=== PATIENT | male | born 1970 | race Caucasian/White ===

== ENCOUNTER → 2017-02-04 | Outpatient (CLI) | payer BC ==
[2017-02-04 12:33] LABS: ALT/SGPT 32 U/L (12-78); BLOOD UREA NITROGEN 11 mg/dl (7-18); BUN/CREATININE RATIO 10.8 (10-20); CALCIUM 9.2 mg/dl (8.5-10.1); CARBON DIOXIDE 27 mmol/L (21-32); CHLORIDE 105 mmol/L (98-107); CHOLESTEROL 131 mg/dl (0-200); GLUCOSE 231 mg/dl (70-99); POTASSIUM 4.4 mmol/L (3.5-5.1); SODIUM 139 mmol/L (136-145)
[2017-02-04 12:36] LABS: ALB/GLOB RATIO 0.9 (0.9-2); ALKALINE PHOSPHATASE 104 U/L (45-117); AST/SGOT 23 U/L (15-37); CHOLESTEROL/HDL RATIO 2.4; HDL CHOLESTEROL 55 mg/dl; LDL CHOLESTEROL CALCULATED 46 mg/dl; TRIGLYCERIDES 151 mg/dl (0-150); VERY LOW DENSITY LIPOPROT CALC 30 mg/dl
[2017-02-04 12:53] LABS: ESTIMATED AVERAGE GLUCOSE 192 mg/dl; HA1C FLAG Normal (Normal)
== END | disposition home or self-care (01) ==
LOC: C.LAB1850 11:07
PROVIDERS: ATTEND Family Medicine
DX: E78.00 Pure hypercholesterolemia, unspecified (principal); I10 Essential (primary) hypertension; E11.21 Type 2 diabetes mellitus with diabetic nephropathy; E11.65 Type 2 diabetes mellitus with hyperglycemia

== ENCOUNTER → 2017-05-19 | Outpatient (CLI) | payer BC ==
[2017-05-19 12:30] LABS: ALBUMIN 3.6 gm/dl (3.4-5.0); ALT/SGPT 54 U/L (12-78); AST/SGOT 45 U/L (15-37); BLOOD UREA NITROGEN 14 mg/dl (7-18); CALCIUM 8.7 mg/dl (8.5-10.1); CARBON DIOXIDE 24 mmol/L (21-32); CREATININE 1.48 mg/dl (0.60-1.40); GLUCOSE 276 mg/dl (70-99); POTASSIUM 3.9 mmol/L (3.5-5.1); SODIUM 135 mmol/L (136-145)
[2017-05-19 12:33] LABS: ALKALINE PHOSPHATASE 95 U/L (45-117); CHOLESTEROL 150 mg/dl (0-200); LDL CHOLESTEROL CALCULATED 62 mg/dl; TOTAL PROTEIN 7.9 gm/dl (6.4-8.2)
[2017-05-19 12:51] LABS: HEMOGLOBIN A1C 9.6 % (4.5-5.6)
== END | disposition home or self-care (01) ==
LOC: C.LAB1850 10:02
PROVIDERS: ATTEND Family Medicine
DX: E78.00 Pure hypercholesterolemia, unspecified (principal); I10 Essential (primary) hypertension; E11.29 Type 2 diabetes mellitus with other diabetic kidney complication

== ENCOUNTER → 2017-09-30 | Outpatient (CLI) | payer BC ==
[2017-09-30 12:01] LABS: HEMOGLOBIN A1C 8.9 % (4.5-5.6)
[2017-09-30 12:02] LABS: BLOOD UREA NITROGEN 13 mg/dl (7-18); CALCIUM 9.3 mg/dl (8.5-10.1); CARBON DIOXIDE 28 mmol/L (21-32); GLUCOSE 180 mg/dl (70-99); POTASSIUM 4.5 mmol/L (3.5-5.1); SODIUM 137 mmol/L (136-145)
== END | disposition home or self-care (01) ==
LOC: C.LAB1850 09:18
PROVIDERS: ATTEND Family Medicine
DX: E78.00 Pure hypercholesterolemia, unspecified (principal); I10 Essential (primary) hypertension; E11.21 Type 2 diabetes mellitus with diabetic nephropathy

== ENCOUNTER 2022-04-06 20:46 | Inpatient (IN) ==
[2022-04-06] MEDS ORDERED: CALCIUM CHLORIDE 10% 10 ML SYR IV ONE ×2 (20:56→20:57)
[2022-04-06] MEDS ORDERED: ATROPINE SULFATE 0.1 MG/ML 10ML SYR IV ONE (20:57)
[2022-04-06] MEDS ORDERED: RAPID SEQUENCE INDUCTION BAG ONE ×2 (21:00→21:17)
[2022-04-06] MEDS ORDERED: MIDAZOLAM HCL 1 MG/ML 2ML VIAL ONE ×2 (21:02→22:37)
[2022-04-06] MEDS ORDERED: SODIUM CHLORIDE 0.9% 1000ML 2,000 ML IV ONE (21:03)
[2022-04-06] MEDS ORDERED: SODIUM CHLORIDE 0.9% 1000ML 1,000 ML IV ONE (21:03)
[2022-04-06] MEDS ORDERED: NITROGLYCERIN/D5W 100MCG/ML 20ML SYR ONE (21:03)
[2022-04-06] MEDS ORDERED: niCARdipine HCL INJ 2.5 MG/ML 10 ML AMP ONE (21:03)
[2022-04-06] MEDS ORDERED: NovoLIN-R INSULIN PER UNIT CHARGE IV STA (21:03)
[2022-04-06] MEDS ORDERED: fentaNYL citrate 100 MCG/2 ML VIAL ONE ×2 (21:03→22:37)
[2022-04-06] MEDS ORDERED: HEPARIN (PORCINE) 1000 UNIT/ML 10 ML (CATH LAB USE ONLY) ONE ×2 (21:03→22:37)
[2022-04-06] MEDS ORDERED: SODIUM BICARB 8.4% INJ 50 MEQ/50 ML SYR IV STA (21:03)
[2022-04-06] MEDS ORDERED: ALBUTEROL 0.083% NEBU SOLN 3 ML VIAL NEB STA (21:03)
[2022-04-06] MEDS ORDERED: NovoLIN-R INSULIN PER UNIT CHARGE ONE (21:07)
--- NOTE | 2022-04-06 21:07 | Emergency Department Note ---
Impression & Plan Acute hypoxemic respiratory failure, DKA (diabetic ketoacidosis), Complete heart block, Acidosis, Acute hyperkalemia ED Provider Note NAME: SARAH RAMSEY AGE: 51 SEX: M : 1970 ARRIVES VIA: Ambulance INFORMANT: Patient, ED PROVIDER(S): Phani Zazueta MD Chief Complaint: Shortness of breath HPI: Patient presents due to concern for shortness of breath decreased responsiveness as well as bradycardia. He did receive an EMS call in route stating that the patient had had shortness of breath throughout the day when he arrived his heart rate was in the 30s he did down to the 20s became unresponsive and they started pacing the patient. BSG was unmeasurable and just read as high. No blood pressure is registering and they are unable to get a pulse ox at this time. Upon presentation to the room patient did have a slight improvement in his status. The patient is able to state his name. Patient is unable to answer any additional questions at this time. History is limited secondary to clinical acuity and condition. Patient does have a history of diabetes but EMS was not able to obtain any additional information. I did ask about whether patient had a history of dialysis or ESRD they stated they were not aware. ROS: Unable to obtain secondary to clinical condition Past medical history: See below Surgical history: See below Social history: See below Physical Exam: GENERAL: Significant distress, nonrebreather in place EYE EXAM: Normal conjunctiva. PERRL, no anisocoria. NECK: Supple, no nuchal rigidity, no adenopathy, non-tender. No signs of meningismus. No stridor. LUNGS: Decreased breath sounds throughout. Normal chest wall mechanics. HEART: NSR, no MRG. ABDOMEN: Abdomen soft, non-tender, normo-active bowel sounds, no masses, no rebound or guarding. SKIN: No rashes and no bruising. UPPER EXTREMITIES: No obvious deformity cool extremities LOWER EXTREMITIES: No obvious deformity. Cool extremities. NEURO EXAM: Awake, not following commands. Differential diagnoses: Sepsis, UTI, pneumonia, metabolic, electrolyte abnormalities, cardiac sources, intracerebral event, toxicologic, neurologic, as well as other pathologies. Course: Patient was seen and evaluated the bedside. Full history physical exam was performed. EKG interpreted by me Sinus bradycardia, rate of 38's, normal intervals normal axis no ST elevations. Imaging Studies: 1 view chest x-ray Intubated termination of ET tube 1.9 cm above the faiza. Pulmonary edema. No obvious pneumothorax Cardiac monitoring: An order was placed for continuous cardiac monitoring. The monitor shows a rate of 95 with paced rhythm. Procedures: Endotracheal Intubation performed Dr. Zazueta Indication: Hypoxemic respiratory failure. The patient was on 100% oxygen via NRB prior to the procedure. Suction, airway equipment, RSI drugs, respiratory equipment, and appropriate personnel were prepared prior to the initiation of the procedure. A time out was taken. Induction was performed with 30 mg of etomidate 100 mg of rocuronium. After observing the clinical benefit of the medications, the airway was easily visualized utilizing a video laryngoscope. A 7.5 size ETT tube was placed atraumatically to 24 cm using standard technique. The cuff inflated without signs of malfunction. There were bilateral breath sounds, positive colormetric change, no gastric sounds, a good capnography waveform, and post procedure pulse oximetry was 92%. Post intubation sedation and pain control was administered using propofol and fentanyl. There were no complications. Central Venous Catheter performed Dr. Zazueta Indication: Facilitation of medication administration and blood draws Catheter type: 3 lm central line Location: Left groin Verbal consent was obtained after the risks and benefits were explained, including but not limited to pneumothorax, hemothorax, vessel injury, bleeding, scarring, infection, pain, and bone/joint/nerve damage. At this time, the risks of the procedure are less than the risks of NOT performing the procedure. A time out was taken and the correct patient and site identified. The patient was placed in the position and the skin was prepped in the standard fashion with chlorhexidine and full sterile drapes applied. The proper landmarks were id entified with ultrasound, anesthetized with 1% lidocaine without epinephrine, and the needle was inserted through the skin in the standard fashion. The needle was carefully advanced into blood vessel lumen under ultrasound guidance. The guidewire was placed uneventfully. The vessel is dilated and the catheter was placed. It was sutured into position. There was good blood return from all ports. The patient tolerated the procedure well and there were no complications. Post procedure x-ray was normal. Procedure: Transcutaneous Pacing Performed by:Dr. Zazueta Indication: Complete Heartblock Pacemaker pads were placed over the appropriate areas of the chest. Pacemaker mode was set patient's rate was set to 90. Current was increased until capture. Patient was actively paced. MDM: Patient was seen due to concern for shortness of breath and bradycardia actively being paced. A heart alert was called upon presentation. Blood work was obtained I did ask for a stat [id number] BMP to check the patient's potassium given his history of diabetes. Patient also had additional empiric blood work ordered by Dr. Hanson to help facilitate the patient's treatment while I was evaluating the patient. Patient's klaja-[id number] BMP showed the patient had an elevated blood glucose of 569 with a potassium of 7.4 bicarb of 14 and a creatinine of 3.2. Patient was to be given bicarb calcium, IV insulin, and albuterol. Patient was evaluated by the reactor fueling supervisor Dr. Lancaster. I discussed that this may be a reversible cause of complete heart block. Jalen hankins was ordered IV fluids and additional medications at this time. The patient was ordered repeat BMP and BSG's. I did speak with on-call nephrology Dr. Villalta who agreed that the patient would benefit from bicarbonate 150 mill equivalents 1 L of half-normal saline to be given I did call pharmacy to help facilitate starting a bicarb drip. Insulin drip was also ordered as the patient is in DKA. Patient's repeat BMP showed that his potassium was improving to 6 and that his bicarb improved as well. While evaluating the patient in the room the patient did have increased respiratory distress and agonal breathing so the patient did have [id number] applied. The patient did receive etomidate and rocuronium. Patient was intubated. Tube was being secured and the patient did have bilateral breath sounds. Dr. Lancaster was concerned that the patient no longer had a pulse of chest compressions were initiated and a CODE BLUE was called. The patient was given epinephrine, bicarb, more calcium. Patient was continued for 2 rounds of CPR and the patient had ROSC. I did ask respiratory to ensure that his rate was increased as the patient is significantly acidotic. Dipper Van and fentanyl ordered for sedation and pain control. Cardiology pause the patient's pacemaker and the patient seemed to have intrinsic function. He did not think the patient needed to go to the Physician Interventional Cardiologist at this time for transvenous pacemaker. Patient did have a central line placed emergently but under sterile conditions. This was placed under ultrasound guidance. Patient had a subsequent recurrence of losing a pulse and a CODE BLUE was called again. The patient was given epinephrine bicarb and calcium. Patient was also given additional 10 of albuterol. After 1 round of compressions the patient did have ROSC. I did speak with the On-Call Cassandra Developer Britney Kimball PA-C as well as Dr. Christopher with the medicine service. Dr. Christopher did call Dr. Lancaster back in order to help facilitate transvenous pacemaker. Patient did have a repeat BMP completed. Patient also had a VBG completed. The patient's most recent [id number] BMP showed his potassium of 5.1 with an improving bicarb. The patient's creatinine was 2.8. Patient's repeat VBG which was initially less than 7 and not measurable with a PCO2 of 55 did show a pH of 7.05. I did speak with the patient's and explained that the patient's condition was critical and guarded. Patient was subsequently taken to the Physician Interventional Cardiologist for transvenous and his pacemaker. Critical Care: I have personally spent 120 minutes of critical care time in direct management of this patient. This includes bedside care, interpretation of diagnostic studies, and testing, discussion with consultants, patient, and family members, and other require inpatient management activities. This 120 minutes is in excess of all separately billable procedures. Past Med/Surg History Medical History Asthma Depression Diabetes mellitus, type 2 GERD (gastroesophageal reflux disease) Hypercholesterolemia Hypertension, benign essential, goal below 140/90 Itch Nephropathy Peripheral neuropathy Temporomandibular joint disorder mild, no bite block Surgical History History of wisdom tooth extraction Family History Father Diabetes Other No family history of adverse response to anesthesia Denies family history of Ovarian cancer Prostate cancer Myocardial infarction Breast cancer Colorectal cancer Social History Smoking Status: Unknown if ever smoked Second Hand Exposure: No; Hx Alcohol Use: Yes Alcohol type: hard liquor Hx Substance Use: No Preferred Language: Egyptian Communication Ability: Effective Process Cheese Cooker Required: No Beliefs That Will Affect Care: None marital status: Current Living Situation: Spouse and Family Current Living Situation Comment: Lives with spouse and son. 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 Feels Safe at Home: Yes Assistive Devices: Contacts and Glasses Allergies Allergies Allergy/AdvReac Type Severity Reaction Status Date / Time Penicillins Allergy Intermediate Hives Verified 04/06/22 20:56 pioglitazone [From Actos] Allergy Unknown CAN'T Verified 04/06/22 20:56 REMEMBER REACTION Home Meds Home Medications Medication Instructions Recorded Confirmed blood sugar diagnostic (OneTouch #10 ea 09/24/18 12/17/21 Ultra Blue Test Strip) insulin glargine U-300 conc 300 48 unit subcut BID 12/17/21 04/06/22 unit/mL (3 mL) subcutaneous pen (Toujeo Max U-300 SoloStar) Previous Rx's Medication Instructions Recorded diltiazem HCl 300 mg 300 mg PO QPM #90 caps 05/29/21 capsule,extended release 24 hr sildenafil 100 mg tablet See Rx Instructions PO ONCE PRN 06/07/21 sexual activity #30 tabs metformin 1,000 mg tablet 1,000 mg PO BID #180 tabs 07/11/21 metoprolol succinate 25 mg 25 mg PO BID #180 tabs 07/30/21 tablet,extended release 24 hr valsartan 320 mg tablet 320 mg PO QPM #90 tabs 08/14/21 insulin aspart U-100 100 unit/mL 40 unit (0.4 mL) subcut TID #45 mL 11/07/21 (3 mL) subcutaneous pen (Novolog Flexpen U-100 Insulin aspart) bupropion HCl 300 mg 24 hr tablet, 300 mg PO QAM #90 tabs 12/23/21 extended release omeprazole 20 mg capsule,delayed 20 mg PO BID #180 caps 01/27/22 release simvastatin 40 mg tablet 40 mg PO HS #90 tabs 01/28/22 gabapentin 300 mg capsule 300 mg PO BID #180 caps 03/07/22 Results & Data (ED) Vital Signs Vital Signs - 24 hr 04/06/22 20:48 04/06/22 20:48 04/06/22 21:00 Pulse Rate 90 90 Pulse Rate from SpO2 Sensor 90 Respiratory Rate 27 H 30 H Respiratory Effort / Characteristics Spontaneous Spontaneous Labored Respiratory Depth Deep Deep Blood Pressure 98/20 L Blood Pressure Mean 46 Pulse Oximetry 90 90 Oxygen Delivery Method Non-rebreather Non-rebreather Non-rebreather Oxygen Flow Rate 15 15 15 Fraction of Inspired Oxygen Sepsis New/Unexplained Change in Mental Status N/A Sepsis Action Taken by Nursing No Action Required End-Tidal CO2 04/06/22 21:05 04/06/22 21:10 04/06/22 21:15 Pulse Rate 89 70 86 Pulse Rate from SpO2 Sensor 90 77 89 Respiratory Rate 30 H 22 20 Respiratory Effort / Characteristics Respiratory Depth Blood Pressure 194/55 H 255/71 H Blood Pressure Mean 101 132 Pulse Oximetry 89 L 89 L 87 L Oxygen Delivery Method Non-rebreather Non-rebreather Non-rebreather Oxygen Flow Rate 15 15 15 Fraction of Inspired Oxygen Sepsis New/Unexplained Change in Mental Status Sepsis Action Taken by Nursing End-Tidal CO2 04/06/22 21:16 04/06/22 21:20 04/06/22 21:23 Pulse Rate 78 98 H 84 Pulse Rate from SpO2 Sensor 91 H 95 H Respiratory Rate 19 46 H 22 Respiratory Effort / Characteristics Respiratory Depth Blood Pressure 83/45 L 102/76 206/111 H Blood Pressure Mean 57 84 142 Pulse Oximetry 88 L 75 L 93 Oxygen Delivery Method Non-rebreather Non-rebreather Mechanical Vent Oxygen Flow Rate 15 15 Fraction of Inspired Oxygen Sepsis New/Unexplained Change in Mental Status Sepsis Action Taken by Nursing End-Tidal CO2 04/06/22 21:24 04/06/22 21:25 04/06/22 21:18 Pulse Rate 90 83 96 H Pulse Rate from SpO2 Sensor 97 H 98 H Respiratory Rate 18 21 27 H Respiratory Effort / Characteristics Respiratory Depth Blood Pressure 228/122 H 203/165 H Blood Pressure Mean 157 177 Pulse Oximetry 95 95 94 Oxygen Delivery Method Mechanical Vent Mechanical Vent Oxygen Flow Rate Fraction of Inspired Oxygen 100 Sepsis New/Unexplained Change in Mental Status Sepsis Action Taken by Nursing End-Tidal CO2 36 04/06/22 21:30 04/06/22 21:35 04/06/22 21:45 Pulse Rate 93 H 86 Pulse Rate from SpO2 Sensor 93 H 86 Respiratory Rate 26 H 26 H Respiratory Effort / Characteristics Respiratory Depth Blood Pressure 195/94 H 162/81 H 139/69 Blood Pressure Mean 127 108 92 Pulse Oximetry 96 95 Oxygen Delivery Method Mechanical Vent Oxygen Flow Rate Fraction of Inspired Oxygen Sepsis New/Unexplained Change in Mental Status Sepsis Action Taken by Nursing End-Tidal CO2 43 37 04/06/22 21:50 04/06/22 21:55 04/06/22 22:00 Pulse Rate 71 67 48 L Pulse Rate from SpO2 Sensor 71 67 46 L Respiratory Rate 26 H 26 H 26 H Respiratory Effort / Characteristics Respiratory Depth Blood Pressure 135/69 126/62 Blood Pressure Mean 91 83 Pulse Oximetry 93 94 92 Oxygen Delivery Method Mechanical Vent Mechanical Vent Mechanical Vent Oxygen Flow Rate Fraction of Inspired Oxygen Sepsis New/Unexplained Change in Mental Status Sepsis Action Taken by Nursing End-Tidal CO2 38 32 30 04/06/22 22:01 04/06/22 22:06 04/06/22 22:13 Pulse Rate 31 L 70 90 Pulse Rate from SpO2 Sensor 32 L 55 L 96 H Respiratory Rate 26 H 26 H 17 Respiratory Effort / Characteristics Respiratory Depth Blood Pressure 87/47 L 43/23 L 210/105 H Blood Pressure Mean 60 29 140 Pulse Oximetry 92 82 L 90 Oxygen Delivery Method Mechanical Vent Mechanical Vent Mechanical Vent Oxygen Flow Rate Fraction of Inspired Oxygen Sepsis New/Unexplained Change in Mental Status Sepsis Action Taken by Nursing End-Tidal CO2 31 25 49 04/06/22 22:15 04/06/22 22:20 04/06/22 22:25 Pulse Rate 90 90 90 Pulse Rate from SpO2 Sensor 98 H 91 H 87 Respiratory Rate 26 H 26 H 26 H Respiratory Effort / Characteristics Respiratory Depth Blood Pressure 199/100 H 168/80 H 148/72 H Blood Pressure Mean 133 109 97 Pulse Oximetry 87 L 88 L 87 L Oxygen Delivery Method Mechanical Vent Mechanical Vent Mechanical Vent Oxygen Flow Rate 100 Fraction of Inspired Oxygen Sepsis New/Unexplained Change in Mental Status Sepsis Action Taken by Nursing End-Tidal CO2 33 36 35 04/06/22 22:30 04/06/22 22:35 04/06/22 22:35 Pulse Rate 89 90 Pulse Rate from SpO2 Sensor 83 78 Respiratory Rate 26 H 30 H Respiratory Effort / Characteristics Respiratory Depth Blood Pressure 133/65 123/57 L 123/57 L Blood Pressure Mean 87 79 79 Pulse Oximetry 86 L 85 L Oxygen Delivery Method Mechanical Vent Mechanical Vent Oxygen Flow Rate 100 100 Fraction of Inspired Oxygen Sepsis New/Unexplained Change in Mental Status Sepsis Action Taken by Nursing End-Tidal CO2 35 30 04/06/22 22:40 Pulse Rate 107 H Pulse Rate from SpO2 Sensor 74 Respiratory Rate 30 H Respiratory Effort / Characteristics Respiratory Depth Blood Pressure 124/59 L Blood Pressure Mean 80 Pulse Oximetry 90 Oxygen Delivery Method Mechanical Vent Oxygen Flow Rate 100 Fraction of Inspired Oxygen Sepsis New/Unexplained Change in Mental Status Sepsis Action Taken by Nursing End-Tidal CO2 28 Home Medications Current Medication List: was personally reviewed by me Laboratory Data Attestation: I reviewed the patient's lab results. Result diagrams: 04/06/22 21:03 04/06/22 21:03 Lab Results 04/06/22 04/06/22 04/06/22 Range/Units 20:53 21:01 21:03 WBC 13.95 H (4.8-10.8) K/ul RBC 3.92 L (4.63-6.08) M/uL Hgb 10.7 L (14.0-18.0) g/dl POC Hgb 12.9 L (14.0-18.0) g/dl Hct 35.8 L (40.1-51.0) % POC Hct 38 L (42-52) % MCV 91.3 (80.0-100.0) fL MCH 27.3 (25.0-34.0) pg MCHC 29.9 L (32.0-36.0) g/dL RDW Std Deviation 53.1 H (36.4-46.3) fL RDW Coeff of Lissett 15.9 H (11.5-14.5) % Plt Count 327 (130-400) K/uL MPV 9.7 (9.4-12.4) fL Immature Gran % (Auto) 2.2 % Neut % (Auto) 70.8 % Lymph % (Auto) 18.1 % Banner % (Auto) 8.2 % Eos % (Auto) 0.3 % Baso % (Auto) 0.4 % Neut # (Auto) 9.87 H (1.4-6.5) K/uL Lymph # (Auto) 2.53 (1.2-3.4) K/uL Banner # (Auto) 1.15 H (0.24-0.82) K/uL Eos # (Auto) 0.04 (0-0.50) K/uL Baso # (Auto) 0.06 (0-0.2) K/uL Immature Gran # (Auto) 0.30 H (0.00-0.02) K/uL PT (9.0-12.0) Seconds INR (0.9-1.1) APTT (21.0-31.0) Seconds PTT Ratio POC pH (7.35-7.45) POC pCO2 (35-46) mmHg POC pO2 (80-95) mmHg POC HCO3 (19-24) hayde/L POC Base Excess (-9-1.8) hayde/L POC ABG O2 Sat (90-95) % VBG pH (7.36-7.41) VBG pCO2 (38-50) mmHg VBG pO2 mmHg VBG HCO3 mmol/L VBG O2 Saturation % VBG Base Excess mEq/L POC Sodium 122 L (135-144) mmol/L Sodium (136-145) mmol/L POC Potassium 7.4 H* (3.3-5.0) mmol/L Potassium (3.5-5.1) mmol/L POC Chloride 94 L (101-112) mmol/L Chloride (98-107) mmol/L Carbon Dioxide (21-32) mmol/L POC Total CO2 14 L (24-31) mmol/L Anion Gap (3-11) POC Anion Gap 23.0 (16-25) mmol/L POC BUN 18 (7-18) mg/dl BUN (6-23) mg/dl Creatinine (0.6-1.4) mg/dl POC Creatinine 3.2 H (0.6-1.3) mg/dl Est Cr Clr Drug Dosing Est GFR ( Amer) ml/min Est GFR (Non-Af Amer) ml/min BUN/Creatinine Ratio (10-20) Glucose (70-99(Fasting)) mg/dl POC Glucose 516 H* (70-99) mg/dl POC Glucose (other) 569 H* (70-99) mg/dl Calcium (8.5-10.1) mg/dl POC Ioniz Calcium Shirley 1.06 L (1.12-1.32) mmol/l Phosphorus (2.5-4.9) mg/dl Magnesium (1.7-2.4) mg/dl Total Bilirubin (0.2-1.0) mg/dl AST (13-39) U/L ALT (7-52) U/L Alkaline Phosphatase (34-104) U/L Troponin I High Sens (0-20) pg/ml Total Protein (6.0-8.3) gm/dl Albumin (3.4-5.0) gm/dl Globulin (2.5-4.0) gm/dl Albumin/Globulin Ratio (0.9-2) Lipase (11-82) U/L TSH (0.300-4.500) uIu/ml Lyme Disease IgG Ab (Negative) Lyme Disease IgM Ab (Negative) SARS-CoV-2, RNA, NAAT (NEGATIVE) 04/06/22 04/06/22 04/06/22 Range/Units 21:03 21:03 21:03 WBC (4.8-10.8) K/ul RBC (4.63-6.08) M/uL Hgb (14.0-18.0) g/dl POC Hgb (14.0-18.0) g/dl Hct (40.1-51.0) % POC Hct (42-52) % MCV (80.0-100.0) fL MCH (25.0-34.0) pg MCHC (32.0-36.0) g/dL RDW Std Deviation (36.4-46.3) fL RDW Coeff of Lissett (11.5-14.5) % Plt Count (130-400) K/uL MPV (9.4-12.4) fL Immature Gran % (Auto) % Neut % (Auto) % Lymph % (Auto) % Banner % (Auto) % Eos % (Auto) % Baso % (Auto) % Neut # (Auto) (1.4-6.5) K/uL Lymph # (Auto) (1.2-3.4) K/uL Banner # (Auto) (0.24-0.82) K/uL Eos # (Auto) (0-0.50) K/uL Baso # (Auto) (0-0.2) K/uL Immature Gran # (Auto) (0.00-0.02) K/uL PT 13.0 H (9.0-12.0) Seconds INR 1.2 H (0.9-1.1) APTT 32.8 H (21.0-31.0) Seconds PTT Ratio 1.2 POC pH (7.35-7.45) POC pCO2 (35-46) mmHg POC pO2 (80-95) mmHg POC HCO3 (19-24) hayde/L POC Base Excess (-9-1.8) hayde/L POC ABG O2 Sat (90-95) % VBG pH (7.36-7.41) VBG pCO2 (38-50) mmHg VBG pO2 mmHg VBG HCO3 mmol/L VBG O2 Saturation % VBG Base Excess mEq/L POC Sodium (135-144) mmol/L Sodium 120 L (136-145) mmol/L POC Potassium (3.3-5.0) mmol/L Potassium 7.5 H* (3.5-5.1) mmol/L POC Chloride (101-112) mmol/L Chloride 88 L (98-107) mmol/L Carbon Dioxide 11 L (21-32) mmol/L POC Total CO2 (24-31) mmol/L Anion Gap 21 H (3-11) POC Anion Gap (16-25) mmol/L POC BUN (7-18) mg/dl BUN 18 (6-23) mg/dl Creatinine 2.95 H (0.6-1.4) mg/dl POC Creatinine (0.6-1.3) mg/dl Est Cr Clr Drug Dosing Not Reportable Est GFR ( Amer) 27.0 ml/min Est GFR (Non-Af Amer) 23.3 ml/min BUN/Creatinine Ratio 6.1 L (10-20) Glucose 564 H* (70-99(Fasting)) mg/dl POC Glucose (70-99) mg/dl POC Glucose (other) (70-99) mg/dl Calcium 8.3 L (8.5-10.1) mg/dl POC Ioniz Calcium Shirley (1.12-1.32) mmol/l Phosphorus 7.1 H (2.5-4.9) mg/dl Magnesium 1.7 (1.7-2.4) mg/dl Total Bilirubin 0.8 (0.2-1.0) mg/dl AST 36 (13-39) U/L ALT 22 (7-52) U/L Alkaline Phosphatase 102 (34-104) U/L Troponin I High Sens 7.7 (0-20) pg/ml Total Protein 7.2 (6.0-8.3) gm/dl Albumin 3.7 (3.4-5.0) gm/dl Globulin 3.5 (2.5-4.0) gm/dl Albumin/Globulin Ratio 1.1 (0.9-2) Lipase 29 (11-82) U/L TSH 4.436 (0.300-4.500) uIu/ml Lyme Disease IgG Ab (Negative) Lyme Disease IgM Ab (Negative) SARS-CoV-2, RNA, NAAT (NEGATIVE) 04/06/22 04/06/22 04/06/22 Range/Units 21:03 21:03 21:07 WBC (4.8-10.8) K/ul RBC (4.63-6.08) M/uL Hgb (14.0-18.0) g/dl POC Hgb (14.0-18.0) g/dl Hct (40.1-51.0) % POC Hct (42-52) % MCV (80.0-100.0) fL MCH (25.0-34.0) pg MCHC (32.0-36.0) g/dL RDW Std Deviation (36.4-46.3) fL RDW Coeff of Lissett (11.5-14.5) % Plt Count (130-400) K/uL MPV (9.4-12.4) fL Immature Gran % (Auto) % Neut % (Auto) % Lymph % (Auto) % Banner % (Auto) % Eos % (Auto) % Baso % (Auto) % Neut # (Auto) (1.4-6.5) K/uL Lymph # (Auto) (1.2-3.4) K/uL Banner # (Auto) (0.24-0.82) K/uL Eos # (Auto) (0-0.50) K/uL Baso # (Auto) (0-0.2) K/uL Immature Gran # (Auto) (0.00-0.02) K/uL PT (9.0-12.0) Seconds INR (0.9-1.1) APTT (21.0-31.0) Seconds PTT Ratio POC pH (7.35-7.45) POC pCO2 (35-46) mmHg POC pO2 (80-95) mmHg POC HCO3 (19-24) hayde/L POC Base Excess (-9-1.8) hayde/L POC ABG O2 Sat (90-95) % VBG pH < 7.00 L (7.36-7.41) VBG pCO2 55 H (38-50) mmHg VBG pO2 63 mmHg VBG HCO3 11 mmol/L VBG O2 Saturation 82.4 % VBG Base Excess -21.5 mEq/L POC Sodium (135-144) mmol/L Sodium (136-145) mmol/L POC Potassium (3.3-5.0) mmol/L Potassium (3.5-5.1) mmol/L POC Chloride (101-112) mmol/L Chloride (98-107) mmol/L Carbon Dioxide (21-32) mmol/L POC Total CO2 (24-31) mmol/L Anion Gap (3-11) POC Anion Gap (16-25) mmol/L POC BUN (7-18) mg/dl BUN (6-23) mg/dl Creatinine (0.6-1.4) mg/dl POC Creatinine (0.6-1.3) mg/dl Est Cr Clr Drug Dosing Est GFR ( Amer) ml/min Est GFR (Non-Af Amer) ml/min BUN/Creatinine Ratio (10-20) Glucose (70-99(Fasting)) mg/dl POC Glucose (70-99) mg/dl POC Glucose (other) (70-99) mg/dl Calcium (8.5-10.1) mg/dl POC Ioniz Calcium Shirley (1.12-1.32) mmol/l Phosphorus (2.5-4.9) mg/dl Magnesium (1.7-2.4) mg/dl Total Bilirubin (0.2-1.0) mg/dl AST (13-39) U/L ALT (7-52) U/L Alkaline Phosphatase (34-104) U/L Troponin I High Sens (0-20) pg/ml Total Protein (6.0-8.3) gm/dl Albumin (3.4-5.0) gm/dl Globulin (2.5-4.0) gm/dl Albumin/Globulin Ratio (0.9-2) Lipase (11-82) U/L TSH (0.300-4.500) uIu/ml Lyme Disease IgG Ab Negative (Negative) Lyme Disease IgM Ab Negative (Negative) SARS-CoV-2, RNA, NAAT NEGATIVE (NEGATIVE) 04/06/22 04/06/22 04/06/22 Range/Units 21:33 22:14 22:20 WBC (4.8-10.8) K/ul RBC (4.63-6.08) M/uL Hgb (14.0-18.0) g/dl POC Hgb 11.2 L (14.0-18.0) g/dl Hct (40.1-51.0) % POC Hct 33 L (42-52) % MCV (80.0-100.0) fL MCH (25.0-34.0) pg MCHC (32.0-36.0) g/dL RDW Std Deviation (36.4-46.3) fL RDW Coeff of Lissett (11.5-14.5) % Plt Count (130-400) K/uL MPV (9.4-12.4) fL Immature Gran % (Auto) % Neut % (Auto) % Lymph % (Auto) % Banner % (Auto) % Eos % (Auto) % Baso % (Auto) % Neut # (Auto) (1.4-6.5) K/uL Lymph # (Auto) (1.2-3.4) K/uL Banner # (Auto) (0.24-0.82) K/uL Eos # (Auto) (0-0.50) K/uL Baso # (Auto) (0-0.2) K/uL Immature Gran # (Auto) (0.00-0.02) K/uL PT (9.0-12.0) Seconds INR (0.9-1.1) APTT (21.0-31.0) Seconds PTT Ratio POC pH (7.35-7.45) POC pCO2 (35-46) mmHg POC pO2 (80-95) mmHg POC HCO3 (19-24) hayde/L POC Base Excess (-9-1.8) hayde/L POC ABG O2 Sat (90-95) % VBG pH 7.05 L (7.36-7.41) VBG pCO2 62 H (38-50) mmHg VBG pO2 72 mmHg VBG HCO3 17 mmol/L VBG O2 Saturation 89.7 % VBG Base Excess -13.8 mEq/L POC Sodium 129 L (135-144) mmol/L Sodium (136-145) mmol/L POC Potassium 6.0 H (3.3-5.0) mmol/L Potassium (3.5-5.1) mmol/L POC Chloride 91 L (101-112) mmol/L Chloride (98-107) mmol/L Carbon Dioxide (21-32) mmol/L POC Total CO2 23 L (24-31) mmol/L Anion Gap (3-11) POC Anion Gap 21.0 (16-25) mmol/L POC BUN 19 H (7-18) mg/dl BUN (6-23) mg/dl Creatinine (0.6-1.4) mg/dl POC Creatinine 2.8 H (0.6-1.3) mg/dl Est Cr Clr Drug Dosing Est GFR ( Amer) ml/min Est GFR (Non-Af Amer) ml/min BUN/Creatinine Ratio (10-20) Glucose (70-99(Fasting)) mg/dl POC Glucose 434 H* (70-99) mg/dl POC Glucose (other) 494 H* (70-99) mg/dl Calcium (8.5-10.1) mg/dl POC Ioniz Calcium Shirley 1.71 H* (1.12-1.32) mmol/l Phosphorus (2.5-4.9) mg/dl Magnesium (1.7-2.4) mg/dl Total Bilirubin (0.2-1.0) mg/dl AST (13-39) U/L ALT (7-52) U/L Alkaline Phosphatase (34-104) U/L Troponin I High Sens (0-20) pg/ml Total Protein (6.0-8.3) gm/dl Albumin (3.4-5.0) gm/dl Globulin (2.5-4.0) gm/dl Albumin/Globulin Ratio (0.9-2) Lipase (11-82) U/L TSH (0.300-4.500) uIu/ml Lyme Disease IgG Ab (Negative) Lyme Disease IgM Ab (Negative) SARS-CoV-2, RNA, NAAT (NEGATIVE) 04/06/22 04/06/22 Range/Units 22:20 22:33 WBC (4.8-10.8) K/ul RBC (4.63-6.08) M/uL Hgb (14.0-18.0) g/dl POC Hgb 10.9 L 10.9 L (14.0-18.0) g/dl Hct (40.1-51.0) % POC Hct 32 L 32 L (42-52) % MCV (80.0-100.0) fL MCH (25.0-34.0) pg MCHC (32.0-36.0) g/dL RDW Std Deviation (36.4-46.3) fL RDW Coeff of Lissett (11.5-14.5) % Plt Count (130-400) K/uL MPV (9.4-12.4) fL Immature Gran % (Auto) % Neut % (Auto) % Lymph % (Auto) % Banner % (Auto) % Eos % (Auto) % Baso % (Auto) % Neut # (Auto) (1.4-6.5) K/uL Lymph # (Auto) (1.2-3.4) K/uL Banner # (Auto) (0.24-0.82) K/uL Eos # (Auto) (0-0.50) K/uL Baso # (Auto) (0-0.2) K/uL Immature Gran # (Auto) (0.00-0.02) K/uL PT (9.0-12.0) Seconds INR (0.9-1.1) APTT (21.0-31.0) Seconds PTT Ratio POC pH 7.14 L* (7.35-7.45) POC pCO2 60 H (35-46) mmHg POC pO2 69 L (80-95) mmHg POC HCO3 21 (19-24) hayde/L POC Base Excess -8.0 (-9-1.8) hayde/L POC ABG O2 Sat 87.0 L (90-95) % VBG pH (7.36-7.41) VBG pCO2 (38-50) mmHg VBG pO2 mmHg VBG HCO3 mmol/L VBG O2 Saturation % VBG Base Excess mEq/L POC Sodium 131 L 133 L (135-144) mmol/L Sodium (136-145) mmol/L POC Potassium 5.1 H 4.7 (3.3-5.0) mmol/L Potassium (3.5-5.1) mmol/L POC Chloride 93 L (101-112) mmol/L Chloride (98-107) mmol/L Carbon Dioxide (21-32) mmol/L POC Total CO2 21 L 22 L (24-31) mmol/L Anion Gap (3-11) POC Anion Gap 24.0 (16-25) mmol/L POC BUN 18 (7-18) mg/dl BUN (6-23) mg/dl Creatinine (0.6-1.4) mg/dl POC Creatinine 2.8 H (0.6-1.3) mg/dl Est Cr Clr Drug Dosing Est GFR ( Amer) ml/min Est GFR (Non-Af Amer) ml/min BUN/Creatinine Ratio (10-20) Glucose (70-99(Fasting)) mg/dl POC Glucose (70-99) mg/dl POC Glucose (other) 450 H* (70-99) mg/dl Calcium (8.5-10.1) mg/dl POC Ioniz Calcium Shirley 1.66 H* (1.12-1.32) mmol/l Phosphorus (2.5-4.9) mg/dl Magnesium (1.7-2.4) mg/dl Total Bilirubin (0.2-1.0) mg/dl AST (13-39) U/L ALT (7-52) U/L Alkaline Phosphatase (34-104) U/L Troponin I High Sens (0-20) pg/ml Total Protein (6.0-8.3) gm/dl Albumin (3.4-5.0) gm/dl Globulin (2.5-4.0) gm/dl Albumin/Globulin Ratio (0.9-2) Lipase (11-82) U/L TSH (0.300-4.500) uIu/ml Lyme Disease IgG Ab (Negative) Lyme Disease IgM Ab (Negative) SARS-CoV-2, RNA, NAAT (NEGATIVE) Administered Medications Sodium Chloride (Nss 1000ml) 2,000 mls @ 999 mls/hr IV .Q2H1M ONE Stop: 04/06/22 23:03 Last Admin: 04/06/22 21:13 Dose: 999 mls/hr Documented By: ELIZABETH Sodium Bicarbonate 150 meq/ (Sterile Water) 1,150 mls @ 150 mls/hr IV .Q7H40M JOEL Stop: 05/06/22 21:14 Last Infusion: 04/06/22 22:35 Dose: 200 mls/hr Documented By: Infusion: 04/06/22 22:06 Dose: 150 mls/hr Documented By: Infusion: 04/06/22 22:06 Dose: 0 mls/hr Documented By: Admin: 04/06/22 21:34 Dose: 150 mls/hr Documented By: ELIZABETH Insulin Human Regular 250 (units/ Sodium Chloride) 250 mls @ 10 mls/hr IV .Q24H [facility]; Protocol Stop: 05/06/22 21:29 Last Admin: 04/06/22 21:54 Dose: 10 units/hr, 10 mls/hr Documented By: ELIZABETH Co-signed By: MARINA Propofol (Diprivan) 1,000 mg in 100 mls @ 13.62 mls/hr IV .Q7H21M [facility]; Protocol Stop: 04/09/22 21:59 Last Titration: 04/06/22 22:07 Dose: 0 mcg/kg/min, 0 mls/hr Documented By: Admin: 04/06/22 21:56 Dose: 5 mcg/kg/min, 3.4 mls/hr Documented By: ELIZABETH Co-signed By: NICHELLE Discontinued Medications Albuterol (Albuterol 0.083% Nebu Soln 3 Ml Vial) 10 mg NEB NOW STA; Protocol Stop: 04/06/22 21:04 Last Admin: 04/06/22 21:20 Dose: 10 mg Documented By: ELIZABETH Atropine Sulfate (Atropine Sulfate 0.1 Mg/Ml 10ml Syr) Confirm Administered Dose 1 mg IV .STK-MED ONE Stop: 04/06/22 20:58 Last Admin: 04/06/22 20:56 Dose: 1 mg Documented By: ELIZABETH Calcium Chloride (Calcium Chloride 10% 10 Ml Syr) Confirm Administered Dose 1,000 mg IV .STK-MED ONE Stop: 04/06/22 20:57 Last Admin: 04/06/22 20:57 Dose: 1,000 mg Documented By: ELIZABETH Calcium Chloride (Calcium Chloride 10% 10 Ml Syr) Confirm Administered Dose 1,000 mg IV .STK-MED ONE Stop: 04/06/22 20:58 Last Admin: 04/06/22 20:57 Dose: 1,000 mg Documented By: ELIZABETH Fentanyl Citrate (Fentanyl Citrate 100 Mcg/2 Ml Vial) Confirm Administered Dose 100 mcg .ROUTE .STK-MED ONE Stop: 04/06/22 21:04 Last Admin: 04/06/22 21:39 Dose: Not Given Documented By: ELIZABETH Heparin Sodium (Porcine) (Heparin (Porcine) 1000 Unit/Ml 10 Ml (Physician Interventional Cardiologist Use Only)) Confirm Administered Dose 10,000 units .ROUTE .STK-MED ONE Stop: 04/06/22 21:04 Last Admin: 04/06/22 21:39 Dose: Not Given Documented By: ELIZABETH Heparin Sodium/Sodium Chloride (Heparin In Nss Infusion 1000 Unit/500 Ml (2 U/Ml) Bag) Confirm Administered Dose 3,000 units IV .STK-MED ONE Stop: 04/06/22 21:04 Last Admin: 04/06/22 21:39 Dose: Not Given Documented By: ELIZABETH Sodium Chloride (Nss 1000ml) 1,000 mls @ 999 mls/hr IV .Q1H1M ONE Stop: 04/06/22 22:03 Last Admin: 04/06/22 21:40 Dose: Not Given Documented By: ELIZABETH Cefepime HCl (Maxipime) 2,000 mg in 20 mls @ 5 mls/min IV NOW STA; Protocol Stop: 04/06/22 21:49 Last Admin: 04/06/22 21:55 Dose: 5 mls/min Documented By: ELIZABETH Insulin Human Regular (Novolin-R Insulin Per Unit Charge) 10 units IV NOW STA Stop: 04/06/22 21:04 Last Admin: 04/06/22 21:00 Dose: 10 units Documented By: ELIZABETH Co-signed By: Insulin Human Regular (Novolin-R Insulin Per Unit Charge) Confirm Administered Dose 10 units .ROUTE .STK-MED ONE Stop: 04/06/22 21:08 Last Admin: 04/06/22 21:23 Dose: Not Given Documented By: ELIZABETH Insulin Human Regular (Novolin-R Bolus From Bag) 10 units IV ONE ONE Stop: 04/06/22 21:31 Last Admin: 04/06/22 21:53 Dose: Not Given Documented By: ELIZABETH Midazolam HCl (Midazolam Hcl 1 Mg/Ml 2ml Vial) Confirm Administered Dose 2 mg .ROUTE .STK-MED ONE Stop: 04/06/22 21:03 Last Admin: 04/06/22 21:39 Dose: Not Given Documented By: ELIZABETH Miscellaneous (Rapid Sequence Induction Bag) Confirm Administered Dose 1 each .ROUTE .STK-MED ONE Stop: 04/06/22 21:01 Last Admin: 04/06/22 21:37 Dose: Not Given Documented By: ELIZABETH Misemeryaneous (Rapid Sequence Induction Bag) Confirm Administered Dose 1 each .ROUTE .STK-MED ONE Stop: 04/06/22 21:18 Last Admin: 04/06/22 21:17 Dose: 1 each Documented By: ELIZABETH Nicardipine HCl (Nicardipine Hcl Inj 2.5 Mg/Ml 10 Ml Amp) Confirm Administered Dose 25 mg .ROUTE .STK-MED ONE Stop: 04/06/22 21:04 Last Admin: 04/06/22 21:40 Dose: Not Given Documented By: ELIZABETH Nitroglycerin/Dextrose (Nitroglycerin/D5w 100mcg/Ml 20ml Syr) Confirm Administered Dose 2,000 mcg .ROUTE .STK-MED ONE Stop: 04/06/22 21:04 Last Admin: 04/06/22 21:40 Dose: Not Given Documented By: ELIZABETH Sodium Bicarbonate (Sodium Bicarb 8.4% Inj 50 Meq/50 Ml Syr) 50 meq IV NOW STA Stop: 04/06/22 21:04 Last Admin: 04/06/22 21:40 Dose: Not Given Documented By: ELIZABETH Discharge Plan Visit Data Chief Complaint: Heart Alert ED Provider: Phani Zazueta Discharge Problem: Acute hypoxemic respiratory failure, DKA (diabetic ketoacidosis), Complete heart block, Acidosis, Acute hyperkalemia Patient Disposition: Admitted As Inpatient Discharge Instructions Interventions: ED Discharge Assessment Last Done: 04/06/22 22:46
[2022-04-06 21:12] LABS: Base Excess VBG -21.5 mEq/L; HCO3 VBG 11 mmol/L; Oxygen Saturation VBG 82.4 %; PCO2 VBG 55 mmHg (38-50); PO2 VBG 63 mmHg; pH VBG < 7.00 (7.36-7.41)
[2022-04-06 21:14] LABS: iSTAT Creatinine 3.2 mg/dl (0.6-1.3); iSTAT Hemoglobin 12.9 g/dl (14.0-18.0); iSTAT Ionized Calcium 1.06 mmol/l (1.12-1.32); iSTAT Potassium 7.4 mmol/L (3.3-5.0)
[2022-04-06 21:14] LABS: Basophils # (auto) 0.06 K/uL (0-0.2); Basophils % (auto) 0.4 %; Eosinophils # (auto) 0.04 K/uL (0-0.50); Eosinophils % (auto) 0.3 %; Hematocrit (blood only) 35.8 % (40.1-51.0); Hemoglobin 10.7 g/dl (14.0-18.0); Immature Granulocytes % (auto) 2.2 %; Lymphocytes # (auto) 2.53 K/uL (1.2-3.4); Lymphocytes % (auto) 18.1 %; Mean Corpuscular Hemoglobin 27.3 pg (25.0-34.0); Mean Corpuscular Hgb Conc 29.9 g/dL (32.0-36.0); Mean Corpuscular Volume 91.3 fL (80.0-100.0); Mean Platelet Volume 9.7 fL (9.4-12.4); Monocytes # (auto) 1.15 K/uL (0.24-0.82); Monocytes % (auto) 8.2 %; Neutrophils # (auto) 9.87 K/uL (1.4-6.5); Neutrophils % (auto) 70.8 %; Platelet Count 327 K/uL (130-400); RDW Coefficient of Variation 15.9 % (11.5-14.5); RDW Standard Deviation 53.1 fL (36.4-46.3); Red Blood Count 3.92 M/uL (4.63-6.08); White Blood Count 13.95 K/ul (4.8-10.8)
[2022-04-06] MEDS ORDERED: SODIUM BICARBONATE 8.4% 150 MEQ in WATER, STERILE 1,000 ML IV SCH (21:15)
[2022-04-06 21:24] LABS: INR 1.2 (0.9-1.1); Partial Thromboplastin Ratio 1.2; Partial Thromboplastin Time 32.8 Seconds (21.0-31.0)
[2022-04-06] MEDS ORDERED: NovoLIN-R BOLUS FROM BAG IV ONE (21:30)
[2022-04-06 21:38] LABS: Troponin I High Sensitivity 7.7 pg/ml (0-20)
[2022-04-06 21:45] LABS: iSTAT Creatinine 2.8 mg/dl (0.6-1.3); iSTAT Hemoglobin 11.2 g/dl (14.0-18.0); iSTAT Ionized Calcium 1.71 mmol/l (1.12-1.32)
[2022-04-06] MEDS ORDERED: CEFEPIME 2,000 MG/20 ML VIAL IV STA (21:46)
[2022-04-06] MEDS ORDERED: PROPOFOL BOLUS FROM BAG IV PRN (21:47)
[2022-04-06] MEDS ORDERED: fentaNYL BOLUS from BAG IV PRN (21:47)
[2022-04-06] MEDS ORDERED: STAT IV Infusion **Titration per Protocol STA (21:47)
[2022-04-06 21:53] LABS: Alanine Aminotransferase 22 U/L (7-52); Albumin Globulin Ratio 1.1 (0.9-2); Albumin Level 3.7 gm/dl (3.4-5.0); Alkaline Phosphatase 102 U/L (34-104); Anion Gap 21 (3-11); Aspartate Aminotransferase 36 U/L (13-39); BUN Creatinine Ratio 6.1 (10-20); Bilirubin,Total 0.8 mg/dl (0.2-1.0); Blood Urea Nitrogen 18 mg/dl (6-23); Calcium 8.3 mg/dl (8.5-10.1); Carbon Dioxide 11 mmol/L (21-32); Chloride 88 mmol/L (98-107); Est GFR (Non-African American) 23.3 ml/min; Globulin 3.5 gm/dl (2.5-4.0); Glucose 564 mg/dl (70-99(Fasting)); Lipase 29 U/L (11-82); Magnesium 1.7 mg/dl (1.7-2.4); Phosphorus 7.1 mg/dl (2.5-4.9); Potassium 7.5 mmol/L (3.5-5.1); Sodium 120 mmol/L (136-145); Total Protein 7.2 gm/dl (6.0-8.3)
[2022-04-06] MEDS: INSULIN REGULAR 250 UNITS in SODIUM CHLORIDE 0.9% 247.5 ML IV SCH (21:54)
[2022-04-06] MEDS: propofoL 1,000 MG/100 ML VIAL IV SCH (21:56)
[2022-04-06 21:59] LABS: Lyme Ab IgG w/WB Rflx Negative (Negative); Lyme Ab IgM w/WB Rflx Negative (Negative)
--- NOTE | 2022-04-06 22:05 | History & Physical Report ---
Date of Service April 06, 2022 Assessment & Plan (1) Complete heart block: Plan: Bradycardic to the 20s in EMS and became unresponsive. Thought to be due to hyperkalemia. Coded 3 times in ER with ROSC achieved in ~3-4 minutes each time. Per bus attendant, had intrinsic rhythm while in lab aide for transvenous pacer. - Presently with transvenous pacer (2) Acute hyperkalemia: Plan: K+ on admission was 7.5. Received calcium chloride, albuterol, bicarb in ER. Unclear cause. - Presently on insulin gtt, bicarb gtt per nephrology. - Last iStat K+ was 4.7 with full set of labs pending (3) DKA (diabetic ketoacidosis): Plan: Initial blood sugar of 569 with AG of 21. - Presently on insulin gtt (4) Acute hypoxemic respiratory failure: Plan: In setting of PEA due to complete heart block. - Intubated; vent settings per ICU provider (5) Benign essential hypertension: Plan: - Hold all oral meds at this time. (6) Uncontrolled diabetes mellitus with diabetic nephropathy: Plan: Last A1c was 8.0% in 11/2021. With severe neuropathy per . - As above for DKA (7) GERD (gastroesophageal reflux disease): Plan: - Recommend famotidine per ICU provider (8) DVT prophylaxis: Plan: SCDs - Add heparin per ICU FULL CODE per in ER History of Present Illness Primary Care Provider: Reji Sanchez MD 51yo M w/ hx of HTN and DM who presents with complete heart block, hyperkalemia. The patient is intubated and sedated and cannot provide history. Per the patient's , the patient had been feeling general malaise and shortness of breath for several days. He has been gaining weight over the last few weeks to the point where his had to purchase new pants for him. He has actually been feeling short of breath over the last few weeks, but mainly with exertion. His has not noticed any significant lower extremity swelling. Today, he was feeling much weaker to the point to that he required assistance just to lift his legs off the ground. This is what precipitated the family calling 911. EMS was called and the patient was found to be bradycardic into the 30s. At some point during the ambulance trip, his heart rate went down into the 20s and he became unresponsive. Per the ER provider, paramedics then began transcutaneous pacing with some improvement in his responsiveness. In the ER, the patient lost pulses, and CPR was begun. Per the ER provider, he required 2 rounds of CPR before achieving ROSC. Labs in the ER showed new acute renal failure and hyperkalemia to 7.4. Typical treatments were begun, including IV insulin, albuterol, sodium bicarbonate, and calcium chloride. Repeat labs in the ER indicate an improvement in his hyperkalemia and renal failure. At 10:10 PM, he again became bradycardic and hypotensive. He lost pulse. This was approximately 10 minutes after admission was requested. MICHAELA LEE was called, and I immediately went to the room. The ER provider was already in the room running the code. ROSC was achieved and approximately 3 minutes after the patient was given epinephrine, calcium, and bicarbonate. I discussed his case with the wind up operator who agreed to insert a transvenous pacer. I did discuss his situation with his who is at bedside. He will go to the Lightning Protection Installer, then be transitioned to the ICU. Allergies Allergy/AdvReac Type Severity Reaction Status Date / Time Penicillins Allergy Intermediate Hives Verified 04/06/22 20:56 pioglitazone [From Actos] Allergy Unknown CAN'T Verified 04/06/22 20:56 REMEMBER REACTION Home Medications Medication Instructions Recorded Confirmed Type blood sugar diagnostic (MarcosTouch #10 ea 09/24/18 12/17/21 History Ultra Blue Test Strip) diltiazem HCl 300 mg 300 mg PO QPM #90 caps 05/29/21 04/06/22 Rx capsule,extended release 24 hr sildenafil 100 mg tablet See Rx Instructions PO ONCE PRN 06/07/21 04/06/22 Rx sexual activity #30 tabs metformin 1,000 mg tablet 1,000 mg PO BID #180 tabs 07/11/21 04/06/22 Rx metoprolol succinate 25 mg 25 mg PO BID #180 tabs 07/30/21 04/06/22 Rx tablet,extended release 24 hr valsartan 320 mg tablet 320 mg PO QPM #90 tabs 08/14/21 04/06/22 Rx insulin aspart U-100 100 unit/mL 40 unit (0.4 mL) subcut TID #45 mL 11/07/21 04/06/22 Rx (3 mL) subcutaneous pen (Novolog Flexpen U-100 Insulin aspart) insulin glargine U-300 conc 300 48 unit subcut BID 12/17/21 04/06/22 History unit/mL (3 mL) subcutaneous pen (Toujeo Max U-300 SoloStar) bupropion HCl 300 mg 24 hr tablet, 300 mg PO QAM #90 tabs 12/23/21 04/06/22 Rx extended release omeprazole 20 mg capsule,delayed 20 mg PO BID #180 caps 01/27/22 04/06/22 Rx release simvastatin 40 mg tablet 40 mg PO HS #90 tabs 01/28/22 04/06/22 Rx gabapentin 300 mg capsule 300 mg PO BID #180 caps 03/07/22 04/06/22 Rx Past Med/Surg History Medical History Asthma Depression Diabetes mellitus, type 2 GERD (gastroesophageal reflux disease) Hypercholesterolemia Hypertension, benign essential, goal below 140/90 Itch Nephropathy Peripheral neuropathy Temporomandibular joint disorder mild, no bite block Surgical History History of wisdom tooth extraction Family History Father Diabetes Other No family history of adverse response to anesthesia Denies family history of Ovarian cancer Prostate cancer Myocardial infarction Breast cancer Colorectal cancer Social History Smoking Status: Never smoker Second Hand Exposure: No; Hx Alcohol Use: Yes Alcohol type: hard liquor Hx Substance Use: No Preferred Language: Icelandic Communication Ability: Effective Service Clerk Required: No Beliefs That Will Affect Care: None marital status: Current Living Situation: Spouse Current Living Situation Comment: Lives with spouse and son. 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 Feels Safe at Home: Yes Assistive Devices: None Review of Systems Review of Systems: Unobtainable due to endotracheal tube and Unobtainable due to reduced consciousness Physical Exam Constitutional: + acute distress and + obese Eyes: no conjunctival abnormality and + EOM not intact ENMT: external ear and nose normal, oropharynx normal Intubated Neck: trachea midline, no thyromegaly normal visual inspection Respiratory: + labored breathing and + tachypneic; no respiratory distress and no cough Auscultation: lungs clear to auscultation bilaterally Cardiovascular: Rate/Rhythm: regular rate and regular rhythm Heart Sounds: normal S1 and normal S2 Paced Gastrointestinal (Abdomen): Inspection/Auscultation: abdomen normal to inspection; abdomen not distended Musculoskeletal: no cyanosis or clubbing, extremities motor strength 5/5 Skin: no rashes, warm and dry Neurologic: moves all extremities and awake Psychiatric: Orientation: alert, oriented to person and cooperative Results & Data Results & Data ([facility]) Vital Signs (Past 12 Hours) Vital Signs Pulse Resp BP Pulse Ox O2 Del Method O2 Flow Rate 04/06/22 21:55 67 26 H 126/62 94 Mechanical Vent 04/06/22 21:50 71 26 H 135/69 93 Mechanical Vent 04/06/22 21:45 139/69 04/06/22 21:35 86 26 H 162/81 H 95 Mechanical Vent 04/06/22 21:30 93 H 26 H 195/94 H 96 04/06/22 21:25 83 21 203/165 H 95 Mechanical Vent 04/06/22 21:24 90 18 228/122 H 95 Mechanical Vent 04/06/22 21:23 84 22 206/111 H 93 Mechanical Vent 04/06/22 21:20 98 H 46 H 102/76 75 L Non-rebreather 15 04/06/22 21:16 78 19 83/45 L 88 L Non-rebreather 15 04/06/22 21:15 86 20 87 L Non-rebreather 15 04/06/22 21:10 70 22 255/71 H 89 L Non-rebreather 15 04/06/22 21:05 89 30 H 194/55 H 89 L Non-rebreather 15 04/06/22 21:00 90 30 H 90 Non-rebreather 15 04/06/22 20:48 90 27 H 98/20 L 90 Non-rebreather 15 04/06/22 20:48 Non-rebreather 15 Code Status & VTE Plan VTE Prophylaxis Plan VTE Prophylaxis will be ordered: Yes PG Care Time/CCT Total # of Minutes Spent Total Time Spent with Patient: Total time spent is greater than 50% in coordination of care (as documented) at patient's floor/unit and/or counseling patient: Coding Level of Care Code 73870 Initial Inpt Care Lvl 3 Diagnoses Complete heart block I44.2 Acute hyperkalemia E87.5 DKA (diabetic ketoacidosis) E11.10 Diabetes mellitus type: type 1 Acute hypoxemic respiratory failure J96.01 Benign essential hypertension I10 Uncontrolled diabetes mellitus with diabetic nephropathy E11.21; E11.65 GERD (gastroesophageal reflux disease) K21.9 DVT prophylaxis Z29.9 (1) DKA (diabetic ketoacidosis) Diabetes mellitus type: type 1
[2022-04-06 22:31] LABS: Base Excess VBG -13.8 mEq/L; HCO3 VBG 17 mmol/L; Oxygen Saturation VBG 89.7 %; PCO2 VBG 62 mmHg (38-50); PO2 VBG 72 mmHg; pH VBG 7.05 (7.36-7.41)
[2022-04-06 22:35] LABS: iSTAT Creatinine 2.8 mg/dl (0.6-1.3); iSTAT Hemoglobin 10.9 g/dl (14.0-18.0); iSTAT Ionized Calcium 1.66 mmol/l (1.12-1.32); iSTAT Potassium 5.1 mmol/L (3.3-5.0)
[2022-04-06 22:49] LABS: iSTAT Arterial Blood Gas HCO3 21 meg/L (19-24); iSTAT Arterial Blood Gas pCO2 60 mmHg (35-46); iSTAT Arterial Blood Gas pH 7.14 (7.35-7.45); iSTAT Arterial Blood Gas pO2 69 mmHg (80-95); iSTAT Carbon Dioxide 22 mmol/L (24-31); iSTAT Hematocrit 32 % (42-52); iSTAT Hemoglobin 10.9 g/dl (14.0-18.0); iSTAT Potassium 4.7 mmol/L (3.3-5.0); iSTAT Sodium 133 mmol/L (135-144)
[2022-04-06 23:18] LABS: Adenovirus PCR Not Detected (NotDetected); Bordetella parapertussis PCR Not Detected (NotDetected); Bordetella pertussis PCR Not Detected (NotDetected); Chlamydia pneumoniae PCR Not Detected (NotDetected); Coronavirus 229E PCR Not Detected (NotDetected); Coronavirus CoV-2 (COVID19)PCR Not Detected (NotDetected); Coronavirus HKU1 PCR Not Detected (NotDetected); Coronavirus NL63 PCR Not Detected (NotDetected); Coronavirus OC43PCR Not Detected (NotDetected); Human Metapneumovirus PCR Not Detected (NotDetected); Influenza A PCR Not Detected (NotDetected); Influenza B PCR Not Detected (NotDetected); Mycoplasma pneumoniae PCR Not Detected (NotDetected); Parainfluenza Virus 1 PCR Not Detected (NotDetected); Parainfluenza Virus 2 PCR Not Detected (NotDetected); Parainfluenza Virus 3 PCR Not Detected (NotDetected); Parainfluenza Virus 4 PCR Not Detected (NotDetected); Respiratory Syncytial VirusPCR Not Detected (NotDetected); Rhinovirus/Enterovirus PCR Not Detected (NotDetected)
--- NOTE | 2022-04-06 23:21 | Cardiac Catheterization ---
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 ) Cardiac Cath Procedure Full Procedure Date April 06, 2022 Pre-Procedure Diagnosis Pre-Procedure Diagnosis: Arrhythmia (Severe symptomatic bradycardia) AUC Score AUC Score: 7 Post-Procedure Diagnosis Post-Procedure Diagnosis: Cardiothoracic Finding (Same) Procedure(s) Performed Procedure(s) Performed: Temporary Pacemaker Assistant Unit Forester David Lancaster MD Estimated Blood Loss Estimated Blood Loss: None Summary of Findings Due to 2 epsioes of severe bradycardia, a temporary pacemaker was inserted per Hospitalist- ICU physician request, although the patient has intrinsic rhtyhm and seems t o be a metabolic problem Hemodynamics Rest Ao:: 100/80 Final Ao: NA LV: NA Recommendations Recommendations: Management Recommendatons (Wean off temporary pacing in am and see if its actually needed once metabolic problem is resolved. ) Specimens Specimens: None Radiation Exposure (mGy) Minimal Contrast (mls) NA Procedural Complication(s) None Disposition ICU I attest to the content of the Intraoperative Record and any orders documented therein. Any exceptions are noted below. PG Care Time/CCT Total # of Minutes Spent Total Time Spent: 10 Total Time Spent with Patient: Total time spent is greater than 50% in coordination of care (as documented) at patient's floor/unit and/or counseling patient:
--- NOTE | 2022-04-06 23:22 | Post Anesthesia Assessment ---
Date of Service April 06, 2022 Post Sedation Assessment Vital Signs Pulse Resp BP Pulse Ox O2 Del Method O2 Flow Rate FiO2 04/06/22 22:40 107 H 30 H 124/59 L 90 Mechanical Vent 100 04/06/22 22:35 123/57 L 04/06/22 22:35 90 30 H 123/57 L 85 L Mechanical Vent 100 04/06/22 22:30 89 26 H 133/65 86 L Mechanical Vent 100 04/06/22 22:25 90 26 H 148/72 H 87 L Mechanical Vent 100 04/06/22 22:20 90 26 H 168/80 H 88 L Mechanical Vent 04/06/22 22:15 90 26 H 199/100 H 87 L Mechanical Vent 04/06/22 22:13 90 17 210/105 H 90 Mechanical Vent 04/06/22 22:06 70 26 H 43/23 L 82 L Mechanical Vent 04/06/22 22:01 31 L 26 H 87/47 L 92 Mechanical Vent 04/06/22 22:00 48 L 26 H 92 Mechanical Vent 04/06/22 21:55 67 26 H 126/62 94 Mechanical Vent 04/06/22 21:50 71 26 H 135/69 93 Mechanical Vent 04/06/22 21:45 139/69 04/06/22 21:35 86 26 H 162/81 H 95 Mechanical Vent 04/06/22 21:30 93 H 26 H 195/94 H 96 04/06/22 21:18 96 H 27 H 94 100 04/06/22 21:25 83 21 203/165 H 95 Mechanical Vent 04/06/22 21:24 90 18 228/122 H 95 Mechanical Vent 04/06/22 21:23 84 22 206/111 H 93 Mechanical Vent 04/06/22 21:20 98 H 46 H 102/76 75 L Non-rebreather 15 04/06/22 21:16 78 19 83/45 L 88 L Non-rebreather 15 04/06/22 21:15 86 20 87 L Non-rebreather 15 04/06/22 21:10 70 22 255/71 H 89 L Non-rebreather 15 04/06/22 21:05 89 30 H 194/55 H 89 L Non-rebreather 15 04/06/22 21:00 90 30 H 90 Non-rebreather 15 04/06/22 20:48 90 27 H 98/20 L 90 Non-rebreather 15 04/06/22 20:48 Non-rebreather 15 Recovery Score Activity: Moves 0 extremities Discharge Sedation Level of Care: Higher Level of Care Post Sedation Plan On clinical assessment, the patient appears to have tolerated the sedation without complications. Patient is recovering as anticipated. Patient will continue to be monitored by nursing and may be discharged when sedation discharge criteria are met per below protocol. Upon Completions of procedure up to 15 minutes continue every 5 minute vital signs and the P.A.R. score; then discharge to a Phase I or Fast Track to Phase II per the following guidelines: * Discharge Patient to appropriate Phase II area if PAR is 8 or greater or return to pre- procedure baseline. The post - procedure orders will be as directed. * If PAR score is less than 8 or not return to pre-procedure baseline then patient will follow Phase I monitoring till PAR is reached for Phase II. The Phase I may be done in procedure room or may call to secure a Phase I area. * If naloxone or flumazenil are used for reversal, hold in Phase I for continued monitoring from when last reversal dose was given for a minimum of 60 minutes or longer pending the nurse and/or physician discretion of patient condition before discharge to Phase II. Please call the Sedation Physician to re-evaluate and complete post-note for discharge to Phase II area. Do NOT discharge from procedure sedation or Phase 1 until post- sedation evaluation note is complete by procedure /sedation MD Sedation Discharge Instructions to be given to the patient at discharge to home.
[2022-04-07] MEDS ORDERED: GLUCOSE 10 TAB/TUBE PO PRN (00:08)
[2022-04-07] MEDS ORDERED: GLUCAGON FOR INJ 1 MG VIAL SQ PRN (00:08)
[2022-04-07] MEDS ORDERED: DEXTROSE 50% 50 ML SYRINGE IV PRN (00:08)
[2022-04-07] MEDS ORDERED: PHARMACY GLYCEMIC MGMT CONSULT PRN (00:08)
[2022-04-07] MEDS ORDERED: CARBOHYDRATES FOR HYPOGLYCEMIA PO PRN (00:08)
[2022-04-07] MEDS ORDERED: GLUCOSE 40% GEL 15 GM TUBE PO PRN (00:08)
[2022-04-07] MEDS ORDERED: ONDANSETRON INJ 2 MG/ML 2 ML VIAL IV PRN (00:08)
--- NOTE | 2022-04-07 00:12 | Critical Care Consultation ---
Date of Consultation April 07, 2022 Assessment & Plan (1) Acute hypoxemic respiratory failure: Reason Critically Ill: 51-year-old male presents to the ICU DKA and complete heart block requiring transvenous pacing, acute hypoxic respiratory failure following cardiac arrest with CPR requiring intubation. Neuro - Acute encephalopathypatient unable to follow commands following cardiac arrest. There is likely an element of anoxic injury however cannot rule out component of metabolic encephalopathy with DKA, hypoxia, etc. -Due to patient's current unstable condition and electrolyte abnormalities would be poor candidate for therapeutic hypothermia. We will continue with supportive care and reevaluate -We will attempt to obtain CT head if patient's condition stabilizes Cardiac - Complete heart blockno significant cardiac history. Troponin within normal limits and no cardiac complaints prior to arrival to ED. Patient did have significant hyperkalemia and acidosis which could be playing a role. -EKG appears to have a junctional bradycardia which the patient did require transcutaneous pacing. He is now post transvenous pacer and is currently paced at 80 bpm -Cardiology consulted Cardiac arrestlikely combination of heart block and severe acidosis as patient did become bradycardic and lost pulse -Continue transvenous pacing -See treatment for acidosis below -No current need for vasopressors at this time. Patient does have central line and A-line -Echo pending -Continuous monitor on telemetry -Hold antihypertensives for now Respiratory - Acute hypoxic respiratory failureno prior pulmonary history. Suspect this is likely cardiogenic secondary to cardiac arrest -Mechanically ventilated, oxygenation improving with high PEEP settings. Wean vent with high PEEP ARDSnet protocol -Chest x-ray with diffuse pulmonary edema following cardiac arrest -Cannot rule out PE at this time. Will obtain lower extremity Doppler and start on prophylactic heparin drip -We will attempt to obtain CT chest when stable -40 mg IV Lasix given x1 -Continuous end-tidal CO2 and pulse ox monitoring -Follow-up repeat ABG and morning CXR GI - OG tube to low intermittent suction. N.p.o. RENAL/LYTES - Acute renal failureinitial creatinine 2.8 and hyperkalemic with potassium 7.4 -Suspect this is most likely due to DKA, dehydration. Expect to improve with fluid resuscitation -Potassium improving following treatment, monitoring every 4 hours. Patient is currently on bicarb and insulin drips which will likely help. Consider Kayexalate -Nephrology consulted -Nephrotoxins renally adjust medications -Maintain maps greater than 65 Metabolic acidosispatient with elevated lactate of 14 and unsure of source at this time but hypoxia may be contributing. CT abdomen pelvis will be obtained soon as patient is stable enough -DKA likely contributing as well. See treatment below -Continue with bicarb drip. Acidosis improving ABGs -We will continue with medical management and monitor closely - Foleystrict I's and O's ENDO - DKApatient with uncontrolled DM type II, with initial BSG 550 and severe acidosis -Continue with insulin drip. Careful with IV fluid with consideration to hypoxia and potential cardiac component -BMPs every 4 hours -Hold oral medications -We will transition to sliding scale once gap closed and BSG within range HEME - H&H stable monitor routine CBCs ID - No indication for infectious process at this time LINES/IV ACCESS - CVL, transvenous pacer, A-line, ET tube, OG tube DVT PROPHYLAXIS - SCDs, heparin drip I have personally spent 110 minutes of critical care time in the direct management of this patient. This is a life/limb threatening event. This includes time spent evaluating patient, direct bedside care, chart review, placing orders, interpretation of diagnostic studies, discussion with consultants, patient, and family members, as well as other required patient management activities. This time is exclusive of all separately billable procedures, and teaching time and separate from and in addition to any other critical care service time. Thank you for allowing us to participate in the care of this patient. Please refer to my attending physician's documentation for any further recommendations. (2) DKA (diabetic ketoacidosis): (3) Complete heart block: (4) Acidosis: (5) Acute hyperkalemia: (6) Uncontrolled diabetes mellitus with diabetic nephropathy: (7) Acute kidney injury: (8) Encephalopathy acute: (9) GERD (gastroesophageal reflux disease): History of Present Illness Attending Physician: Robby Christopher MD History of Present Illness Patient is a 51-year-old male past medical history of hypertension and DM type II who presents to the emergency department via EMS earlier this evening. Patient was found to be in complete heart block and lab work consistent with DKA. pH on VBG was less than 7 and potassium 7.4 with BSG 560. Patient became bradycardic in the emergency department with heart rate in the 20s and became unresponsive which she was transcutaneous paced. On 2 occasions he lost pulse and received CPR and epinephrine. Patient was intubated and started on bicarb and insulin infusions. He was taken to the cardiac Cleaning Supervisor where he received a transvenous pacer and was then transferred to ICU for further management. On arrival to the ICU the patient is sedated and intubated. He is severely hypoxic and is requiring FiO2 100% and increased PEEP to 18. The patient has central line and A-line and a transvenous pacer. Patient's stated that he has felt ill with malaise and shortness of breath over the past few days. She states he recently was recovering from respiratory infection. She also states that he has had significant weight gain over the past few weeks and increased stress at work. Allergies Allergy/AdvReac Type Severity Reaction Status Date / Time Penicillins Allergy Intermediate Hives Verified 04/06/22 20:56 pioglitazone [From Actos] Allergy Unknown CAN'T Verified 04/06/22 20:56 REMEMBER REACTION Home Medications Medication Instructions Recorded Confirmed Type blood sugar diagnostic (OneTouch #10 ea 09/24/18 12/17/21 History Ultra Blue Test Strip) diltiazem HCl 300 mg 300 mg PO QPM #90 caps 05/29/21 04/06/22 Rx capsule,extended release 24 hr sildenafil 100 mg tablet See Rx Instructions PO ONCE PRN 06/07/21 04/06/22 Rx sexual activity #30 tabs metformin 1,000 mg tablet 1,000 mg PO BID #180 tabs 07/11/21 04/06/22 Rx metoprolol succinate 25 mg 25 mg PO BID #180 tabs 07/30/21 04/06/22 Rx tablet,extended release 24 hr valsartan 320 mg tablet 320 mg PO QPM #90 tabs 08/14/21 04/06/22 Rx insulin aspart U-100 100 unit/mL 40 unit (0.4 mL) subcut TID #45 mL 11/07/21 04/06/22 Rx (3 mL) subcutaneous pen (Novolog Flexpen U-100 Insulin aspart) insulin glargine U-300 conc 300 48 unit subcut BID 12/17/21 04/06/22 History unit/mL (3 mL) subcutaneous pen (Toujeo Max U-300 SoloStar) bupropion HCl 300 mg 24 hr tablet, 300 mg PO QAM #90 tabs 12/23/21 04/06/22 Rx extended release omeprazole 20 mg capsule,delayed 20 mg PO BID #180 caps 01/27/22 04/06/22 Rx release simvastatin 40 mg tablet 40 mg PO HS #90 tabs 01/28/22 04/06/22 Rx gabapentin 300 mg capsule 300 mg PO BID #180 caps 03/07/22 04/06/22 Rx Patient History Medical History Asthma Depression Diabetes mellitus, type 2 GERD (gastroesophageal reflux disease) Hypercholesterolemia Hypertension, benign essential, goal below 140/90 Itch Nephropathy Peripheral neuropathy Temporomandibular joint disorder mild, no bite block Surgical History History of wisdom tooth extraction Family History Father Diabetes Other No family history of adverse response to anesthesia Denies family history of Ovarian cancer Prostate cancer Myocardial infarction Breast cancer Colorectal cancer Social History Smoking Status: Never smoker Second Hand Exposure: No; Hx Alcohol Use: Yes Alcohol type: hard liquor Hx Substance Use: No Preferred Language: Divehi Communication Ability: Effective Trommel Tender Required: No Beliefs That Will Affect Care: None marital status: Current Living Situation: Spouse Current Living Situation Comment: Lives with spouse and son. 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 Feels Safe at Home: Yes Assistive Devices: None Review of Systems Review of Systems: Unobtainable due to endotracheal tube Physical Exam Constitutional: + obese and + mechanically ventilated Eyes: PERRLA, conjunctiva normal ENMT: external ear and nose normal, oropharynx normal Neck: trachea midline, no thyromegaly Respiratory: Coarse crackles auscultated bilaterally with diminished bases. Symmetrical chest wall movement Cardiovascular: Paced rhythm on monitor, S1-S2 auscultated, no JVD, no peripheral edema Gastrointestinal (Abdomen): Abdomen soft, obese, nondistended Skin: no rashes, warm and dry Neurologic: Unable to assess due to sedation Psychiatric: Unable to assess due to sedation Genitourinary: Indwelling [place] catheter Results & Data Results & Data ([facility]) Vital Signs (Past 12 Hours) Vital Signs Pulse Resp BP Pulse Ox O2 Del Method O2 Flow Rate FiO2 04/06/22 23:39 26 H 100 04/06/22 22:40 107 H 30 H 124/59 L 90 Mechanical Vent 100 04/06/22 22:35 123/57 L 04/06/22 22:35 90 30 H 123/57 L 85 L Mechanical Vent 100 04/06/22 22:30 89 26 H 133/65 86 L Mechanical Vent 100 04/06/22 22:25 90 26 H 148/72 H 87 L Mechanical Vent 100 04/06/22 22:20 90 26 H 168/80 H 88 L Mechanical Vent 04/06/22 22:15 90 26 H 199/100 H 87 L Mechanical Vent 04/06/22 22:13 90 17 210/105 H 90 Mechanical Vent 04/06/22 22:06 70 26 H 43/23 L 82 L Mechanical Vent 04/06/22 22:01 31 L 26 H 87/47 L 92 Mechanical Vent 04/06/22 22:00 48 L 26 H 92 Mechanical Vent 04/06/22 21:55 67 26 H 126/62 94 Mechanical Vent 04/06/22 21:50 71 26 H 135/69 93 Mechanical Vent 04/06/22 21:45 139/69 04/06/22 21:35 86 26 H 162/81 H 95 Mechanical Vent 04/06/22 21:30 93 H 26 H 195/94 H 96 04/06/22 21:18 96 H 27 H 94 100 04/06/22 21:25 83 21 203/165 H 95 Mechanical Vent 04/06/22 21:24 90 18 228/122 H 95 Mechanical Vent 04/06/22 21:23 84 22 206/111 H 93 Mechanical Vent 04/06/22 21:20 98 H 46 H 102/76 75 L Non-rebreather 15 04/06/22 21:16 78 19 83/45 L 88 L Non-rebreather 15 04/06/22 21:15 86 20 87 L Non-rebreather 15 04/06/22 21:10 70 22 255/71 H 89 L Non-rebreather 15 04/06/22 21:05 89 30 H 194/55 H 89 L Non-rebreather 15 04/06/22 21:00 90 30 H 90 Non-rebreather 15 04/06/22 20:48 90 27 H 98/20 L 90 Non-rebreather 15 04/06/22 20:48 Non-rebreather 15 Coding Level of Care Code Critical Care ea addt'l 30 min Diagnoses Acute hypoxemic respiratory failure J96.01 DKA (diabetic ketoacidosis) E11.10 Diabetes mellitus type: type 1 Complete heart block I44.2 Acidosis E87.20 Acute hyperkalemia E87.5 Uncontrolled diabetes mellitus with diabetic nephropathy E11.21; E11.65 Acute kidney injury N17.9 Encephalopathy acute G93.40 GERD (gastroesophageal reflux disease) K21.9 (1) DKA (diabetic ketoacidosis) Diabetes mellitus type: type 1
--- NOTE | 2022-04-07 00:12 | Procedure Note ---
Procedure Note Date of Service April 07, 2022 Note ARTERIAL LINE PROCEDURE NOTE: Procedure: Arterial Line Placement Attending: Dr. Gonzalez Provider: JAMIE Madrid Indication: Continuous hemodynamic monitoring, frequent ABGs Anesthesia: None Line placed emergently following cardiac arrest with need for continuous hemodynamic monitoring and frequent ABGs withdrawal A time-out was completed verifying correct patient, procedure, site, positioning, and implant(s) or special equipment if applicable. Allens test was performed to ensure adequate perfusion. Patients right wrist was prepped and draped in the usual sterile fashion. Ultrasound guidance was used to aid needle placement. A 20g Arrow arterial line was introduced into the right radial artery. Catheter was threaded, and the needle was removed with appropriate blood return. Good waveform was observed. The patient tolerated the procedure well. Confirmation of placement with ultrasound. Blood Loss: Minimal Complications: None Procedural Ultrasound Guidance: Procedure Date: 04/07/2022 Indication: Arterial line insertion Attending: Dr. Elan Gonzalez Provider: JAMIE Madrid Artery Identified: YES Line confirmed in Artery with ultrasound: Yes Complications: NONE Patient tolerated procedure: WELL Coding
[2022-04-07] MEDS ORDERED: FUROSEMIDE 40 MG/4 ML VIAL IV ONE (00:22)
[2022-04-07 00:29] LABS: iSTAT Art Bld Gas pCO2 Correct 33 mmHg (35-46); iSTAT Art Bld Gas pH Corrected 7.308 (7.35-7.45); iSTAT Arterial Blood Gas HCO3 18 meg/L (19-24); iSTAT Arterial Blood Gas pCO2 40 mmHg (35-46); iSTAT Arterial Blood Gas pH 7.25 (7.35-7.45); iSTAT Arterial Blood Gas pO2 58 mmHg (80-95); iSTAT Arterial Blood Gas pO2 C 43; iSTAT Carbon Dioxide 19 mmol/L (24-31); iSTAT FiO2 100 %; iSTAT Hematocrit 33 % (42-52); iSTAT Hemoglobin 11.2 g/dl (14.0-18.0); iSTAT Potassium 5.7 mmol/L (3.3-5.0); iSTAT Site Art Line; iSTAT Sodium 129 mmol/L (135-144)
[2022-04-07] MEDS ORDERED: Heparin IV Adult Wt-Based Standard WITH Bolus Protocol IV STA (00:46)
[2022-04-07 00:55] LABS: INR 1.2 (0.9-1.1); Partial Thromboplastin Ratio 0.9; Partial Thromboplastin Time 24.4 Seconds (21.0-31.0)
[2022-04-07 01:18] LABS: Hemoglobin 10.4 g/dl (14.0-18.0); Mean Corpuscular Hemoglobin 27.2 pg (25.0-34.0); Mean Corpuscular Hgb Conc 31.5 g/dL (32.0-36.0); Mean Corpuscular Volume 86.4 fL (80.0-100.0); Mean Platelet Volume 9.4 fL (9.4-12.4); Platelet Count 144 K/uL (130-400); Platelet Estimate Normal (Normal); RDW Coefficient of Variation 15.5 % (11.5-14.5); RDW Standard Deviation 48.6 fL (36.4-46.3); Red Blood Count 3.82 M/uL (4.63-6.08); White Blood Count 7.59 K/ul (4.8-10.8)
[2022-04-07] MEDS ORDERED: HEPARIN SOD (PORCINE) 1000 UNIT/ML IV ONE (01:30)
[2022-04-07 01:35] LABS: Albumin Level 3.2 gm/dl (3.4-5.0); BUN Creatinine Ratio 8.4 (10-20); Bilirubin,Total 1.5 mg/dl (0.2-1.0); Calcium 11.5 mg/dl (8.5-10.1); Creatinine Clr Calc Pharmacy 45.8 ml/min; Est GFR (Non-African American) 30.2 ml/min; Globulin 3.3 gm/dl (2.5-4.0); Magnesium 1.6 mg/dl (1.7-2.4); Phosphorus 6.7 mg/dl (2.5-4.9); Potassium 5.9 mmol/L (3.5-5.1); Total Protein 6.5 gm/dl (6.0-8.3); Troponin I High Sensitivity 21.7 pg/ml (0-20)
[2022-04-07] MEDS: HEPARIN SODIUM/DEXTROSE 25,000 UNITS/500 ML BAG IV SCH ×2 (01:38→21:30)
[2022-04-07] MEDS: fentaNYL citrate 2,500 MCG/250 ML BAG IV SCH ×2 (01:59→04:14)
[2022-04-07 02:10] LABS: iSTAT Art Bld Gas pCO2 Correct 30 mmHg (35-46); iSTAT Art Bld Gas pH Corrected 7.385 (7.35-7.45); iSTAT Arterial Blood Gas HCO3 19 meg/L (19-24); iSTAT Arterial Blood Gas pCO2 36 mmHg (35-46); iSTAT Arterial Blood Gas pH 7.33 (7.35-7.45); iSTAT Arterial Blood Gas pO2 88 mmHg (80-95); iSTAT Arterial Blood Gas pO2 C 67; iSTAT Carbon Dioxide 20 mmol/L (24-31); iSTAT FiO2 70 %; iSTAT Hematocrit 33 % (42-52); iSTAT Hemoglobin 11.2 g/dl (14.0-18.0); iSTAT Potassium 5.7 mmol/L (3.3-5.0); iSTAT Site Art Line; iSTAT Sodium 127 mmol/L (135-144)
--- NOTE | 2022-04-07 04:03 | XCELERA ---
[id number]
[2022-04-07] MEDS ORDERED: STAT IV Infusion **Titration per Protocol STA (04:40)
[2022-04-07 04:47] LABS: Basophils # (auto) 0.01 K/uL (0-0.2); Basophils % (auto) 0.1 %; Hematocrit (blood only) 27.9 % (40.1-51.0); Hemoglobin 9.1 g/dl (14.0-18.0); Immature Granulocytes # (auto) 0.03 K/uL (0.00-0.02); Immature Granulocytes % (auto) 0.4 %; Lymphocytes # (auto) 0.92 K/uL (1.2-3.4); Lymphocytes % (auto) 12.8 %; Mean Corpuscular Hemoglobin 27.1 pg (25.0-34.0); Mean Corpuscular Hgb Conc 32.6 g/dL (32.0-36.0); Mean Platelet Volume 9.1 fL (9.4-12.4); Monocytes # (auto) 0.33 K/uL (0.24-0.82); Monocytes % (auto) 4.6 %; Neutrophils # (auto) 5.89 K/uL (1.4-6.5); Neutrophils % (auto) 82.1 %; Platelet Count 129 K/uL (130-400); RDW Coefficient of Variation 15.4 % (11.5-14.5); RDW Standard Deviation 46.2 fL (36.4-46.3); Red Blood Count 3.36 M/uL (4.63-6.08); White Blood Count 7.18 K/ul (4.8-10.8)
[2022-04-07] MEDS: NOREPINEPHRINE/D5W 4 MG/250 ML PLCT IV SCH ×2 (05:07→16:45)
[2022-04-07 05:08] LABS: Albumin Level 2.8 gm/dl (3.4-5.0); BUN Creatinine Ratio 8.6 (10-20); Bilirubin,Total 1.5 mg/dl (0.2-1.0); Calcium 10.6 mg/dl (8.5-10.1); Chol HDL Ratio 1.9 (0-5); Creatinine Clr Calc Pharmacy 46.8 ml/min; Est GFR (African American) 35.9 ml/min; Globulin 2.8 gm/dl (2.5-4.0); Magnesium 1.4 mg/dl (1.7-2.4); Phosphorus 5.1 mg/dl (2.5-4.9); Potassium 5.9 mmol/L (3.5-5.1); Total Protein 5.6 gm/dl (6.0-8.3)
[2022-04-07 05:12] LABS: iSTAT Art Bld Gas pCO2 Correct 35 mmHg (35-46); iSTAT Art Bld Gas pH Corrected 7.467 (7.35-7.45); iSTAT Arterial Blood Gas HCO3 25 meg/L (19-24); iSTAT Arterial Blood Gas pCO2 36 mmHg (35-46); iSTAT Arterial Blood Gas pH 7.46 (7.35-7.45); iSTAT Arterial Blood Gas pO2 72 mmHg (80-95); iSTAT Arterial Blood Gas pO2 C 69; iSTAT Carbon Dioxide 26 mmol/L (24-31); iSTAT FiO2 60 %; iSTAT Hematocrit 29 % (42-52); iSTAT Hemoglobin 9.9 g/dl (14.0-18.0); iSTAT Potassium 5.6 mmol/L (3.3-5.0); iSTAT Site Art Line; iSTAT Sodium 130 mmol/L (135-144)
[2022-04-07] MEDS: propofoL 1,000 MG/100 ML VIAL IV SCH ×5 (06:30→21:17)
[2022-04-07] MEDS ORDERED: D5W AND 1/2NSS 1,000 ML IV SCH (06:30)
--- NOTE | 2022-04-07 07:18 | CT Scan Report ---
CT OF THE HEAD WITHOUT CONTRAST CLINICAL HISTORY: AMS, anoxic injury? COMPARISON STUDY: No previous studies for comparison. CT DOSE: 3865.76 mGy.cm TECHNIQUE: Helical axial images of the head were obtained without IV contrast. Automated exposure con trol was utilized for the study. A dose lowering technique was utilized adhering to the principles o f ALARA. FINDINGS: No acute intracranial hemorrhage, midline shift or mass effect is present. The ventricular system is unremarkable. The basal cisterns are patent. Moderate intracranial vascular calcification i s noted. No extra-axial collections are present. There are no findings to suggest acute dural sinus t hrombosis or acute territorial infarct. No significant calvarial abnormalities are present. Visualize d portions of the sinuses and mastoid air cells are clear. IMPRESSION: No acute intracranial findings. ACT 112: Negative or not required by law. Electronically signed by: Sina Layton M.D. 04/07/2022 7:16 AM
[2022-04-07] MEDS: MAGNESIUM SULFATE / D5W 1 GM/100 ML BAG IV SCH ×3 (07:24→11:53)
[2022-04-07] MEDS: INSULIN ASPART PER UNIT SC SCH ×4 (07:25→20:23)
[2022-04-07] MEDS: SODIUM ZIRCONIUM CYCLOSILICATE 10 GM PACKET PO ONE ×2 (07:26→08:37)
--- NOTE | 2022-04-07 07:28 | CT Scan Report ---
CT OF THE CHEST WITHOUT IV CONTRAST CLINICAL HISTORY: Hypoxia, lactic acidosis COMPARISON STUDY: Chest radiograph April 06, 2022. TECHNIQUE: Axial images of the chest were obtained without IV contrast. Images were reviewed in the axial, sagittal, and coronal planes. IV contrast was not administered for this examination. Automat ed exposure control was utilized for the study. A dose lowering technique was utilized adhering to t he principles of ALARA. FINDINGS: There is minimal stranding adjacent to the right axillary vessels. There is a small amount of venous gas. The endotracheal tube is appropriately positioned. Tip of nasogastric tube is within the body of the stomach. A right femoral transvenous pacer is in place. Mild cardiomegaly is noted. T here is no pericardial effusion. There is no pneumothorax. No significant pleural effusion is present . There are mild secretions within the trachea and mainstem bronchi and within segmental bronchi. Den se consolidation throughout the right lower lobe is noted. There is also extensive consolidation with in the left lower lobe and the dependent aspects of the upper lobes. Alveolar opacities within the up per lobes are also noted. There is mild interlobular septal thickening. Multiple acute bilateral ante rior rib fractures are present. No acute thoracic spine fracture is present. Abdomen and pelvis CT wi ll be reported separately. The liver is cirrhotic. There is hepatic steatosis. Trace perihepatic asci carol is present. IMPRESSION: 1. Appropriately positioned lines and tubes. Transvenous pacer in place. 2. Dense bilateral lower lobe consolidation and additional airspace opacities within the upper lobes. The findings favor pneumonia or aspiration pneumonitis. Superimposed pulmonary edema would be diffic ult to exclude. Secretions within the airways, as above. 3. Multiple bilateral anterior bilateral rib fractures. No pneumothorax. 4. Mild cardiomegaly. 5. Cirrhosis. Trace perihepatic ascites. ACT 112: Negative or not required by law. Electronically signed by: Sina Layton M.D. 04/07/2022 7:27 AM
--- NOTE | 2022-04-07 07:28 | Critical Care Progress Note ---
Date of Service April 07, 2022 Assessment & Plan (1) Acute hypoxemic respiratory failure: Plan: (1) Acute hypoxemic respiratory failure: Reason Critically Ill: 51-year-old male presents to the ICU DKA and complete heart block requiring transvenous pacing, acute hypoxic respiratory failure following cardiac arrest with CPR requiring intubation. Neuro - Acute encephalopathypatient unable to follow commands following cardiac arrest. There is likely an element of anoxic injury however cannot rule out component of metabolic encephalopathy with DKA, hypoxia, etc. -Due to patient's current unstable condition and electrolyte abnormalities would be poor candidate for therapeutic hypothermia. We will continue with supportive care and reevaluate -We will attempt to obtain CT head if patient's condition stabilizes Cardiac - Complete heart blockno significant cardiac history. Troponin within normal limits and no cardiac complaints prior to arrival to ED. Patient did have significant hyperkalemia and acidosis which could be playing a role. -EKG appears to have a junctional bradycardia which the patient did require transcutaneous pacing. He is now post transvenous pacer and is currently paced at 80 bpm -Cardiology consulted Cardiac arrestlikely combination of heart block and severe acidosis as patient did become bradycardic and lost pulse -Continue transvenous pacing -See treatment for acidosis below -No current need for vasopressors at this time. Patient does have central line and A-line -Echo pending -Continuous monitor on telemetry -Hold antihypertensives for now Respiratory - Acute hypoxic respiratory failureno prior pulmonary history. Suspect this is likely cardiogenic secondary to cardiac arrest -Mechanically ventilated, oxygenation improving with high PEEP settings. Wean vent with high PEEP ARDSnet protocol -Chest x-ray with diffuse pulmonary edema following cardiac arrest -Cannot rule out PE at this time. Will obtain lower extremity Doppler and start on prophylactic heparin drip -We will attempt to obtain CT chest when stable -40 mg IV Lasix given x1 -Continuous end-tidal CO2 and pulse ox monitoring -Follow-up repeat ABG and morning CXR GI - OG tube to low intermittent suction. N.p.o. RENAL/LYTES - Acute renal failureinitial creatinine 2.8 and hyperkalemic with potassium 7.4 -Suspect this is most likely due to DKA, dehydration. Expect to improve with fluid resuscitation -Potassium improving following treatment, monitoring every 4 hours. Patient is currently on bicarb and insulin drips which will likely help. Consider Kayexalate -Nephrology consulted -Nephrotoxins renally adjust medications -Maintain maps greater than 65 Metabolic acidosispatient with elevated lactate of 14 and unsure of source at this time but hypoxia may be contributing. CT abdomen pelvis will be obtained soon as patient is stable enough -DKA likely contributing as well. See treatment below -Continue with bicarb drip. Acidosis improving ABGs -We will continue with medical management and monitor closely - Foleystrict I's and O's ENDO - DKApatient with uncontrolled DM type II, with initial BSG 550 and severe acidosis -Continue with insulin drip. Careful with IV fluid with consideration to hypoxia and potential cardiac component -BMPs every 4 hours -Hold oral medications -We will transition to sliding scale once gap closed and BSG within range HEME - H&H stable monitor routine CBCs ID - No indication for infectious process at this time LINES/IV ACCESS - CVL, transvenous pacer, A-line, ET tube, OG tube DVT PROPHYLAXIS - SCDs, heparin drip (2) DKA (diabetic ketoacidosis): (3) Acute kidney injury: (4) Acidosis: (5) Acute hyperkalemia: (6) Complete heart block: Admission and Anticipated Discharge Date Admission Date: April 06, 2022 Physical Exam Constitutional: + obese and + mechanically ventilated Eyes: PERRLA, conjunctiva normal ENMT: external ear and nose normal, oropharynx normal Neck: trachea midline, no thyromegaly Respiratory: Coarse crackles auscultated bilaterally with diminished bases. Symmetrical chest wall movement Cardiovascular: Paced rhythm on monitor, S1-S2 auscultated, no JVD, no peripheral edema Gastrointestinal (Abdomen): Abdomen soft, obese, nondistended Skin: no rashes, warm and dry Neurologic: Unable to assess due to sedation Psychiatric: Unable to assess due to sedation Genitourinary: Indwelling [place] catheter Results & Data Results & Data ([facility]) Vital Signs (Past 12 Hours) Vital Signs Temp Pulse Pulse Resp BP BP Pulse Ox 04/07/22 06:04 81 24 109/53 L 99 04/07/22 05:45 80 24 98 04/07/22 05:31 80 24 95 04/07/22 05:15 79 24 96 04/07/22 04:50 80 24 95 04/07/22 05:00 36.4 C L 81 24 94 04/07/22 05:00 91/65 L 04/07/22 04:45 80 26 H 99 04/07/22 04:36 79 26 H 100 04/07/22 04:36 85/60 L 04/07/22 04:30 81 26 H 100 04/07/22 04:15 81 26 H 98 04/07/22 04:00 80 24 89 L 04/07/22 04:00 36.3 C L 124/91 04/07/22 03:00 81 26 H 97 04/07/22 03:00 90/68 L 04/07/22 02:45 88 26 H 96 04/07/22 02:45 100/58 L 04/07/22 02:30 84 26 H 95 04/07/22 02:30 93/62 L 04/07/22 02:15 86 26 H 94 04/07/22 02:15 97/67 L 04/07/22 02:00 80 26 H 94 04/07/22 02:00 32.6 C L 113/71 04/07/22 01:45 80 26 H 100 04/07/22 01:45 145/89 H 04/07/22 01:30 80 26 H 97 04/07/22 01:30 146/82 H 04/07/22 04:00 04/07/22 04:00 80 108/57 L 04/07/22 01:55 04/07/22 01:16 32.5 C L 80 26 H 97 04/07/22 01:15 138/79 04/06/22 23:59 04/07/22 00:11 32.6 C L 80 23 102/65 85 L 04/06/22 23:39 26 H 04/06/22 22:40 107 H 30 H 124/59 L 90 04/06/22 22:35 123/57 L 04/06/22 22:35 90 30 H 123/57 L 85 L 04/06/22 22:30 89 26 H 133/65 86 L 04/06/22 22:25 90 26 H 148/72 H 87 L 04/06/22 22:20 90 26 H 168/80 H 88 L 04/06/22 22:15 90 26 H 199/100 H 87 L 04/06/22 22:13 90 17 210/105 H 90 04/06/22 22:06 70 26 H 43/23 L 82 L 04/06/22 22:01 31 L 26 H 87/47 L 92 04/06/22 22:00 48 L 26 H 92 04/06/22 21:55 67 26 H 126/62 94 04/06/22 21:50 71 26 H 135/69 93 04/06/22 21:45 139/69 04/06/22 21:35 86 26 H 162/81 H 95 04/06/22 21:30 93 H 26 H 195/94 H 96 04/06/22 21:18 96 H 27 H 94 04/06/22 21:25 83 21 203/165 H 95 04/06/22 21:24 90 18 228/122 H 95 04/06/22 21:23 84 22 206/111 H 93 04/06/22 21:20 98 H 46 H 102/76 75 L 04/06/22 21:16 78 19 83/45 L 88 L 04/06/22 21:15 86 20 87 L 04/06/22 21:10 70 22 255/71 H 89 L 04/06/22 21:05 89 30 H 194/55 H 89 L 04/06/22 21:00 90 30 H 90 04/06/22 20:48 90 27 H 98/20 L 90 04/06/22 20:48 O2 Del Method O2 Flow Rate FiO2 04/07/22 06:04 04/07/22 05:45 04/07/22 05:31 04/07/22 05:15 04/07/22 04:50 60 04/07/22 05:00 04/07/22 05:00 04/07/22 04:45 04/07/22 04:36 04/07/22 04:36 04/07/22 04:30 04/07/22 04:15 04/07/22 04:00 04/07/22 04:00 04/07/22 03:00 04/07/22 03:00 04/07/22 02:45 04/07/22 02:45 04/07/22 02:30 04/07/22 02:30 04/07/22 02:15 04/07/22 02:15 04/07/22 02:00 04/07/22 02:00 04/07/22 01:45 04/07/22 01:45 04/07/22 01:30 04/07/22 01:30 04/07/22 04:00 60 04/07/22 04:00 04/07/22 01:55 60 04/07/22 01:16 04/07/22 01:15 04/06/22 23:59 Mechanical Vent 100 04/07/22 00:11 Mechanical Vent 100 04/06/22 23:39 100 04/06/22 22:40 Mechanical Vent 100 04/06/22 22:35 04/06/22 22:35 Mechanical Vent 100 04/06/22 22:30 Mechanical Vent 100 04/06/22 22:25 Mechanical Vent 100 04/06/22 22:20 Mechanical Vent 04/06/22 22:15 Mechanical Vent 04/06/22 22:13 Mechanical Vent 04/06/22 22:06 Mechanical Vent 04/06/22 22:01 Mechanical Vent 04/06/22 22:00 Mechanical Vent 04/06/22 21:55 Mechanical Vent 04/06/22 21:50 Mechanical Vent 04/06/22 21:45 04/06/22 21:35 Mechanical Vent 04/06/22 21:30 04/06/22 21:18 100 04/06/22 21:25 Mechanical Vent 04/06/22 21:24 Mechanical Vent 04/06/22 21:23 Mechanical Vent 04/06/22 21:20 Non-rebreather 15 04/06/22 21:16 Non-rebreather 15 04/06/22 21:15 Non-rebreather 15 04/06/22 21:10 Non-rebreather 15 04/06/22 21:05 Non-rebreather 15 04/06/22 21:00 Non-rebreather 15 04/06/22 20:48 Non-rebreather 15 04/06/22 20:48 Non-rebreather 15 Resident Activity Tracking Resident Involvement: Resident Care Provided Care Provided: Adult Hospital Medicine (1) DKA (diabetic ketoacidosis) Diabetes mellitus type: type 1
[2022-04-07 07:30] LABS: Estimated Average Glucose 197 mg/dl; Hemoglobin A1C 8.5 % (4.5-5.6)
[2022-04-07] MEDS ORDERED: INSULIN ASPART PER UNIT SC SCH (07:30)
--- NOTE | 2022-04-07 07:42 | XRay Report ---
XR chest 1V portable CLINICAL HISTORY: Respiratory failure. COMPARISON STUDY: Chest radiograph April 06, [address] performed earlier today. FINDINGS: Lung tip of endotracheal tube is 4.2 cm above the faiza. Transvenous pacer is in place. Ti p of nasogastric tube is at least within the body of the stomach. There is no pneumothorax or pleural effusion. Enlargement of the cardiac silhouette is unchanged. Interstitial thickening is again noted . Extensive bilateral airspace opacities are present. These are better depicted on prior chest CT. IMPRESSION: 1. Satisfactory positioning of lines and tubes. 2. Extensive bilateral airspace opacities, better depicted on chest CT. These suggest pneumonia or as piration pneumonitis. 3. Pulmonary vascular congestion. ACT 112: Negative or not required by law. Electronically signed by: Sina Layton M.D. 04/07/2022 7:41 AM
--- NOTE | 2022-04-07 07:48 | Ultrasound Report ---
BILATERAL LOWER EXTREMITY VENOUS DOPPLER CLINICAL HISTORY: Leg swelling. Evaluate for deep venous thrombus. COMPARISON STUDY: No previous studies for comparison. TECHNIQUE: Sonography of the deep venous system of the bilateral lower extremities was performed. Co mpression and augmentation were evaluated. FINDINGS: The bilateral common femoral, superficial femoral and popliteal veins were compressible. A ugmentation was normal. Flow was shown within the deep calf vessels. Left femoral venous central line is in place. IMPRESSION: No evidence of deep venous thrombus within the bilateral lower extremities. ACT 112: Negative or not required by law. Electronically signed by: Sina Layton M.D. 04/07/2022 7:46 AM
[2022-04-07 07:50] LABS: BUN Creatinine Ratio 8.8 (10-20); Calcium 10.7 mg/dl (8.5-10.1); Creatinine Clr Calc Pharmacy 45.4 ml/min; Est GFR (African American) 34.6 ml/min; Est GFR (Non-African American) 29.9 ml/min; Potassium 5.3 mmol/L (3.5-5.1)
--- NOTE | 2022-04-07 07:54 | Cardiology Consultation ---
Date of Consultation April 07, 2022 Assessment & Plan (1) Complete heart block: (2) Sinus bradycardia: (3) PEA (Pulseless electrical activity): (4) Acute hyperkalemia: (5) Acute kidney injury: (6) Acute hypoxemic respiratory failure: (7) DKA (diabetic ketoacidosis): Plan ASSESSMENT/PLAN: 1. Bradycardia/complete heart block: There was reported complete heart block prehospital, but those rhythm strips were not available for review at the time of this consultation. He was noted to have profound sinus bradycardia in the setting of hyperkalemia. Hyperkalemia was the likely cause of his bradycardia and possible heart block. Temporary pacemaker had been placed. During his evaluation this morning, pacemaker rate was reduced to 60 bpm and he was noted to have his intrinsic sinus rhythm in the low 80s. Temporary pacemaker was left in place, but if he remains stable with improved and stabilized potassium levels, can likely be removed later today. No indication for permanent pacemaker at this time. 2. PEA: Resolved. Likely related to his electrolyte abnormalities as above and presenting issues including DKA. 3. Acute hypoxemic respiratory failure: As per critical care team. Currently on mechanical ventilator. 4. Acute kidney injury: Nephrology consultation was placed by primary hospitalist service. Nephrology consultation pending. 5. DKA: As per critical care team and primary hospitalist service. 6. Disposition: Plan of care communicated with Dr. Rivera of the critical care team. Also discussed plan with nursing staff. 35 minutes critical care time spent, including managing his temporary transvenous pacemaker. Thank you for allowing me to participate in the care of your patient. Please call for any other questions or concerns. Sincerely, Keith Villareal M.D. History of Present Illness Reason for Consultation: Complete heart block, cardiac arrest Requesting Physician: Jigar Tavares Attending Physician: Graham Henderson MD History of Present Illness Mr. Holland is a 51-year-old gentleman with history significant for type 2 diabetes, hypertension, and dyslipidemia. He presented on 04/06/2022 with profound bradycardia and became hypotensive with PEA in the emergency department and underwent CPR. Patient currently sedated and intubated and therefore history was obtained by reviewing records and bedside discussion with admitting provider, Dr. Christopher. EMS had reported heart block and performed transcutaneous pacing which apparently improved his responsiveness as he had become unresponsive with heart rates in the 20s while in the ambulance. In the ER, his pulse was undetectable and underwent CPR. He underwent 3 rounds of CPR, and was found to have DKA with acute renal failure and hyperkalemia with a potassium of 7.4. He received IV insulin, albuterol, sodium bicarbonate and calcium chloride. The on-call interventionalist was called by the primary admitting hospitalist service and placed temporary pacemaker. Overnight, was contacted by critical care PA requesting stat echo. Echo was performed and demonstrated hyperdynamic LV systolic function with no regional wall motion abnormalities. Nursing staff stated that he became responsive this morning and indicated chest pain (had multiple rounds of chest compressions), and therefore they sedated him for comfort. He remains on Levophed 0.05 mcg/kg/min. According to records, he had been noted to be dyspneic on exertion over the past few weeks but no significant edema. On the day of presentation, he apparently was much weaker and required assistance to lift his legs off the ground, which prompted the family to call 911. Procedures: 1. Echo 04/07/2022: Normal LV size. EF > 70%. No regional wall motion abnormalities. Mild LVH. No significant valvular abnormalities. Normal RVSP. Review systems: Unobtainable due to sedated and mechanically ventilated status. Family history: Per records, no known premature CAD but unable to confirm with patient. Social history: Per records, does not smoke. . He was alone in his hospital room. Allergies Allergy/AdvReac Type Severity Reaction Status Date / Time Penicillins Allergy Intermediate Hives Verified 04/06/22 20:56 pioglitazone [From Actos] Allergy Unknown CAN'T Verified 04/06/22 20:56 REMEMBER REACTION Home Medications Medication Instructions Recorded Confirmed Type blood sugar diagnostic (OneTouch #10 ea 09/24/18 12/17/21 History Ultra Blue Test Strip) diltiazem HCl 300 mg 300 mg PO QPM #90 caps 05/29/21 04/06/22 Rx capsule,extended release 24 hr sildenafil 100 mg tablet See Rx Instructions PO ONCE PRN 06/07/21 04/06/22 Rx sexual activity #30 tabs metformin 1,000 mg tablet 1,000 mg PO BID #180 tabs 07/11/21 04/06/22 Rx metoprolol succinate 25 mg 25 mg PO BID #180 tabs 03/15/22 11/20/22 Rx tablet,extended release 24 hr valsartan 320 mg tablet 320 mg PO QPM #90 tabs 08/14/21 04/06/22 Rx insulin aspart U-100 100 unit/mL 40 unit (0.4 mL) subcut TID #45 mL 11/07/21 04/06/22 Rx (3 mL) subcutaneous pen (Novolog Flexpen U-100 Insulin aspart) insulin glargine U-300 conc 300 48 unit subcut BID 12/17/21 04/06/22 History unit/mL (3 mL) subcutaneous pen (Toujeo Max U-300 SoloStar) bupropion HCl 300 mg 24 hr tablet, 300 mg PO QAM #90 tabs 12/23/21 04/06/22 Rx extended release omeprazole 20 mg capsule,delayed 20 mg PO BID #180 caps 01/27/22 04/06/22 Rx release simvastatin 40 mg tablet 40 mg PO HS #90 tabs 01/28/22 04/06/22 Rx gabapentin 300 mg capsule 300 mg PO BID #180 caps 03/07/22 04/06/22 Rx Patient History Medical History Asthma Depression Diabetes mellitus, type 2 GERD (gastroesophageal reflux disease) Hypercholesterolemia Hypertension, benign essential, goal below 140/90 Itch Nephropathy Peripheral neuropathy Temporomandibular joint disorder mild, no bite block Surgical History History of wisdom tooth extraction Family History Father Diabetes Other No family history of adverse response to anesthesia Denies family history of Ovarian cancer Prostate cancer Myocardial infarction Breast cancer Colorectal cancer Social History Smoking Status: Never smoker Second Hand Exposure: No; Hx Alcohol Use: Yes Alcohol type: hard liquor Hx Substance Use: No Preferred Language: Azeri Communication Ability: Effective Lock Setter Required: No Beliefs That Will Affect Care: None marital status: Current Living Situation: Spouse Current Living Situation Comment: Lives with spouse and son. 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 Feels Safe at Home: Yes Assistive Devices: None Physical Exam Physical Exam: Gen.: No acute distress. Sedated but opened eyes on verbal stimuli. Neck: Thick neck. No bruits. Normal carotid upstrokes bilaterally. Cardiac: PMI was nonpalpable. No ventricular heave. Regular. Normal S1-S2. No murmurs, rubs, or gallops. Pulmonary: Clear to auscultation bilaterally without wheezes, rales, or rhonchi. Abdomen: Soft, nontender, nondistended, with hypoactive bowel sounds. No bruits noted. Extremities: Right radial arterial line in place. 1+ left radial pulse. 1+ posterior tibialis pulses bilaterally. Trace bilateral pedal edema. No cyanosis. Results & Data ([facility]) Vital Signs (Past 12 Hours) Vital Signs Temp Pulse Pulse Resp BP BP Pulse Ox 04/07/22 06:04 81 24 109/53 L 99 04/07/22 05:45 80 24 98 04/07/22 05:31 80 24 95 04/07/22 05:15 79 24 96 04/07/22 04:50 80 24 95 04/07/22 05:00 36.4 C L 81 24 94 04/07/22 05:00 91/65 L 04/07/22 04:45 80 26 H 99 04/07/22 04:36 79 26 H 100 04/07/22 04:36 85/60 L 04/07/22 04:30 81 26 H 100 04/07/22 04:15 81 26 H 98 04/07/22 04:00 80 24 89 L 04/07/22 04:00 36.3 C L 124/91 04/07/22 03:00 81 26 H 97 04/07/22 03:00 90/68 L 04/07/22 02:45 88 26 H 96 04/07/22 02:45 100/58 L 04/07/22 02:30 84 26 H 95 04/07/22 02:30 93/62 L 04/07/22 02:15 86 26 H 94 04/07/22 02:15 97/67 L 04/07/22 02:00 80 26 H 94 04/07/22 02:00 32.6 C L 113/71 04/07/22 01:45 80 26 H 100 04/07/22 01:45 145/89 H 04/07/22 01:30 80 26 H 97 04/07/22 01:30 146/82 H 04/07/22 04:00 04/07/22 04:00 80 108/57 L 04/07/22 01:55 04/07/22 01:16 32.5 C L 80 26 H 97 04/07/22 01:15 138/79 04/06/22 23:59 04/07/22 00:11 32.6 C L 80 23 102/65 85 L 04/06/22 23:39 26 H 04/06/22 22:40 107 H 30 H 124/59 L 90 04/06/22 22:35 123/57 L 04/06/22 22:35 90 30 H 123/57 L 85 L 04/06/22 22:30 89 26 H 133/65 86 L 04/06/22 22:25 90 26 H 148/72 H 87 L 04/06/22 22:20 90 26 H 168/80 H 88 L 04/06/22 22:15 90 26 H 199/100 H 87 L 04/06/22 22:13 90 17 210/105 H 90 04/06/22 22:06 70 26 H 43/23 L 82 L 04/06/22 22:01 31 L 26 H 87/47 L 92 04/06/22 22:00 48 L 26 H 92 04/06/22 21:55 67 26 H 126/62 94 04/06/22 21:50 71 26 H 135/69 93 04/06/22 21:45 139/69 04/06/22 21:35 86 26 H 162/81 H 95 04/06/22 21:30 93 H 26 H 195/94 H 96 04/06/22 21:18 96 H 27 H 94 04/06/22 21:25 83 21 203/165 H 95 04/06/22 21:24 90 18 228/122 H 95 04/06/22 21:23 84 22 206/111 H 93 04/06/22 21:20 98 H 46 H 102/76 75 L 04/06/22 21:16 78 19 83/45 L 88 L 04/06/22 21:15 86 20 87 L 04/06/22 21:10 70 22 255/71 H 89 L 04/06/22 21:05 89 30 H 194/55 H 89 L 04/06/22 21:00 90 30 H 90 04/06/22 20:48 90 27 H 98/20 L 90 04/06/22 20:48 O2 Del Method O2 Flow Rate FiO2 04/07/22 06:04 04/07/22 05:45 04/07/22 05:31 04/07/22 05:15 04/07/22 04:50 60 04/07/22 05:00 04/07/22 05:00 04/07/22 04:45 04/07/22 04:36 04/07/22 04:36 04/07/22 04:30 04/07/22 04:15 04/07/22 04:00 04/07/22 04:00 04/07/22 03:00 04/07/22 03:00 04/07/22 02:45 04/07/22 02:45 04/07/22 02:30 04/07/22 02:30 04/07/22 02:15 04/07/22 02:15 04/07/22 02:00 04/07/22 02:00 04/07/22 01:45 04/07/22 01:45 04/07/22 01:30 04/07/22 01:30 04/07/22 04:00 60 04/07/22 04:00 04/07/22 01:55 60 04/07/22 01:16 04/07/22 01:15 04/06/22 23:59 Mechanical Vent 100 04/07/22 00:11 Mechanical Vent 100 04/06/22 23:39 100 04/06/22 22:40 Mechanical Vent 100 04/06/22 22:35 04/06/22 22:35 Mechanical Vent 100 04/06/22 22:30 Mechanical Vent 100 04/06/22 22:25 Mechanical Vent 100 04/06/22 22:20 Mechanical Vent 04/06/22 22:15 Mechanical Vent 04/06/22 22:13 Mechanical Vent 04/06/22 22:06 Mechanical Vent 04/06/22 22:01 Mechanical Vent 04/06/22 22:00 Mechanical Vent 04/06/22 21:55 Mechanical Vent 04/06/22 21:50 Mechanical Vent 04/06/22 21:45 04/06/22 21:35 Mechanical Vent 04/06/22 21:30 04/06/22 21:18 100 04/06/22 21:25 Mechanical Vent 04/06/22 21:24 Mechanical Vent 04/06/22 21:23 Mechanical Vent 04/06/22 21:20 Non-rebreather 15 04/06/22 21:16 Non-rebreather 15 04/06/22 21:15 Non-rebreather 15 04/06/22 21:10 Non-rebreather 15 04/06/22 21:05 Non-rebreather 15 04/06/22 21:00 Non-rebreather 15 04/06/22 20:48 Non-rebreather 15 04/06/22 20:48 Non-rebreather 15 Intake & Output 04/05/22 04/06/22 04/07/22 04/08/22 06:59 06:59 06:59 06:59 Intake Total 3272.159 / 3272.159 285.148 / 285.148 Output Total 2200 / 2200 Balance 1072.159 / 1072.159 285.148 / 285.148 Weight 250 lb 3.594 oz Laboratory Results Laboratory Results - last 24 hr 04/06/22 04/06/22 04/06/22 20:53 21:01 21:03 WBC 13.95 H RBC 3.92 L Hgb 10.7 L POC Hgb 12.9 L Hct 35.8 L POC Hct 38 L MCV 91.3 MCH 27.3 MCHC 29.9 L RDW Std Deviation 53.1 H RDW Coeff of Lissett 15.9 H Plt Count 327 MPV 9.7 Immature Gran % (Auto) 2.2 Neut % (Auto) 70.8 Lymph % (Auto) 18.1 [place] % (Auto) 8.2 Eos % (Auto) 0.3 Baso % (Auto) 0.4 Neut # (Auto) 9.87 H Lymph # (Auto) 2.53 [place] # (Auto) 1.15 H Eos # (Auto) 0.04 Baso # (Auto) 0.06 Immature Gran # (Auto) 0.30 H Platelet Estimate PT INR APTT PTT Ratio Sample Site POC pH POC pCO2 POC pO2 POC HCO3 POC Base Excess ABG pH (Temp Correct) ABG pCO2 (Temp Corrct POC ABG pO2 at Pt Temp POC ABG O2 Sat Joel Test VBG pH VBG pCO2 VBG pO2 VBG HCO3 VBG O2 Saturation VBG Base Excess O2 Delivery Device POC O2 Rate POC FiO2 Tidal Volume PEEP POC Sodium 122 L Sodium POC Potassium 7.4 H* Potassium POC Chloride 94 L Chloride Carbon Dioxide POC Total CO2 14 L Anion Gap POC Anion Gap 23.0 POC BUN 18 BUN Creatinine POC Creatinine 3.2 H Est Cr Clr Drug Dosing Est GFR ( Amer) Est GFR (Non-Af Amer) BUN/Creatinine Ratio Glucose POC Glucose 516 H* POC Glucose (other) 569 H* Estimat Average Glucose Hemoglobin A1c Lactate Calcium POC Ioniz Calcium Shirley 1.06 L Phosphorus Magnesium Total Bilirubin AST ALT Alkaline Phosphatase Troponin I High Sens Total Protein Albumin Globulin Albumin/Globulin Ratio Triglycerides Cholesterol LDL Cholesterol, Calc VLDL Cholesterol, Calc HDL Cholesterol Cholesterol/HDL Ratio Lipase Procalcitonin TSH Urine Color Urine Appearance Urine pH Ur Specific [place] Urine Protein Urine Glucose (UA) Urine Ketones Urine Blood Urine Nitrite Urine Bilirubin Urine Urobilinogen Ur Leukocyte Esterase Nasal Screen MRSA (PCR) Adenovirus (PCR) B. pertussis DNA (PCR) B.parapertussis DNA PCR Lyme Disease IgG Ab Lyme Disease IgM Ab C. pneumoniae DNA (PCR) Coronavirus OC43 (PCR) Coronavirus HKU1 (PCR) Coronavirus 229E (PCR) SARS-CoV-2 (PCR) Coronavirus NL63 (PCR) Human Metapneumovir PCR Influenza Type A (PCR) Influenza Type B (PCR) M. pneumoniae (PCR) Parainfluenza 1 (PCR) Parainfluenza 2 (PCR) Parainfluenza 3 (PCR) Parainfluenza 4 (PCR) RSV (PCR) Entero/Rhino (PCR) SARS-CoV-2, RNA, NAAT 04/06/22 04/06/22 04/06/22 21:03 21:03 21:03 WBC RBC Hgb POC Hgb Hct POC Hct MCV MCH MCHC RDW Std Deviation RDW Coeff of [place]iss[place] Plt Count MPV Immature Gran % (Auto) Neut % (Auto) Lymph % (Auto) [place] % (Auto) Eos % (Auto) Baso % (Auto) Neut # (Auto) Lymph # (Auto) [place] # (Auto) Eos # (Auto) Baso # (Auto) Immature Gran # (Auto) Platelet Estimate PT 13.0 H INR 1.2 H APTT 32.8 H PTT Ratio 1.2 Sample Site POC pH POC pCO2 POC pO2 POC HCO3 POC Base Excess ABG pH (Temp Correct) ABG pCO2 (Temp Corrct POC ABG pO2 at Pt Temp POC ABG O2 Sat Joel Test VBG pH VBG pCO2 VBG pO2 VBG HCO3 VBG O2 Saturation VBG Base Excess O2 Delivery Device POC O2 Rate POC FiO2 Tidal Volume PEEP POC Sodium Sodium 120 L POC Potassium Potassium 7.5 H* POC Chloride Chloride 88 L Carbon Dioxide 11 L POC Total CO2 Anion Gap 21 H POC Anion Gap POC BUN BUN 18 Creatinine 2.95 H POC Creatinine Est Cr Clr Drug Dosing Not Reportable Est GFR ( Amer) 27.0 Est GFR (Non-Af Amer) 23.3 BUN/Creatinine Ratio 6.1 L Glucose 564 H* POC Glucose POC Glucose (other) Estimat Average Glucose Hemoglobin A1c Lactate Calcium 8.3 L POC Ioniz Calcium Shirley Phosphorus 7.1 H Magnesium 1.7 Total Bilirubin 0.8 AST 36 ALT 22 Alkaline Phosphatase 102 Troponin I High Sens 7.7 Total Protein 7.2 Albumin 3.7 Globulin 3.5 Albumin/Globulin Ratio 1.1 Triglycerides Cholesterol LDL Cholesterol, Calc VLDL Cholesterol, Calc HDL Cholesterol Cholesterol/HDL Ratio Lipase 29 Procalcitonin TSH 4.436 Urine Color Urine Appearance Urine pH Ur Specific [place] Urine Protein Urine Glucose (UA) Urine Ketones Urine Blood Urine Nitrite Urine Bilirubin Urine Urobilinogen Ur Leukocyte Esterase Nasal Screen MRSA (PCR) Adenovirus (PCR) B. pertussis DNA (PCR) B.parapertussis DNA PCR Lyme Disease IgG Ab Lyme Disease IgM Ab C. pneumoniae DNA (PCR) Coronavirus OC43 (PCR) Coronavirus HKU1 (PCR) Coronavirus 229E (PCR) SARS-CoV-2 (PCR) Coronavirus NL63 (PCR) Human Metapneumovir PCR Influenza Type A (PCR) Influenza Type B (PCR) M. pneumoniae (PCR) Parainfluenza 1 (PCR) Parainfluenza 2 (PCR) Parainfluenza 3 (PCR) Parainfluenza 4 (PCR) RSV (PCR) Entero/Rhino (PCR) SARS-CoV-2, RNA, NAAT 04/06/22 04/06/22 04/06/22 21:03 21:03 21:07 WBC RBC Hgb POC Hgb Hct POC Hct MCV MCH MCHC RDW Std Deviation RDW Coeff of [place] Plt Count MPV Immature Gran % (Auto) Neut % (Auto) Lymph % (Auto) [place] % (Auto) Eos % (Auto) Baso % (Auto) Neut # (Auto) Lymph # (Auto) [place] # (Auto) Eos # (Auto) Baso # (Auto) Immature Gran # (Auto) Platelet Estimate PT INR APTT PTT Ratio Sample Site POC pH POC pCO2 POC pO2 POC HCO3 POC Base Excess ABG pH (Temp Correct) ABG pCO2 (Temp Corrct POC ABG pO2 at Pt Temp POC ABG O2 Sat Joel Test VBG pH < 7.00 L VBG pCO2 55 H VBG pO2 63 VBG HCO3 11 VBG O2 Saturation 82.4 VBG Base Excess -21.5 O2 Delivery Device POC O2 Rate POC FiO2 Tidal Volume PEEP POC Sodium Sodium POC Potassium Potassium POC Chloride Chloride Carbon Dioxide POC Total CO2 Anion Gap POC Anion Gap POC BUN BUN Creatinine POC Creatinine Est Cr Clr Drug Dosing Est GFR ( Amer) Est GFR (Non-Af Amer) BUN/Creatinine Ratio Glucose POC Glucose POC Glucose (other) Estimat Average Glucose Hemoglobin A1c Lactate Calcium POC Ioniz Calcium Shirley Phosphorus Magnesium Total Bilirubin AST ALT Alkaline Phosphatase Troponin I High Sens Total Protein Albumin Globulin Albumin/Globulin Ratio Triglycerides Cholesterol LDL Cholesterol, Calc VLDL Cholesterol, Calc HDL Cholesterol Cholesterol/HDL Ratio Lipase Procalcitonin TSH Urine Color Urine Appearance Urine pH Ur Specific [place] Urine Protein Urine Glucose (UA) Urine Ketones Urine Blood Urine Nitrite Urine Bilirubin Urine Urobilinogen Ur Leukocyte Esterase Nasal Screen MRSA (PCR) Adenovirus (PCR) B. pertussis DNA (PCR) B.parapertussis DNA PCR Lyme Disease IgG Ab Negative Lyme Disease IgM Ab Negative C. pneumoniae DNA (PCR) Coronavirus OC43 (PCR) Coronavirus HKU1 (PCR) Coronavirus 229E (PCR) SARS-CoV-2 (PCR) Coronavirus NL63 (PCR) Human Metapneumovir PCR Influenza Type A (PCR) Influenza Type B (PCR) M. pneumoniae (PCR) Parainfluenza 1 (PCR) Parainfluenza 2 (PCR) Parainfluenza 3 (PCR) Parainfluenza 4 (PCR) RSV (PCR) Entero/Rhino (PCR) SARS-CoV-2, RNA, NAAT NEGATIVE 04/06/22 04/06/22 04/06/22 21:33 22:08 22:14 WBC RBC Hgb POC Hgb 11.2 L Hct POC Hct 33 L MCV MCH MCHC RDW Std Deviation RDW Coeff of [place] Plt Count MPV Immature Gran % (Auto) Neut % (Auto) Lymph % (Auto) [place] % (Auto) Eos % (Auto) Baso % (Auto) Neut # (Auto) Lymph # (Auto) [place] # (Auto) Eos # (Auto) Baso # (Auto) Immature Gran # (Auto) Platelet Estimate PT INR APTT PTT Ratio Sample Site POC pH POC pCO2 POC pO2 POC HCO3 POC Base Excess ABG pH (Temp Correct) ABG pCO2 (Temp Corrct POC ABG pO2 at Pt Temp POC ABG O2 Sat Joel Test VBG pH VBG pCO2 VBG pO2 VBG HCO3 VBG O2 Saturation VBG Base Excess O2 Delivery Device POC O2 Rate POC FiO2 Tidal Volume PEEP POC Sodium 129 L Sodium POC Potassium 6.0 H Potassium POC Chloride 91 L Chloride Carbon Dioxide POC Total CO2 23 L Anion Gap POC Anion Gap 21.0 POC BUN 19 H BUN Creatinine POC Creatinine 2.8 H Est Cr Clr Drug Dosing Est GFR ( Amer) Est GFR (Non-Af Amer) BUN/Creatinine Ratio Glucose POC Glucose 434 H* POC Glucose (other) 494 H* Estimat Average Glucose Hemoglobin A1c Lactate Calcium POC Ioniz Calcium Shirley 1.71 H* Phosphorus Magnesium Total Bilirubin AST ALT Alkaline Phosphatase Troponin I High Sens Total Protein Albumin Globulin Albumin/Globulin Ratio Triglycerides Cholesterol LDL Cholesterol, Calc VLDL Cholesterol, Calc HDL Cholesterol Cholesterol/HDL Ratio Lipase Procalcitonin TSH Urine Color Urine Appearance Urine pH Ur Specific [place] Urine Protein Urine Glucose (UA) Urine Ketones Urine Blood Urine Nitrite Urine Bilirubin Urine Urobilinogen Ur Leukocyte Esterase Nasal Screen MRSA (PCR) Adenovirus (PCR) Not Detected B. pertussis DNA (PCR) Not Detected B.parapertussis DNA PCR Not Detected Lyme Disease IgG Ab Lyme Disease IgM Ab C. pneumoniae DNA (PCR) Not Detected Coronavirus OC43 (PCR) Not Detected Coronavirus HKU1 (PCR) Not Detected Coronavirus 229E (PCR) Not Detected SARS-CoV-2 (PCR) Not Detected Coronavirus NL63 (PCR) Not Detected Human Metapneumovir PCR Not Detected Influenza Type A (PCR) Not Detected Influenza Type B (PCR) Not Detected M. pneumoniae (PCR) Not Detected Parainfluenza 1 (PCR) Not Detected Parainfluenza 2 (PCR) Not Detected Parainfluenza 3 (PCR) Not Detected Parainfluenza 4 (PCR) Not Detected RSV (PCR) Not Detected Entero/Rhino (PCR) Not Detected SARS-CoV-2, RNA, NAAT 04/06/22 04/06/22 04/06/22 22:20 22:20 22:33 WBC RBC Hgb POC Hgb 10.9 L 10.9 L Hct POC Hct 32 L 32 L MCV MCH MCHC RDW Std Deviation RDW Coeff of [place] Plt Count MPV Immature Gran % (Auto) Neut % (Auto) Lymph % (Auto) [place] % (Auto) Eos % (Auto) Baso % (Auto) Neut # (Auto) Lymph # (Auto) [place] # (Auto) Eos # (Auto) Baso # (Auto) Immature Gran # (Auto) Platelet Estimate PT INR APTT PTT Ratio Sample Site POC pH 7.14 L* POC pCO2 60 H POC pO2 69 L POC HCO3 21 POC Base Excess -8.0 ABG pH (Temp Correct) ABG pCO2 (Temp Corrct POC ABG pO2 at Pt Temp POC ABG O2 Sat 87.0 L Joel Test VBG pH 7.05 L VBG pCO2 62 H VBG pO2 72 VBG HCO3 17 VBG O2 Saturation 89.7 VBG Base Excess -13.8 O2 Delivery Device POC O2 Rate POC FiO2 Tidal Volume PEEP POC Sodium 131 L 133 L Sodium POC Potassium 5.1 H 4.7 Potassium POC Chloride 93 L Chloride Carbon Dioxide POC Total CO2 21 L 22 L Anion Gap POC Anion Gap 24.0 POC BUN 18 BUN Creatinine POC Creatinine 2.8 H Est Cr Clr Drug Dosing Est GFR ( Amer) Est GFR (Non-Af Amer) BUN/Creatinine Ratio Glucose POC Glucose POC Glucose (other) 450 H* Estimat Average Glucose Hemoglobin A1c Lactate Calcium POC Ioniz Calcium Shirley 1.66 H* Phosphorus Magnesium Total Bilirubin AST ALT Alkaline Phosphatase Troponin I High Sens Total Protein Albumin Globulin Albumin/Globulin Ratio Triglycerides Cholesterol LDL Cholesterol, Calc VLDL Cholesterol, Calc HDL Cholesterol Cholesterol/HDL Ratio Lipase Procalcitonin TSH Urine Color Urine Appearance Urine pH Ur Specific [place] Urine Protein Urine Glucose (UA) Urine Ketones Urine Blood Urine Nitrite Urine Bilirubin Urine Urobilinogen Ur Leukocyte Esterase Nasal Screen MRSA (PCR) Adenovirus (PCR) B. pertussis DNA (PCR) B.parapertussis DNA PCR Lyme Disease IgG Ab Lyme Disease IgM Ab C. pneumoniae DNA (PCR) Coronavirus OC43 (PCR) Coronavirus HKU1 (PCR) Coronavirus 229E (PCR) SARS-CoV-2 (PCR) Coronavirus NL63 (PCR) Human Metapneumovir PCR Influenza Type A (PCR) Influenza Type B (PCR) M. pneumoniae (PCR) Parainfluenza 1 (PCR) Parainfluenza 2 (PCR) Parainfluenza 3 (PCR) Parainfluenza 4 (PCR) RSV (PCR) Entero/Rhino (PCR) SARS-CoV-2, RNA, NAAT 04/06/22 04/07/22 04/07/22 23:48 00:16 00:27 WBC 7.59 RBC 3.82 L Hgb 10.4 L POC Hgb 11.2 L Hct 33.0 L POC Hct 33 L MCV 86.4 D MCH 27.2 MCHC 31.5 L RDW Std Deviation 48.6 H RDW Coeff of Lissett 15.5 H Plt Count 144 D MPV 9.4 Immature Gran % (Auto) Neut % (Auto) Lymph % (Auto) [place] % (Auto) Eos % (Auto) Baso % (Auto) Neut # (Auto) Lymph # (Auto) [place] # (Auto) Eos # (Auto) Baso # (Auto) Immature Gran # (Auto) Platelet Estimate Normal PT INR APTT PTT Ratio Sample Site Art Line POC pH 7.25 L POC pCO2 40 POC pO2 58 L POC HCO3 18 L POC Base Excess -10.0 L ABG pH (Temp Correct) 7.308 L ABG pCO2 (Temp Corrct 33 L POC ABG pO2 at Pt Temp 43 POC ABG O2 Sat 85.0 L Joel Test NA VBG pH VBG pCO2 VBG pO2 VBG HCO3 VBG O2 Saturation VBG Base Excess O2 Delivery Device Ventilator POC O2 Rate 26 POC FiO2 100 Tidal Volume 470 PEEP 14 POC Sodium 129 L Sodium POC Potassium 5.7 H Potassium POC Chloride Chloride Carbon Dioxide POC Total CO2 19 L Anion Gap POC Anion Gap POC BUN BUN Creatinine POC Creatinine Est Cr Clr Drug Dosing Est GFR ( Amer) Est GFR (Non-Af Amer) BUN/Creatinine Ratio Glucose POC Glucose 433 H* POC Glucose (other) Estimat Average Glucose Hemoglobin A1c Lactate Calcium POC Ioniz Calcium [place] Phosphorus Magnesium Total Bilirubin AST ALT Alkaline Phosphatase Troponin I High Sens Total Protein Albumin Globulin Albumin/Globulin Ratio Triglycerides Cholesterol LDL Cholesterol, Calc VLDL Cholesterol, Calc HDL Cholesterol Cholesterol/HDL Ratio Lipase Procalcitonin TSH Urine Color Urine Appearance Urine pH Ur Specific [place] Urine Protein Urine Glucose (UA) Urine Ketones Urine Blood Urine Nitrite Urine Bilirubin Urine Urobilinogen Ur Leukocyte Esterase Nasal Screen MRSA (PCR) Adenovirus (PCR) B. pertussis DNA (PCR) B.parapertussis DNA PCR Lyme Disease IgG Ab Lyme Disease IgM Ab C. pneumoniae DNA (PCR) Coronavirus OC43 (PCR) Coronavirus HKU1 (PCR) Coronavirus 229E (PCR) SARS-CoV-2 (PCR) Coronavirus NL63 (PCR) Human Metapneumovir PCR Influenza Type A (PCR) Influenza Type B (PCR) M. pneumoniae (PCR) Parainfluenza 1 (PCR) Parainfluenza 2 (PCR) Parainfluenza 3 (PCR) Parainfluenza 4 (PCR) RSV (PCR) Entero/Rhino (PCR) SARS-CoV-2, RNA, NAAT 04/07/22 04/07/22 04/07/22 00:27 00:27 00:27 WBC RBC Hgb POC Hgb Hct POC Hct MCV MCH MCHC RDW Std Deviation RDW Coeff of [place] Plt Count MPV Immature Gran % (Auto) Neut % (Auto) Lymph % (Auto) [place] % (Auto) Eos % (Auto) Baso % (Auto) Neut # (Auto) Lymph # (Auto) [place] # (Auto) Eos # (Auto) Baso # (Auto) Immature Gran # (Auto) Platelet Estimate PT 13.0 H INR 1.2 H APTT 24.4 PTT Ratio 0.9 Sample Site POC pH POC pCO2 POC pO2 POC HCO3 POC Base Excess ABG pH (Temp Correct) ABG pCO2 (Temp Corrct POC ABG pO2 at Pt Temp POC ABG O2 Sat Joel Test VBG pH VBG pCO2 VBG pO2 VBG HCO3 VBG O2 Saturation VBG Base Excess O2 Delivery Device POC O2 Rate POC FiO2 Tidal Volume PEEP POC Sodium Sodium 131 L D POC Potassium Potassium 5.9 H D POC Chloride Chloride 92 L Carbon Dioxide 18 L POC Total CO2 Anion Gap 21 H POC Anion Gap POC BUN BUN 20 Creatinine 2.38 H D POC Creatinine Est Cr Clr Drug Dosing 45.8 Est GFR ( Amer) 35.0 Est GFR (Non-Af Amer) 30.2 BUN/Creatinine Ratio 8.4 L Glucose 383 H* POC Glucose POC Glucose (other) Estimat Average Glucose Hemoglobin A1c Lactate 14.4 H* Calcium 11.5 H D POC Ioniz Calcium Shirley Phosphorus 6.7 H Magnesium 1.6 L Total Bilirubin 1.5 H D AST 56 H ALT 27 Alkaline Phosphatase 93 Troponin I High Sens 21.7 H D Total Protein 6.5 Albumin 3.2 L Globulin 3.3 Albumin/Globulin Ratio 1.0 Triglycerides Cholesterol LDL Cholesterol, Calc VLDL Cholesterol, Calc HDL Cholesterol Cholesterol/HDL Ratio Lipase Procalcitonin TSH Urine Color Urine Appearance Urine pH Ur Specific [place] Urine Protein Urine Glucose (UA) Urine Ketones Urine Blood Urine Nitrite Urine Bilirubin Urine Urobilinogen Ur Leukocyte Esterase Nasal Screen MRSA (PCR) Adenovirus (PCR) B. pertussis DNA (PCR) B.parapertussis DNA PCR Lyme Disease IgG Ab Lyme Disease IgM Ab C. pneumoniae DNA (PCR) Coronavirus OC43 (PCR) Coronavirus HKU1 (PCR) Coronavirus 229E (PCR) SARS-CoV-2 (PCR) Coronavirus NL63 (PCR) Human Metapneumovir PCR Influenza Type A (PCR) Influenza Type B (PCR) M. pneumoniae (PCR) Parainfluenza 1 (PCR) Parainfluenza 2 (PCR) Parainfluenza 3 (PCR) Parainfluenza 4 (PCR) RSV (PCR) Entero/Rhino (PCR) SARS-CoV-2, RNA, NAAT 04/07/22 04/07/22 04/07/22 00:28 00:53 01:00 WBC RBC Hgb POC Hgb Hct POC Hct MCV MCH MCHC RDW Std Deviation RDW Coeff of [place] Plt Count MPV Immature Gran % (Auto) Neut % (Auto) Lymph % (Auto) [place] % (Auto) Eos % (Auto) Baso % (Auto) Neut # (Auto) Lymph # (Auto) [place] # (Auto) Eos # (Auto) Baso # (Auto) Immature Gran # (Auto) Platelet Estimate PT INR APTT PTT Ratio Sample Site POC pH POC pCO2 POC pO2 POC HCO3 POC Base Excess ABG pH (Temp Correct) ABG pCO2 (Temp Corrct POC ABG pO2 at Pt Temp POC ABG O2 Sat Joel Test VBG pH VBG pCO2 VBG pO2 VBG HCO3 VBG O2 Saturation VBG Base Excess O2 Delivery Device POC O2 Rate POC FiO2 Tidal Volume PEEP POC Sodium Sodium POC Potassium Potassium POC Chloride Chloride Carbon Dioxide POC Total CO2 Anion Gap POC Anion Gap POC BUN BUN Creatinine POC Creatinine Est Cr Clr Drug Dosing Est GFR ( Amer) Est GFR (Non-Af Amer) BUN/Creatinine Ratio Glucose POC Glucose 365 H* POC Glucose (other) Estimat Average Glucose Hemoglobin A1c Lactate Calcium POC Ioniz Calcium Shirley Phosphorus Magnesium Total Bilirubin AST ALT Alkaline Phosphatase Troponin I High Sens Total Protein Albumin Globulin Albumin/Globulin Ratio Triglycerides Cholesterol LDL Cholesterol, Calc VLDL Cholesterol, Calc HDL Cholesterol Cholesterol/HDL Ratio Lipase Procalcitonin 0.18 TSH Urine Color Urine Appearance Urine pH Ur Specific [place] Urine Protein Urine Glucose (UA) Urine Ketones Urine Blood Urine Nitrite Urine Bilirubin Urine Urobilinogen Ur Leukocyte Esterase Nasal Screen MRSA (PCR) Negative Adenovirus (PCR) B. pertussis DNA (PCR) B.parapertussis DNA PCR Lyme Disease IgG Ab Lyme Disease IgM Ab C. pneumoniae DNA (PCR) Coronavirus OC43 (PCR) Coronavirus HKU1 (PCR) Coronavirus 229E (PCR) SARS-CoV-2 (PCR) Coronavirus NL63 (PCR) Human Metapneumovir PCR Influenza Type A (PCR) Influenza Type B (PCR) M. pneumoniae (PCR) Parainfluenza 1 (PCR) Parainfluenza 2 (PCR) Parainfluenza 3 (PCR) Parainfluenza 4 (PCR) RSV (PCR) Entero/Rhino (PCR) SARS-CoV-2, RNA, NAAT 04/07/22 04/07/22 04/07/22 01:49 01:50 01:55 WBC RBC Hgb POC Hgb 11.2 L Hct POC Hct 33 L MCV MCH MCHC RDW Std Deviation RDW Coeff of [place] Plt Count MPV Immature Gran % (Auto) Neut % (Auto) Lymph % (Auto) [place] % (Auto) Eos % (Auto) Baso % (Auto) Neut # (Auto) Lymph # (Auto) [place] # (Auto) Eos # (Auto) Baso # (Auto) Immature Gran # (Auto) Platelet Estimate PT INR APTT PTT Ratio Sample Site Art Line POC pH 7.33 L POC pCO2 36 POC pO2 88 POC HCO3 19 POC Base Excess -7.0 ABG pH (Temp Correct) 7.385 ABG pCO2 (Temp Corrct 30 L POC ABG pO2 at Pt Temp 67 POC ABG O2 Sat 96.0 H Joel Test NA VBG pH VBG pCO2 VBG pO2 VBG HCO3 VBG O2 Saturation VBG Base Excess O2 Delivery Device Ventilator POC O2 Rate 26 POC FiO2 70 Tidal Volume 470 PEEP 18 POC Sodium 127 L Sodium POC Potassium 5.7 H Potassium POC Chloride Chloride Carbon Dioxide POC Total CO2 20 L Anion Gap POC Anion Gap POC BUN BUN Creatinine POC Creatinine Est Cr Clr Drug Dosing Est GFR ( Amer) Est GFR (Non-Af Amer) BUN/Creatinine Ratio Glucose POC Glucose 331 H* POC Glucose (other) Estimat Average Glucose Hemoglobin A1c Lactate 13.1 H* Calcium POC Ioniz Calcium [place] Phosphorus Magnesium Total Bilirubin AST ALT Alkaline Phosphatase Troponin I High Sens Total Protein Albumin Globulin Albumin/Globulin Ratio Triglycerides Cholesterol LDL Cholesterol, Calc VLDL Cholesterol, Calc HDL Cholesterol Cholesterol/HDL Ratio Lipase Procalcitonin TSH Urine Color Urine Appearance Urine pH Ur Specific [place] Urine Protein Urine Glucose (UA) Urine Ketones Urine Blood Urine Nitrite Urine Bilirubin Urine Urobilinogen Ur Leukocyte Esterase Nasal Screen MRSA (PCR) Adenovirus (PCR) B. pertussis DNA (PCR) B.parapertussis DNA PCR Lyme Disease IgG Ab Lyme Disease IgM Ab C. pneumoniae DNA (PCR) Coronavirus OC43 (PCR) Coronavirus HKU1 (PCR) Coronavirus 229E (PCR) SARS-CoV-2 (PCR) Coronavirus NL63 (PCR) Human Metapneumovir PCR Influenza Type A (PCR) Influenza Type B (PCR) M. pneumoniae (PCR) Parainfluenza 1 (PCR) Parainfluenza 2 (PCR) Parainfluenza 3 (PCR) Parainfluenza 4 (PCR) RSV (PCR) Entero/Rhino (PCR) SARS-CoV-2, RNA, NAAT 04/07/22 04/07/22 04/07/22 02:54 04:01 04:37 WBC 7.18 RBC 3.36 L Hgb 9.1 L POC Hgb Hct 27.9 L POC Hct MCV 83.0 MCH 27.1 MCHC 32.6 RDW Std Deviation 46.2 RDW Coeff of [place] 15.4 H Plt Count 129 L MPV 9.1 L Immature Gran % (Auto) 0.4 Neut % (Auto) 82.1 Lymph % (Auto) 12.8 [place] % (Auto) 4.6 Eos % (Auto) 0.0 Baso % (Auto) 0.1 Neut # (Auto) 5.89 Lymph # (Auto) 0.92 L [place] # (Auto) 0.33 Eos # (Auto) 0.00 Baso # (Auto) 0.01 Immature Gran # (Auto) 0.03 H Platelet Estimate PT INR APTT PTT Ratio Sample Site POC pH POC pCO2 POC pO2 POC HCO3 POC Base Excess ABG pH (Temp Correct) ABG pCO2 (Temp Corrct POC ABG pO2 at Pt Temp POC ABG O2 Sat Joel Test VBG pH VBG pCO2 VBG pO2 VBG HCO3 VBG O2 Saturation VBG Base Excess O2 Delivery Device POC O2 Rate POC FiO2 Tidal Volume PEEP POC Sodium Sodium POC Potassium Potassium POC Chloride Chloride Carbon Dioxide POC Total CO2 Anion Gap POC Anion Gap POC BUN BUN Creatinine POC Creatinine Est Cr Clr Drug Dosing Est GFR ( Amer) Est GFR (Non-Af Amer) BUN/Creatinine Ratio Glucose POC Glucose 340 H* 300 H POC Glucose (other) Estimat Average Glucose Hemoglobin A1c Lactate Calcium POC Ioniz Calcium [place] Phosphorus Magnesium Total Bilirubin AST ALT Alkaline Phosphatase Troponin I High Sens Total Protein Albumin Globulin Albumin/Globulin Ratio Triglycerides Cholesterol LDL Cholesterol, Calc VLDL Cholesterol, Calc HDL Cholesterol Cholesterol/HDL Ratio Lipase Procalcitonin TSH Urine Color Urine Appearance Urine pH Ur Specific [place] Urine Protein Urine Glucose (UA) Urine Ketones Urine Blood Urine Nitrite Urine Bilirubin Urine Urobilinogen Ur Leukocyte Esterase Nasal Screen MRSA (PCR) Adenovirus (PCR) B. pertussis DNA (PCR) B.parapertussis DNA PCR Lyme Disease IgG Ab Lyme Disease IgM Ab C. pneumoniae DNA (PCR) Coronavirus OC43 (PCR) Coronavirus HKU1 (PCR) Coronavirus 229E (PCR) SARS-CoV-2 (PCR) Coronavirus NL63 (PCR) Human Metapneumovir PCR Influenza Type A (PCR) Influenza Type B (PCR) M. pneumoniae (PCR) Parainfluenza 1 (PCR) Parainfluenza 2 (PCR) Parainfluenza 3 (PCR) Parainfluenza 4 (PCR) RSV (PCR) Entero/Rhino (PCR) SARS-CoV-2, RNA, NAAT 04/07/22 04/07/22 04/07/22 04:37 04:37 04:37 WBC RBC Hgb POC Hgb Hct POC Hct MCV MCH MCHC RDW Std Deviation RDW Coeff of [place] Plt Count MPV Immature Gran % (Auto) Neut % (Auto) Lymph % (Auto) [place] % (Auto) Eos % (Auto) Baso % (Auto) Neut # (Auto) Lymph # (Auto) [place] # (Auto) Eos # (Auto) Baso # (Auto) Immature Gran # (Auto) Platelet Estimate PT INR APTT PTT Ratio Sample Site POC pH POC pCO2 POC pO2 POC HCO3 POC Base Excess ABG pH (Temp Correct) ABG pCO2 (Temp Corrct POC ABG pO2 at Pt Temp POC ABG O2 Sat Joel Test VBG pH VBG pCO2 VBG pO2 VBG HCO3 VBG O2 Saturation VBG Base Excess O2 Delivery Device POC O2 Rate POC FiO2 Tidal Volume PEEP POC Sodium Sodium 131 L POC Potassium Potassium 5.9 H POC Chloride Chloride 93 L Carbon Dioxide 24 POC Total CO2 Anion Gap 14 H POC Anion Gap POC BUN BUN 20 Creatinine 2.33 H POC Creatinine Est Cr Clr Drug Dosing 46.8 Est GFR ( Amer) 35.9 Est GFR (Non-Af Amer) 31.0 BUN/Creatinine Ratio 8.6 L Glucose 290 H POC Glucose POC Glucose (other) Estimat Average Glucose 197 Hemoglobin A1c 8.5 H Lactate 10.0 H* Calcium 10.6 H POC Ioniz Calcium [place] Phosphorus 5.1 H Magnesium 1.4 L Total Bilirubin 1.5 H AST 54 H ALT 26 Alkaline Phosphatase 75 Troponin I High Sens Total Protein 5.6 L Albumin 2.8 L Globulin 2.8 Albumin/Globulin Ratio 1.0 Triglycerides 58 Cholesterol 99 LDL Cholesterol, Calc 35 VLDL Cholesterol, Calc 12 HDL Cholesterol 52 Cholesterol/HDL Ratio 1.9 Lipase Procalcitonin TSH Urine Color Urine Appearance Urine pH Ur Specific [place] Urine Protein Urine Glucose (UA) Urine Ketones Urine Blood Urine Nitrite Urine Bilirubin Urine Urobilinogen Ur Leukocyte Esterase Nasal Screen MRSA (PCR) Adenovirus (PCR) B. pertussis DNA (PCR) B.parapertussis DNA PCR Lyme Disease IgG Ab Lyme Disease IgM Ab C. pneumoniae DNA (PCR) Coronavirus OC43 (PCR) Coronavirus HKU1 (PCR) Coronavirus 229E (PCR) SARS-CoV-2 (PCR) Coronavirus NL63 (PCR) Human Metapneumovir PCR Influenza Type A (PCR) Influenza Type B (PCR) M. pneumoniae (PCR) Parainfluenza 1 (PCR) Parainfluenza 2 (PCR) Parainfluenza 3 (PCR) Parainfluenza 4 (PCR) RSV (PCR) Entero/Rhino (PCR) SARS-CoV-2, RNA, NAAT 04/07/22 04/07/22 04/07/22 04:53 04:56 05:30 WBC RBC Hgb POC Hgb 9.9 L Hct POC Hct 29 L MCV MCH MCHC RDW Std Deviation RDW Coeff of [place] Plt Count MPV Immature Gran % (Auto) Neut % (Auto) Lymph % (Auto) [place] % (Auto) Eos % (Auto) Baso % (Auto) Neut # (Auto) Lymph # (Auto) [place] # (Auto) Eos # (Auto) Baso # (Auto) Immature Gran # (Auto) Platelet Estimate PT INR APTT PTT Ratio Sample Site Art Line POC pH 7.46 H POC pCO2 36 POC pO2 72 L POC HCO3 25 H POC Base Excess 1.0 ABG pH (Temp Correct) 7.467 H ABG pCO2 (Temp Corrct 35 POC ABG pO2 at Pt Temp 69 POC ABG O2 Sat 95.0 Joel Test NA VBG pH VBG pCO2 VBG pO2 VBG HCO3 VBG O2 Saturation VBG Base Excess O2 Delivery Device Ventilator POC O2 Rate 26 POC FiO2 60 Tidal Volume 470 PEEP 18 POC Sodium 130 L Sodium POC Potassium 5.6 H Potassium POC Chloride Chloride Carbon Dioxide POC Total CO2 26 Anion Gap POC Anion Gap POC BUN BUN Creatinine POC Creatinine Est Cr Clr Drug Dosing Est GFR ( Amer) Est GFR (Non-Af Amer) BUN/Creatinine Ratio Glucose POC Glucose 281 H POC Glucose (other) Estimat Average Glucose Hemoglobin A1c Lactate Calcium POC Ioniz Calcium [place] Phosphorus Magnesium Total Bilirubin AST ALT Alkaline Phosphatase Troponin I High Sens Total Protein Albumin Globulin Albumin/Globulin Ratio Triglycerides Cholesterol LDL Cholesterol, Calc VLDL Cholesterol, Calc HDL Cholesterol Cholesterol/HDL Ratio Lipase Procalcitonin TSH Urine Color Pending Urine Appearance Pending Urine pH Pending Ur Specific [place] Pending Urine Protein Pending Urine Glucose (UA) Pending Urine Ketones Pending Urine Blood Pending Urine Nitrite Pending Urine Bilirubin Pending Urine Urobilinogen Pending Ur Leukocyte Esterase Pending Nasal Screen MRSA (PCR) Adenovirus (PCR) B. pertussis DNA (PCR) B.parapertussis DNA PCR Lyme Disease IgG Ab Lyme Disease IgM Ab C. pneumoniae DNA (PCR) Coronavirus OC43 (PCR) Coronavirus HKU1 (PCR) Coronavirus 229E (PCR) SARS-CoV-2 (PCR) Coronavirus NL63 (PCR) Human Metapneumovir PCR Influenza Type A (PCR) Influenza Type B (PCR) M. pneumoniae (PCR) Parainfluenza 1 (PCR) Parainfluenza 2 (PCR) Parainfluenza 3 (PCR) Parainfluenza 4 (PCR) RSV (PCR) Entero/Rhino (PCR) SARS-CoV-2, RNA, NAAT 04/07/22 04/07/22 04/07/22 06:04 07:12 07:12 WBC RBC Hgb POC Hgb Hct POC Hct MCV MCH MCHC RDW Std Deviation RDW Coeff of [place] Plt Count MPV Immature Gran % (Auto) Neut % (Auto) Lymph % (Auto) [place] % (Auto) Eos % (Auto) Baso % (Auto) Neut # (Auto) Lymph # (Auto) [place] # (Auto) Eos # (Auto) Baso # (Auto) Immature Gran # (Auto) Platelet Estimate PT INR APTT > 139.0 H* PTT Ratio > 5.1 Sample Site POC pH POC pCO2 POC pO2 POC HCO3 POC Base Excess ABG pH (Temp Correct) ABG pCO2 (Temp Corrct POC ABG pO2 at Pt Temp POC ABG O2 Sat Joel Test VBG pH VBG pCO2 VBG pO2 VBG HCO3 VBG O2 Saturation VBG Base Excess O2 Delivery Device POC O2 Rate POC FiO2 Tidal Volume PEEP POC Sodium Sodium 131 L POC Potassium Potassium 5.3 H POC Chloride Chloride 92 L Carbon Dioxide 29 POC Total CO2 Anion Gap 10 POC Anion Gap POC BUN BUN 21 Creatinine 2.40 H POC Creatinine Est Cr Clr Drug Dosing 45.4 Est GFR ( Amer) 34.6 Est GFR (Non-Af Amer) 29.9 BUN/Creatinine Ratio 8.8 L Glucose 238 H POC Glucose POC Glucose (other) 258 H Estimat Average Glucose Hemoglobin A1c Lactate Calcium 10.7 H POC Ioniz Calcium [place] Phosphorus Magnesium Total Bilirubin AST ALT Alkaline Phosphatase Troponin I High Sens Total Protein Albumin Globulin Albumin/Globulin Ratio Triglycerides Cholesterol LDL Cholesterol, Calc VLDL Cholesterol, Calc HDL Cholesterol Cholesterol/HDL Ratio Lipase Procalcitonin TSH Urine Color Urine Appearance Urine pH Ur Specific [place] Urine Protein Urine Glucose (UA) Urine Ketones Urine Blood Urine Nitrite Urine Bilirubin Urine Urobilinogen Ur Leukocyte Esterase Nasal Screen MRSA (PCR) Adenovirus (PCR) B. pertussis DNA (PCR) B.parapertussis DNA PCR Lyme Disease IgG Ab Lyme Disease IgM Ab C. pneumoniae DNA (PCR) Coronavirus OC43 (PCR) Coronavirus HKU1 (PCR) Coronavirus 229E (PCR) SARS-CoV-2 (PCR) Coronavirus NL63 (PCR) Human Metapneumovir PCR Influenza Type A (PCR) Influenza Type B (PCR) M. pneumoniae (PCR) Parainfluenza 1 (PCR) Parainfluenza 2 (PCR) Parainfluenza 3 (PCR) Parainfluenza 4 (PCR) RSV (PCR) Entero/Rhino (PCR) SARS-CoV-2, RNA, NAAT 04/07/22 07:15 WBC RBC Hgb POC Hgb Hct POC Hct MCV MCH MCHC RDW Std Deviation RDW Coeff of [place] Plt Count MPV Immature Gran % (Auto) Neut % (Auto) Lymph % (Auto) [place] % (Auto) Eos % (Auto) Baso % (Auto) Neut # (Auto) Lymph # (Auto) [place] # (Auto) Eos # (Auto) Baso # (Auto) Immature Gran # (Auto) Platelet Estimate PT INR APTT PTT Ratio Sample Site POC pH POC pCO2 POC pO2 POC HCO3 POC Base Excess ABG pH (Temp Correct) ABG pCO2 (Temp Corrct POC ABG pO2 at Pt Temp POC ABG O2 Sat Joel Test VBG pH VBG pCO2 VBG pO2 VBG HCO3 VBG O2 Saturation VBG Base Excess O2 Delivery Device POC O2 Rate POC FiO2 Tidal Volume PEEP POC Sodium Sodium POC Potassium Potassium POC Chloride Chloride Carbon Dioxide POC Total CO2 Anion Gap POC Anion Gap POC BUN BUN Creatinine POC Creatinine Est Cr Clr Drug Dosing Est GFR ( Amer) Est GFR (Non-Af Amer) BUN/Creatinine Ratio Glucose POC Glucose POC Glucose (other) 247 H Estimat Average Glucose Hemoglobin A1c Lactate Calcium POC Ioniz Calcium [place] Phosphorus Magnesium Total Bilirubin AST ALT Alkaline Phosphatase Troponin I High Sens Total Protein Albumin Globulin Albumin/Globulin Ratio Triglycerides Cholesterol LDL Cholesterol, Calc VLDL Cholesterol, Calc HDL Cholesterol Cholesterol/HDL Ratio Lipase Procalcitonin TSH Urine Color Urine Appearance Urine pH Ur Specific [place] Urine Protein Urine Glucose (UA) Urine Ketones Urine Blood Urine Nitrite Urine Bilirubin Urine Urobilinogen Ur Leukocyte Esterase Nasal Screen MRSA (PCR) Adenovirus (PCR) B. pertussis DNA (PCR) B.parapertussis DNA PCR Lyme Disease IgG Ab Lyme Disease IgM Ab C. pneumoniae DNA (PCR) Coronavirus OC43 (PCR) Coronavirus HKU1 (PCR) Coronavirus 229E (PCR) SARS-CoV-2 (PCR) Coronavirus NL63 (PCR) Human Metapneumovir PCR Influenza Type A (PCR) Influenza Type B (PCR) M. pneumoniae (PCR) Parainfluenza 1 (PCR) Parainfluenza 2 (PCR) Parainfluenza 3 (PCR) Parainfluenza 4 (PCR) RSV (PCR) Entero/Rhino (PCR) SARS-CoV-2, RNA, NAAT Diagnostic Findings Telemetry personally reviewed: Ventricular paced with intermittent sinus. ECGs personally reviewed: ECG 04/06/2022 at 8:50 p.m.: Uncertain rhythm at 27 bpm. Possible sinus complexes with junctional complexes vs slow afib. ECG 04/06/2022 at 2159: Sinus bradycardia with sinus arrhythmia 38 bpm. ECG 04/07/2022 at 0047: Ventricular paced near 80 bpm. Echo report reviewed as noted above in HPI. CT head 04/07/2022: No acute intracranial findings. CT abdomen/pelvis 04/07/2022: Dense bibasilar consolidation. Liver appeared cirrhotic per radiology. Nonspecific wall thickening of the colon. Acute anterior rib fractures. CT chest 04/07/2022: Dense bilateral lower lobe consolidation and additional airspace opacities within the upper lobes, favoring pneumonia or aspiration pneumonitis. Multiple bilateral anterior rib fractures. Lower extremity venous Doppler 04/07/2022: No DVT bilateral lower extremities. Medications Administered Current Inpatient Medications Dextrose (Dextrose 50% 50 Ml Syringe) 25 - 50 ml IV UD PRN; Protocol PRN Reason: Hypoglycemia Protocol Stop: 05/07/22 00:07 Fentanyl Citrate (Fentanyl Bolus From Bag) 50 mcg IV Q60M PRN PRN Reason: Pain or Agitation Stop: 04/20/22 21:46 Glucagon (Glucagon For Inj 1 Mg Vial) 1 mg SQ UD PRN; Protocol PRN Reason: Hypoglycemia Protocol Stop: 05/07/22 00:07 Glucose (Glucose 40% Gel 15 Gm Tube) 15 - 30 gm PO UD PRN; Protocol PRN Reason: Hypoglycemia Protocol Stop: 05/07/22 00:07 Glucose (Glucose 10 Tab/Tube) 4 - 8 tab PO UD PRN; Protocol PRN Reason: Hypoglycemia Treatment Stop: 05/07/22 00:07 Insulin Human Regular 250 (units/ Sodium Chloride) 250 mls @ 14.4 mls/hr IV .[id number] JOEL; Protocol Stop: 05/06/22 21:29 Last Titration: 04/07/22 07:03 Dose: 14.4 units/hr, 14.4 mls/hr Propofol (Diprivan) 1,000 mg in 100 mls @ 20.43 mls/hr IV .[id number] JOEL; Protocol Stop: 04/09/22 21:59 Last Titration: 04/07/22 07:03 Dose: 30 mcg/kg/min, 20.4 mls/hr Fentanyl Citrate (Fentanyl Citrate) 2,500 mcg in 250 mls @ 2.5 mls/hr IV .Q96H JOEL; Protocol Stop: 04/20/22 21:59 Last Titration: 04/07/22 07:03 Dose: 25 mcg/hr, 2.5 mls/hr Heparin Sodium/Dextrose (Heparin Sodium/Dextrose) 25,000 units in 500 mls @ 0 mls/hr IV .Q0M JOEL; Protocol Stop: 05/07/22 01:14 Last Titration: 04/07/22 08:16 Dose: 0 units/hr, 0 mls/hr Norepinephrine Bitartrate (Levophed/D5w) 4 mg in 250 mls @ 21.281 mls/hr IV .[id number] JOEL; Protocol Stop: 05/07/22 04:44 Last Titration: 04/07/22 07:03 Dose: 0.05 mcg/kg/min, 21.3 mls/hr Cefepime HCl 2,000 mg/ Syringe 20 mls @ 5 mls/min IV Q12H JOEL; Protocol Stop: 04/14/22 09:59 Dextrose/Sodium Chloride (D5w And 1/2nss) 1,000 mls @ 125 mls/hr IV .Q8H JOEL Stop: 05/07/22 06:29 Last Admin: 04/07/22 06:27 Dose: 125 mls/hr Magnesium Sulfate/Dextrose (Magnesium Sulfate / D5w) 1 gm in 100 mls @ 50 mls/hr IV Q2H JOEL Stop: 04/07/22 12:59 Last Admin: 04/07/22 07:24 Dose: 50 mls/hr Sodium Chloride (Nss 1000ml) 1,000 mls @ 999 mls/hr IV .Q1H1M ONE Stop: 04/07/22 09:19 Insulin Aspart (Insulin Aspart Per Unit) 0 units SC ACHS JOEL Stop: 05/07/22 07:29 Last Admin: 04/07/22 07:25 Dose: Not Given Miscellaneous Information (Pharmacy Glycemic Mgmt Consult) 1 each N/A UD PRN PRN Reason: Consult Stop: 05/07/22 00:07 Ondansetron HCl (Ondansetron Inj 2 Mg/Ml 2 Ml Vial) 4 mg IV Q4H PRN PRN Reason: Nausea Stop: 05/07/22 00:07 Propofol (Propofol Bolus From Bag) 20 mg IV Q5M PRN PRN Reason: Sedation Stop: 04/09/22 21:46 PG Care Time/CCT Total # of Minutes Spent Total Time Spent with Patient: Total time spent is greater than 50% in coordination of care (as documented) at patient's floor/unit and/or counseling patient: Critical Care Time: Yes 35 Coding Level of Care Code None Diagnoses Complete heart block I44.2 Sinus bradycardia R00.1 PEA (Pulseless electrical activity) I46.9 Acute hyperkalemia E87.5 Acute kidney injury N17.9 Acute hypoxemic respiratory failure J96.01 DKA (diabetic ketoacidosis) E11.10 Diabetes mellitus type: type 1 Additional Codes Critical Care Time - Critical Care Time: Yes ([id number]) Time Spent (min) 35 Comment [id number] (1) DKA (diabetic ketoacidosis) Diabetes mellitus type: type 1
[2022-04-07 08:09] LABS: Partial Thromboplastin Ratio > 5.1
[2022-04-07 08:14] LABS: Partial Thromboplastin Time > 139.0 Seconds (21.0-31.0)
[2022-04-07] MEDS ORDERED: SODIUM CHLORIDE 0.9% 1000ML 1,000 ML IV ONE (08:19)
--- NOTE | 2022-04-07 08:22 | Communication Note ---
Date of Service: April 07, 2022 Patient seen and examined. Discussed with overnight critical care VICK as well as with bedside critical care nurse and on multidisciplinary rounds. The patient is no longer requiring pacing. Reviewed with cardiology. Will reassess later this afternoon and consider whether or not pacing wire can be removed. Check cortisol. Continue to wean norepinephrine as tolerated. We will give an additional NS bolus today as the patient likely has some degree of intravascular volume depletion. Continue to trend lactate and repeat BMP later this afternoon. Patient has significant shunt physiology due to significant basilar atelectatic changes. Continue PEEP and wean FiO2. Vent settings currently prohibitive to consider extubation. We will continue antibiotics started empirically and await results of sputum cultures although with negative procalcitonin, these may be able to be discontinued within the next 12 to 24 hours. Continue insulin infusion. Bicarb is been discontinued. We will hold on treating his hyperkalemia as insulin may cause additional decline in his potassium levels. Follow kidney function. May need nephrology input depending on stabilization/improvement of kidney numbers. Replete other electrolytes as needed. Keep n.p.o. for now. Continue empiric heparin for now. Unable to perform CT angiogram due to patient's labile status and acute kidney injury. Await duplex US results. Patient's overall prognosis is guarded. An additional 45 minutes critical care time spent evaluating and managing and stabilizing this patient. Coding Level of Care Code Critical Care preston alonso'vera 30 min
--- NOTE | 2022-04-07 08:32 | CT Scan Report ---
CT SCAN OF THE ABDOMEN AND PELVIS WITHOUT IV CONTRAST CLINICAL HISTORY: Lactic acidosis. COMPARISON STUDY: No priors. TECHNIQUE: CT scan of the abdomen and pelvis is performed from the lung bases to the proximal femora. Images are reviewed in the axial, sagittal, and coronal planes. IV contrast was not administered for this examination. Note that the examination is suboptimal without oral and IV contrast. The examinat ion is degraded by motion artifact, as well as by streak artifact from the arms which could not be el evated above the abdomen. A dose lowering technique was utilized adhering to the principles of ALARA. FINDINGS: Lung bases: The heart is mildly enlarged and without pericardial effusion. A pacemaker lead is in jamal ce from a right femoral approach. There are coronary artery calcifications. There is diffusely dimini shed attenuation of the cardiac blood pool as compared to the myocardium suggesting anemia. There is dense bibasilar consolidation. Liver: The unenhanced liver is enlarged, measuring 21.2 cm in length. The liver is cirrhotic in morph ology, with nodularity of the hepatic surface contour. Diffusely diminished attenuation indicates michael atosis. There is no intrahepatic biliary ductal dilatation. Gallbladder: There are calcified gallstones without CT evidence of acute cholecystitis. Spleen: Normal in size and attenuation. Pancreas: The unenhanced pancreas is grossly unremarkable. Adrenal glands: Unremarkable. Kidneys: The unenhanced kidneys are normal in size and without hydronephrosis. There are no renal curtis culi identified. There is no evidence of contour deforming renal mass lesion. Abdominal vasculature: The abdominal aorta is normal in course and caliber noting mild atheroscleroti c calcification. There is a left femoral approach central venous catheter. Stomach and bowel: The enteric tube terminates in the mid to distal stomach. There is no bowel obstru ction. There is nonspecific wall thickening suggested involving the right colon. Question mild wall t hickening throughout the small bowel. There is no pneumatosis intestinalis or portal venous gas. The appendix is well-visualized and normal. Peritoneum: There is trace perihepatic ascites, as well as trace fluid within the paracolic gutters. There is mesenteric edema. No intraperitoneal free air is seen. There is a fat-containing umbilical h ernia. Lymphadenopathy: None. Pelvic viscera: The bladder is decompressed around a [place] catheter. Foci of intraluminal gas are lik jenna related to instrumentation. The prostate gland is diminutive and heterogeneous. The seminal vesic les are normal as visualized. There are left larger than right fat containing inguinal hernias. Skeletal structures: The skeletal structures are osteopenic. There are acute bilateral anterior rib f ractures. Mild lumbosacral spondylosis is observed. No lytic or blastic lesions are seen. Soft tissues: Body wall edema. IMPRESSION: 1. Dense bibasilar consolidation. Correlate clinically from the pneumonia/aspiration pneumonitis. 2. There is enlarged, steatotic, and cirrhotic in morphology. 3. Trace abdominopelvic ascites. 4. Question mild wall thickening throughout the small bowel. There is also mild nonspecific wall thic kening suggestive involving the right colon. Clinical correlation will be required. 5. Cholelithiasis. 6. Acute anterior rib fractures are likely related to resuscitation. 7. Additional findings as above. ACT 112: Negative or not required by law. Electronically signed by: Reji Killian M.D. 04/07/2022 8:30 AM
--- NOTE | 2022-04-07 08:41 | XRay Report ---
SINGLE VIEW CHEST CLINICAL HISTORY: Atypical chest pain. Heart alert. Intubation. FINDINGS: An AP, portable, supine chest radiograph is obtained. No prior studies are available for co mparison at the time of dictation. The examination is degraded by portable technique and patient rota tion. An endotracheal tube has been placed. The tip of the catheter projects 2.4 cm above the faiza . The heart appears enlarged. There is pulmonary vascular congestion. There are low lung volumes with dependent consolidation, left greater than right. Small pleural effusions are suspected. No pneumoth orax is seen. There is chronic posttraumatic deformity of the left clavicle. IMPRESSION: 1. An endotracheal tube has been placed as above. 2. Cardiomegaly with pulmonary vascular congestion. 3. Left greater than right bibasilar consolidation. 4. Suspect small pleural effusions. ACT 112: Negative or not required by law. Electronically signed by: Reji Killian M.D. 04/07/2022 8:39 AM
[2022-04-07 09:21] LABS: Partial Thromboplastin Ratio 3.4
[2022-04-07 09:44] LABS: Partial Thromboplastin Time 94.8 Seconds (21.0-31.0)
[2022-04-07] MEDS: SODIUM CHLORIDE 0.9% 1000ML 1,000 ML IV SCH ×2 (09:51→18:19)
[2022-04-07 10:20] LABS: Appearance Urine Clear (Clear); Bacteria Urine Automated Negative (Negative); Bilirubin Urine Negative (Negative); Blood Urine Trace (Negative); Color Urine Yellow; Epithelial Cell Urine Auto 20-30 /lpf (0-5); Glucose Urine UA Negative (Negative); Ketones Urine Negative (Negative); Leukocyte Esterase Urine Negative (Negative); Nitrite Urine Negative (Negative); Protein Urine Negative (Negative); RBC Urine Automated 0-4 /hpf (0-4); Urobilinogen Urine Negative (Negative)
[2022-04-07] MEDS: CEFEPIME 2,000 MG in SYRINGE 0 ML IV SCH ×2 (10:47→21:17)
[2022-04-07] MEDS: PANTOprazole 40 MG in SYRINGE 0 ML IV SCH (10:47)
--- NOTE | 2022-04-07 10:49 | Pharmacy Report ---
Pharmacy Glycemic Short Note 2 - Date of Service April 07, 2022 - Glycemic Short BSG Results (Last 24 hours): 04/06/22 04/06/22 04/06/22 20:53 21:01 21:03 Glucose 564 H* POC Glucose 516 H* POC Glucose (other) 569 H* 04/06/22 04/06/22 04/06/22 21:33 22:14 22:20 Glucose POC Glucose 434 H* POC Glucose (other) 494 H* 450 H* 04/06/22 04/07/22 04/07/22 23:48 00:27 00:53 Glucose 383 H* POC Glucose 433 H* 365 H* POC Glucose (other) 04/07/22 04/07/22 04/07/22 01:50 02:54 04:01 Glucose POC Glucose 331 H* 340 H* 300 H POC Glucose (other) 04/07/22 04/07/22 04/07/22 04:37 04:53 06:04 Glucose 290 H POC Glucose 281 H POC Glucose (other) 258 H 04/07/22 04/07/22 04/07/22 07:12 07:15 08:38 Glucose 238 H POC Glucose POC Glucose (other) 247 H 232 H 04/07/22 09:34 Glucose POC Glucose POC Glucose (other) 193 H OUTPATIENT ANTIDIABETIC REGIMEN: * Novolog 40 units TID, Metformin 1000 mg BID, Toujeo 300 units/ml 48 units BID * A1c 8.5% 04/07 ASSESSMENT: * Patient admitted w/ DKA, complete heart block/transcutaneous pacing, MONICA, multiple electroyte abnormalities. Patient is post-cardiac arrest. * Anion gap, Bicarb have normalized this morning. Continues on vent + low dose norepinephrine at current. Insulin infusion running at 14.4 units/hr * Discussed on multidisciplinary rounds, will continue infusion for now given high rate, will change fluids to NS @125 mL/hr and reduced rate empirically 50% with discontinuation of dextrose * Goal range adjusted to 150-200 mg/dL; will evaluate for transition off of insulin infusion later today PLAN FOR INPATIENT GLYCEMIC CONTROL: * Hold outpatient oral diabetes medications * Insulin infusion per protocol.
[2022-04-07 11:35] LABS: BUN Creatinine Ratio 8.8 (10-20); Calcium 9.9 mg/dl (8.5-10.1); Creatinine Clr Calc Pharmacy 48.7 ml/min; Est GFR (African American) 37.3 ml/min; Est GFR (Non-African American) 32.1 ml/min; Potassium 4.6 mmol/L (3.5-5.1)
--- NOTE | 2022-04-07 11:38 | Nephrology Consultation ---
Date of Consultation April 07, 2022 Assessment & Plan (1) Acute kidney injury: (2) Acute hyperkalemia: (3) Metabolic acidosis: (4) DKA (diabetic ketoacidosis): (5) Complete heart block: Plan 51-year-old gentleman admitted with progressive generalized weakness, respiratory distress for few weeks , found to have MONICA, hyperkalemia, metabolic acidosis, DKA went into cardiac arrest with complete heart block requiring CPR with ROSC. baseline creatinine 1.1-1.2, admission creatinine 3.0, potassium 7.4, overall improved this morning to creatinine 2.4, potassium close to 5. Metabolic acidosis improved. Metformin and valsartan has been on hold. Currently remained intubated but responding to verbal stimuli, getting off pressor, overall clinically doing better. Renal function slowly started to improve, electrolyte improving, decent urine output. -- Continue to monitor renal function, electrolyte, urine output with hemodynamics support. As blood pressure stable, getting off of pressor, expect renal function to continue to improve. Will follow Thank you for allowing me to participate in your patient's care. It was a pleasure to see Elliot. History of Present Illness Reason for Consultation: Acute kidney injury, hyperkalemia and metabolic acidosis. Attending Physician: Graham Henderson MD History of Present Illness Mr. Elliot Holland is a 51-year-old gentleman with PMH significant for type 2 diabetes, hypertension, and dyslipidemia, admitted to hospital yesterday with cardiac arrest, complete heart block, MONICA, hyperkalemia and metabolic acidosis. Nephrology consult was requested for management of hyperkalemia and metabolic acidosis. EMR records were reviewed in detail during patient's visit. Elliot has been having progressive dyspnea on exertion, and weakness for last few weeks and yesterday family called 911 as he was not able to lift his leg off the ground due to profound weakness. EN route to ER his heart rate dropped to 30s and transcutaneous pacing was done with improved responsiveness. On arrival to ER his HR again dropped to 20's and became hypotensive with PEA and underwent 3 rounds of CPR with ROSC. No history of CKD, baseline creatinine 1.0-1.2. Past medical history mainly significant for hypertension, diabetes and dyslipidemia. He has been on metformin 1 g twice a day and valsartan 360 mg daily. On admission he was found to be in DKA with blood sugar more than 500, creatinine 3.0 on potassium 7.4. urinalysis with no proteinuria hematuria. CT abdomen pelvis without contrast showed otherwise normal kidney and bladder with no postrenal obstruction. He received IV insulin, albuterol, calcium chloride and Bicarb drip. 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 Echo showed Normal LV size. EF > 70%. No regional wall motion abnormalities. Mild LVH. No significant valvular abnormalities. Normal RVSP. He was started on low-dose pressor overnight after blood pressure dropped but currently blood pressure improving and getting off of pressor. Respiratory status improving, currently on FiO2 50%. Making decent amount of urine. Labs this morning showed improvement in renal function, creatinine down to 2.4, potassium improved to 5.1. Acidosis resolved. Allergies Allergy/AdvReac Type Severity Reaction Status Date / Time Penicillins Allergy Intermediate Hives Verified 04/06/22 20:56 pioglitazone [From Actos] Allergy Unknown CAN'T Verified 04/06/22 20:56 REMEMBER REACTION Home Medications Medication Instructions Recorded Confirmed Type blood sugar diagnostic (OneTouch #10 ea 09/24/18 12/17/21 History Ultra Blue Test Strip) diltiazem HCl 300 mg 300 mg PO QPM #90 caps 05/29/21 04/06/22 Rx capsule,extended release 24 hr sildenafil 100 mg tablet See Rx Instructions PO ONCE PRN 06/07/21 04/06/22 Rx sexual activity #30 tabs metformin 1,000 mg tablet 1,000 mg PO BID #180 tabs 07/11/21 04/06/22 Rx metoprolol succinate 25 mg 25 mg PO BID #180 tabs 07/30/21 04/06/22 Rx tablet,extended release 24 hr valsartan 320 mg tablet 320 mg PO QPM #90 tabs 08/14/21 04/06/22 Rx insulin aspart U-100 100 unit/mL 40 unit (0.4 mL) subcut TID #45 mL 11/07/21 04/06/22 Rx (3 mL) subcutaneous pen (Novolog Flexpen U-100 Insulin aspart) insulin glargine U-300 conc 300 48 unit subcut BID 12/17/21 04/06/22 History unit/mL (3 mL) subcutaneous pen (Toujeo Max U-300 SoloStar) bupropion HCl 300 mg 24 hr tablet, 300 mg PO QAM #90 tabs 12/23/21 04/06/22 Rx extended release omeprazole 20 mg capsule,delayed 20 mg PO BID #180 caps 01/27/22 04/06/22 Rx release simvastatin 40 mg tablet 40 mg PO HS #90 tabs 01/28/22 04/06/22 Rx gabapentin 300 mg capsule 300 mg PO BID #180 caps 03/07/22 04/06/22 Rx Patient History Medical History (Updated 04/07/22 @ 11:50 by Jojo Villalta MD) Asthma Depression Diabetes mellitus, type 2 GERD (gastroesophageal reflux disease) Hypercholesterolemia Hypertension, benign essential, goal below 140/90 Itch Metabolic acidosis Nephropathy Peripheral neuropathy Temporomandibular joint disorder mild, no bite block Surgical History History of wisdom tooth extraction Family History Father Diabetes Other No family history of adverse response to anesthesia Denies family history of Ovarian cancer Prostate cancer Myocardial infarction Breast cancer Colorectal cancer Social History Smoking Status: Never smoker Second Hand Exposure: No; Hx Alcohol Use: Yes Alcohol type: hard liquor Hx Substance Use: No Preferred Language: [place] Communication Ability: Effective 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 Physical Exam Constitutional: WD/WN, vitals as above Eyes: No acute distress, intubated. Neck: normal visual inspection Respiratory: Auscultation: + breath sounds absent and + crackles Cardiovascular: Rate/Rhythm: regular rate and regular rhythm Heart Sounds: normal S1 and normal S2 Extremities: no edema Gastrointestinal (Abdomen): Inspection/Auscultation: abdomen normal to inspection and normal bowel sounds Percussion/Palpation: abdomen nontender Musculoskeletal: Extremities: extremities normal to inspection Skin: no rashes Neurologic: Intubated but respond to verbal stimuli Psychiatric: could not be assessed. Results & Data ([facility]) Vital Signs (Past 12 Hours) Vital Signs Temp Pulse Pulse Resp BP BP Pulse Ox 04/07/22 11:00 95 H 21 118/70 91 04/07/22 11:15 36.9 C 04/07/22 10:00 93 H 21 125/71 92 04/07/22 09:00 90 24 116/67 95 04/07/22 08:00 92 H 24 135/78 89 L 04/07/22 07:00 81 24 133/78 98 04/07/22 08:15 36.8 C 04/07/22 10:08 04/07/22 08:00 04/07/22 08:07 88 24 92 04/07/22 06:04 81 24 109/53 L 99 04/07/22 05:45 80 24 98 04/07/22 05:31 80 24 95 04/07/22 05:15 79 24 96 04/07/22 04:50 80 24 95 04/07/22 05:00 36.4 C L 81 24 94 04/07/22 05:00 91/65 L 04/07/22 04:45 80 26 H 99 04/07/22 04:36 79 26 H 100 04/07/22 04:36 85/60 L 04/07/22 04:30 81 26 H 100 04/07/22 04:15 81 26 H 98 04/07/22 04:00 80 24 89 L 04/07/22 04:00 36.3 C L 124/91 04/07/22 03:00 81 26 H 97 04/07/22 03:00 90/68 L 04/07/22 02:45 88 26 H 96 04/07/22 02:45 100/58 L 04/07/22 02:30 84 26 H 95 04/07/22 02:30 93/62 L 04/07/22 02:15 86 26 H 94 04/07/22 02:15 97/67 L 04/07/22 02:00 80 26 H 94 04/07/22 02:00 32.6 C L 113/71 04/07/22 01:45 80 26 H 100 04/07/22 01:45 145/89 H 04/07/22 01:30 80 26 H 97 04/07/22 01:30 146/82 H 04/07/22 04:00 04/07/22 04:00 80 108/57 L 04/07/22 01:55 04/07/22 01:16 32.5 C L 80 26 H 97 04/07/22 01:15 138/79 04/06/22 23:59 04/07/22 00:11 32.6 C L 80 23 102/65 85 L 04/06/22 23:39 26 H O2 Del Method FiO2 04/07/22 11:00 Mechanical Vent 55 04/07/22 11:15 04/07/22 10:00 Mechanical Vent 45 04/07/22 09:00 Mechanical Vent 45 04/07/22 08:00 Mechanical Vent 45 04/07/22 07:00 Mechanical Vent 50 04/07/22 08:15 04/07/22 10:08 Mechanical Vent 45 04/07/22 08:00 45 04/07/22 08:07 50 04/07/22 06:04 04/07/22 05:45 04/07/22 05:31 04/07/22 05:15 04/07/22 04:50 60 04/07/22 05:00 04/07/22 05:00 04/07/22 04:45 04/07/22 04:36 04/07/22 04:36 04/07/22 04:30 04/07/22 04:15 04/07/22 04:00 04/07/22 04:00 04/07/22 03:00 04/07/22 03:00 04/07/22 02:45 04/07/22 02:45 04/07/22 02:30 04/07/22 02:30 04/07/22 02:15 04/07/22 02:15 04/07/22 02:00 04/07/22 02:00 04/07/22 01:45 04/07/22 01:45 04/07/22 01:30 04/07/22 01:30 04/07/22 04:00 60 04/07/22 04:00 04/07/22 01:55 60 04/07/22 01:16 04/07/22 01:15 04/06/22 23:59 Mechanical Vent 100 04/07/22 00:11 Mechanical Vent 100 04/06/22 23:39 100 PG Care Time/CCT Total # of Minutes Spent Total Time Spent with Patient: Total time spent is greater than 50% in coordination of care (as documented) at patient's floor/unit and/or counseling patient: Coding Level of Care Code 41562 Inpt Consult Level 5 Diagnoses Acute kidney injury N17.9 Acute hyperkalemia E87.5 Metabolic acidosis E87.20 DKA (diabetic ketoacidosis) E11.10 Diabetes mellitus type: type 1 Complete heart block I44.2 (1) DKA (diabetic ketoacidosis) Diabetes mellitus type: type 1
[2022-04-07 14:50] LABS: BUN Creatinine Ratio 8.6 (10-20); Calcium 9.7 mg/dl (8.5-10.1); Est GFR (African American) 38.5 ml/min; Est GFR (Non-African American) 33.2 ml/min; Potassium 4.6 mmol/L (3.5-5.1)
[2022-04-07 15:12] LABS: Partial Thromboplastin Ratio 1.8
[2022-04-07 15:26] LABS: Partial Thromboplastin Time 50.8 Seconds (21.0-31.0)
--- NOTE | 2022-04-07 16:51 | Hospitalist Progress Note ---
Date of Service April 07, 2022 Assessment & Plan (1) PEA (Pulseless electrical activity): Plan: Cardiac arrest x3 in ER with ROSC achieved in ~3-4 minutes each time. 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 (2) Complete heart block: Plan: Reported CMB prior to hospitalization. Bradycardic to the 20s in EMS and became unresponsive suspected secondary to hyperkalemia. Transvenous pacer now removed. (3) Acute hyperkalemia: Plan: K+ on admission was 7.5. Received calcium chloride, albuterol, bicarb in ER. Suspect secondary to MONICA - Remains on insulin gtt - K improved to 5.3 this morning (4) DKA (diabetic ketoacidosis): Plan: Initial blood sugar of 569 with AG of 21. - Presently on insulin gtt - electrolyte and fluid management per ICU team (5) Acute hypoxemic respiratory failure: Plan: In setting of PEA. - Intubated; vent settings per ICU provider (6) Benign essential hypertension: Plan: - Hold all oral meds at this time. (7) Uncontrolled diabetes mellitus with diabetic nephropathy: Plan: Last A1c was 8.0% in 11/2021. With severe neuropathy per . - As above for DKA (8) GERD (gastroesophageal reflux disease): Plan: IV pantoprazole 40 mg daily per ICU (9) Metabolic acidosis: Plan: Metabolic acidosis now resolved on AM ABG Secondary to lactic acid and ketoacidosis. (10) Acute kidney injury: Plan: Cr improved to 2.4 this morning with potassium improvement as above IV fluids per ICU and nephrology in setting of DKA (11) Pneumonia: Plan: Continue cefepime - patient has hives to penicillins ?cause or due to PEA arrest No blood cultures taken on admission, will defer unless recurrent fever for now Sputum culture pending (12) Encephalopathy acute: Plan: Secondary to PEA arrest, hyperkalemia, DKA Plan VTE Prophylaxis - IV heparin pending CT for PE to rule this out Diet - NPO Code - FULL CODE per in ER Disposition - continued admission to ICU Admission and Anticipated Discharge Date Admission Date: April 06, 2022 Subjective Patient intubated therefore subjective history not obtainable. He is sedated on propofol however able to follow one step commands. Review of Systems Review of Systems: Unobtainable due to endotracheal tube Physical Exam Constitutional: WD/WN, vitals as above Respiratory: normal respiratory effort (Intubated) Auscultation: + rhonchi (Bilateral); no diminished lung sounds and no wheezes Cardiovascular: Rate/Rhythm: regular rate and regular rhythm Heart Sounds: no murmur Extremities: normal capillary refill and + pedal edema (Trace pretibial bilateral equal); no calf tenderness Gastrointestinal (Abdomen): normal bowel sounds, soft, nontender, no hepatosplenomegaly Skin: no rashes, warm and dry (Patient not turned but no evidence of celluliti s appreciated) Neurologic: moves all extremities (Following one-step commands to move fingers and toes) and awake Psychiatric: Orientation: alert; + not oriented x 3 (Unable to assess due to intubation) Results & Data Results & Data ([facility]) Vital Signs (Past 12 Hours) Vital Signs Temp Pulse Resp BP Pulse Ox O2 Del Method FiO2 04/07/22 16:21 103 H 24 93 40 04/07/22 11:40 90 24 95 50 04/07/22 15:00 105 H 24 94 04/07/22 15:00 129/72 04/07/22 14:00 102 H 24 93 04/07/22 14:00 113/65 04/07/22 13:00 99 H 24 93 Mechanical Vent 50 04/07/22 13:00 115/66 04/07/22 12:44 106/66 04/07/22 12:44 101 H 24 93 Mechanical Vent 50 04/07/22 12:00 100 H 24 93 04/07/22 12:00 136/75 04/07/22 16:16 37 C 04/07/22 12:00 50 04/07/22 11:00 95 H 21 118/70 91 Mechanical Vent 55 04/07/22 11:15 36.9 C 04/07/22 10:00 93 H 21 125/71 92 Mechanical Vent 45 04/07/22 09:00 90 24 116/67 95 Mechanical Vent 45 04/07/22 08:00 92 H 24 135/78 89 L Mechanical Vent 45 04/07/22 07:00 81 24 133/78 98 Mechanical Vent 50 04/07/22 08:15 36.8 C 04/07/22 10:08 Mechanical Vent 45 04/07/22 08:00 45 04/07/22 08:07 88 24 92 50 04/07/22 06:04 81 24 109/53 L 99 04/07/22 05:45 80 24 98 04/07/22 05:31 80 24 95 04/07/22 05:15 79 24 96 04/07/22 05:00 36.4 C L 81 24 94 04/07/22 05:00 91/65 L PG Care Time/CCT Total # of Minutes Spent Total Time Spent with Patient: Total time spent is greater than 50% in coordination of care (as documented) at patient's floor/unit and/or counseling patient: Coding Level of Care Code 64810 Subseq Hosp Care Lvl 2 Diagnoses PEA (Pulseless electrical activity) I46.9 Complete heart block I44.2 Acute hyperkalemia E87.5 DKA (diabetic ketoacidosis) E11.10 Diabetes mellitus type: type 1 Acute hypoxemic respiratory failure J96.01 Benign essential hypertension I10 Uncontrolled diabetes mellitus with diabetic nephropathy E11.21; E11.65 GERD (gastroesophageal reflux disease) K21.9 Metabolic acidosis E87.20 Acute kidney injury N17.9 Pneumonia J18.9 Encephalopathy acute G93.40 (1) DKA (diabetic ketoacidosis) Diabetes mellitus type: type 1
[2022-04-07 19:26] LABS: BUN Creatinine Ratio 8.6 (10-20); Calcium 9.6 mg/dl (8.5-10.1); Creatinine Clr Calc Pharmacy 49.8 ml/min; Est GFR (African American) 38.3 ml/min; Potassium 4.5 mmol/L (3.5-5.1)
[2022-04-07] MEDS: INSULIN REGULAR 250 UNITS in SODIUM CHLORIDE 0.9% 247.5 ML IV SCH (22:11)
[2022-04-07 23:57] LABS: BUN Creatinine Ratio 8.5 (10-20); Calcium 9.5 mg/dl (8.5-10.1); Creatinine Clr Calc Pharmacy 51.6 ml/min; Est GFR (Non-African American) 34.5 ml/min; Potassium 4.3 mmol/L (3.5-5.1)
[2022-04-08] MEDS: propofoL 1,000 MG/100 ML VIAL IV SCH ×5 (00:23→07:35)
[2022-04-08] MEDS: SODIUM CHLORIDE 0.9% 1000ML 1,000 ML IV SCH (03:15)
[2022-04-08 05:04] LABS: Basophils # (auto) 0.01 K/uL (0-0.2); Basophils % (auto) 0.3 %; Hematocrit (blood only) 26.7 % (40.1-51.0); Hemoglobin 8.8 g/dl (14.0-18.0); Immature Granulocytes # (auto) 0.04 K/uL (0.00-0.02); Immature Granulocytes % (auto) 1.1 %; Lymphocytes # (auto) 0.72 K/uL (1.2-3.4); Lymphocytes % (auto) 20.3 %; Monocytes # (auto) 0.36 K/uL (0.24-0.82); Monocytes % (auto) 10.2 %; Neutrophils # (auto) 2.41 K/uL (1.4-6.5); Neutrophils % (auto) 68.1 %; Platelet Count 103 K/uL (130-400); White Blood Count 3.54 K/ul (4.8-10.8)
[2022-04-08 05:23] LABS: Partial Thromboplastin Ratio 1.7
[2022-04-08 05:32] LABS: iSTAT Art Bld Gas pCO2 Correct 28 mmHg (35-46); iSTAT Art Bld Gas pH Corrected 7.607 (7.35-7.45); iSTAT Arterial Blood Gas HCO3 28 meg/L (19-24); iSTAT Arterial Blood Gas pCO2 28 mmHg (35-46); iSTAT Arterial Blood Gas pO2 66 mmHg (80-95); iSTAT Arterial Blood Gas pO2 C 65; iSTAT Carbon Dioxide 29 mmol/L (24-31); iSTAT FiO2 35 %; iSTAT Hematocrit 26 % (42-52); iSTAT Hemoglobin 8.8 g/dl (14.0-18.0); iSTAT Potassium 3.7 mmol/L (3.3-5.0); iSTAT Site Art Line; iSTAT Sodium 133 mmol/L (135-144)
[2022-04-08 05:33] LABS: Partial Thromboplastin Time 46.6 Seconds (21.0-31.0)
[2022-04-08 05:45] LABS: Albumin Level 2.9 gm/dl (3.4-5.0); BUN Creatinine Ratio 8.9 (10-20); Bilirubin,Total 0.8 mg/dl (0.2-1.0); Calcium 9.3 mg/dl (8.5-10.1); Creatinine Clr Calc Pharmacy 54.5 ml/min; Est GFR (African American) 42.7 ml/min; Est GFR (Non-African American) 36.8 ml/min; Globulin 2.9 gm/dl (2.5-4.0); Magnesium 1.6 mg/dl (1.7-2.4); Potassium 3.9 mmol/L (3.5-5.1); Total Protein 5.8 gm/dl (6.0-8.3)
[2022-04-08 05:47] LABS: Echinocytes 1+; Mean Corpuscular Hemoglobin 27.1 pg (25.0-34.0); Mean Corpuscular Volume 82.2 fL (80.0-100.0); RDW Coefficient of Variation 16.1 % (11.5-14.5); Red Blood Count 3.25 M/uL (4.63-6.08)
[2022-04-08] MEDS: NOREPINEPHRINE/D5W 4 MG/250 ML PLCT IV SCH (06:04)
[2022-04-08] MEDS ORDERED: POTASSIUM CHLORIDE 20 MEQ/15 ML UDC PO STA (06:57)
[2022-04-08] MEDS: MAGNESIUM SULFATE / D5W 1 GM/100 ML BAG IV SCH ×2 (07:49→11:01)
--- NOTE | 2022-04-08 07:57 | Critical Care Progress Note ---
Date of Service April 08, 2022 Assessment & Plan (1) Metabolic acidosis: (2) Acute kidney injury: (3) Acute hypoxemic respiratory failure: (4) DKA (diabetic ketoacidosis): (5) Complete heart block: Plan Reason Critically Ill: 51-year-old male presents to the ICU DKA and complete heart block requiring transvenous pacing, acute hypoxic respiratory failure following cardiac arrest with CPR requiring intubation. 24-hour events: Patient was admitted to the ICU after going to the [employer] for temporary pacing wire placement. He was intubated due to hypoxemic respiratory failure. Vent settings were weaned significantly. He was weaned off pressors. The pacing wire was discontinued as the patient no longer required pacing with correction of his metabolic abnormalities. Neurologically he is improved with weaning of his sedation. His anion gap is closed. He remains on insulin drip. Recommendations: Neuro - Acute encephalopathynow resolved. Likely secondary to metabolic disarray and abnormalities. We will follow clinically. Fentanyl and propofol will be discontinued in hopes of SBT and extubation. Cardiac -suspect that his heart block and bradycardia were related to underlying metabolic issues. These appear to resolved. Has been weaned off of pressors. Pacing wires been removed. Continue to follow clinically. Suspect that his cardiac arrest was due to his severe acidosis. He is hemodynamically stable currently. Holding antihypertensives. Appreciate cardiology assistance. Lactate clearing Respiratory - Acute hypoxic respiratory failure, chest x-ray with dense basilar consolidation likely shunting. His oxygenation index is markedly improved today. We will proceed with sedation break and SBT with plans to pursue liberation from mechanical ventilation if the patient does well. He is at risk for sleep disordered breathing and may require CPAP or BiPAP when sleeping. Outpatient sleep study recommended. Patient was placed empirically on a heparin drip due to concern about acute PE. His duplex ultrasound was negative and based on the appearance of his CT scan of the chest, I think we have an alternative explanation for his hypoxemia. Anticoagulation will be discontinued at this point time. GI -will reassess once extubated. Can likely advance diet to carb controlled. RENAL/LYTES -patient presented with acute renal failure likely secondary to ATN as well as underlying chronic kidney disease. His creatinine has improved. Electrolytes are normalizing. Blood gas this morning showed marked respiratory alkalosis which should improve with liberation from mechanical ventilation. Nephrology following. -discontinue [place] catheter once extubated. ENDO -severe DKA: Start Lantus and wean drip to off. HEME -anemia: Stable. No signs of acute blood loss. Platelet count is decreasing but again no signs of bleeding. Continue to follow clinically at this point time. DVT prophylaxis will be initiated once heparin is off ID -laced empirically on cefepime for questionable aspiration pneumonia. Procalcitonin negative. White blood cell count normal. Respiratory cultures negative. Antibiotics will be discontinued. LINES/IV ACCESS - CVL, A-line, ET tube, OG tube DVT PROPHYLAXIS - SCDs, subcu heparin Will likely need PT and OT evaluations. Will need diabetic education to prevent recurrent hospitalizations. Patient was discussed with the bedside critical care nurse as well as respiratory therapy and on multidisciplinary rounds. Total of 42 minutes was spent in evaluation management and stabilizing this patient. Admission and Anticipated Discharge Date Admission Date: April 06, 2022 Subjective Intubated and sedated Review of Systems Review of Systems: Unobtainable due to endotracheal tube Physical Exam Constitutional: WD/WN, vitals as above + morbidly obese and + mechanically ventilated Neck: trachea midline, no thyromegaly Respiratory: normal respiratory effort, lungs clear to auscultation Cardiovascular: RRR, no murmur, no edema Gastrointestinal (Abdomen): normal bowel sounds, soft, nontender, no hepatosplenomegaly Musculoskeletal: Extremities: extremities normal to inspection Skin: no rashes, warm and dry Neurologic: Nonfocal exam Lymphatic: no cervical lymphadenopathy Results & Data Results & Data ([facility]) Vital Signs (Past 12 Hours) Vital Signs Temp Pulse Resp BP Pulse Ox O2 Del Method FiO2 04/08/22 06:30 64 16 96 Mechanical Vent 35 04/08/22 06:00 65 16 116/77 96 Mechanical Vent 35 04/08/22 05:30 66 16 95 Mechanical Vent 35 04/08/22 05:00 67 24 120/76 95 Mechanical Vent 35 04/08/22 04:30 73 24 96 Mechanical Vent 35 04/08/22 04:00 36.8 C 69 24 122/75 95 Mechanical Vent 35 04/08/22 03:30 70 24 95 Mechanical Vent 35 04/08/22 04:00 35 04/08/22 03:03 72 24 95 35 04/08/22 03:00 71 24 118/72 94 Mechanical Vent 35 04/08/22 02:30 72 24 95 Mechanical Vent 35 04/08/22 02:00 74 24 118/75 96 Mechanical Vent 40 04/08/22 01:30 77 24 95 Mechanical Vent 40 04/08/22 01:00 78 24 115/70 96 Mechanical Vent 40 04/08/22 00:30 82 24 96 Mechanical Vent 40 04/08/22 00:00 37 C 82 24 108/67 95 Mechanical Vent 40 04/07/22 23:30 87 24 96 Mechanical Vent 40 04/08/22 00:00 40 04/08/22 00:02 85 24 96 40 04/07/22 23:00 96 H 24 117/73 95 Mechanical Vent 40 04/07/22 22:30 86 24 96 Mechanical Vent 40 04/07/22 22:00 89 24 115/61 96 Mechanical Vent 40 04/07/22 21:05 91 H 24 113/63 97 Mechanical Vent 40 04/07/22 20:30 96 H 24 98 Mechanical Vent 40 04/07/22 20:00 37.6 C H 99 H 24 125/72 96 Mechanical Vent 40 04/07/22 20:45 104 H 24 97 40 04/07/22 20:00 Mechanical Vent 40 04/07/22 20:00 40 Critical Care Results & Data Vital Signs (Past 12 Hours) Vital Signs Temp Pulse Resp BP Pulse Ox O2 Del Method FiO2 04/08/22 06:30 64 16 96 Mechanical Vent 35 04/08/22 06:00 65 16 116/77 96 Mechanical Vent 35 04/08/22 05:30 66 16 95 Mechanical Vent 35 04/08/22 05:00 67 24 120/76 95 Mechanical Vent 35 04/08/22 04:30 73 24 96 Mechanical Vent 35 04/08/22 04:00 36.8 C 69 24 122/75 95 Mechanical Vent 35 04/08/22 03:30 70 24 95 Mechanical Vent 35 04/08/22 04:00 35 04/08/22 03:03 72 24 95 35 04/08/22 03:00 71 24 118/72 94 Mechanical Vent 35 04/08/22 02:30 72 24 95 Mechanical Vent 35 04/08/22 02:00 74 24 118/75 96 Mechanical Vent 40 04/08/22 01:30 77 24 95 Mechanical Vent 40 04/08/22 01:00 78 24 115/70 96 Mechanical Vent 40 04/08/22 00:30 82 24 96 Mechanical Vent 40 04/08/22 00:00 37 C 82 24 108/67 95 Mechanical Vent 40 04/07/22 23:30 87 24 96 Mechanical Vent 40 04/08/22 00:00 40 04/08/22 00:02 85 24 96 40 04/07/22 23:00 96 H 24 117/73 95 Mechanical Vent 40 04/07/22 22:30 86 24 96 Mechanical Vent 40 04/07/22 22:00 89 24 115/61 96 Mechanical Vent 40 04/07/22 21:05 91 H 24 113/63 97 Mechanical Vent 40 04/07/22 20:30 96 H 24 98 Mechanical Vent 40 04/07/22 20:00 37.6 C H 99 H 24 125/72 96 Mechanical Vent 40 04/07/22 20:45 104 H 24 97 40 04/07/22 20:00 Mechanical Vent 40 04/07/22 20:00 40 Lab & Micro Results (Past 24 Hours) RBC 3.25 M/uL (4.63-6.08) L 04/08/22 WBC 3.54 K/ul (4.8-10.8) L 04/08/22 Hgb 8.8 g/dl (14.0-18.0) L 04/08/22 Hct 26.7 % (40.1-51.0) L 04/08/22 MCV 82.2 fL (80.0-100.0) 04/08/22 MCH 27.1 pg (25.0-34.0) 04/08/22 MCHC 33.0 g/dL (32.0-36.0) 04/08/22 RDW Standard Deviation 48.0 fL (36.4-46.3) H 04/08/22 RDW Coefficient of Variation 16.1 % (11.5-14.5) H 04/08/22 Plt Count 103 K/uL (130-400) L 04/08/22 MPV 10.0 fL (9.4-12.4) 04/08/22 Neutrophils (%) (Auto) 68.1 % 04/08/22 Lymphocytes (%) (Auto) 20.3 % 04/08/22 Monocytes # (Auto) 0.36 K/uL (0.24-0.82) 04/08/22 Eosinophils # (Auto) 0.00 K/uL (0-0.50) 04/08/22 Immature Granulocyte % (Auto) 1.1 % 04/08/22 Neutrophils # (Auto) 2.41 K/uL (1.4-6.5) 04/08/22 Lymphocytes # (Auto) 0.72 K/uL (1.2-3.4) L 04/08/22 Monocytes # (Auto) 0.36 K/uL (0.24-0.82) 04/08/22 Eosinophils # (Auto) 0.00 K/uL (0-0.50) 04/08/22 Basophils # (Auto) 0.01 K/uL (0-0.2) 04/08/22 Immature Granulocyte # (Auto) 0.04 K/uL (0.00-0.02) H 04/08 Echinocytes 1+ 04/08/22 Na 133 mmol/L (136-145) L 04/08/22 K 3.9 mmol/L (3.5-5.1) 04/08/22 Cl 96 mmol/L (98-107) L 04/08/22 CO2 27 mmol/L (21-32) 04/08/22 Anion Gap 10 (3-11) 04/08/22 BUN 18 mg/dl (6-23) 04/08/22 Creatinine 2.02 mg/dl (0.6-1.4) H 04/08/22 Estimated GFR ( Amer) 42.7 ml/min 04/08/22 Estimated GFR (Non-Af Amer) 36.8 ml/min 04/08/22 BUN/Creatinine Ratio 8.9 (10-20) L 04/08/22 Glu 208 mg/dl (70-99(Fasting)) H 04/08/22 Ca 9.3 mg/dl (8.5-10.1) 04/08/22 Phosphorus Level 3.0 mg/dl (2.5-4.9) 04/08/22 Total Bilirubin 0.8 mg/dl (0.2-1.0) 04/08/22 AST 41 U/L (13-39) H 04/08/22 ALT 25 U/L (7-52) 04/08/22 Alkaline Phosphatase 65 U/L (34-104) 04/08/22 TP 5.8 gm/dl (6.0-8.3) L 04/08/22 Albumin 2.9 gm/dl (3.4-5.0) L 04/08/22 Globulin 2.9 gm/dl (2.5-4.0) 04/08/22 Albumin/Globulin Ratio 1.0 (0.9-2) 04/08/22 Mg 1.6 mg/dl (1.7-2.4) L 04/08/22 04:24 Calcium Level 9.3 mg/dl (8.5-10.1) 04/08/22 04:24 Joel Test NA 04/08/22 05:18 Microbiology 04/07/22 09:45 Gram Stain - Final Sputum,Vent Suction Diagnostic Findings (Past 24 Hours) Chest X-Ray 04/06/22 20:50 SINGLE VIEW CHEST CLINICAL HISTORY: Atypical chest pain. Heart alert. Intubation. FINDINGS: An AP, portable, supine chest radiograph is obtained. No prior studies are available for comparison at the time of dictation. The examination is degraded by portable technique and patient rotation. An endotracheal tube has been placed. The tip of the catheter projects 2.4 cm above the faiza. The heart appears enlarged. There is pulmonary vascular congestion. There are low lung volumes with dependent consolidation, left greater than right. Small pleural effusions are suspected. No pneumothorax is seen. There is chronic posttraumatic deformity of the left clavicle. IMPRESSION: 1. An endotracheal tube has been placed as above. 2. Cardiomegaly with pulmonary vascular congestion. 3. Left greater than right bibasilar consolidation. 4. Suspect small pleural effusions. ACT 112: Negative or not required by law. Electronically signed by: Reji Killian M.D. 04/07/2022 8:39 AM Abdomen/Pelvis CT 04/07/22 03:00 CT SCAN OF THE ABDOMEN AND PELVIS WITHOUT IV CONTRAST CLINICAL HISTORY: Lactic acidosis. COMPARISON STUDY: No priors. TECHNIQUE: CT scan of the abdomen and pelvis is performed from the lung bases to the proximal femora. Images are reviewed in the axial, sagittal, and coronal planes. IV contrast was not administered for this examination. Note that the examination is suboptimal without oral and IV contrast. The examination is degraded by motion artifact, as well as by streak artifact from the arms which could not be elevated above the abdomen. A dose lowering technique was utilized adhering to the principles of ALARA. FINDINGS: Lung bases: The heart is mildly enlarged and without pericardial effusion. A pacemaker lead is in place from a right femoral approach. There are coronary artery calcifications. There is diffusely diminished attenuation of the cardiac blood pool as compared to the myocardium suggesting anemia. There is dense bibasilar consolidation. Liver: The unenhanced liver is enlarged, measuring 21.2 cm in length. The liver is cirrhotic in morphology, with nodularity of the hepatic surface contour. Diffusely diminished attenuation indicates steatosis. There is no intrahepatic biliary ductal dilatation. Gallbladder: There are calcified gallstones without CT evidence of acute cholecystitis. Spleen: Normal in size and attenuation. Pancreas: The unenhanced pancreas is grossly unremarkable. Adrenal glands: Unremarkable. Kidneys: The unenhanced kidneys are normal in size and without hydronephrosis. There are no renal calculi identified. There is no evidence of contour deforming renal mass lesion. Abdominal vasculature: The abdominal aorta is normal in course and caliber n oting mild atherosclerotic calcification. There is a left femoral approach central venous catheter. Stomach and bowel: The enteric tube terminates in the mid to distal stomach. There is no bowel obstruction. There is nonspecific wall thickening suggested involving the right colon. Question mild wall thickening throughout the small bowel. There is no pneumatosis intestinalis or portal venous gas. The appendix is well-visualized and normal. Peritoneum: There is trace perihepatic ascites, as well as trace fluid within the paracolic gutters. There is mesenteric edema. No intraperitoneal free air is seen. There is a fat-containing umbilical hernia. Lymphadenopathy: None. Pelvic viscera: The bladder is decompressed around a [place] catheter. Foci of intraluminal gas are likely related to instrumentation. The prostate gland is diminutive and heterogeneous. The seminal vesicles are normal as visualized. There are left larger than right fat containing inguinal hernias. Skeletal structures: The skeletal structures are osteopenic. There are acute bilateral anterior rib fractures. Mild lumbosacral spondylosis is observed. No lytic or blastic lesions are seen. Soft tissues: Body wall edema. IMPRESSION: 1. Dense bibasilar consolidation. Correlate clinically from the pneumonia/aspiration pneumonitis. 2. There is enlarged, steatotic, and cirrhotic in morphology. 3. Trace abdominopelvic ascites. 4. Question mild wall thickening throughout the small bowel. There is also mild nonspecific wall thickening suggestive involving the right colon. Clinical correlation will be required. 5. Cholelithiasis. 6. Acute anterior rib fractures are likely related to resuscitation. 7. Additional findings as above. ACT 112: Negative or not required by law. Electronically signed by: Reji Killian M.D. 04/07/2022 8:30 AM I & O Totals 24 Hours 04/07/22 04/08/22 04/09/22 06:59 06:59 06:59 Intake Total 3272.159 / 3272.159 5416.416 / 5416.416 88.597 / 88.597 Output Total 2200 / 2200 3375 / 3375 Balance 1072.159 / 7746.642 1010.416 / 2041.416 88.597 / 88.597 Cumulative 04/06/22 20:40 thru 04/08/22 07:28 Intake Total 8777.172 Output Total 5575 Balance 3202.172 RT Ventilator Mngmt (Last Documented) Ventilator Ordered Settings Ventilator Support Mode Assist Control 04/08/22 04:00 Respiratory Rate 16 04/08/22 06:30 Ventilator Tidal Volume 470 04/08/22 04:00 Setting Minute Ventilation 11.3 04/08/22 03:03 Ventilator Positive Pressure 12 04/07/22 08:07 Support Setting Positive End Expiratory 5 04/08/22 04:00 Pressure Fraction of Inspired Oxygen 35 04/08/22 06:30 Machine Comment decreased fio2 to 35% 04/08/22 03:03 Ventilator - PT Measurements Respiratory Rate 16 Exhaled Tidal Volume 471 Minute Ventilation 11.3 Peak Inspiratory Airway 30 Pressure Plateau Pressure 26.4 Respiratory Cycle Inspiratory: 1:2.1 Expiratory Ratio Inspiratory Phase Time 0.8 End-Tidal CO2 29 Static Lung Compliance 22.01 Dynamic Lung Compliance 18.84 Normal Static Lung Compliance 45.00 Patient Measurements Comment FiO2 decreased due to ABG results. LANRE AYALA aware Coding Level of Care Code 06336 Subseq Hosp Care Lvl 3 Diagnoses Metabolic acidosis E87.20 Acute kidney injury N17.9 Acute hypoxemic respiratory failure J96.01 DKA (diabetic ketoacidosis) E11.10 Diabetes mellitus type: type 1 Complete heart block I44.2 (1) DKA (diabetic ketoacidosis) Diabetes mellitus type: type 1
[2022-04-08] MEDS ORDERED: LANTUS PER UNIT CHARGE SQ STA (08:07)
[2022-04-08] MEDS: INSULIN ASPART PER UNIT SC SCH ×5 (08:22→20:11)
[2022-04-08] MEDS: PANTOprazole 40 MG in SYRINGE 0 ML IV SCH (08:55)
--- NOTE | 2022-04-08 09:52 | Nephrology Progress Note ---
Date of Service April 08, 2022 Assessment & Plan (1) Acute kidney injury: (2) Acute hyperkalemia: (3) Metabolic acidosis: (4) DKA (diabetic ketoacidosis): (5) Complete heart block: Plan 51-year-old gentleman admitted with progressive generalized weakness, respiratory distress for few weeks , found to have [place], hyperkalemia, metabolic acidosis, DKA went into cardiac arrest with complete heart block requiring CPR with ROSC. baseline creatinine 1.1-1.2, admission creatinine 3.0, potassium 7.4, overall improved this morning to creatinine 2.4, potassium close to 5. Metabolic acidosis improved. Metformin and valsartan has been on hold. Overall clinically doing better, extubated this morning. Has been off of pressor since yesterday, blood pressure in fact running high. Renal function continues to improve slowly, electrolyte acceptable. Decent urine output. --Continue to monitor renal function, electrolyte, urine output with hemodynamics support, expect renal function to continue to improve. If blood pressure remained elevated resume metformin and diltiazem as heart rate remains high. Continue to hold valsartan for now. Will follow Admission and Anticipated Discharge Date Admission Date: April 06, 2022 Gumaro Zarate was seen and evaluated this morning. He was just extubated, has been off of pressor and blood pressure in fact running high. Renal function continues to improve slowly electrolyte abnormality improving. Has been having decent urine output. Review of Systems Review of Systems: Review of system Was otherwise unremarkable. Physical Exam Constitutional: WD/WN, vitals as above Neck: normal visual inspection Respiratory: Auscultation: + diminished lung sounds and + crackles Cardiovascular: Rate/Rhythm: regular rate and regular rhythm Heart Sounds: normal S1 and normal S2 Extremities: no edema Gastrointestinal (Abdomen): Inspection/Auscultation: abdomen normal to insp ection and normal bowel sounds Percussion/Palpation: abdomen nontender Musculoskeletal: Extremities: extremities normal to inspection Skin: no rashes Results & Data ([facility]) Vital Signs (Past 12 Hours) Vital Signs Temp Pulse Resp BP Pulse Ox O2 Del Method O2 Flow Rate 04/08/22 08:49 113 H 17 94 8 04/08/22 08:45 86 12 96 04/08/22 08:00 106 H 22 167/91 H 89 L Oxymask 10 04/08/22 07:00 65 16 113/75 96 Mechanical Vent 04/08/22 08:43 35.8 C L 04/08/22 07:15 35.6 C L 04/08/22 06:30 64 16 96 Mechanical Vent 04/08/22 06:00 65 16 116/77 96 Mechanical Vent 04/08/22 05:30 66 16 95 Mechanical Vent 04/08/22 05:00 67 24 120/76 95 Mechanical Vent 04/08/22 04:30 73 24 96 Mechanical Vent 04/08/22 04:00 36.8 C 69 24 122/75 95 Mechanical Vent 04/08/22 03:30 70 24 95 Mechanical Vent 04/08/22 04:00 04/08/22 03:03 72 24 95 04/08/22 03:00 71 24 118/72 94 Mechanical Vent 04/08/22 02:30 72 24 95 Mechanical Vent 04/08/22 02:00 74 24 118/75 96 Mechanical Vent 04/08/22 01:30 77 24 95 Mechanical Vent 04/08/22 01:00 78 24 115/70 96 Mechanical Vent 04/08/22 00:30 82 24 96 Mechanical Vent 04/08/22 00:00 37 C 82 24 108/67 95 Mechanical Vent 04/07/22 23:30 87 24 96 Mechanical Vent 04/08/22 00:00 04/08/22 00:02 85 24 96 04/07/22 23:00 96 H 24 117/73 95 Mechanical Vent 04/07/22 22:30 86 24 96 Mechanical Vent 04/07/22 22:00 89 24 115/61 96 Mechanical Vent FiO2 04/08/22 08:49 04/08/22 08:45 30 04/08/22 08:00 04/08/22 07:00 35 04/08/22 08:43 04/08/22 07:15 04/08/22 06:30 35 04/08/22 06:00 35 04/08/22 05:30 35 04/08/22 05:00 35 04/08/22 04:30 35 04/08/22 04:00 35 04/08/22 03:30 35 04/08/22 04:00 35 04/08/22 03:03 35 04/08/22 03:00 35 04/08/22 02:30 35 04/08/22 02:00 40 04/08/22 01:30 40 04/08/22 01:00 40 04/08/22 00:30 40 04/08/22 00:00 40 04/07/22 23:30 40 04/08/22 00:00 40 04/08/22 00:02 40 04/07/22 23:00 40 04/07/22 22:30 40 04/07/22 22:00 40 PG Care Time/CCT Total # of Minutes Spent Total Time Spent with Patient: Total time spent is greater than 50% in coordination of care (as documented) at patient's floor/unit and/or counseling patient: Coding Level of Care Code 53518 Subseq Hosp Care Lvl 3 Diagnoses Acute kidney injury N17.9 Acute hyperkalemia E87.5 Metabolic acidosis E87.20 DKA (diabetic ketoacidosis) E11.10 Diabetes mellitus type: type 1 Complete heart block I44.2 (1) DKA (diabetic ketoacidosis) Diabetes mellitus type: type 1
[2022-04-08] MEDS ORDERED: LANTUS PER UNIT CHARGE SQ ONE ×2 (10:00→21:00)
--- NOTE | 2022-04-08 13:59 | Pharmacy Report ---
Pharmacy Glycemic Short Note 2 - Date of Service April 08, 2022 - Glycemic Short BSG Results (Last 24 hours): 04/07/22 04/07/22 04/07/22 11:53 13:00 14:16 Glucose 150 H POC Glucose POC Glucose (other) 163 H 158 H 04/07/22 04/07/22 04/07/22 14:26 16:26 17:23 Glucose POC Glucose POC Glucose (other) 150 H 137 H 138 H 04/07/22 04/07/22 04/07/22 18:25 19:00 19:06 Glucose 144 H POC Glucose POC Glucose (other) 145 H 151 H 04/07/22 04/07/22 04/07/22 21:14 22:58 23:20 Glucose 177 H POC Glucose POC Glucose (other) 163 H 175 H 04/08/22 04/08/22 04/08/22 01:03 03:12 03:59 Glucose POC Glucose 210 H POC Glucose (other) 189 H 203 H 04/08/22 04/08/22 04/08/22 04:24 05:06 06:01 Glucose 208 H POC Glucose 209 H 211 H POC Glucose (other) 04/08/22 04/08/22 04/08/22 06:58 08:20 09:23 Glucose POC Glucose 204 H 188 H 199 H POC Glucose (other) 04/08/22 04/08/22 10:48 11:51 Glucose POC Glucose 194 H 183 H POC Glucose (other) OUTPATIENT ANTIDIABETIC REGIMEN: * Novolog 40 units TID, Metformin 1000 mg BID, Toujeo 300 units/ml 48 units BID * A1c 8.5% 04/07 ASSESSMENT: 04/08 * Patient extubated this AM, norephinephrine off. * Per RN report, noncompliance with outpatient regimen, patient would have episodes of eating, bolusing high amounts and then hypoglycemia, leading to more eating. A1c 8.5%- ?average of hypo/hyperglycemic events * Transition off of insulin infusion, as stressors have decreased, extubated, possible diet ordered later today * Patient received 20 units lantus + additional 40 units this morning- this is slightly higher than weight based stress of 3 dosing * Will start weight based stress of 3 novolog when transitioning off 04/07 * Patient admitted w/ DKA, complete heart block/transcutaneous pacing, [place]ICA, multiple electroyte abnormalities. Patient is post-cardiac arrest. * Anion gap, Bicarb have normalized this morning. Continues on vent + low dose norepinephrine at current. Insulin infusion running at 14.4 units/hr * Discussed on multidisciplinary rounds, will continue infusion for now given high rate, will change fluids to NS @125 mL/hr and reduced rate empirically 50% with discontinuation of dextrose * Goal range adjusted to 150-200 mg/dL; will evaluate for transition off of insulin infusion later today PLAN FOR INPATIENT GLYCEMIC CONTROL: * Hold outpatient oral diabetes medications * Basal: 60 units this AM, scale for PM * Insulin infusion currently at 7.8 units/hr, will decrease to 4 units/hr with the 1350 BSG check and monitor for rebound * Should turn off at 1650, 6 hours after second lantus dose.
[2022-04-08] MEDS: HEPARIN SOD 5,000 UNIT/0.5 ML VIAL SQ SCH ×2 (14:00→20:12)
[2022-04-08] MEDS: dilTIAZem HCL 300 MG CAPCR PO SCH (17:10)
--- NOTE | 2022-04-08 17:43 | Hospitalist Progress Note ---
Date of Service April 08, 2022 Assessment & Plan (1) DKA (diabetic ketoacidosis): Plan: Initial blood sugar of 569 with AG of 21. Anion gap now closed. No longer acidotic. - electrolyte and fluid management per ICU team Appreciate pharmacy glycemic management with basal bolus insulin dosing Given he discontinued his Lantus dosing certainly will need diabetic education moving forward (2) PEA (Pulseless electrical activity): Plan: Cardiac arrest x3 in ER with ROSC achieved in ~3-4 minutes each time. Per shaker plate operator, had intrinsic rhythm while in laborer aquatic life for transvenous pacer. TTE - normal left ventricular size with hyperdynamic systolic function. LVEF greater than 70%. No regional wall motion abnormalities. Mild concentric left ventricular hypertrophy. (3) Complete heart block: Plan: Resolved Reported CMB prior to hospitalization. Bradycardic to the 20s in EMS and became unresponsive suspected secondary to hyperkalemia. Transvenous pacer now removed. (4) Acute hyperkalemia: Plan: K+ on admission was 7.5. Received calcium chloride, albuterol, bicarb in ER. Suspect secondary to MONICA - Remains on insulin gtt - K improved to 3.9 this morning (5) Acute hypoxemic respiratory failure: Plan: In setting of PEA. - Intubated; vent settings per ICU provider - extubated 04/08, Currently stable on 5LPM O2 - suspect some pulmonary edema +/- aspiration pneumonitis (6) Benign essential hypertension: Plan: - Hold all oral meds at this time. (7) Uncontrolled diabetes mellitus with diabetic nephropathy: Plan: Last A1c was 8.0% in 11/2021. With severe neuropathy per . - As above for DKA (8) GERD (gastroesophageal reflux disease): Plan: IV pantoprazole 40 mg daily per ICU (9) Metabolic acidosis: Plan: Metabolic acidosis now resolved on AM ABG. Now alkalotic from bicarb given with initial resuscitation efforts and cardiac arrest Secondary to lactic acid and ketoacidosis. (10) Acute kidney injury: Plan: Cr improved to 2.02 this morning with potassium improvement as above Appreciate nephrology input (11) Pneumonia: Plan: Cefepime d/c'd by ICU team given procalcitonin negative No blood cultures taken on admission, will defer unless recurrent fever for now Sputum culture pending (12) Encephalopathy acute: Plan: Now resolved Secondary to PEA arrest, hyperkalemia, DKA (13) Normocytic anemia: Plan: Iron, B12, folate with AM labs Continue to trend CBC (14) Hypertension, benign essential, goal below 140/90: Plan: Metoprolol and diltiazem restarted by ICU team - close monitoring for bradycardia Consider PRN hydralazine for sBP > 180 (15) Peripheral neuropathy: Plan: Will restart gabapentin once stepped down after ICU Plan VTE Prophylaxis - heparin 5000 units SQ q8h Diet - T2DM Code - FULL CODE per in ER Disposition - continued admission to ICU Admission and Anticipated Discharge Date Admission Date: April 06, 2022 Subjective Patient seen in afternoon after extubation earlier this morning. He reports feeling well. No chest pain, abdominal pain, shortness of breath, fever, chills. He does report a mild sore throat following extubation. He reports not using his Lantus for the last month (he is supposed to be on 48 units BID) as he did not feel he needed it with his Dexcom glucose values. He also reports fluid retention for the last month which she has not seen a healthcare provider about - this is mainly in his bilateral lower extremities but he is also been feeling short of breath. Review of Systems Review of Systems: All systems reviewed & are unremarkable except as noted in Subjective Physical Exam Constitutional: WD/WN, vitals as above Neck: normal visual inspection Respiratory: Auscultation: lungs clear to auscultation bilaterally and + diminished lung sounds (Bibasal) Cardiovascular: Rate/Rhythm: regular rate and regular rhythm Heart Sounds: normal S1 and normal S2; no murmur Extremities: + pedal edema (trace pitting bilaterally equal) Gastrointestinal (Abdomen): Inspection/Auscultation: abdomen normal to inspection and normal bowel sounds Percussion/Palpation: abdomen nontender Musculoskeletal: Extremities: extremities normal to inspection Skin: no rashes Results & Data Results & Data ([facility]) Vital Signs (Past 12 Hours) Vital Signs Temp Pulse Resp BP Pulse Ox O2 Del Method O2 Flow Rate 04/08/22 17:00 120 H 22 168/93 H 93 Nasal Cannula 6 04/08/22 16:26 37.4 C 04/08/22 16:00 114 H 20 173/94 H 96 Nasal Cannula 5 04/08/22 15:15 122 H 22 166/88 H 94 04/08/22 16:00 116 H 11/22/22 15:35 95 04/08/22 15:09 117 H 20 172/83 H 95 Nasal Cannula 5 04/08/22 15:00 113 H 23 151/78 H 91 Nasal Cannula 5 04/08/22 14:00 114 H 20 164/79 H 94 04/08/22 13:00 110 H 17 146/71 H 95 Nasal Cannula 6 04/08/22 12:00 115 H 22 169/85 H 95 Nasal Cannula 6 04/08/22 11:00 109 H 21 154/83 H 97 CPAP 10 04/08/22 10:00 109 H 17 155/87 H 95 CPAP 10 04/08/22 09:00 111 H 15 166/96 H 94 CPAP 10 04/08/22 11:53 Nasal Cannula 6 04/08/22 08:00 64 04/08/22 11:47 37 C 04/08/22 08:49 113 H 17 94 8 04/08/22 08:45 86 12 96 04/08/22 08:00 106 H 22 167/91 H 89 L Oxymask 10 04/08/22 07:00 65 16 113/75 96 Mechanical Vent 04/08/22 08:43 35.8 C L 04/08/22 07:15 35.6 C L 04/08/22 06:30 64 16 96 Mechanical Vent 04/08/22 06:00 65 16 116/77 96 Mechanical Vent FiO2 04/08/22 17:00 04/08/22 16:26 04/08/22 16:00 04/08/22 15:15 04/08/22 16:00 04/08/22 15:35 04/08/22 15:09 04/08/22 15:00 04/08/22 14:00 04/08/22 13:00 04/08/22 12:00 04/08/22 11:00 04/08/22 10:00 04/08/22 09:00 04/08/22 11:53 04/08/22 08:00 04/08/22 11:47 04/08/22 08:49 04/08/22 08:45 30 04/08/22 08:00 04/08/22 07:00 35 04/08/22 08:43 04/08/22 07:15 04/08/22 06:30 35 04/08/22 06:00 35 PG Care Time/CCT Total # of Minutes Spent Total Time Spent with Patient: Total time spent is greater than 50% in coordination of care (as documented) at patient's floor/unit and/or counseling patient: Coding Level of Care Code 36218 Subseq Hosp Care Lvl 3 Diagnoses DKA (diabetic ketoacidosis) E11.10 Diabetes mellitus type: type 1 PEA (Pulseless electrical activity) I46.9 Complete heart block I44.2 Acute hyperkalemia E87.5 Acute hypoxemic respiratory failure J96.01 Benign essential hypertension I10 Uncontrolled diabetes mellitus with diabetic nephropathy E11.21; E11.65 GERD (gastroesophageal reflux disease) K21.9 Metabolic acidosis E87.20 Acute kidney injury N17.9 Pneumonia J18.9 Encephalopathy acute G93.40 Normocytic anemia D64.9 Hypertension, benign essential, goal below 140/90 I10 Peripheral neuropathy G62.9 (1) DKA (diabetic ketoacidosis) Diabetes mellitus type: type 1
[2022-04-08] MEDS ORDERED: hydrALAZINE HCL 20 MG/ML VIAL IV STA (18:16)
--- NOTE | 2022-04-08 18:18 | Cardiology Progress Note ---
Date of Service April 08, 2022 Assessment & Plan (1) Complete heart block: (2) Sinus bradycardia: (3) PEA (Pulseless electrical activity): (4) Acute hyperkalemia: (5) Acute kidney injury: (6) Acute hypoxemic respiratory failure: (7) DKA (diabetic ketoacidosis): Plan ASSESSMENT/PLAN: 1. Bradycardia/complete heart block: There was reported complete heart block prehospital. Available rhythm strips reviewed and no obvious heart block however significant bradycardia and at times perhaps junctional bradycardia without identifiable P waves. Profound bradycardia in the setting of hyperkalemia. Hyperkalemia was the likely cause of his bradycardia and possible heart block. Temporary pacemaker had been placed on admission and then removed on 04/07/2022 and has done well without, once potassium has been corrected. No indication for permanent pacemaker at this time. 2. PEA: Resolved. Likely related to his electrolyte abnormalities as above and presenting issues including DKA. 3. Acute hypoxemic respiratory failure: As per critical care team. Weaned from the ventilator and now extubated. 4. Acute kidney injury: Nephrology following. Renal function improving. 5. DKA: As per critical care team and primary hospitalist service. 6. Tachycardia: Now noted to be in sinus tachycardia, which apparently is a chronic issue. He had been on diltiazem and metoprolol as an outpatient. Now that he is once again in sinus and tachycardic and no longer requiring pressors, metoprolol is scheduled to resume this evening. Can slowly resume his outpatient diltiazem as well. 7. Disposition: Cardiology will sign off at this time. Please call with any other questions or concerns. Admission and Anticipated Discharge Date Admission Date: April 06, 2022 Subjective Patient seen this afternoon. He is now extubated and was sitting out of bed in a chair. His was present at the bedside. His breathing is improving with the use of incentive spirometer. He has been tachycardic today and his states that that is a chronic issue. At home he typically takes diltiazem and metoprolol but these medications have been held given his presentation and need for pressors. Despite CPR, he denies any significant chest pain at this time. Physical Exam Physical Exam: Gen.: No acute distress. Alert and oriented. Neck: Thick neck. Cardiac: PMI was nonpalpable. No ventricular heave. Regular and tachycardic. Normal S1-S2. No murmurs, rubs, or gallops. Pulmonary: Clear to auscultation bilaterally without wheezes, rales, or rhonchi. Abdomen: Soft, nontender, nondistended, with hypoactive bowel sounds. No bruits noted. Extremities: 2+ bilateral radial pulses. Generalized edema, upper and lower extremity. 1+ lower extremity edema. No cyanosis. Right groin temporary pacer site is without hematoma or significant ecchymosis. Results & Data ([facility]) Vital Signs (Past 12 Hours) Vital Signs Temp Pulse Resp BP Pulse Ox O2 Del Method O2 Flow Rate 04/08/22 17:00 120 H 22 168/93 H 93 Nasal Cannula 6 04/08/22 16:26 37.4 C 04/08/22 16:00 114 H 20 173/94 H 96 Nasal Cannula 5 04/08/22 15:15 122 H 22 166/88 H 94 04/08/22 16:00 116 H 04/08/22 15:35 95 04/08/22 15:09 117 H 20 172/83 H 95 Nasal Cannula 5 04/08/22 15:00 113 H 23 151/78 H 91 Nasal Cannula 5 04/08/22 14:00 114 H 20 164/79 H 94 04/08/22 13:00 110 H 17 146/71 H 95 Nasal Cannula 6 04/08/22 12:00 115 H 22 169/85 H 95 Nasal Cannula 6 04/08/22 11:00 109 H 21 154/83 H 97 CPAP 10 04/08/22 10:00 109 H 17 155/87 H 95 CPAP 10 04/08/22 09:00 111 H 15 166/96 H 94 CPAP 10 04/08/22 11:53 Nasal Cannula 6 04/08/22 08:00 64 04/08/22 11:47 37 C 04/08/22 08:49 113 H 17 94 8 04/08/22 08:45 86 12 96 04/08/22 08:00 106 H 22 167/91 H 89 L Oxymask 10 04/08/22 07:00 65 16 113/75 96 Mechanical Vent 04/08/22 08:43 35.8 C L 04/08/22 07:15 35.6 C L 04/08/22 06:30 64 16 96 Mechanical Vent FiO2 04/08/22 17:00 04/08/22 16:26 04/08/22 16:00 04/08/22 15:15 04/08/22 16:00 04/08/22 15:35 04/08/22 15:09 04/08/22 15:00 04/08/22 14:00 04/08/22 13:00 04/08/22 12:00 04/08/22 11:00 04/08/22 10:00 04/08/22 09:00 04/08/22 11:53 04/08/22 08:00 04/08/22 11:47 04/08/22 08:49 04/08/22 08:45 30 04/08/22 08:00 04/08/22 07:00 35 04/08/22 08:43 04/08/22 07:15 04/08/22 06:30 35 Intake & Output 04/06/22 04/07/22 04/08/22 04/09/22 06:59 06:59 06:59 06:59 Intake Total 3272.159 / 3272.159 5416.416 / 5416.416 1315.929 / 1315.929 Output Total 2200 / 2200 3375 / 3375 400 / 400 Balance 1072.159 / 3786.966 7937.416 / 2041.416 915.929 / 915.929 Weight 250 lb 3.594 oz 245 lb 13.047 oz Laboratory Results Laboratory Results - last 24 hr 04/07/22 04/07/22 04/07/22 17:23 18:25 19:00 WBC RBC Hgb POC Hgb Hct POC Hct MCV MCH MCHC RDW Std Deviation RDW Coeff of Lissett Plt Count MPV Immature Gran % (Auto) Neut % (Auto) Lymph % (Auto) Louis[place] % (Auto) Eos % (Auto) Baso % (Auto) Neut # (Auto) Lymph # (Auto) [place] # (Auto) Eos # (Auto) Baso # (Auto) Immature Gran # (Auto) Echinocytes APTT PTT Ratio Sample Site POC pH POC pCO2 POC pO2 POC HCO3 POC Total CO2 POC Base Excess ABG pH (Temp Correct) ABG pCO2 (Temp Corrct POC ABG pO2 at Pt Temp POC ABG O2 Sat Joel Test O2 Delivery Device POC O2 Rate Minute Ventilation POC FiO2 Tidal Volume PEEP POC Sodium Sodium 132 L POC Potassium Potassium 4.5 Chloride 94 L Carbon Dioxide 30 Anion Gap 8 BUN 19 Creatinine 2.21 H Est Cr Clr Drug Dosing 49.8 Est GFR ( Amer) 38.3 Est GFR (Non-Af Amer) 33.0 BUN/Creatinine Ratio 8.6 L Glucose 144 H POC Glucose POC Glucose (other) 138 H 145 H Calcium 9.6 Phosphorus Magnesium Total Bilirubin AST ALT Alkaline Phosphatase Total Protein Albumin Globulin Albumin/Globulin Ratio 04/07/22 04/07/22 04/07/22 19:06 21:14 22:58 WBC RBC Hgb POC Hgb Hct POC Hct MCV MCH MCHC RDW Std Deviation RDW Coeff of Lissett Plt Count MPV Immature Gran % (Auto) Neut % (Auto) Lymph % (Auto) Louisa % (Auto) Eos % (Auto) Baso % (Auto) Neut # (Auto) Lymph # (Auto) [place] # (Auto) Eos # (Auto) Baso # (Auto) Immature Gran # (Auto) Echinocytes APTT PTT Ratio Sample Site POC pH POC pCO2 POC pO2 POC HCO3 POC Total CO2 POC Base Excess ABG pH (Temp Correct) ABG pCO2 (Temp Corrct POC ABG pO2 at Pt Temp POC ABG O2 Sat Joel Test O2 Delivery Device POC O2 Rate Minute Ventilation POC FiO2 Tidal Volume PEEP POC Sodium Sodium POC Potassium Potassium Chloride Carbon Dioxide Anion Gap BUN Creatinine Est Cr Clr Drug Dosing Est GFR ( Amer) Est GFR (Non-Af Amer) BUN/Creatinine Ratio Glucose POC Glucose POC Glucose (other) 151 H 163 H 175 H Calcium Phosphorus Magnesium Total Bilirubin AST ALT Alkaline Phosphatase Total Protein Albumin Globulin Albumin/Globulin Ratio 04/07/22 04/08/22 04/08/22 23:20 01:03 03:12 WBC RBC Hgb POC Hgb Hct POC Hct MCV MCH MCHC RDW Std Deviation RDW Coeff of Lissett Plt Count MPV Immature Gran % (Auto) Neut % (Auto) Lymph % (Auto) Louis[place] % (Auto) Eos % (Auto) Baso % (Auto) Neut # (Auto) Lymph # (Auto) [place]a # (Auto) Eos # (Auto) Baso # (Auto) Immature Gran # (Auto) Echinocytes APTT PTT Ratio Sample Site POC pH POC pCO2 POC pO2 POC HCO3 POC Total CO2 POC Base Excess ABG pH (Temp Correct) ABG pCO2 (Temp Corrct POC ABG pO2 at Pt Temp POC ABG O2 Sat Joel Test O2 Delivery Device POC O2 Rate Minute Ventilation POC FiO2 Tidal Volume PEEP POC Sodium Sodium 132 L POC Potassium Potassium 4.3 Chloride 95 L Carbon Dioxide 28 Anion Gap 9 BUN 18 Creatinine 2.13 H Est Cr Clr Drug Dosing 51.6 Est GFR ( Amer) 40.0 Est GFR (Non-Af Amer) 34.5 BUN/Creatinine Ratio 8.5 L Glucose 177 H POC Glucose POC Glucose (other) 189 H 203 H Calcium 9.5 Phosphorus Magnesium Total Bilirubin AST ALT Alkaline Phosphatase Total Protein Albumin Globulin Albumin/Globulin Ratio 04/08/22 04/08/22 04/08/22 03:59 04:24 04:24 WBC 3.54 L RBC 3.25 L Hgb 8.8 L POC Hgb Hct 26.7 L POC Hct MCV 82.2 MCH 27.1 MCHC 33.0 RDW Std Deviation 48.0 H RDW Coeff of Lissett 16.1 H Plt Count 103 L MPV 10.0 Immature Gran % (Auto) 1.1 Neut % (Auto) 68.1 Lymph % (Auto) 20.3 Louisa % (Auto) 10.2 Eos % (Auto) 0.0 Baso % (Auto) 0.3 Neut # (Auto) 2.41 Lymph # (Auto) 0.72 L Louisa # (Auto) 0.36 Eos # (Auto) 0.00 Baso # (Auto) 0.01 Immature Gran # (Auto) 0.04 H Echinocytes 1+ APTT PTT Ratio Sample Site POC pH POC pCO2 POC pO2 POC HCO3 POC Total CO2 POC Base Excess ABG pH (Temp Correct) ABG pCO2 (Temp Corrct POC ABG pO2 at Pt Temp POC ABG O2 Sat Joel Test O2 Delivery Device POC O2 Rate Minute Ventilation POC FiO2 Tidal Volume PEEP POC Sodium Sodium 133 L POC Potassium Potassium 3.9 Chloride 96 L Carbon Dioxide 27 Anion Gap 10 BUN 18 Creatinine 2.02 H Est Cr Clr Drug Dosing 54.5 Est GFR ( Amer) 42.7 Est GFR (Non-Af Amer) 36.8 BUN/Creatinine Ratio 8.9 L Glucose 208 H POC Glucose 210 H POC Glucose (other) Calcium 9.3 Phosphorus 3.0 D Magnesium 1.6 L Total Bilirubin 0.8 D AST 41 H ALT 25 Alkaline Phosphatase 65 Total Protein 5.8 L Albumin 2.9 L Globulin 2.9 Albumin/Globulin Ratio 1.0 04/08/22 04/08/22 04/08/22 04:24 05:06 05:18 WBC RBC Hgb POC Hgb 8.8 L Hct POC Hct 26 L MCV MCH MCHC RDW Std Deviation RDW Coeff of Lissett Plt Count MPV Immature Gran % (Auto) Neut % (Auto) Lymph % (Auto) [place] % (Auto) Eos % (Auto) Baso % (Auto) Neut # (Auto) Lymph # (Auto) [place]a # (Auto) Eos # (Auto) Baso # (Auto) Immature Gran # (Auto) Echinocytes APTT 46.6 H* PTT Ratio 1.7 Sample Site Art Line POC pH 7.60 H* POC pCO2 28 L POC pO2 66 L POC HCO3 28 H POC Total CO2 29 POC Base Excess 6.0 H ABG pH (Temp Correct) 7.607 H* ABG pCO2 (Temp Corrct 28 L POC ABG pO2 at Pt Temp 65 POC ABG O2 Sat 96.0 H Joel Test NA O2 Delivery Device Ventilator POC O2 Rate 24 Minute Ventilation 11.3 POC FiO2 35 Tidal Volume 470 PEEP 5 POC Sodium 133 L Sodium POC Potassium 3.7 Potassium Chloride Carbon Dioxide Anion Gap BUN Creatinine Est Cr Clr Drug Dosing Est GFR ( Amer) Est GFR (Non-Af Amer) BUN/Creatinine Ratio Glucose POC Glucose 209 H POC Glucose (other) Calcium Phosphorus Magnesium Total Bilirubin AST ALT Alkaline Phosphatase Total Protein Albumin Globulin Albumin/Globulin Ratio 04/08/22 04/08/22 04/08/22 06:01 06:58 08:20 WBC RBC Hgb POC Hgb Hct POC Hct MCV MCH MCHC RDW Std Deviation RDW Coeff of Lissett Plt Count MPV Immature Gran % (Auto) Neut % (Auto) Lymph % (Auto) Louisa % (Auto) Eos % (Auto) Baso % (Auto) Neut # (Auto) Lymph # (Auto) [place]a # (Auto) Eos # (Auto) Baso # (Auto) Immature Gran # (Auto) Echinocytes APTT PTT Ratio Sample Site POC pH POC pCO2 POC pO2 POC HCO3 POC Total CO2 POC Base Excess ABG pH (Temp Correct) ABG pCO2 (Temp Corrct POC ABG pO2 at Pt Temp POC ABG O2 Sat Joel Test O2 Delivery Device POC O2 Rate Minute Ventilation POC FiO2 Tidal Volume PEEP POC Sodium Sodium POC Potassium Potassium Chloride Carbon Dioxide Anion Gap BUN Creatinine Est Cr Clr Drug Dosing Est GFR ( Amer) Est GFR (Non-Af Amer) BUN/Creatinine Ratio Glucose POC Glucose 211 H 204 H 188 H POC Glucose (other) Calcium Phosphorus Magnesium Total Bilirubin AST ALT Alkaline Phosphatase Total Protein Albumin Globulin Albumin/Globulin Ratio 04/08/22 04/08/22 04/08/22 09:23 10:48 11:51 WBC RBC Hgb POC Hgb Hct POC Hct MCV MCH MCHC RDW Std Deviation RDW Coeff of Lissett Plt Count MPV Immature Gran % (Auto) Neut % (Auto) Lymph % (Auto) Louis[place] % (Auto) Eos % (Auto) Baso % (Auto) Neut # (Auto) Lymph # (Auto) [place] # (Auto) Eos # (Auto) Baso # (Auto) Immature Gran # (Auto) Echinocytes APTT PTT Ratio Sample Site POC pH POC pCO2 POC pO2 POC HCO3 POC Total CO2 POC Base Excess ABG pH (Temp Correct) ABG pCO2 (Temp Corrct POC ABG pO2 at Pt Temp POC ABG O2 Sat Joel Test O2 Delivery Device POC O2 Rate Minute Ventilation POC FiO2 Tidal Volume PEEP POC Sodium Sodium POC Potassium Potassium Chloride Carbon Dioxide Anion Gap BUN Creatinine Est Cr Clr Drug Dosing Est GFR ( Amer) Est GFR (Non-Af Amer) BUN/Creatinine Ratio Glucose POC Glucose 199 H 194 H 183 H POC Glucose (other) Calcium Phosphorus Magnesium Total Bilirubin AST ALT Alkaline Phosphatase Total Protein Albumin Globulin Albumin/Globulin Ratio 04/08/22 04/08/22 04/08/22 12:52 13:51 14:53 WBC RBC Hgb POC Hgb Hct POC Hct MCV MCH MCHC RDW Std Deviation RDW Coeff of Lissett Plt Count MPV Immature Gran % (Auto) Neut % (Auto) Lymph % (Auto) [place] % (Auto) Eos % (Auto) Baso % (Auto) Neut # (Auto) Lymph # (Auto) [place]a # (Auto) Eos # (Auto) Baso # (Auto) Immature Gran # (Auto) Echinocytes APTT PTT Ratio Sample Site POC pH POC pCO2 POC pO2 POC HCO3 POC Total CO2 POC Base Excess ABG pH (Temp Correct) ABG pCO2 (Temp Corrct POC ABG pO2 at Pt Temp POC ABG O2 Sat Joel Test O2 Delivery Device POC O2 Rate Minute Ventilation POC FiO2 Tidal Volume PEEP POC Sodium Sodium POC Potassium Potassium Chloride Carbon Dioxide Anion Gap BUN Creatinine Est Cr Clr Drug Dosing Est GFR ( Amer) Est GFR (Non-Af Amer) BUN/Creatinine Ratio Glucose POC Glucose 194 H 170 H 161 H POC Glucose (other) Calcium Phosphorus Magnesium Total Bilirubin AST ALT Alkaline Phosphatase Total Protein Albumin Globulin Albumin/Globulin Ratio Diagnostic Findings Telemetry personally reviewed: Sinus tachycardia. No bradycardia or arrhythmia. Medications Administered Current Inpatient Medications Dextrose (Dextrose 50% 50 Ml Syringe) 25 - 50 ml IV UD PRN; Protocol PRN Reason: Hypoglycemia Protocol Stop: 05/07/22 00:07 Diltiazem HCl (Diltiazem Hcl 300 Mg Capcr) 300 mg PO QAM [facility] Stop: 05/08/22 16:44 Last Admin: 04/08/22 17:10 Dose: 300 mg Glucagon (Glucagon For Inj 1 Mg Vial) 1 mg SQ UD PRN; Protocol PRN Reason: Hypoglycemia Protocol Stop: 05/07/22 00:07 Glucose (Glucose 40% Gel 15 Gm Tube) 15 - 30 gm PO UD PRN; Protocol PRN Reason: Hypoglycemia Protocol Stop: 05/07/22 00:07 Glucose (Glucose 10 Tab/Tube) 4 - 8 tab PO UD PRN; Protocol PRN Reason: Hypoglycemia Treatment Stop: 05/07/22 00:07 Heparin Sodium (Porcine) (Heparin Sod 5,000 Unit/0.5 Ml Vial) 5,000 units SQ Q8 [facility] Stop: 05/08/22 13:59 Last Admin: 04/08/22 14:00 Dose: 5,000 units Pantoprazole Sodium 40 mg/ (Syringe) 10 mls @ 5 mls/min IV DAILY@1100 [facility] Stop: 05/07/22 10:59 Last Admin: 04/08/22 08:55 Dose: 5 mls/min Insulin Aspart (Insulin Aspart Per Unit) 0 units SC ACHS [facility] Stop: 05/08/22 13:49 Last Admin: 04/08/22 17:06 Dose: 3 units Insulin Aspart (Insulin Aspart Per Unit) 0 units SC TODAY@0000,0400 [facility] Stop: 04/09/22 04:01 Insulin Glargine (Lantus Per Unit Charge) 0 units SQ HS ONE; Protocol Stop: 04/08/22 21:01 Metoprolol Tartrate (Metoprolol Tartrate 25 Mg Tab) 25 mg PO BID [facility] Stop: 05/08/22 20:59 Miscellaneous (Pending Order~ Insuilin Infusion) 1 each N/A QS [facility] Stop: 05/08/22 15:59 Last Admin: 04/08/22 17:00 Dose: 1 each Miscellaneous Information (Pharmacy Glycemic Mgmt Consult) 1 each N/A UD PRN PRN Reason: Consult Stop: 05/07/22 00:07 Ondansetron HCl (Ondansetron Inj 2 Mg/Ml 2 Ml Vial) 4 mg IV Q4H PRN PRN Reason: Nausea Stop: 05/07/22 00:07 PG Care Time/CCT Total # of Minutes Spent Total Time Spent with Patient: Total time spent is greater than 50% in coordination of care (as documented) at patient's floor/unit and/or counseling patient: Coding Level of Care Code 85491 Subseq Hosp Care Lvl 3 Diagnoses Complete heart block I44.2 Sinus bradycardia R00.1 PEA (Pulseless electrical activity) I46.9 Acute hyperkalemia E87.5 Acute kidney injury N17.9 Acute hypoxemic respiratory failure J96.01 DKA (diabetic ketoacidosis) E11.10 Diabetes mellitus type: type 1 (1) DKA (diabetic ketoacidosis) Diabetes mellitus type: type 1
[2022-04-08] MEDS ORDERED: METOPROLOL TARTRATE 25 MG TAB PO SCH (21:00)
[2022-04-09] MEDS: INSULIN ASPART PER UNIT SC SCH ×6 (00:51→21:11)
[2022-04-09 05:31] LABS: Iron 13 mcg/dl (35-175); Total Iron Binding Cap Calc 314 mcg/dl (250-450); Transferrin (FE) Percent Satur 4 % (20-50); Unsaturated Iron Binding Cap 301 mcg/dl (155-355)
[2022-04-09 05:41] LABS: Hematocrit (blood only) 26.3 % (40.1-51.0); Hemoglobin 8.6 g/dl (14.0-18.0); Mean Corpuscular Hemoglobin 27.6 pg (25.0-34.0); Mean Corpuscular Hgb Conc 32.7 g/dL (32.0-36.0); Mean Corpuscular Volume 84.3 fL (80.0-100.0); Mean Platelet Volume 8.7 fL (9.4-12.4); Platelet Count 112 K/uL (130-400); RDW Coefficient of Variation 16.9 % (11.5-14.5); RDW Standard Deviation 51.9 fL (36.4-46.3); Red Blood Count 3.12 M/uL (4.63-6.08); White Blood Count 4.81 K/ul (4.8-10.8)
[2022-04-09 05:42] LABS: Basophils # (auto) 0.02 K/uL (0-0.2); Basophils % (auto) 0.4 %; Eosinophils # (auto) 0.06 K/uL (0-0.50); Eosinophils % (auto) 1.2 %; Immature Granulocytes # (auto) 0.02 K/uL (0.00-0.02); Immature Granulocytes % (auto) 0.4 %; Lymphocytes # (auto) 1.17 K/uL (1.2-3.4); Lymphocytes % (auto) 24.3 %; Monocytes # (auto) 0.62 K/uL (0.24-0.82); Monocytes % (auto) 12.9 %; Neutrophils # (auto) 2.92 K/uL (1.4-6.5); Neutrophils % (auto) 60.8 %; RBC Morphology Unremarkable
[2022-04-09 05:59] LABS: Albumin Level 3.1 gm/dl (3.4-5.0); BUN Creatinine Ratio 9.5 (10-20); Bilirubin,Total 0.8 mg/dl (0.2-1.0); Calcium 9.3 mg/dl (8.5-10.1); Creatinine Clr Calc Pharmacy 68.4 ml/min; Est GFR (African American) 57.4 ml/min; Est GFR (Non-African American) 49.6 ml/min; Globulin 3.1 gm/dl (2.5-4.0); Magnesium 1.6 mg/dl (1.7-2.4); Phosphorus 4.1 mg/dl (2.5-4.9); Potassium 4.1 mmol/L (3.5-5.1); Total Protein 6.2 gm/dl (6.0-8.3)
[2022-04-09] MEDS: HEPARIN SOD 5,000 UNIT/0.5 ML VIAL SQ SCH ×3 (05:59→20:53)
--- NOTE | 2022-04-09 06:09 | Electrocardiogram Report ---
Test Reason : Blood Pressure : / mmHG Vent. Rate : 027 BPM Atrial Rate : 031 BPM P-R Int : 000 ms QRS Dur : 102 ms QT Int : 480 ms P-R-T Axes : 000 110 015 degrees QTc Int : 321 ms Atrial fibrillation with slow ventricular response Right axis deviation T wave abnormality, consider inferior ischemia Abnormal ECG No previous ECGs available Confirmed by Calin Villareal ([id number] on 04/09/2022 6:09:10 AM Referred By: REFERRED SELF Confirmed By:Calin Villareal
--- NOTE | 2022-04-09 06:10 | Electrocardiogram Report ---
Test Reason : Blood Pressure : / mmHG Vent. Rate : 038 BPM Atrial Rate : 050 BPM P-R Int : 172 ms QRS Dur : 086 ms QT Int : 466 ms P-R-T Axes : 001 043 005 degrees QTc Int : 370 ms Sinus bradycardia with marked sinus arrhythmia Low voltage QRS Cannot rule out Anterior infarct , age undetermined Abnormal ECG When compared with ECG of 06-APR-2022 20:54, Sinus rhythm has replaced Atrial fibrillation QRS axis Shifted left T wave inversion no longer evident in Inferior leads Confirmed by Calin Villareal ([id number]) on 04/09/2022 6:10:11 AM Referred By: REFERRED SELF Confirmed By:Calin Villareal
--- NOTE | 2022-04-09 06:16 | Electrocardiogram Report ---
Test Reason : Blood Pressure : / mmHG Vent. Rate : 080 BPM Atrial Rate : 080 BPM P-R Int : 000 ms QRS Dur : 184 ms QT Int : 480 ms P-R-T Axes : 000 -88 000 degrees QTc Int : 554 ms Ventricular-paced rhythm Left axis deviation Abnormal ECG When compared with ECG of 06-APR-2022 21:59, Vventricular pacing is now present Confirmed by Calin Villareal ([id number] on 04/09/2022 6:16:12 AM Referred By: REFERRED SELF Confirmed By:Calin Villareal
[2022-04-09] MEDS: ACETAMINOPHEN 325 MG TAB PO PRN ×2 (06:46→20:54)
[2022-04-09] MEDS: MAGNESIUM SULFATE / D5W 1 GM/100 ML BAG IV SCH ×3 (07:29→11:05)
[2022-04-09] MEDS ORDERED: FUROSEMIDE 20 MG TAB PO ONE (08:03)
--- NOTE | 2022-04-09 08:04 | Critical Care Progress Note ---
Date of Service April 09, 2022 Assessment & Plan (1) Metabolic acidosis: (2) Acute kidney injury: (3) Acute hypoxemic respiratory failure: (4) DKA (diabetic ketoacidosis): (5) Complete heart block: Plan Reason Critically Ill: 51-year-old male presents to the ICU DKA and complete heart block requiring transvenous pacing, acute hypoxic respiratory failure following cardiac arrest with CPR requiring intubation. 24-hour events: Patient extubated yesterday morning. He did well. He is placed on CPAP postextubation and overnight. He was poorly tolerant. Antihypertensives were started back. Diet was advanced. Recommendations: Neuro - Acute encephalopathynow resolved. Likely secondary to metabolic disarray and abnormalities. Continue advance activity as tolerated Cardiac -suspect that his heart block and bradycardia were related to underlying metabolic issues. These appear to resolved. Off pressors with clearing lactate. Restarting antihypertensives, increase Lopressor to 50 mg twice a day. Start low-dose diuretic. Respiratory - Acute hypoxic respiratory failure, chest x-ray with dense basilar consolidation likely shunting. Continue aggressive pulmonary toilet including flutter valve and incentive spirometry. High suspicion for sleep disordered breathing. Outpatient polysomnography recommended. CPAP at night GI -tolerating carb controlled diet RENAL/LYTES -patient presented with acute renal failure likely secondary to ATN as well as underlying chronic kidney disease. Creatinine continues to improve. Electrolytes stable. -voiding ENDO -transition to subcutaneous insulin regimen. HEME -anemia: Stable. No signs of acute blood loss. Platelet count is stable but again no signs of bleeding. Continue to follow clinically at this point time. DVT prophylaxis will be continued ID -laced empirically on cefepime for questionable aspiration pneumonia. Procalcitonin negative. White blood cell count normal. Respiratory cultures negative. Antibiotics will be discontinued. LINES/IV ACCESS - None DVT PROPHYLAXIS - SCDs, subcu heparin Patient was discussed with bedside critical care nurse as well as on multidisciplinary rounds. He appears significantly improved. His critical care issues have resolved. He is stable to transfer out of the ICU back to the hospitalist service. Critical care services will sign off. Feel free to contact us with additional questions or concerns. Admission and Anticipated Discharge Date Admission Date: April 06, 2022 Subjective Patient seen and examined. He is awake alert and conversant. He is on room air. He attempted to use CPAP last night but was not comfortable with the device. He is tolerating a diet. No nausea or vomiting. No residual chest pain or shortness of breath. He has noted some edema. He otherwise feels like he is improving. He was able to tolerate being out of bed to chair yesterday. Review of Systems Review of Systems: All systems reviewed & are unremarkable except as noted in Subjective Physical Exam Constitutional: WD/WN, vitals as above + morbidly obese Neck: trachea midline, no thyromegaly Respiratory: normal respiratory effort, lungs clear to auscultation Cardiovascular: RRR, no murmur, no edema Gastrointestinal (Abdomen): normal bowel sounds, soft, nontender, no hepatosplenomegaly Musculoskeletal: Extremities: extremities normal to inspection Skin: no rashes, warm and dry Lymphatic: no cervical lymphadenopathy Results & Data Results & Data ([facility]) Vital Signs (Past 12 Hours) Vital Signs Temp Pulse Resp BP Pulse Ox O2 Del Method O2 Flow Rate 04/09/22 06:30 91 H 95 04/09/22 06:00 156/76 H 04/09/22 05:30 86 94 04/09/22 05:00 88 92 04/09/22 05:00 137/83 04/09/22 04:00 87 142/78 H 93 04/09/22 03:00 86 135/75 04/09/22 02:00 89 139/77 94 04/09/22 01:00 91 H 141/80 H 04/09/22 00:00 89 04/08/22 23:00 89 04/08/22 23:00 129/71 04/09/22 00:00 91 H 04/09/22 03:44 87 20 94 9 04/08/22 23:40 91 H 24 96 6 04/08/22 22:30 92 H 26 H 91 04/08/22 22:00 86 17 93 04/08/22 22:00 130/74 04/08/22 21:30 86 20 95 04/08/22 21:00 93 H 21 85 L 04/08/22 20:30 111 H 18 92 04/08/22 20:00 118 H 17 04/08/22 20:00 37 C 171/77 H 04/08/22 20:45 Nasal Cannula, CPAP 5 04/08/22 20:00 18 95 Nasal Cannula 5 Critical Care Results & Data Vital Signs (Past 12 Hours) Vital Signs Temp Pulse Resp BP Pulse Ox O2 Del Method O2 Flow Rate 04/09/22 06:30 91 H 95 04/09/22 06:00 156/76 H 04/09/22 05:30 86 94 04/09/22 05:00 88 92 04/09/22 05:00 137/83 04/09/22 04:00 87 142/78 H 93 04/09/22 03:00 86 135/75 04/09/22 02:00 89 139/77 94 04/09/22 01:00 91 H 141/80 H 04/09/22 00:00 89 04/08/22 23:00 89 04/08/22 23:00 129/71 04/09/22 00:00 91 H 04/09/22 03:44 87 20 94 9 04/08/22 23:40 91 H 24 96 6 04/08/22 22:30 92 H 26 H 91 04/08/22 22:00 86 17 93 04/08/22 22:00 130/74 04/08/22 21:30 86 20 95 04/08/22 21:00 93 H 21 85 L 04/08/22 20:30 111 H 18 92 04/08/22 20:00 118 H 17 04/08/22 20:00 37 C 171/77 H 04/08/22 20:45 Nasal Cannula, CPAP 5 04/08/22 20:00 18 95 Nasal Cannula 5 Lab & Micro Results (Past 24 Hours) RBC 3.12 M/uL (4.63-6.08) L 04/09/22 WBC 4.81 K/ul (4.8-10.8) 04/09/22 Hgb 8.6 g/dl (14.0-18.0) L 04/09/22 Hct 26.3 % (40.1-51.0) L 04/09/22 MCV 84.3 fL (80.0-100.0) 04/09/22 MCH 27.6 pg (25.0-34.0) 04/09/22 MCHC 32.7 g/dL (32.0-36.0) 04/09/22 RDW Standard Deviation 51.9 fL (36.4-46.3) H 04/09/22 RDW Coefficient of Variation 16.9 % (11.5-14.5) H 04/09/22 Plt Count 112 K/uL (130-400) L 04/09/22 MPV 8.7 fL (9.4-12.4) L 04/09/22 Neutrophils (%) (Auto) 60.8 % 04/09/22 Lymphocytes (%) (Auto) 24.3 % 04/09/22 Monocytes # (Auto) 0.62 K/uL (0.24-0.82) 04/09/22 Eosinophils # (Auto) 0.06 K/uL (0-0.50) 04/09/22 Immature Granulocyte % (Auto) 0.4 % 04/09/22 Neutrophils # (Auto) 2.92 K/uL (1.4-6.5) 04/09/22 Lymphocytes # (Auto) 1.17 K/uL (1.2-3.4) L 04/09/22 Monocytes # (Auto) 0.62 K/uL (0.24-0.82) 04/09/22 Eosinophils # (Auto) 0.06 K/uL (0-0.50) 04/09/22 Basophils # (Auto) 0.02 K/uL (0-0.2) 04/09/22 Immature Granulocyte # (Auto) 0.02 K/uL (0.00-0.02) 2 Red Blood Cell Morphology Unremarkable 04/09/22 Na 137 mmol/L (136-145) 04/09/22 K 4.1 mmol/L (3.5-5.1) 04/09/22 Cl 100 mmol/L (98-107) 04/09/22 CO2 31 mmol/L (21-32) 04/09/22 Anion Gap 6 (3-11) 04/09/22 BUN 15 mg/dl (6-23) 04/09/22 Creatinine 1.58 mg/dl (0.6-1.4) H 04/09/22 Estimated GFR ( Amer) 57.4 ml/min 04/09/22 Estimated GFR (Non-Af Amer) 49.6 ml/min 04/09/22 BUN/Creatinine Ratio 9.5 (10-20) L 04/09/22 Glu 189 mg/dl (70-99(Fasting)) H 04/09/22 Ca 9.3 mg/dl (8.5-10.1) 04/09/22 Phosphorus Level 4.1 mg/dl (2.5-4.9) 04/09/22 Total Bilirubin 0.8 mg/dl (0.2-1.0) 04/09/22 AST 29 U/L (13-39) 04/09/22 ALT 21 U/L (7-52) 04/09/22 Alkaline Phosphatase 72 U/L (34-104) 04/09/22 TP 6.2 gm/dl (6.0-8.3) 04/09/22 Albumin 3.1 gm/dl (3.4-5.0) L 04/09/22 Globulin 3.1 gm/dl (2.5-4.0) 04/09/22 Albumin/Globulin Ratio 1.0 (0.9-2) 04/09/22 Mg 1.6 mg/dl (1.7-2.4) L 04/09/22 04:46 Calcium Level 9.3 mg/dl (8.5-10.1) 04/09/22 04:46 Microbiology 04/07/22 09:45 Gram Stain - Final Sputum,Vent Suction Sputum Culture - Preliminary Pin-point growth present, reincubating. I & O Totals 24 Hours 04/08/22 04/09/22 04/10/22 06:59 06:59 06:59 Intake Total 5416.416 / 5416.416 1315.929 / 1315.929 Output Total 3375 / 3375 3025 / 3025 Balance 2041.416 / 2041.416 -1709.071 / -1709.071 Cumulative 04/06/22 20:40 thru 04/09/22 06:30 Intake Total 11644.504 Output Total 8600 Balance 1404.504 RT Ventilator Mngmt (Last Documented) Ventilator Ordered Settings Ventilator Support Mode CPAP 04/08/22 08:45 Respiratory Rate 20 04/09/22 03:44 Ventilator Tidal Volume 470 04/08/22 04:00 Setting Minute Ventilation 8.7 04/08/22 08:45 Ventilator Positive Pressure 5 04/08/22 08:45 Support Setting Positive End Expiratory 5 04/08/22 08:45 Pressure Fraction of Inspired Oxygen 30 04/08/22 08:45 Machine Comment decreased fio2 to 35% 04/08/22 03:03 Ventilator - PT Measurements Respiratory Rate 20 Exhaled Tidal Volume 734 Minute Ventilation 8.7 Peak Inspiratory Airway 11 Pressure Plateau Pressure 26.4 Respiratory Cycle Inspiratory: 1:2.1 Expiratory Ratio Inspiratory Phase Time 0.8 End-Tidal CO2 30 Static Lung Compliance 22.01 Dynamic Lung Compliance 122.33 Normal Static Lung Compliance 50.00 Patient Measurements Comment FiO2 decreased due to ABG results. LANRE AYALA aware Coding Level of Care Code 16554 Subseq Hosp Care Lvl 3 Diagnoses Metabolic acidosis E87.20 Acute kidney injury N17.9 Acute hypoxemic respiratory failure J96.01 DKA (diabetic ketoacidosis) E11.10 Diabetes mellitus type: type 1 Complete heart block I44.2 (1) DKA (diabetic ketoacidosis) Diabetes mellitus type: type 1
[2022-04-09] MEDS: dilTIAZem HCL 300 MG CAPCR PO SCH (08:56)
[2022-04-09] MEDS: LANTUS PER UNIT CHARGE SQ SCH ×2 (09:01→21:11)
[2022-04-09] MEDS: CYANOCOBALAMIN 1000 MCG/ML VIAL IM SCH (09:30)
[2022-04-09] MEDS: PANTOprazole 40 MG TAB PO SCH (10:32)
[2022-04-09] MEDS: METOPROLOL TARTRATE 50 MG TAB PO SCH ×2 (10:33→20:50)
--- NOTE | 2022-04-09 11:05 | XRay Report ---
XR chest 1V portable HISTORY: 51 years-old Male hypoxia acute hypoxia COMPARISON: Chest radiograph 04/07/2022 TECHNIQUE: AP view of the chest FINDINGS: Cardiac silhouette is enlarged. Mild left basilar densities. No pneumothorax, pleural effusion or ove rt pulmonary edema. Degenerative changes of the shoulders and spine. Healed chronic left clavicular f racture deformity. IMPRESSION: 1. Cardiomegaly without acute process. 2. Mild retrocardiac left basilar opacity suggests probable atelectasis. ACT 112: Negative or not required by law. The above report was generated using voice recognition software. It may contain grammatical, syntax o r spelling errors. Electronically signed by: Gary Hoover M.D. 04/09/2022 11:03 AM
--- NOTE | 2022-04-09 12:24 | Nephrology Progress Note ---
Date of Service April 09, 2022 Assessment & Plan (1) Acute kidney injury: (2) Acute hyperkalemia: (3) Metabolic acidosis: (4) DKA (diabetic ketoacidosis): (5) Complete heart block: Plan 51-year-old gentleman admitted with progressive generalized weakness, respiratory distress for few weeks , found to have MONICA, hyperkalemia, metabolic acidosis, DKA went into cardiac arrest with complete heart block requiring CPR with ROSC. baseline creatinine 1.1-1.2, admission creatinine 3.0, potassium 7.4, overall improved this morning to creatinine 2.4, potassium close to 5. Metabolic acidosis improved. Metformin and valsartan has been on hold. Overall clinically doing better, blood pressure improved. Renal function continues to improve,, electrolyte acceptable. Decent urine output. --Continue to monitor renal function, electrolyte, urine output, expect renal function to continue to improve. --Ok to resume Valsartan on discharge --no further nephrology f/u needed at this time. Will sign off. Admission and Anticipated Discharge Date Admission Date: April 06, 2022 Physical Exam Constitutional: WD/WN, vitals as above Neck: normal visual inspection Respiratory: Auscultation: + diminished lung sounds Cardiovascular: RRR, no murmur, no edema Musculoskeletal: Extremities: extremities normal to inspection Skin: no rashes Results & Data ([facility]) Vital Signs (Past 12 Hours) Vital Signs Temp Pulse Resp BP Pulse Ox O2 Flow Rate 04/09/22 08:00 37.1 C 04/09/22 10:00 95 H 04/09/22 09:00 92 H 23 92 04/09/22 09:00 143/75 H 04/09/22 08:33 106 H 21 04/09/22 08:00 97 H 21 90 04/09/22 08:00 149/79 H 04/09/22 07:30 101 H 22 83 L 04/09/22 07:00 93 H 19 04/09/22 07:00 157/83 H 04/09/22 06:30 91 H 95 04/09/22 06:00 156/76 H 04/09/22 05:30 86 94 04/09/22 05:00 88 92 04/09/22 05:00 137/83 04/09/22 04:00 87 142/78 H 93 04/09/22 03:00 86 135/75 04/09/22 02:00 89 139/77 94 04/09/22 01:00 91 H 141/80 H 04/09/22 03:44 87 20 94 9 PG Care Time/CCT Total # of Minutes Spent Total Time Spent with Patient: Total time spent is greater than 50% in coordination of care (as documented) at patient's floor/unit and/or counseling patient: Coding Level of Care Code 42225 Subseq Hosp Care Lvl 2 Diagnoses Acute kidney injury N17.9 Acute hyperkalemia E87.5 Metabolic acidosis E87.20 DKA (diabetic ketoacidosis) E11.10 Diabetes mellitus type: type 1 Complete heart block I44.2 (1) DKA (diabetic ketoacidosis) Diabetes mellitus type: type 1
--- NOTE | 2022-04-09 13:07 | Pharmacy Report ---
Pharmacy Glycemic Short Note 2 - Date of Service April 09, 2022 - Glycemic Short BSG Results (Last 24 hours): 04/08/22 04/08/22 04/08/22 12:52 13:51 14:53 Glucose POC Glucose 194 H 170 H 161 H 04/08/22 04/08/22 04/09/22 15:59 20:02 00:39 Glucose POC Glucose 152 H 196 H 175 H 04/09/22 04/09/22 04/09/22 04:46 05:56 08:10 Glucose 189 H POC Glucose 195 H 237 H 04/09/22 11:44 Glucose POC Glucose 197 H OUTPATIENT ANTIDIABETIC REGIMEN: * Novolog 40 units TID, Metformin 1000 mg BID, Toujeo 300 units/ml 48 units BID * A1c 8.5% 04/07 ASSESSMENT: 04/09 * Patient transitioned off of insulin infusion yesterday with 60 units of lantus, additional 15 units given at bedtime. * Fasting this AM 237 mg/dL, will increase lantus ~20% today * Continued goal range of 140-180 mg/dL for now. Continue current novolog parameters- lunch BSG 197 mg/dL. 04/08 * Patient extubated this AM, norepinephrine off. * Per RN report, noncompliance with outpatient regimen, patient would have episodes of eating, bolusing high amounts and then hypoglycemia, leading to more eating. A1c 8.5%- ?average of hypo/hyperglycemic events * Transition off of insulin infusion, as stressors have decreased, extubated, possible diet ordered later today * Patient received 20 units lantus + additional 40 units this morning- this is slightly higher than weight based stress of 3 dosing * Will start weight based stress of 3 novolog when transitioning off 04/07 * Patient admitted w/ DKA, complete heart block/transcutaneous pacing, MONICA, multiple electroyte abnormalities. Patient is post-cardiac arrest. * Anion gap, Bicarb have normalized this morning. Continues on vent + low dose norepinephrine at current. Insulin infusion running at 14.4 units/hr * Discussed on multidisciplinary rounds, will continue infusion for now given high rate, will change fluids to NS @125 mL/hr and reduced rate empirically 50% with discontinuation of dextrose * Goal range adjusted to 150-200 mg/dL; will evaluate for transition off of insulin infusion later today PLAN FOR INPATIENT GLYCEMIC CONTROL: * Hold outpatient oral diabetes medications * Basal: 45 units BID * Bolus insulin * NovoLog per scale ACHS or Q6hrs while NPO * Goal Range: Low 140 mg/dL - High 180 mg/dL * Correction Factor: 15 mg/dL/unit * Nutritional / Prandial insulin per carb ratio of 1 unit per 5 grams CHO consumed
--- NOTE | 2022-04-09 16:52 | Hospitalist Progress Note ---
Date of Service April 09, 2022 Assessment & Plan (1) DKA (diabetic ketoacidosis): Plan: Now resolved. Secondary to discontinuing his Lantus dosing as an outpatient. Initial blood sugar of 569 with AG of 21. Anion gap now closed. No longer acidotic. Appreciate pharmacy glycemic management with basal bolus insulin dosing. surgical assistant certified consulted. (2) PEA (Pulseless electrical activity): Plan: Cardiac arrest x3 in ER with ROSC achieved in ~3-4 minutes each time. Per strap sewer, had intrinsic rhythm while in lab instructor for transvenous pacer. TTE - normal left ventricular size with hyperdynamic systolic function. LVEF greater than 70%. No regional wall motion abnormalities. Mild concentric left ventricular hypertrophy. (3) Complete heart block: Plan: Resolved. Reported CMB prior to hospitalization. Bradycardic to the 20s in ER and became unresponsive suspected secondary to hyperkalemia/acidemia. Transvenous pacer now removed. (4) Acute hyperkalemia: Plan: K+ on admission was 7.5. Received calcium chloride, albuterol, bicarb in ER. Suspect secondary to MONICA - Remains on insulin gtt - K improved to 3.9 this morning (5) Acute hypoxemic respiratory failure: Plan: In setting of PEA. - Intubated on admission - extubated 04/08, Currently stable on 2LPM O2 - suspect some pulmonary edema +/- aspiration pneumonitis (6) Benign essential hypertension: Plan: Restarted on diltiazem 300 mg CD p.o. every morning, metoprolol tartrate 50 mg p.o. twice daily - blood pressure appears stable after introduction of these home meds. Will consider reintroduction of valsartan once his renal function is fully improved (7) Uncontrolled diabetes mellitus with diabetic nephropathy: Plan: Last A1c was 8.0% in 11/2021. With severe neuropathy per . - As above for DKA (8) GERD (gastroesophageal reflux disease): Plan: Continue pantoprazole 40 mg p.o. daily (9) Metabolic acidosis: Plan: Now resolved Secondary to lactic acid and ketoacidosis. (10) Acute kidney injury: Plan: Cr improved to 1.58 this morning, can restart valsartan once creatinine reaches baseline of 1. Appreciate nephrology input -now signed off (11) Pneumonia: Plan: Ruled out. We will continue to monitor for worsening respiratory status. cefepime d/c'd by ICU team given procalcitonin negative No blood cultures taken on admission, will defer unless recurrent fever for now Sputum culture pending (12) Encephalopathy acute: Plan: Now resolved Secondary to PEA arrest, hyperkalemia, DKA (13) Normocytic anemia: Plan: Iron, B12, folate with AM labs Continue to trend CBC (14) Hypertension, benign essential, goal below 140/90: Plan: Metoprolol and diltiazem restarted by ICU team - close monitoring for bradycardia Consider PRN hydralazine for sBP > 180 (15) Peripheral neuropathy: Plan: Restart gabapentin 300 mg p.o. twice daily (16) B12 deficiency: Plan: B12 level < 400 with peripheral neuropathy. Recommend starting treatment for this. Will give 3 days of IM B12 1000 mcg followed by PO. Plan VTE Prophylaxis - heparin 5000 units SQ q8h Diet - T2DM Code - FULL CODE per in ER Disposition -stable for stepdown to PCU Admission and Anticipated Discharge Date Admission Date: April 06, 2022 Subjective Reports feeling improved every day. Mild chest pain on coughing and palpation of anterior chest where he received chest compressions. No significant shortness of breath at rest. Eating and drinking well. He understands the error of his ways in stopping his basal insulin dosing and will discuss medication changes with his physicians in the future. Review of Systems Review of Systems: All systems reviewed & are unremarkable except as noted in Subjective Physical Exam Constitutional: WD/WN, vitals as above ENMT: external ear and nose normal, oropharynx normal Respiratory: normal respiratory effort, lungs clear to auscultation Auscultation: + diminished lung sounds (Bibasal); no crackles and no wheezes Cardiovascular: RRR, no murmur, no edema Gastrointestinal (Abdomen): normal bowel sounds, soft, nontender, no hepatosplenomegaly Skin: no rashes Neurologic: moves all extremities and awake; not confused Psychiatric: A+Ox3, euthymic affect Results & Data Results & Data ([facility]) Vital Signs (Past 12 Hours) Vital Signs Temp Pulse Resp BP Pulse Ox O2 Del Method 04/09/22 08:00 Nasal Cannula 04/09/22 14:16 128/98 04/09/22 14:16 77 19 92 11/23/22 14:00 71 18 95 04/09/22 13:00 73 22 92 04/09/22 13:00 139/71 04/09/22 12:00 73 19 96 04/09/22 12:00 126/77 04/09/22 11:00 92 H 19 95 04/09/22 10:14 97 H 21 96 04/09/22 10:14 170/90 H 04/09/22 10:00 91 H 22 96 04/09/22 12:00 36.8 C 04/09/22 08:00 37.1 C 04/09/22 10:00 95 H 04/09/22 09:00 92 H 23 92 04/09/22 09:00 143/75 H 04/09/22 08:33 106 H 21 04/09/22 08:00 97 H 21 90 04/09/22 08:00 149/79 H 04/09/22 07:30 101 H 22 83 L 04/09/22 07:00 93 H 19 04/09/22 07:00 157/83 H 04/09/22 06:30 91 H 95 04/09/22 06:00 156/76 H 04/09/22 05:30 86 94 04/09/22 05:00 88 92 04/09/22 05:00 137/83 PG Care Time/CCT Total # of Minutes Spent Total Time Spent with Patient: Total time spent is greater than 50% in coordination of care (as documented) at patient's floor/unit and/or counseling patient: Coding Level of Care Code 35501 Subseq Hosp Care Lvl 2 Diagnoses DKA (diabetic ketoacidosis) E11.10 Diabetes mellitus type: type 1 PEA (Pulseless electrical activity) I46.9 Complete heart block I44.2 Acute hyperkalemia E87.5 Acute hypoxemic respiratory failure J96.01 Benign essential hypertension I10 Uncontrolled diabetes mellitus with diabetic nephropathy E11.21; E11.65 GERD (gastroesophageal reflux disease) K21.9 Metabolic acidosis E87.20 Acute kidney injury N17.9 Pneumonia J18.9 Encephalopathy acute G93.40 Normocytic anemia D64.9 Hypertension, benign essential, goal below 140/90 I10 Peripheral neuropathy G62.9 B12 deficiency E53.8 (1) DKA (diabetic ketoacidosis) Diabetes mellitus type: type 1
[2022-04-09] MEDS: GABAPENTIN 300 MG CAP PO SCH (20:50)
[2022-04-10 05:41] LABS: Basophils # (auto) 0.03 K/uL (0-0.2); Basophils % (auto) 0.5 %; Eosinophils # (auto) 0.14 K/uL (0-0.50); Eosinophils % (auto) 2.5 %; Hematocrit (blood only) 29.3 % (40.1-51.0); Hemoglobin 9.5 g/dl (14.0-18.0); Immature Granulocytes # (auto) 0.02 K/uL (0.00-0.02); Immature Granulocytes % (auto) 0.4 %; Lymphocytes # (auto) 1.47 K/uL (1.2-3.4); Lymphocytes % (auto) 25.7 %; Mean Corpuscular Hemoglobin 27.2 pg (25.0-34.0); Mean Corpuscular Hgb Conc 32.4 g/dL (32.0-36.0); Mean Platelet Volume 8.5 fL (9.4-12.4); Monocytes # (auto) 0.84 K/uL (0.24-0.82); Monocytes % (auto) 14.7 %; Neutrophils # (auto) 3.21 K/uL (1.4-6.5); Neutrophils % (auto) 56.2 %; Platelet Count 101 K/uL (130-400); RDW Coefficient of Variation 16.5 % (11.5-14.5); RDW Standard Deviation 50.4 fL (36.4-46.3); Red Blood Count 3.49 M/uL (4.63-6.08); White Blood Count 5.71 K/ul (4.8-10.8)
[2022-04-10] MEDS: HEPARIN SOD 5,000 UNIT/0.5 ML VIAL SQ SCH ×3 (06:02→21:35)
[2022-04-10 06:04] LABS: Albumin Level 3.4 gm/dl (3.4-5.0); BUN Creatinine Ratio 11.6 (10-20); Bilirubin,Total 1.1 mg/dl (0.2-1.0); Calcium 9.4 mg/dl (8.5-10.1); Creatinine Clr Calc Pharmacy 95.9 ml/min; Est GFR (African American) 87.1 ml/min; Est GFR (Non-African American) 75.1 ml/min; Globulin 3.5 gm/dl (2.5-4.0); Magnesium 1.6 mg/dl (1.7-2.4); Potassium 3.7 mmol/L (3.5-5.1); Total Protein 6.9 gm/dl (6.0-8.3)
[2022-04-10] MEDS: dilTIAZem HCL 300 MG CAPCR PO SCH (08:13)
[2022-04-10] MEDS: PANTOprazole 40 MG TAB PO SCH (08:13)
[2022-04-10] MEDS: buPROPion XL 300 MG TABCR PO SCH (08:13)
[2022-04-10] MEDS: METOPROLOL TARTRATE 50 MG TAB PO SCH ×2 (08:13→21:37)
[2022-04-10] MEDS: GABAPENTIN 300 MG CAP PO SCH ×2 (08:13→21:37)
[2022-04-10] MEDS: CYANOCOBALAMIN 1000 MCG/ML VIAL IM SCH (08:14)
[2022-04-10] MEDS: INSULIN ASPART PER UNIT SC SCH ×4 (08:16→21:34)
[2022-04-10] MEDS: MAGNESIUM SULFATE / D5W 1 GM/100 ML BAG IV SCH ×2 (08:22→10:30)
[2022-04-10] MEDS ORDERED: LANTUS PER UNIT CHARGE SQ SCH ×2 (09:00→21:00)
--- NOTE | 2022-04-10 12:53 | Hospitalist Progress Note ---
Date of Service April 10, 2022 Assessment & Plan (1) DKA (diabetic ketoacidosis): Plan: Now resolved. Secondary to discontinuing his Lantus dosing as an outpatient. Initial blood sugar of 569 with AG of 21. Anion gap now closed. No longer acidotic. Appreciate pharmacy glycemic management with basal bolus insulin dosing. hematology nurse educator consulted - planning on discharge tomorrow after being seen by elementary educator and reassessment by PT/OT Appreciate pharmacy management of glycemic control. Will restart metformin today. (2) PEA (Pulseless electrical activity): Plan: Cardiac arrest x3 in ER with ROSC achieved in ~3-4 minutes each time. Per impregnator and drier helper, had intrinsic rhythm while in laboratory assistant for transvenous pacer. TTE - normal left ventricular size with hyperdynamic systolic function. LVEF greater than 70%. No regional wall motion abnormalities. Mild concentric left ventricular hypertrophy. (3) Complete heart block: Plan: Resolved. Reported CMB prior to hospitalization. Bradycardic to the 20s in ER and became unresponsive suspected secondary to hyperkalemia/acidemia. Transvenous pacer now removed. (4) Acute hyperkalemia: Plan: K+ on admission was 7.5. Received calcium chloride, albuterol, bicarb in ER. Suspect secondary to MONICA - K improved to 3.7 this morning (5) Acute hypoxemic respiratory failure: Plan: In setting of PEA. - Intubated on admission - extubated 04/08, Currently stable on 2LPM O2 - suspect some pulmonary edema +/- aspiration pneumonitis (6) Benign essential hypertension: Plan: Continue home meds of metoprolol, diltiazem. Restart valsartan or hospital formulary equivalent tonight (7) Uncontrolled diabetes mellitus with diabetic nephropathy: Plan: Last A1c was 8.0% in 11/2021. With severe neuropathy per . - As above for DKA (8) GERD (gastroesophageal reflux disease): Plan: Continue pantoprazole 40 mg p.o. daily (9) Metabolic acidosis: Plan: Now resolved Secondary to lactic acid and ketoacidosis. (10) Acute kidney injury: Plan: Cr improved to 1.58 this morning, can restart valsartan once creatinine reaches baseline of 1. Appreciate nephrology input -now signed off (11) Pneumonia: Plan: Ruled out. We will continue to monitor for worsening respiratory status. cefepime d/c'd by ICU team given procalcitonin negative No blood cultures taken on admission, will defer unless recurrent fever for now Sputum culture Molly only (12) Encephalopathy acute: Plan: Now resolved Secondary to PEA arrest, hyperkalemia, DKA (13) Normocytic anemia: Plan: Iron deficiency anemia with transferrin saturations 4%. Start ferrous sulfate 324 mg every other day Fecal occult blood ordered Hemoglobin stable we will continue heparin for VT prophylaxis. (14) Peripheral neuropathy: Plan: Continue gabapentin 300 mg p.o. twice daily (15) B12 deficiency: Plan: B12 level < 400 with peripheral neuropathy. Recommend starting treatment for this. Will give 3 days of IM B12 1000 mcg followed by PO. Plan VTE Prophylaxis - heparin 5000 units SQ q8h Diet - T2DM Code - FULL CODE Disposition - stable for stepdown to med/surg Admission and Anticipated Discharge Date Admission Date: April 06, 2022 Anticipated date of discharge: 04/11/22 Subjective No acute concerns or questions from patient. No shortness of breath, chest pa in, abdominal pain. Diagnosed with iron deficiency anemia. He reports colonoscopy performed in 2020 which was reviewed without significant findings. He denies any melena or bright red blood in stool. He has chronic heartburn for which he takes omeprazole twice a day. No previous endoscopy. He denies any dizziness or lightheadedness when walking. Review of Systems Review of Systems: All systems reviewed & are unremarkable except as noted in Subjective Physical Exam Constitutional: WD/WN, vitals as above ENMT: external ear and nose normal, oropharynx normal Respiratory: normal respiratory effort, lungs clear to auscultation Auscultation: lungs clear to auscultation bilaterally; no diminished lung sounds, no crackles and no wheezes Cardiovascular: RRR, no murmur, no edema Gastrointestinal (Abdomen): normal bowel sounds, soft, nontender, no hepatosplenomegaly Skin: no rashes Neurologic: moves all extremities and awake; not confused Psychiatric: A+Ox3, euthymic affect Results & Data Results & Data ([facility]) Vital Signs (Past 12 Hours) Vital Signs Temp Pulse Pulse Resp BP Pulse Ox O2 Del Method 04/10/22 11:12 36.6 C 77 16 126/76 92 Room Air 04/10/22 08:00 81 04/10/22 08:09 36.8 C 91 H 17 148/75 H 95 Room Air 04/10/22 04:00 36.8 C 78 20 145/87 H 98 CPAP 04/10/22 03:15 63 14 94 O2 Flow Rate 04/10/22 11:12 04/10/22 08:00 04/10/22 08:09 04/10/22 04:00 5 04/10/22 03:15 5 PG Care Time/CCT Total # of Minutes Spent Total Time Spent with Patient: Total time spent is greater than 50% in coordination of care (as documented) at patient's floor/unit and/or counseling patient: Coding Level of Care Code 67049 Subseq Hosp Care Lvl 2 Diagnoses DKA (diabetic ketoacidosis) E11.10 Diabetes mellitus type: type 1 PEA (Pulseless electrical activity) I46.9 Complete heart block I44.2 Acute hyperkalemia E87.5 Acute hypoxemic respiratory failure J96.01 Benign essential hypertension I10 Uncontrolled diabetes mellitus with diabetic nephropathy E11.21; E11.65 GERD (gastroesophageal reflux disease) K21.9 Metabolic acidosis E87.20 Acute kidney injury N17.9 Pneumonia J18.9 Encephalopathy acute G93.40 Normocytic anemia D64.9 Peripheral neuropathy G62.9 B12 deficiency E53.8 (1) DKA (diabetic ketoacidosis) Diabetes mellitus type: type 1
[2022-04-10] MEDS ORDERED: metFORMIN HCL 500 MG TAB PO SCH (21:00)
[2022-04-10] MEDS ORDERED: VALSARTAN 80 MG TAB PO SCH (21:00)
[2022-04-10] MEDS: ACETAMINOPHEN 325 MG TAB PO PRN (21:35)
[2022-04-11] MEDS: HEPARIN SOD 5,000 UNIT/0.5 ML VIAL SQ SCH (06:03)
[2022-04-11 07:10] LABS: Albumin Level 3.3 gm/dl (3.4-5.0); BUN Creatinine Ratio 13.9 (10-20); Bilirubin,Total 0.9 mg/dl (0.2-1.0); Calcium 8.9 mg/dl (8.5-10.1); Creatinine Clr Calc Pharmacy 92.2 ml/min; Est GFR (African American) 84.3 ml/min; Est GFR (Non-African American) 72.8 ml/min; Globulin 3.2 gm/dl (2.5-4.0); Magnesium 1.4 mg/dl (1.7-2.4); Potassium 3.7 mmol/L (3.5-5.1); Total Protein 6.5 gm/dl (6.0-8.3)
[2022-04-11 07:12] LABS: Basophils # (auto) 0.02 K/uL (0-0.2); Basophils % (auto) 0.4 %; Eosinophils # (auto) 0.17 K/uL (0-0.50); Eosinophils % (auto) 3.6 %; Hemoglobin 8.9 g/dl (14.0-18.0); Immature Granulocytes # (auto) 0.03 K/uL (0.00-0.02); Immature Granulocytes % (auto) 0.6 %; Lymphocytes # (auto) 1.47 K/uL (1.2-3.4); Lymphocytes % (auto) 31.3 %; Mean Corpuscular Hemoglobin 27.1 pg (25.0-34.0); Mean Corpuscular Hgb Conc 31.8 g/dL (32.0-36.0); Mean Corpuscular Volume 85.4 fL (80.0-100.0); Mean Platelet Volume 9.4 fL (9.4-12.4); Monocytes % (auto) 19.1 %; Neutrophils # (auto) 2.11 K/uL (1.4-6.5); Platelet Count 102 K/uL (130-400); RDW Coefficient of Variation 16.3 % (11.5-14.5); Red Blood Count 3.28 M/uL (4.63-6.08)
[2022-04-11] MEDS ORDERED: metFORMIN HCL 500 MG TAB PO SCH (08:00)
[2022-04-11] MEDS ORDERED: FERROUS SULFATE 325 MG TAB PO SCH (09:00)
[2022-04-11] MEDS ORDERED: ATORVASTATIN 20 MG TAB PO SCH (09:00)
[2022-04-11] MEDS ORDERED: LANTUS PER UNIT CHARGE SQ SCH (09:00)
[2022-04-11] MEDS: GABAPENTIN 300 MG CAP PO SCH (09:10)
[2022-04-11] MEDS: PANTOprazole 40 MG TAB PO SCH (09:10)
[2022-04-11] MEDS: buPROPion XL 300 MG TABCR PO SCH (09:10)
[2022-04-11] MEDS: METOPROLOL TARTRATE 50 MG TAB PO SCH (09:10)
[2022-04-11] MEDS: dilTIAZem HCL 300 MG CAPCR PO SCH (09:11)
[2022-04-11] MEDS: CYANOCOBALAMIN 1000 MCG/ML VIAL IM SCH (09:13)
[2022-04-11] MEDS: INSULIN ASPART PER UNIT SC SCH ×2 (09:17→13:13)
--- NOTE | 2022-04-11 11:44 | Pharmacy Report ---
Pharmacy Glycemic Short Note 2 - Date of Service April 11, 2022 - Glycemic Short BSG Results (Last 24 hours): 04/10/22 04/10/22 04/11/22 16:29 20:50 06:29 Glucose 97 POC Glucose 123 H 237 H 04/11/22 08:28 Glucose POC Glucose 106 H OUTPATIENT ANTIDIABETIC REGIMEN: * Novolog 40 units SC TID * Metformin 1000 mg PO BID * Toujeo 300 units/ml 48 units SC BID * A1c = 8.5% (04/07/22) ASSESSMENT: 04/11: * Elliot received a total of 89 units of insulin yesterday, 65 units basal + 24 units bolus. BSGs were: 096-516-252-237 mg/dL. * Basal was reduced by ~30% yesterday secondary to significant drop in fasting BSG. Did increase HS basal slightly for last night. * Fasting continues to trend downward today so will go back to original 30% reduction. * Metformin was started last evening. Will continue with this. However, will reduce Novolog parameters slightly given Metformin use. 04/09: * Patient transitioned off of insulin infusion yesterday with 60 units of lantus, additional 15 units given at bedtime. * Fasting this AM 237 mg/dL, will increase lantus ~20% today * Continued goal range of 140-180 mg/dL for now. Continue current novolog parameters- lunch BSG 197 mg/dL. 04/08: * Patient extubated this AM, norepinephrine off. * Per RN report, noncompliance with outpatient regimen, patient would have episodes of eating, bolusing high amounts and then hypoglycemia, leading to more eating. A1c 8.5%- ?average of hypo/hyperglycemic events * Transition off of insulin infusion, as stressors have decreased, extubated, possible diet ordered later today * Patient received 20 units lantus + additional 40 units this morning- this is slightly higher than weight based stress of 3 dosing * Will start weight based stress of 3 novolog when transitioning off 04/07: * Patient admitted w/ DKA, complete heart block/transcutaneous pacing, MONICA, multiple electroyte abnormalities. Patient is post-cardiac arrest. * Anion gap, Bicarb have normalized this morning. Continues on vent + low dose norepinephrine at current. Insulin infusion running at 14.4 units/hr * Discussed on multidisciplinary rounds, will continue infusion for now given high rate, will change fluids to NS @125 mL/hr and reduced rate empirically 50% with discontinuation of dextrose * Goal range adjusted to 150-200 mg/dL; will evaluate for transition off of insulin infusion later today PLAN FOR INPATIENT GLYCEMIC CONTROL: * Home Oral Meds: * Metformin 1000 mg PO BIDM * Basal * Lantus 30 units SC BID * Bolus insulin * NovoLog per scale ACHS or Q6hrs while NPO * Goal Range: Low 110 mg/dL - High 140 mg/dL * Correction Factor: 25 mg/dL/unit * Nutritional / Prandial insulin per carb ratio of 1 unit per 8 grams CHO consumed
--- NOTE | 2022-04-11 13:03 | Discharge Summary ---
Date of Service April 11, 2022 Admission HPI Per Admitting Provider 51yo M w/ hx of HTN and DM who presents with complete heart block, hyperkalemia. The patient is intubated and sedated and cannot provide history. Per the patient's , the patient had been feeling general malaise and shortness of breath for several days. He has been gaining weight over the last few weeks to the point where his had to purchase new pants for him. He has actually been feeling short of breath over the last few weeks, but mainly with exertion. His has not noticed any significant lower extremity swelling. Today, he was feeling much weaker to the point to that he required assistance just to lift his legs off the ground. This is what precipitated the family calling 911. EMS was called and the patient was found to be bradycardic into the 30s. At some point during the ambulance trip, his heart rate went down into the 20s and he became unresponsive. Per the ER provider, paramedics then began transcutaneous pacing with some improvement in his responsiveness. In the ER, the patient lost pulses, and CPR was begun. Per the ER provider, he required 2 rounds of CPR before achieving ROSC. Labs in the ER showed new acute renal failure and hyperkalemia to 7.4. Typical treatments were begun, including IV insulin, albuterol, sodium bicarbonate, and calcium chloride. Repeat labs in the ER indicate an improvement in his hyperkalemia and renal failure. At 10:10 PM, he again became bradycardic and hypotensive. He lost pulse. This was approximately 10 minutes after admission was requested. MICHAELA LEE was called, and I immediately went to the room. The ER provider was already in the room running the code. ROSC was achieved and approximately 3 minutes after the patient was given epinephrine, calcium, and bicarbonate. I discussed his case with the vocational coordinator who agreed to insert a transvenous pacer. I did discuss his situation with his who is at bedside. He will go to the Rail Signal Mechanic, then be transitioned to the ICU. Principal Diagnosis Pulseless electrical activity cardiac arrest Diabetic ketoacidosis Acute kidney injury B12 insufficiency Iron deficiency anemia Discharge Exam Constitutional WD/WN, vitals as above Respiratory normal respiratory effort, lungs clear to auscultation Cardiovascular RRR, no murmur, no edema Gastrointestinal (Abdomen) normal bowel sounds, soft, nontender, no hepatosplenomegaly Percussion/Palpation: abdomen nontender Musculoskeletal Extremities: extremities normal to inspection Skin no rashes, warm and dry no rashes Neurologic moves all extremities and awake; not confused Psychiatric A+Ox3, euthymic affect Discharge Data Allergies Allergy/AdvReac Type Severity Reaction Status Date / Time Penicillins Allergy Intermediate Hives Verified 04/15/22 11:36 pioglitazone [From Actos] Allergy Unknown CAN'T Verified 04/15/22 11:36 REMEMBER REACTION Consultations 04/06/22 20:53 Consult Cardiac Catheterization Stat 04/06/22 22:31 ED Decision to Admit Stat 04/07/22 00:08 Consult Combat Systems Officer Routine Consult Nephrology Routine 04/07/22 03:44 Consult Cardiology Routine Procedures Performed Operation Date: 04/06/22 21:00 Actual Procedures p Ins/RemTemporary Transvenous Pacer - David Lancaster MD s Ultrasound Vascular Access - David Lancaster MD Ordered Studies 04/06/22 21:01 CL Cath Imgs for PACS use only Stat 04/07/22 00:44 US venous doppler LE BI Urgent 04/07/22 03:00 CT Abd and Pelvis [CT abd pelvis wo con] Stat IMPRESSION: 1. Dense bibasilar consolidation. Correlate clinically from the pneumonia/aspiration pneumonitis. 2. There is enlarged, steatotic, and cirrhotic in morphology. 3. Trace abdominopelvic ascites. 4. Question mild wall thickening throughout the small bowel. There is also mild nonspecific wall thickening suggestive involving the right colon. Clinical correlation will be required. 5. Cholelithiasis. 6. Acute anterior rib fractures are likely related to resuscitation. 7. Additional findings as above. CT chest diagnostic wo con Stat IMPRESSION: 1. Appropriately positioned lines and tubes. Transvenous pacer in place. 2. Dense bilateral lower lobe consolidation and additional airspace opacities within the upper lobes. The findings favor pneumonia or aspiration pneumonitis. Superimposed pulmonary edema would be difficult to exclude. Secretions within the airways, as above. 3. Multiple bilateral anterior bilateral rib fractures. No pneumothorax. 4. Mild cardiomegaly. 5. Cirrhosis. Trace perihepatic ascites. CT head/brain wo con Stat IMPRESSION: No acute intracranial findings. Hospital Course (1) DKA (diabetic ketoacidosis): Elliot Holland is a 51 year old male admitted to [facility] from April 06 to 2021 due to shortness of breath and decreased responsiveness. There was some concern for complete heart block in the ambulance. In the emergency room he had x3 cardiac arrests with pulseless electrical activity. He successfully underwent cardiopulmonary resuscitation including intubation and were emergently transferred to the cardiac catheterization lab for a temporary pacing wire for ongoing bradycardia. He was diagnosed with diabetic ketoacidosis (DKA), later established he had not been taking his basal insulin. He was diagnosed with acute kidney injury causing hyperkalemia due to DKA, bradycardia and hypotension. He was treated with intravenous fluids, electrolyte replacement and insulin. Suspect his acidosis and hyperkalemia caused the bradycardia, possible complete heart black and subsequent cardiac arrest. Bradycardia resolved with treatment of diabetic ketoacidosis and acute kidney injury and the temporary pacing wire was removed the following day. He was restarted back on his antihypertensives as his BP improved. Extubated on April 08. HbA1C 8.5. He was advised to not make adjustments to insulin without first discussing with his primary care provider. He was educated regarding needing both basal and bolus insulin. Started back on Toujeo 30 units twice a day - likely needs to be uptitrated as he was requiring vastly more on his previous home diet. Novolog prescribed ACHS: Carb ratio: 1 unit of insulin for every 8 grams + Correction factor: 150-199 give 2 units; 200-249 give 4 units; 250-299 give 6 units; 300-349 give 8 units; 350-399 give 10 units; >400 give 12 units and call primary care physician = Total Novolog dose Simvastatin was changed to atorvastatin due to interaction with diltiazem. B12 insufficiency (taken due to peripheral neuropathy and anemia). Given peripheral neuropathy he was prescribed 1000 mcg PO daily. Hypomagnesemia - supplements prescribed. Iron deficient anemia - fecal occult blood negative. Referral to gastroenterology palced on discharge for ongoing investigations for this such as EGD and celiac testing. Ferrous sulfate prescribed. Possible liver cirrhosis on CT - follow up gastroenterology (referral placed on discharge) (2) PEA (Pulseless electrical activity): (3) Complete heart block: (4) Acute hyperkalemia: (5) Acute hypoxemic respiratory failure: (6) Benign essential hypertension: (7) Uncontrolled diabetes mellitus with diabetic nephropathy: (8) GERD (gastroesophageal reflux disease): (9) Metabolic acidosis: (10) Acute kidney injury: (11) Pneumonia: Ruled out (12) Encephalopathy acute: (13) Normocytic anemia: (14) Peripheral neuropathy: (15) B12 deficiency: Total Time Total Time Spent Total Time Spent (In Minutes): 40 Discharge Plan Discharge Items Patient Disposition: Home - Self-Care Reason For Visit: BRADYCARDIA, HYPERKALEMIA Discharge Diagnosis: Pulseless electrical activity cardiac arrest Diabetic ketoacidosis Acute kidney injury B12 insufficiency Iron deficiency anemia Activity: Resume your previous activity Non-emergency contact: Primary Care Provider Call non-emergency contact if: you have any medication questions and your symptoms worsen Follow-up/Referrals: Ankur Mario DO [Physician] - (4-week follow-up iron deficiency anemia) Reji Sanchez MD [Primary Care Provider] - Diet: Carb Consistent or DM2 Addtl Attending Provider Instructions: You were admitted to [facility] from April 06 to 2021 due to shortness of breath and decreased responsiveness. There was some concern for complete heart block in the ambulance. In the emergency room you had 3 cardiac arrests with pulseless electrical activity (PEA cardiac arrest). You successfully were given cardiopulmonary resuscitation (CPR) including intubation and were emergently transferred to the cardiac catheterization lab for a temporary pacemaker. You were diagnosed with diabetic ketoacidosis (DKA) due to stopping your basal insulin. You were diagnosed with acute kidney injury (MONICA) causing elevated potassium levels due to DKA and low heart rate and blood pressure. You were treated with intravenous fluids, electrolyte replacement and insulin. Suspect your acidosis and high potassium levels caused your low heart rate and subsequent cardiac arrest. You low heart rate resolved with treatment of diabetic ketoacidosis and acute kidney injury and the temporary pacing wire was removed the following day. You were restarted on your regular medication as your blood pressure improved. You were extubated on April 08. HbA1C 8.5. You were advised to not make adjustments to your insulin without first discussing with your primary care provider. You require both basal and bolus insulin to keep this from happening again. Your basal insulin is Toujeo and we will start you back on 30 units twice a day - this may need up titrating at home if your diet is higher in carbohydrates than the hospital. Your bolus insulin is Novolog to cover for carbohydrates and high glucose values; this is to be used before each meal (breakfast, lunch and dinner) and in the evening. To calculate the total dose of Novolog each time you given it please add the carb ratio to the correction factor: Carb ratio: give yourself 1 unit of insulin for every 8 grams of carbohydrates + Correction factor: 150-199 give 2 units; 200-249 give 4 units; 250-299 give 6 units; 300-349 give 8 units; 350-399 give 10 units; >400 give 12 units and call primary care physician = Total Novolog dose As your basal dose of Toujeo and Novolog carb ratio are optimized you should not need to correct for high glucose values so often. Simvastatin was changed to atorvastatin due to interaction with diltiazem. You were incidentally noted to have B12 insufficiency. Given peripheral neuropathy recommend taking B12 supplementation with 1000 mcg PO daily as prescribed below. You were also incidentally noted to have a low magnesium level. Please take magnesium supplementation as prescribed and follow up with your primary care provider regarding this. You were also incidentally noted to have iron deficient anemia with negative blood test for your stool. Recommend following up with gastroenterology for ongoing investigations for this such as EGD and celiac testing. Please take iron supplementation (ferrous sulfate) as prescribed. Pending Studies at Discharge: No Stand-Alone Forms: My [facility] [employer], Smoking Cessation Medications and DC Order Prescriptions: New cyanocobalamin (vitamin B-12) 500 mcg Tablet 1,000 mcg PO QAM Qty: 60 0RF atorvastatin 20 mg Tablet 20 mg PO QAM Qty: 30 0RF ferrous sulfate 324 mg (65 mg iron) tablet,delayed release (DR/EC) 324 mg PO Q OTHER DAY Qty: 14 0RF magnesium oxide 500 mg tablet 500 mg PO BID Qty: 60 0RF Continued diltiazem HCl 300 mg capsule,extended release 24hr 300 mg PO QPM Qty: 90 3RF sildenafil 100 mg tablet See Rx Instructions PO ONCE PRN (Reason: sexual activity) Qty: 30 11RF Rx Instructions: 1 tab PO once PRN; administer 30 minutes to 4 hours before activity metformin 1,000 mg tablet 1,000 mg PO BID Qty: 180 3RF metoprolol succinate 25 mg tablet extended release 24 hr 25 mg PO BID Qty: 180 3RF valsartan 320 mg tablet 320 mg PO QPM Qty: 90 3RF bupropion HCl 300 mg tablet extended release 24 hr 300 mg PO QAM Qty: 90 3RF omeprazole 20 mg capsule,delayed release(DR/EC) 20 mg PO BID Qty: 180 3RF gabapentin 300 mg capsule 300 mg PO BID Qty: 180 3RF (DME) OneTouch Ultra Blue Test Strip strip See Dose Instructions .ROUTE .MEDSUPPLY Qty: 10 Rx Instructions: As directed Changed insulin aspart U-100 [Novolog Flexpen U-100 Insulin] 100 unit/mL (3 mL) insulin pen See Rx Instructions .ROUTE .COMPLEX Qty: 45 3RF Rx Instructions: ACHS 25 g/dL/unit correction, 8 g/unit carb ratio Toujeo Max U-300 SoloStar 300 unit/mL (3 mL) insulin pen 30 unit subcut BID Qty: 30 0RF Discontinued simvastatin 40 mg tablet 40 mg PO HS Qty: 90 3RF No Action magnesium oxide 400 mg magnesium tablet 400 mg PO DAILY Qty: 30 0RF (DME) Ketone Urine Test Strip See Rx Instructions .Route Qty: 50 11RF Rx Instructions: As directed Discharge Orders: Discharge Order (Routine); Ordered 04/11/22 Ordered By: Graham Vaughan/Other Patient Handouts: Managing Type 2 Diabetes, Diabetic Ketoacidosis, Special Foot Care for Diabetes Admission Data Admit Date/Time: 04/06/22 21:59 Attending Provider: Graham Henderson Admit Provider: Robby Christopher Primary Care Provider: Reji Sanchez Other Providers: David Kahn ; Jojo Villalta ; Surinder Roblero ; Anthony Perez ; Calin Villareal ; Joo Herrmann ; Cornelio Davis ; Roberto Meyer James V. Other Interventions: Discharge Summary Assessment (RN) Last Done: 04/11/22 13:10 Coding Level of Care Code D/C DAY MANAGEMENT >30 MINS Diagnoses DKA (diabetic ketoacidosis) E11.10 Diabetes mellitus type: type 1 PEA (Pulseless electrical activity) I46.9 Complete heart block I44.2 Acute hyperkalemia E87.5 Acute hypoxemic respiratory failure J96.01 Benign essential hypertension I10 Uncontrolled diabetes mellitus with diabetic nephropathy E11.21; E11.65 GERD (gastroesophageal reflux disease) K21.9 Metabolic acidosis E87.20 Acute kidney injury N17.9 Pneumonia J18.9 Encephalopathy acute G93.40 Normocytic anemia D64.9 Peripheral neuropathy G62.9 B12 deficiency E53.8
[2022-04-11] MEDS ORDERED: ATROPINE SULFATE 0.1 MG/ML 10ML SYR IV ONE (13:33)
[2022-04-11] MEDS ORDERED: CALCIUM CHLORIDE 10% 10 ML SYR IV ONE (13:33)
[2022-04-11] MEDS ORDERED: ROCURONIUM BROMIDE 10 MG/ML 5 ML VIAL IV ONE (13:33)
[2022-04-11] MEDS ORDERED: ETOMIDATE 2 MG/ML 20 ML VIAL IV ONE (13:33)
[2022-04-11] MEDS ORDERED: SODIUM CHLORIDE 0.9% 10ML FLUSH IV ONE (13:33)
[2022-04-11] MEDS ORDERED: SODIUM BICARB 8.4% INJ 50 MEQ/50 ML SYR IV ONE (13:33)
[2022-04-12] MEDS ORDERED: CYANOCOBALAMIN (B-12) 500 MCG TABLET PO SCH (09:00)
== END 2022-04-11 13:34 | disposition home or self-care (01) | DRG 208 ==
LOC: ED 20:46 → CC 22:50 → 1E 22:51 → SUATTDRO 22:51 → CC 23:12 → 2E 04-10 06:17 → 3E 04-10 18:20

== ENCOUNTER 2022-06-16 13:34 | Inpatient (IN) ==
[~2022-06-16 13:34] MED LIST: PHARMACY GLYCEMIC MGMT CONSULT PRN
[2022-06-16] MEDS ORDERED: ASPIRIN CHEW 324 MG PO STA (14:03)
[2022-06-16] MEDS ORDERED: SODIUM CHLORIDE 0.9% 1000ML 1,000 ML IV ONE ×2 (14:03→15:49)
[2022-06-16] MEDS ORDERED: CALCIUM GLUCONATE 1,000 MG/60 ML BAG IV STA ×2 (14:09→19:16)
--- NOTE | 2022-06-16 14:11 | Emergency Department Note ---
History of Present Illness General Chief complaint: Dizziness Stated complaint: DIZZY, LOW HEART RATE Time Seen by Provider: 06/16/22 14:01 History of Present Illness Provider complaint: Shortness of breath dizziness Onset (ago): day(s) 1 51-year-old male presents emergency department shortness of breath and dizziness. Patient reports his symptoms began 1 day ago. Patient reports he started exerting short of breath feeling dizzy like he was going to pass out. Patient states he measured his heart rate was in the 40s. Patient reports he became concerned because a few months ago he had a similar episode where he was feeling similarly and then was found to be in heart block. Patient states he feels the same way he did that day. He reports no chest pain. He reports no abdominal pain. Patient does report nausea and vomiting. He reports no hematemesis coffee-ground emesis or bilious vomiting. No melena or hematochezia. No hematuria or dysuria. No fever. Patient reports that his sugars have been running in the 240 mg area. Home Medications Medication Instructions Recorded Confirmed Type blood sugar diagnostic (OneTouch #10 ea 09/24/18 05/27/22 History Ultra Blue Test Strip) diltiazem HCl 300 mg 300 mg PO QPM #90 caps 05/29/21 06/16/22 Rx capsule,extended release 24 hr sildenafil 100 mg tablet See Rx Instructions PO ONCE PRN 06/07/21 06/16/22 Rx sexual activity #30 tabs metformin 1,000 mg tablet 1,000 mg PO BID #180 tabs 07/11/21 06/16/22 Rx metoprolol succinate 25 mg 25 mg PO BID #180 tabs 07/30/21 06/16/22 Rx tablet,extended release 24 hr valsartan 320 mg tablet 320 mg PO QPM #90 tabs 08/14/21 06/16/22 Rx bupropion HCl 300 mg 24 hr tablet, 300 mg PO QAM #90 tabs 12/23/21 06/16/22 Rx extended release omeprazole 20 mg capsule,delayed 20 mg PO BID #180 caps 01/27/22 06/16/22 Rx release gabapentin 300 mg capsule 300 mg PO BID #180 caps 03/07/22 06/16/22 Rx insulin aspart U-100 100 unit/mL See Rx Instructions .Route 04/11/22 06/16/22 Rx (3 mL) subcutaneous pen (Novolog .COMPLEX #45 mL FlexPen U-100 Insulin aspart) magnesium oxide 500 mg tablet 500 mg PO BID #60 tabs 04/11/22 06/16/22 Rx acetone (urine) test (Ketone Urine #50 ea 04/15/22 05/27/22 Rx Test strips) atorvastatin 20 mg tablet 20 mg PO QAM #90 tabs 05/27/22 06/16/22 Rx cyanocobalamin (vitamin B-12) 1,000 mcg PO QAM #30 tabs 05/27/22 06/16/22 Rx 1,000 mcg tablet ferrous sulfate 324 mg (65 mg 324 mg PO .QSUN 06/16/22 06/16/22 History iron) tablet,delayed release insulin glargine U-300 conc 300 48 unit subcut BID 06/16/22 06/16/22 History unit/mL (3 mL) subcutaneous pen (Toujeo Max U-300 SoloStar) Allergies Allergy/AdvReac Type Severity Reaction Status Date / Time Penicillins Allergy Intermediate Hives Verified 06/16/22 16:38 pioglitazone [From Actos] Allergy Unknown CAN'T Verified 06/16/22 16:38 REMEMBER REACTION Past Med/Surg History Medical History Asthma Depression Diabetes mellitus, type 2 GERD (gastroesophageal reflux disease) Hypercholesterolemia Hypertension, benign essential, goal below 140/90 Hypomagnesemia Itch Metabolic acidosis Nephropathy Peripheral neuropathy Temporomandibular joint disorder mild, no bite block Surgical History History of wisdom tooth extraction Family History Father Diabetes Other No family history of adverse response to anesthesia Denies family history of Ovarian cancer Prostate cancer Myocardial infarction Breast cancer Colorectal cancer Social History Smoking Status: Former smoker Second Hand Exposure: No; Do You Dip or Chew Tobacco: No; Hx Alcohol Use: Yes Alcohol type: hard liquor Hx Substance Use: No Preferred Language: Croatian Communication Ability: Effective Commercial Estimator Required: No Beliefs That Will Affect Care: None marital status: Current Living Situation: Spouse Current Living Situation Comment: Lives with spouse and son. 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 Other Information That Helps Us Care for You: No Feels Safe at Home: Yes Safety Concerns: Feels Safe At This Time Assistive Devices: Contacts Physical Exam Vital Signs Vital Signs - 24 hr 06/16/22 13:34 06/16/22 14:16 06/16/22 13:58 Temperature 36.8 C Temperature Source Temporal Artery Scan Pulse Rate 52 L 55 L Pulse Rhythm Regular Pulse Strength Normal Respiratory Rate 20 24 Respiratory Effort / Characteristics Non-Labored Spontaneous Respiratory Depth Normal Blood Pressure 133/75 Blood Pressure Mean 94 Pulse Oximetry 98 Oxygen Delivery Method Room Air Room Air Sepsis Recent Fever Within 48 Hours No Sepsis New/Unexplained Change in Mental Status No Sepsis Action Taken by Nursing No Action Required 06/16/22 14:02 06/16/22 14:30 06/16/22 14:42 Temperature Temperature Source Pulse Rate 53 L 44 L Pulse Rhythm Pulse Strength Respiratory Rate 23 19 Respiratory Effort / Characteristics Respiratory Depth Blood Pressure 140/67 Blood Pressure Mean 91 Pulse Oximetry Oxygen Delivery Method Sepsis Recent Fever Within 48 Hours Sepsis New/Unexplained Change in Mental Status Sepsis Action Taken by Nursing 06/16/22 14:42 06/16/22 15:00 06/16/22 15:30 Temperature Temperature Source Pulse Rate 47 L 46 L 48 L Pulse Rhythm Pulse Strength Respiratory Rate 18 21 20 Respiratory Effort / Characteristics Respiratory Depth Blood Pressure Blood Pressure Mean Pulse Oximetry Oxygen Delivery Method Sepsis Recent Fever Within 48 Hours Sepsis New/Unexplained Change in Mental Status Sepsis Action Taken by Nursing Physical Exam GENERAL: He is oriented to person, place, and time. He appears well-developed and well-nourished. EYES: Conjunctivae and EOM are normal.Right eye exhibits no discharge. Left eye exhibits no discharge. No scleral icterus. NECK: Normal range of motion. Neck supple. No JVD present. CV: Bradycardic rate, irregular rhythm, normal heart sounds and intact distal pulses. There is no peripheral edema. Palpable radial pulses bue. PULM/CHEST: Effort normal and breath sounds normal. No respiratory distress. No stridor. He has no wheezes. He has no rales. - Chest Wall: He exhibits no tenderness. ABD: The abdomen is soft. He has no distension. There is no tenderness. There is no rebound, no guarding, NEURO: He is alert and oriented to person, place, and time. He has normal strength. No cranial nerve deficit or sensory deficit. GCS eye subscore is 4. GCS verbal subscore is 5. GCS motor subscore is 6. Cerebellar tests wnl. SKIN: Skin is warm and dry. He is not diaphoretic. Course Course 1401: The patient was evaluated in room B3. A complete history and physical exam was performed Cardiac monitoring: An order was placed for continuous cardiac monitoring. The monitor shows a rate of 50 with atrial fibrilation rhythm External medical records were reviewed. Patient was seen in the emergency department April 06, 2022 admitted to the hospital from April 06 until April 11, 2022. On April 06 the patient arrived in bradycardia and was found to be in complete heart block. The patient was found to have a potassium of 7.4. During the emergency department stay the patient coded twice and the patient was intubated transcutaneous placed and then sent to the Cloth Bleaching Supervisor for a transvenous pacemaker. During the patient's hospital admission the patient's electrolytes were corrected his blood sugars were corrected. Cardiology conducted a TTE which showed an ejection fraction of 70%. The patient's final cardiology consultation note on April [address] Villareal stated that the heart block was prone to be in the setting of hyperkalemia once hyperkalemia was resolved there is no indication for permanent pacemaker. Patient's EKG shows atrial fibrillation with a rate in the 50s. His [id number] i-STAT shows a potassium of 5.9 glucose 252 creatinine 1.4 anion gap of 17. We will wait for formal metabolic profile studies however given the patient's history EKG findings and potassium 5.9 the patient will be treated with IV fluids and calcium gluconate at this time. 1550: Vital signs stable. Labs show white blood cell count 11.55 hemoglobin 10.4. Coagulation studies show D-dimer of 1220.Sodium 130 potassium 5.9 chloride 97 anion gap 14 glucose 255 magnesium 1.2. Magnesium was replaced in the emergency department. CTA of the chest shows no pulmonary emboli cirrhotic liver. Patient has a mild anion gap elevation. Discussed case with admitting hospitalist Dr. Henderson. Both he and I agree we will hold off on giving the patient insulin drip at this time the patient has a liter of fluids and Dr. Henderson and his team will follow-up on a repeat metabolic profile to see if the anion gap is closed. Administered Medications Insulin Human Regular 250 (units/ Sodium Chloride) 250 mls @ 3.2 mls/hr IV .Q24H JOEL; Protocol Stop: 07/16/22 19:59 Last Titration: 06/16/22 21:34 Dose: 3.2 units/hr, 3.2 mls/hr Documented By: TON Co-signed By: RENU Admin: 06/16/22 20:16 Dose: 4 units/hr, 4 mls/hr Documented By: CAYETANO Co-signed By: RAND Insulin Aspart (Insulin Aspart Per Unit) 0 units SC ACHS JOEL Stop: 07/16/22 20:59 Last Admin: 06/16/22 21:47 Dose: 5 units Documented By: LMP Co-signed By: CLC Discontinued Medications Aspirin (Aspirin Chew 324 Mg) 324 mg PO NOW STA Stop: 06/16/22 14:04 Last Admin: 06/16/22 14:26 Dose: 324 mg Documented By: LESTER Sodium Chloride (Nss 1000ml) 1,000 mls @ 999 mls/hr IV .Q1H1M ONE Stop: 06/16/22 15:03 Last Infusion: 06/16/22 15:55 Dose: 0 mls/hr Documented By: Admin: 06/16/22 14:26 Dose: 999 mls/hr Documented By: LESTER Calcium Gluconate () 1,000 mg in 60 mls @ 240 mls/hr IV NOW STA Stop: 06/16/22 14:23 Last Infusion: 06/16/22 15:55 Dose: 0 mls/hr Documented By: Admin: 06/16/22 14:26 Dose: 240 mls/hr Documented By: LESTER Magnesium Sulfate/Dextrose (Magnesium Sulfate / D5w) 1 gm in 100 mls @ 100 mls/hr IV Q1H JOEL Stop: 06/16/22 16:51 Last Infusion: 06/16/22 17:21 Dose: 0 mls/hr Documented By: Admin: 06/16/22 16:21 Dose: 100 mls/hr Documented By: Infusion: 06/16/22 16:03 Dose: 100 mls/hr Documented By: Admin: 06/16/22 15:03 Dose: 100 mls/hr Documented By: LESTER Sodium Chloride (Nss 1000ml) 1,000 mls @ 999 mls/hr IV .Q1H1M ONE Stop: 06/16/22 16:49 Last Infusion: 06/16/22 17:22 Dose: 0 mls/hr Documented By: Admin: 06/16/22 16:21 Dose: 999 mls/hr Documented By: LESTER Magnesium Sulfate/Dextrose (Magnesium Sulfate / D5w) 1 gm in 100 mls @ 50 mls/hr IV Q2H JOEL Stop: 06/17/22 00:59 Last Admin: 06/16/22 20:23 Dose: Not Given Documented By: Infusion: 06/16/22 19:10 Dose: 0 mls/hr Documented By: Admin: 06/16/22 17:21 Dose: 50 mls/hr Documented By: LESTER Sodium Chloride (Nss 1000ml) 2,000 mls @ 999 mls/hr IV .Q2H1M ONE Stop: 06/16/22 21:00 Last Admin: 06/16/22 19:54 Dose: 999 mls/hr Documented By: CAYETANO Insulin Human Regular 10 units (/ Syringe) 10 mls @ 0 mls/hr IV ONE STA Stop: 06/16/22 19:16 Last Admin: 06/16/22 19:51 Dose: 1 mls/hr Documented By: CAYETANO Co-signed By: RAND Calcium Gluconate () 1,000 mg in 60 mls @ 240 mls/hr IV NOW STA Stop: 06/16/22 19:30 Last Infusion: 06/16/22 20:24 Dose: 0 mls/hr Documented By: Admin: 06/16/22 19:51 Dose: 240 mls/hr Documented By: CAYETANO Insulin Human Regular (Novolin-R Insulin Per Unit Charge) 5 units IV NOW STA Stop: 06/16/22 16:08 Last Admin: 06/16/22 16:51 Dose: 5 units Documented By: LESTER Co-signed By: NISHA Ioversol (Optiray 320 500ml) 110 ml IV ONCE ONE Stop: 06/16/22 15:15 Last Admin: 06/16/22 15:15 Dose: 110 ml Documented By: ANA Sodium Zirconium Cyclosilicate (Sodium Zirconium Cyclosilicate 10 Gm Packet) 10 gm PO ONE STA Stop: 06/16/22 19:09 Last Admin: 06/16/22 19:50 Dose: 10 gm Documented By: CAYETANO Critical Care Time Critical Care Time: Yes Total Critical Care Time: 52 I have personally spent greater than 52 minutes of critical care time in the direct management of this patient. This includes bedside care, interpretation of diagnostic studies, and testing, discussion with consultants, patient, and family members, and other required patient management activities. This 52 minutes is in excess of all separately billable procedures. Medical Decision Making Laboratory Data Attestation: I reviewed the patient's lab results. 06/16/22 14:02 06/16/22 14:02 Lab Results 06/16/22 06/16/22 06/16/22 Range/Units 14:02 14:02 14:02 WBC 11.55 H (4.8-10.8) K/ul RBC 4.18 L (4.70-6.10) M/uL Hgb 10.4 L (14.0-18.0) g/dl POC Hgb (14.0-18.0) g/dl Hct 32.1 L (42.0-52.0) % POC Hct (42-52) % MCV 76.8 L (80.0-100.0) fL MCH 24.9 L (25.0-34.0) pg MCHC 32.4 (32.0-36.0) g/dL RDW Std Deviation 44.6 (36.4-46.3) fL RDW Coeff of Lissett 16.0 H (11.5-14.5) % Plt Count 254 (130-400) K/uL MPV 10.1 (9.4-12.4) fL Immature Gran % (Auto) 0.5 % Neut % (Auto) 70.5 % Lymph % (Auto) 15.4 % [place] % (Auto) 11.0 % Eos % (Auto) 1.8 % Baso % (Auto) 0.8 % Neut # (Auto) 8.14 H (1.40-6.50) K/uL Lymph # (Auto) 1.78 (1.2-3.4) K/uL [place] # (Auto) 1.27 H (0.11-0.59) K/uL Eos # (Auto) 0.21 (0-0.50) K/uL Baso # (Auto) 0.09 (0-0.2) K/uL Immature Gran # (Auto) 0.06 (0.01-0.20) K/uL PT 11.2 (9.0-12.0) Seconds INR 1.1 (0.9-1.1) APTT 21.2 (21.0-31.0) Seconds PTT Ratio 0.8 D-Dimer 1220 H* (0-500) ug/L FEU VBG pH (7.36-7.41) VBG pCO2 (38-50) mmHg VBG pO2 mmHg VBG HCO3 mmol/L VBG O2 Saturation % VBG Base Excess mEq/L POC Sodium (135-144) mmol/L Sodium 130 L (136-145) mmol/L POC Potassium (3.3-5.0) mmol/L Potassium 5.9 H (3.5-5.1) mmol/L POC Chloride (101-112) mmol/L Chloride 97 L (98-107) mmol/L Carbon Dioxide 19 L (21-32) mmol/L POC Total CO2 (24-31) mmol/L Anion Gap 14 H (3-11) POC Anion Gap (16-25) mmol/L POC BUN (7-18) mg/dl BUN 26 H (6-23) mg/dl Creatinine 1.33 (0.6-1.4) mg/dl POC Creatinine (0.6-1.3) mg/dl Est Cr Clr Drug Dosing 78.1 ml/min Est GFR ( Amer) 70.7 ml/min Est GFR (Non-Af Amer) 61.0 ml/min BUN/Creatinine Ratio 19.5 (10-20) Glucose 255 H (70-99(Fasting)) mg/dl POC Glucose (other) (70-99) mg/dl Calcium 9.3 (8.5-10.1) mg/dl POC Ioniz Calcium Shirley (1.12-1.32) mmol/l Magnesium 1.2 L (1.7-2.4) mg/dl Total Bilirubin 1.0 (0.2-1.0) mg/dl Direct Bilirubin 0.2 (0-0.2) mg/dl AST 29 (13-39) U/L ALT 17 (7-52) U/L Alkaline Phosphatase 124 H (34-104) U/L Troponin I High Sens 5.2 (0-20) pg/ml Total Protein 7.6 (6.0-8.3) gm/dl Albumin 4.0 (3.4-5.0) gm/dl Lipase 34 (11-82) U/L SARS-CoV-2 (PCR) (Negative) Influenza Type A (PCR) (Neg) Influenza Type B (PCR) (Neg) RSV (RT-PCR) (Neg) 06/16/22 06/16/22 06/16/22 Range/Units 14:05 14:18 15:45 WBC (4.8-10.8) K/ul RBC (4.70-6.10) M/uL Hgb (14.0-18.0) g/dl POC Hgb 11.9 L (14.0-18.0) g/dl Hct (42.0-52.0) % POC Hct 35 L (42-52) % MCV (80.0-100.0) fL MCH (25.0-34.0) pg MCHC (32.0-36.0) g/dL RDW Std Deviation (36.4-46.3) fL RDW Coeff of Lissett (11.5-14.5) % Plt Count (130-400) K/uL MPV (9.4-12.4) fL Immature Gran % (Auto) % Neut % (Auto) % Lymph % (Auto) % [place] % (Auto) % Eos % (Auto) % Baso % (Auto) % Neut # (Auto) (1.40-6.50) K/uL Lymph # (Auto) (1.2-3.4) K/uL [place] # (Auto) (0.11-0.59) K/uL Eos # (Auto) (0-0.50) K/uL Baso # (Auto) (0-0.2) K/uL Immature Gran # (Auto) (0.01-0.20) K/uL PT (9.0-12.0) Seconds INR (0.9-1.1) APTT (21.0-31.0) Seconds PTT Ratio D-Dimer (0-500) ug/L FEU VBG pH 7.38 (7.36-7.41) VBG pCO2 31 L (38-50) mmHg VBG pO2 50 mmHg VBG HCO3 18 mmol/L VBG O2 Saturation 81.7 % VBG Base Excess -5.7 mEq/L POC Sodium 131 L (135-144) mmol/L Sodium (136-145) mmol/L POC Potassium 5.9 H (3.3-5.0) mmol/L Potassium (3.5-5.1) mmol/L POC Chloride 99 L (101-112) mmol/L Chloride (98-107) mmol/L Carbon Dioxide (21-32) mmol/L POC Total CO2 22 L (24-31) mmol/L Anion Gap (3-11) POC Anion Gap 17.0 (16-25) mmol/L POC BUN 27 H (7-18) mg/dl BUN (6-23) mg/dl Creatinine (0.6-1.4) mg/dl POC Creatinine 1.4 H (0.6-1.3) mg/dl Est Cr Clr Drug Dosing ml/min Est GFR ( Amer) ml/min Est GFR (Non-Af Amer) ml/min BUN/Creatinine Ratio (10-20) Glucose (70-99(Fasting)) mg/dl POC Glucose (other) 252 H (70-99) mg/dl Calcium (8.5-10.1) mg/dl POC Ioniz Calcium Shirley 1.16 (1.12-1.32) mmol/l Magnesium (1.7-2.4) mg/dl Total Bilirubin (0.2-1.0) mg/dl Direct Bilirubin (0-0.2) mg/dl AST (13-39) U/L ALT (7-52) U/L Alkaline Phosphatase (34-104) U/L Troponin I High Sens (0-20) pg/ml Total Protein (6.0-8.3) gm/dl Albumin (3.4-5.0) gm/dl Lipase (11-82) U/L SARS-CoV-2 (PCR) NEGATIVE (Negative) Influenza Type A (PCR) Negative (Neg) Influenza Type B (PCR) Negative (Neg) RSV (RT-PCR) Negative (Neg) Imaging Data Radiologist's Impression: Chest X-Ray 06/16/22 14:08 XR chest 2V PA/lateral HISTORY: Shortness of breath. COMPARISON: Chest 04/09/2022. FINDINGS: No pneumothorax. No pleural effusions. The heart remains enlarged. No new focal lung consolidations to suggest a pneumonia. No evidence for pulmonary edema. IMPRESSION: Stable cardiomegaly. ACT 112: Negative or not required by law. Electronically signed by: Rock Collado M.D. 06/16/2022 2:47 PM Chest CTA 06/16/22 14:52 CT angio chest PE protocol CT DOSE: 1093.37 mGy.cm HISTORY: 51 years-old Male with ro PE. Acute shortness of breath with dizziness TECHNIQUE: Multiple CTA images of the chest were obtained after the intravenous administration of 110 ml Optiray. Coronal and sagittal MIPS were obtained from the axial data set and were submitted for review. All measurements were obtained according to NASCET criteria. A dose lowering technique was utilized adhering to the principles of ALARA. COMPARISON: CT chest, abdomen and pelvis 04/07/2022 FINDINGS: CTA: The heart is upper limits of normal in size. No pericardial effusion. Moderate coronary artery calcifications. Unremarkable thoracic aorta. Satisfactory opacification of the pulmonary arterial tree. No pulmonary emboli are identified. CT CHEST: 8 mm hypodense left-sided thyroid nodule. No lymphadenopathy identified within the chest. No pneumothorax, pleural effusion, airspace consolidation or overt pulmonary edema. No suspicious pulmonary nodules or masses are identified. Central airways are patent. Contracted gallbladder with cholelithiasis. Nonspecific wall thickening surrounds the duodenum and mica hepatis. Precaval 1.4 cm lymph node. Cirrhotic liver with hepatic steatosis. Unremarkable soft tissues. Chronic appearing left clavicular fracture. Healing subacute fractures of the anterior left second through sixth ribs. Ill-defined sclerosis of the mid sternal body may also represent a healing subacute fracture. Additional healing subacute anterior right-sided rib fractures. IMPRESSION: 1. No pulmonary emboli are identified. 2. Healing subacute bilateral anterior rib fractures. Ill-defined sclerosis of the sternal body is also likely related to healing subacute fractures, likely secondary to prior resuscitation. 3. Contracted gallbladder with cholelithiasis. There is nonspecific wall thickening of the mica hepatis and adjacent to the proximal duodenum. This finding may be secondary to the patient's cirrhotic liver however should be correlated clinically to exclude a nonspecific duodenitis. 4. Cirrhotic liver. ACT 112: Negative or not required by law. The above report was generated using voice recognition software. It may contain grammatical, syntax or spelling errors. Electronically signed by: Gary Hoover M.D. 06/16/2022 3:34 PM ECG Data Attestation: I personally reviewed and interpreted this ECG as follows: Additional Comments: EKG 1 at 1351: Atrial fibrillation with rate of 56. QRS and QTc intervals within normal limits. No ST elevation or ST depression. EKG #2 at 1407: Atrial fibrillation with rate of 54. QRS and QTc intervals wit hin normal limits. No ST elevation or ST depression. MDM Narrative 1401: The patient was evaluated in room B3. A complete history and physical exam was performed Cardiac monitoring: An order was placed for continuous cardiac monitoring. The monitor shows a rate of 50 with atrial fibrilation rhythm External medical records were reviewed. Patient was seen in the emergency department April 06, 2022 admitted to the hospital from April 06 until April 11, 2022. On April 06 the patient arrived in bradycardia and was found to be in complete heart block. The patient was found to have a potassium of 7.4. During the emergency department stay the patient coded twice and the patient was intubated transcutaneous placed and then sent to the Cloth Ble[facility] Supervisor for a transvenous pacemaker. During the patient's hospital admission the patient's el ectrolytes were corrected his blood sugars were corrected. Cardiology conducted a TTE which showed an ejection fraction of 70%. The patient's final cardiology consultation note on April [address] Villareal stated that the heart block was prone to be in the setting of hyperkalemia once hyperkalemia was resolved there is no indication for permanent pacemaker. Patient's EKG shows atrial fibrillation with a rate in the 50s. His [id number] i-STAT shows a potassium of 5.9 glucose 252 creatinine 1.4 anion gap of 17. We will wait for formal metabolic profile studies however given the patient's history EKG findings and potassium 5.9 the patient will be treated with IV fluids and calcium gluconate at this time. 1550: Vital signs stable. Labs show white blood cell count 11.55 hemoglobin 1 0.4. Coagulation studies show D-dimer of 1220.Sodium 130 potassium 5.9 chloride 97 anion gap 14 glucose 255 magnesium 1.2. Magnesium was replaced in the emergency department. CTA of the chest shows no pulmonary emboli cirrhotic liver. Patient has a mild anion gap elevation. Discussed case with admitting hospitalist Dr. Henderson. Both he and I agree we will hold off on giving the patient insulin drip at this time the patient has a liter of fluids and Dr. Henderson and his team will follow-up on a repeat metabolic profile to see if the anion gap is closed. Impression & Plan Acute hyperkalemia, Hypomagnesemia, DKA (diabetic ketoacidosis) Discharge Plan Visit Data Chief Complaint: Dizziness Stated Complaint: DIZZY, LOW HEART RATE ED Provider: Crow Lam Discharge Problem: Acute hyperkalemia, Hypomagnesemia, DKA (diabetic ketoacidosis) Patient Disposition: Admitted As Inpatient Discharge Instructions Interventions: ED Discharge Assessment Last Done: 06/16/22 18:58
[2022-06-16 14:17] LABS: iSTAT Creatinine 1.4 mg/dl (0.6-1.3); iSTAT Hemoglobin 11.9 g/dl (14.0-18.0); iSTAT Ionized Calcium 1.16 mmol/l (1.12-1.32); iSTAT Potassium 5.9 mmol/L (3.3-5.0)
[2022-06-16 14:23] LABS: Basophils # (auto) 0.09 K/uL (0-0.2); Basophils % (auto) 0.8 %; Eosinophils # (auto) 0.21 K/uL (0-0.50); Eosinophils % (auto) 1.8 %; Hematocrit (blood only) 32.1 % (42.0-52.0); Hemoglobin 10.4 g/dl (14.0-18.0); Immature Granulocytes # (auto) 0.06 K/uL (0.01-0.20); Immature Granulocytes % (auto) 0.5 %; Lymphocytes # (auto) 1.78 K/uL (1.2-3.4); Lymphocytes % (auto) 15.4 %; Mean Corpuscular Hemoglobin 24.9 pg (25.0-34.0); Mean Corpuscular Hgb Conc 32.4 g/dL (32.0-36.0); Mean Corpuscular Volume 76.8 fL (80.0-100.0); Mean Platelet Volume 10.1 fL (9.4-12.4); Monocytes # (auto) 1.27 K/uL (0.11-0.59); Neutrophils # (auto) 8.14 K/uL (1.40-6.50); Neutrophils % (auto) 70.5 %; Platelet Count 254 K/uL (130-400); RDW Standard Deviation 44.6 fL (36.4-46.3); Red Blood Count 4.18 M/uL (4.70-6.10); White Blood Count 11.55 K/ul (4.8-10.8)
[2022-06-16 14:32] LABS: Base Excess VBG -5.7 mEq/L; HCO3 VBG 18 mmol/L; Oxygen Saturation VBG 81.7 %; PCO2 VBG 31 mmHg (38-50); PO2 VBG 50 mmHg; pH VBG 7.38 (7.36-7.41)
[2022-06-16 14:35] LABS: INR 1.1 (0.9-1.1); Partial Thromboplastin Ratio 0.8; Partial Thromboplastin Time 21.2 Seconds (21.0-31.0); Prothrombin Time 11.2 Seconds (9.0-12.0)
[2022-06-16 14:41] LABS: Magnesium 1.2 mg/dl (1.7-2.4); Potassium 5.9 mmol/L (3.5-5.1)
[2022-06-16 14:47] LABS: BUN Creatinine Ratio 19.5 (10-20); Creatinine Clr Calc Pharmacy 78.1 ml/min; Est GFR (African American) 70.7 ml/min
[2022-06-16 14:48] LABS: D Dimer 1220 ug/L FEU (0-500)
--- NOTE | 2022-06-16 14:48 | XRay Report ---
XR chest 2V PA/lateral HISTORY: Shortness of breath. COMPARISON: Chest 04/09/2022. FINDINGS: No pneumothorax. No pleural effusions. The heart remains enlarged. No new focal lung consol idations to suggest a pneumonia. No evidence for pulmonary edema. IMPRESSION: Stable cardiomegaly. ACT 112: Negative or not required by law. Electronically signed by: Rock Collado M.D. 06/16/2022 2:47 PM
[2022-06-16 14:50] LABS: Troponin I High Sensitivity 5.2 pg/ml (0-20)
[2022-06-16] MEDS: MAGNESIUM SULFATE / D5W 1 GM/100 ML BAG IV SCH ×4 (15:03→20:23)
[2022-06-16 15:07] LABS: Bilirubin Direct 0.2 mg/dl (0-0.2)
[2022-06-16 15:09] LABS: Total Protein 7.6 gm/dl (6.0-8.3)
[2022-06-16] MEDS ORDERED: OPTIRAY 320 500ml IV ONE (15:14)
[2022-06-16 15:15] LABS: Calcium 9.3 mg/dl (8.5-10.1)
--- NOTE | 2022-06-16 15:35 | CT Scan Report ---
CT angio chest PE protocol CT DOSE: 1093.37 mGy.cm HISTORY: 51 years-old Male with ro PE. Acute shortness of breath with dizziness TECHNIQUE: Multiple CTA images of the chest were obtained after the intravenous administration of 110 ml Optiray. Coronal and sagittal MIPS were obtained from the axial data set and were submitted for review. All measurements were obtained according to NASCET criteria. A dose lowering technique was u tilized adhering to the principles of ALARA. COMPARISON: CT chest, abdomen and pelvis 04/07/2022 FINDINGS: CTA: The heart is upper limits of normal in size. No pericardial effusion. Moderate coronary artery calcif ications. Unremarkable thoracic aorta. Satisfactory opacification of the pulmonary arterial tree. No pulmonary emboli are identified. CT CHEST: 8 mm hypodense left-sided thyroid nodule. No lymphadenopathy identified within the chest. No pneumoth orax, pleural effusion, airspace consolidation or overt pulmonary edema. No suspicious pulmonary nodu les or masses are identified. Central airways are patent. Contracted gallbladder with cholelithiasis. Nonspecific wall thickening surrounds the duodenum and po rta hepatis. Precaval 1.4 cm lymph node. Cirrhotic liver with hepatic steatosis. Unremarkable soft ti ssues. Chronic appearing left clavicular fracture. Healing subacute fractures of the anterior left se cond through sixth ribs. Ill-defined sclerosis of the mid sternal body may also represent a healing s ubacute fracture. Additional healing subacute anterior right-sided rib fractures. IMPRESSION: 1. No pulmonary emboli are identified. 2. Healing subacute bilateral anterior rib fractures. Ill-defined sclerosis of the sternal body is al so likely related to healing subacute fractures, likely secondary to prior resuscitation. 3. Contracted gallbladder with cholelithiasis. There is nonspecific wall thickening of the mica hepa tis and adjacent to the proximal duodenum. This finding may be secondary to the patient's cirrhotic l iver however should be correlated clinically to exclude a nonspecific duodenitis. 4. Cirrhotic liver. ACT 112: Negative or not required by law. The above report was generated using voice recognition software. It may contain grammatical, syntax o r spelling errors. Electronically signed by: Gary Hoover M.D. 06/16/2022 3:34 PM
[2022-06-16] MEDS ORDERED: NovoLIN-R INSULIN PER UNIT CHARGE IV STA (16:07)
--- NOTE | 2022-06-16 16:07 | History & Physical Report ---
Date of Service June 16, 2022 Assessment & Plan (1) Sinus bradycardia: Plan: Junctional and sinus bradycardia. No complete heart block on EKG. Suspect due to electrolyte derangements as per last admission in the setting of diltiazem and metoprolol use. Discontinue both AV adore blocking agents for now. Careful consideration to restarting both AV adore blocking agents on discharge however he usually becomes tachycardic and requires 1 of these after electrolyte abnormalities are corrected - suggest restarting the metoprolol first. Replace magnesium and reduce potassium as below (2) Acute hyperglycemia: Plan: Labs not diagnostic of DKA but certainly appears heading that way. Question is he absorbing his Tresiba given slowly increasing doses over time without a good explanation ie. He denies diet contributing towards this. Given his excellent HbA1c I am concerned of an alternative explanation causing his electrolyte derangement and will consult nephrology for help regarding this. Home regimen: Tresiba 48 units twice daily, NovoLo correction factor and 3 carb ratio, metformin 1000mg PO BID Initially will place on SQ Novolo correction factor and 5 carb ratio, Lantus 40 units BID Mild DKA, Will give 2 L NSS and repeat labs following this to see if we need to place on insulin IV drip. Suggest metformin is discontinued on discharge due to persistently high lactate levels. (3) Hypomagnesemia: Plan: Mg level 1.2 Mg sulfate 2 g IV given in ER Will give additional 4g overnight Consult nephrology given persistently low levels despite extensive replacement last admission. Certainly omeprazole and metformin may be contributing and metformin will be discontinued as above. (4) Acute hyperkalemia: Plan: K 5.9, calcium gluconate 1g IV given in ER. Should come down with insulin use 5 Units of IV insulin now Repeat level following this Stop valsartan. Given this is the second episode of hyperkalemia careful consideration also has to be placed on restarting an ACEi/ARB. Consider calcium channel ashley instead to manage his blood pressure. (5) Benign essential hypertension: Plan: Holding valsartan due to hyperkalemia Holding diltiazem and metoprolol due to junctional and sinus bradycardia Hydralazine 10 mg IV every 4 hourly as needed for systolic blood pressure greater than 180 (6) Hypercholesterolemia: Plan: Continue atorvastatin 20 mg p.o. daily (7) Liver cirrhosis: Plan: Seen on CT Please arrange GI follow up on discharge (8) B12 deficiency: Plan: Continue supplementation for this Plan VTE prophylaxis - heparin 5000 units SQ q8h Diet - NPO Disposition - admit to PCU Admission and Anticipated Discharge Date Admission Date: June 16, 2022 History of Present Illness Chief Complaint: Dizziness, shortness of breath, generalized fatigue Primary Care Provider: Reji Sanchez MD Elliot Holland is a 51-year-old male who presents to the ER with shortness of breath, dizziness and generalized fatigue. Symptoms present mildly yesterday but much worse today. No chest pain. He reports a similar sensation when he had a pulseless electrical activity cardiac arrest during his previous hospitalization in March. He measured his heart rate and it was in the 40s therefore became concerned and presented to the emergency room. He reports taking his insulin as prescribed although just injects into his abdomen. HbA1c 7.4 in May. His insulin pens are in date and he did not run out. He does report over the last week needing to increase his carb ratio without a change in diet due to persistent hyperglycemia. No infection symptoms such as fevers, chills, myalgias, headache, cough, shortness of breath, sore throat, sinus pain, abdominal pain, diarrhea or urinary symptoms. In the ER he was noted to have sinus/junctional bradycardia initially electronically reported as atrial fibrillation. Given early diabetic ketoacidosis he was treated with normal saline 1L bolus. Due to hyperkalemia he was treated with calcium gluconate 1 g IV. Due to hypomagnesemia he was given 2 g magnesium sulfate IV. On discussion with ER physician we will give another normal saline bolus and repeat labs prior to deciding subcutaneous versus intravenous insulin. Allergies Allergy/AdvReac Type Severity Reaction Status Date / Time Penicillins Allergy Intermediate Hives Verified 06/16/22 16:38 pioglitazone [From Actos] Allergy Unknown CAN'T Verified 06/16/22 16:38 REMEMBER REACTION Home Medications Medication Instructions Recorded Confirmed Type blood sugar diagnostic (OneTouch #10 ea 09/24/18 05/27/22 History Ultra Blue Test Strip) diltiazem HCl 300 mg 300 mg PO QPM #90 caps 05/29/21 06/16/22 Rx capsule,extended release 24 hr sildenafil 100 mg tablet See Rx Instructions PO ONCE PRN 06/07/21 06/16/22 Rx sexual activity #30 tabs metformin 1,000 mg tablet 1,000 mg PO BID #180 tabs 07/11/21 06/16/22 Rx metoprolol succinate 25 mg 25 mg PO BID #180 tabs 07/30/21 06/16/22 Rx tablet,extended release 24 hr valsartan 320 mg tablet 320 mg PO QPM #90 tabs 08/14/21 06/16/22 Rx bupropion HCl 300 mg 24 hr tablet, 300 mg PO QAM #90 tabs 12/23/21 06/16/22 Rx extended release omeprazole 20 mg capsule,delayed 20 mg PO BID #180 caps 01/27/22 06/16/22 Rx release gabapentin 300 mg capsule 300 mg PO BID #180 caps 03/07/22 06/16/22 Rx insulin aspart U-100 100 unit/mL See Rx Instructions .Route 04/11/22 06/16/22 Rx (3 mL) subcutaneous pen (Novolog .COMPLEX #45 mL FlexPen U-100 Insulin aspart) magnesium oxide 500 mg tablet 500 mg PO BID #60 tabs 04/11/22 06/16/22 Rx acetone (urine) test (Ketone Urine #50 ea 04/15/22 05/27/22 Rx Test strips) atorvastatin 20 mg tablet 20 mg PO QAM #90 tabs 05/27/22 06/16/22 Rx cyanocobalamin (vitamin B-12) 1,000 mcg PO QAM #30 tabs 05/27/22 06/16/22 Rx 1,000 mcg tablet ferrous sulfate 324 mg (65 mg 324 mg PO .QSUN 06/16/22 06/16/22 History iron) tablet,delayed release insulin glargine U-300 conc 300 48 unit subcut BID 06/16/22 06/16/22 History unit/mL (3 mL) subcutaneous pen (Toujeo Max U-300 SoloStar) Past Med/Surg History Medical History Asthma Depression Diabetes mellitus, type 2 GERD (gastroesophageal reflux disease) Hypercholesterolemia Hypertension, benign essential, goal below 140/90 Hypomagnesemia Itch Metabolic acidosis Nephropathy Peripheral neuropathy Temporomandibular joint disorder mild, no bite block Surgical History History of wisdom tooth extraction Family History Father Diabetes Other No family history of adverse response to anesthesia Denies family history of Ovarian cancer Prostate cancer Myocardial infarction Breast cancer Colorectal cancer Social History Smoking Status: Former smoker Second Hand Exposure: No; Do You Dip or Chew Tobacco: No; Hx Alcohol Use: Yes Alcohol type: hard liquor Hx Substance Use: No Preferred Language: German Communication Ability: Effective Steam Room Attendant Required: No Beliefs That Will Affect Care: None marital status: Current Living Situation: Spouse Current Living Situation Comment: Lives with spouse and son. 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 Other Information That Helps Us Care for You: No Feels Safe at Home: Yes Safety Concerns: Feels Safe At This Time Assistive Devices: Contacts Review of Systems Review of Systems: All systems reviewed & are unremarkable except as noted in HPI & below Physical Exam Constitutional: WD/WN, vitals as above Eyes: PERRL, conjunctivae normal, anicteric sclerae ENMT: external ear and nose normal, oropharynx normal Respiratory: normal respiratory effort, lungs clear to auscultation Cardiovascular: Rate/Rhythm: + bradycardic and + irregularly irregular Heart Sounds: no murmur Vessels: radial pulses present Extremities: normal capillary refill and + pedal edema (Trace bilateral equal pitting); no calf tenderness Gastrointestinal (Abdomen): normal bowel sounds, soft, nontender, no hepatosplenomegaly Musculoskeletal: no cyanosis or clubbing, extremities motor strength 5/5 Skin: no rashes, warm and dry Neurologic: moves all extremities and awake; not confused Psychiatric: A+Ox3, euthymic affect Genitourinary: no CVA tenderness Results & Data Results & Data ([facility]) Vital Signs (Past 12 Hours) Vital Signs Temp Pulse Resp BP Pulse Ox O2 Del Method 06/16/22 14:16 Room Air 06/16/22 13:34 36.8 C 52 L 20 133/75 98 Room Air Diagnostic Findings XR chest 2V PA/lateral HISTORY: Shortness of breath. COMPARISON: Chest 04/09/2022. FINDINGS: No pneumothorax. No pleural effusions. The heart remains enlarged. No new focal lung consolidations to suggest a pneumonia. No evidence for pulmonary edema. IMPRESSION: Stable cardiomegaly. CT angio chest PE protocol CT DOSE: 1093.37 mGy.cm HISTORY: 51 years-old Male with ro PE. Acute shortness of breath with dizziness TECHNIQUE: Multiple CTA images of the chest were obtained after the intravenous administration of 110 ml Optiray. Coronal and sagittal MIPS were obtained from the axial data set and were submitted for review. All measurements were obtained according to NASCET criteria. A dose lowering technique was utilized adhering to the principles of ALARA. COMPARISON: CT chest, abdomen and pelvis 04/07/2022 FINDINGS: CTA: The heart is upper limits of normal in size. No pericardial effusion. Moderate coronary artery calcifications. Unremarkable thoracic aorta. Satisfactory opacification of the pulmonary arterial tree. No pulmonary emboli are identified. CT CHEST: 8 mm hypodense left-sided thyroid nodule. No lymphadenopathy identified within the chest. No pneumothorax, pleural effusion, airspace consolidation or overt pulmonary edema. No suspicious pulmonary nodules or masses are identified. Central airways are patent. Contracted gallbladder with cholelithiasis. Nonspecific wall thickening surrounds the duodenum and mica hepatis. Precaval 1.4 cm lymph node. Cirrhotic liver with hepatic steatosis. Unremarkable soft tissues. Chronic appearing left clavicular fracture. Healing subacute fractures of the anterior left second through sixth ribs. Ill-defined sclerosis of the mid sternal body may also represent a healing subacute fracture. Additional healing subacute anterior right-sided rib fractures. IMPRESSION: 1. No pulmonary emboli are identified. 2. Healing subacute bilateral anterior rib fractures. Ill-defined sclerosis of the sternal body is also likely related to healing subacute fractures, likely secondary to prior resuscitation. 3. Contracted gallbladder with cholelithiasis. There is nonspecific wall thickening of the mica hepatis and adjacent to the proximal duodenum. This finding may be secondary to the patient's cirrhotic liver however should be correlated clinically to exclude a nonspecific duodenitis. 4. Cirrhotic liver. Medications Administered ER medications given: Aspirin 324 mg p.o. NSS 1 L bolus Calcium gluconate 1 g IV Magnesium sulfate 1 g IV x2 NSS 1 L bolus ECG Indication: bradycardia Rate (beats per minute): 56 Rhythm: junctional and sinus bradycardia Findings: no acute ischemic change Comparison ECG Date: from (April 07, 2022) Change: the following changes noted (All changes as above a new) Code Status & VTE Plan Code Status Full VTE Prophylaxis Plan VTE Prophylaxis will be ordered: Yes Critical Care Time Critical Care Time: Yes Total Critical Care Time: 45 PG Care Time/CCT Total # of Minutes Spent Total Time Spent with Patient: Total time spent is greater than 50% in coordination of care (as documented) at patient's floor/unit and/or counseling patient: Critical Care Time: Yes Total Critical Care Time: 45 Coding Level of Care Code 65997 INT INP/OBS CARE 3/75MIN Diagnoses Sinus bradycardia R00.1 Acute hyperglycemia R73.9 Hypomagnesemia E83.42 Acute hyperkalemia E87.5 Benign essential hypertension I10 Hypercholesterolemia E78.00 Liver cirrhosis K74.60 B12 deficiency E53.8 Additional Codes Critical Care Time - Critical Care Time: Yes ([id number])
--- NOTE | 2022-06-16 16:20 | Electrocardiogram Report ---
Test Reason : Blood Pressure : / mmHG Vent. Rate : 056 BPM Atrial Rate : 078 BPM P-R Int : 000 ms QRS Dur : 082 ms QT Int : 408 ms P-R-T Axes : 000 051 031 degrees QTc Int : 393 ms Probable Junctional bradycardia with 2 sinus beats Cannot rule out Anterior infarct , age undetermined Abnormal ECG When compared with ECG of 07-APR-2022 00:47, Significant changes have occurred Confirmed by Mauricio Griffith ([id number]) on 06/16/2022 4:19:34 PM Referred By: REFERRED SELF Confirmed By:Mauricio Griffith
--- NOTE | 2022-06-16 16:22 | Electrocardiogram Report ---
Test Reason : Blood Pressure : / mmHG Vent. Rate : 054 BPM Atrial Rate : 040 BPM P-R Int : 000 ms QRS Dur : 080 ms QT Int : 410 ms P-R-T Axes : 000 052 022 degrees QTc Int : 388 ms Junctional bradycardia with occasional sinus beats Cannot rule out Anterior infarct (cited on or before 16-JUN-2022) Abnormal ECG When compared with ECG of 16-JUN-2022 13:51, (unconfirmed) No significant change was found Confirmed by Mauricio Griffith ([id number]) on 06/16/2022 4:21:48 PM Referred By: REFERRED SELF Confirmed By:Mauricio Griffith
[2022-06-16 16:37] LABS: Influenza A virus by PCR Negative (Neg); Influenza B virus by PCR Negative (Neg); RSV by PCR Negative (Neg); SARS CoV2 RNA(COVID-19) Ceph NEGATIVE (Negative)
[2022-06-16 18:57] LABS: BUN Creatinine Ratio 19.6 (10-20); Calcium 9.1 mg/dl (8.5-10.1); Creatinine Clr Calc Pharmacy 72.6 ml/min; Est GFR (African American) 64.8 ml/min; Est GFR (Non-African American) 55.9 ml/min; Potassium 7.1 mmol/L (3.5-5.1)
[2022-06-16] MEDS ORDERED: CARBOHYDRATES FOR HYPOGLYCEMIA PO PRN (18:57)
[2022-06-16] MEDS ORDERED: DEXTROSE 50% 50 ML SYRINGE IV PRN (18:57)
[2022-06-16] MEDS ORDERED: GLUCOSE 40% GEL 15 GM TUBE PO PRN (18:57)
[2022-06-16] MEDS ORDERED: INSULIN ASPART PER UNIT SC SCH (18:57)
[2022-06-16] MEDS ORDERED: GLUCOSE 10 TAB/TUBE PO PRN (18:57)
[2022-06-16] MEDS ORDERED: GLUCAGON FOR INJ 1 MG VIAL SQ PRN (18:57)
[2022-06-16] MEDS ORDERED: SODIUM CHLORIDE 0.9% 1000ML 2,000 ML IV ONE (19:00)
[2022-06-16] MEDS ORDERED: PHARMACY GLYCEMIC MGMT CONSULT PRN ×2 (19:02)
[2022-06-16] MEDS ORDERED: STAT IV Infusion **Titration per Protocol STA (19:02)
[2022-06-16] MEDS ORDERED: SODIUM ZIRCONIUM CYCLOSILICATE 10 GM PACKET PO STA (19:08)
[2022-06-16 19:14] LABS: Appearance Urine Clear (Clear); Bacteria Urine Automated Negative (Negative); Bilirubin Urine Negative (Negative); Blood Urine Trace (Negative); Color Urine Yellow; Glucose Urine UA Negative (Negative); Ketones Urine Trace (Negative); Leukocyte Esterase Urine Negative (Negative); Nitrite Urine Negative (Negative); Protein Urine 2+ (Negative); Specific Gravity Urine > 1.045 (1.000-1.030); Urobilinogen Urine Negative (Negative)
[2022-06-16] MEDS ORDERED: INSULIN HUMAN REGULAR PER UNIT 10 UNITS in SYRINGE 9.9 ML IV STA (19:15)
[2022-06-16] MEDS ORDERED: SEVERE STRESS LEVEL ONE (19:34)
[2022-06-16] MEDS ORDERED: INSULIN PROTOCOL GOAL RANGE ONE (19:34)
--- NOTE | 2022-06-16 19:53 | Communication Note ---
Date of Service: June 16, 2022 Potassium increased to 7.1 despite insulin 5 units IV given earlier. Additional calcium gluconate 1g IV, Lokelma 10g, Insulin 10 units IV. Suspect increase due to magnesium sulfate infusion which we will discontinue. Additional 2L NSS bolus now. Start insulin IV drip with severe stress protocol. Repeat BMP @ 8pm, 10pm then every 4 hours overnight.
[2022-06-16] MEDS: INSULIN REGULAR 250 UNITS in SODIUM CHLORIDE 0.9% 247.5 ML IV SCH (20:16)
[2022-06-16] MEDS ORDERED: VALSARTAN 80 MG TAB PO SCH (21:00)
[2022-06-16] MEDS ORDERED: MAGNESIUM OXIDE 400 MG TAB PO SCH (21:00)
[2022-06-16] MEDS ORDERED: LANTUS PER UNIT CHARGE SQ SCH (21:00)
[2022-06-16] MEDS: INSULIN ASPART PER UNIT SC SCH (21:47)
[2022-06-16] MEDS ORDERED: hydrALAZINE HCL 20 MG/ML VIAL IV PRN (22:07)
[2022-06-16] MEDS: ACETAMINOPHEN 325 MG TAB PO PRN (22:15)
[2022-06-16] MEDS: GABAPENTIN 300 MG CAP PO SCH (22:16)
[2022-06-16] MEDS: PANTOprazole 40 MG TAB PO SCH (22:16)
[2022-06-16 22:28] LABS: BUN Creatinine Ratio 19.5 (10-20); Calcium 9.1 mg/dl (8.5-10.1); Est GFR (African American) 70.7 ml/min; Magnesium 1.8 mg/dl (1.7-2.4); Phosphorus 2.9 mg/dl (2.5-4.9); Potassium 5.1 mmol/L (3.5-5.1)
[2022-06-16] MEDS ORDERED: LACTATED RINGER'S 1,000 ML IV SCH (22:45)
[2022-06-16] MEDS: HEPARIN SOD 5,000 UNIT/0.5 ML VIAL SQ SCH (22:59)
[2022-06-17 02:20] LABS: BUN Creatinine Ratio 21.8 (10-20); Calcium 8.4 mg/dl (8.5-10.1); Creatinine Clr Calc Pharmacy 95.5 ml/min; Est GFR (Non-African American) 76.8 ml/min; Magnesium 1.6 mg/dl (1.7-2.4); Phosphorus 2.5 mg/dl (2.5-4.9); Potassium 4.4 mmol/L (3.5-5.1)
[2022-06-17] MEDS: D5W AND NSS 1,000 ML IV SCH ×2 (02:22→08:22)
[2022-06-17] MEDS: HEPARIN SOD 5,000 UNIT/0.5 ML VIAL SQ SCH ×3 (06:07→21:28)
[2022-06-17 07:48] LABS: BUN Creatinine Ratio 20.4 (10-20); Calcium 8.7 mg/dl (8.5-10.1); Est GFR (African American) 96.3 ml/min; Est GFR (Non-African American) 83.1 ml/min; Magnesium 1.5 mg/dl (1.7-2.4); Phosphorus 2.6 mg/dl (2.5-4.9); Potassium 4.4 mmol/L (3.5-5.1)
[2022-06-17] MEDS: INSULIN ASPART PER UNIT SC SCH ×5 (08:05→21:27)
[2022-06-17] MEDS: CYANOCOBALAMIN (B-12) 500 MCG TABLET PO SCH (08:22)
[2022-06-17] MEDS: PANTOprazole 40 MG TAB PO SCH (08:22)
--- NOTE | 2022-06-17 08:22 | Nephrology Consultation ---
Date of Consultation June 17, 2022 Assessment & Plan (1) Hypomagnesemia: Serum magnesium 1.5 mg/dL this AM following overnight replacement. Additional IV replacement ordered this AM. Suspect omeprazole and metformin are contributing. Advise discontinuation of metformin for now. Repeat metabolic profile this afternoon and tomorrow AM. (2) Metabolic acidosis: Predominately AG metabolic acidosis with improving lactic acidosis. Metformin appropriately held. Continue IVF to encourage slightly positive fluid balance. Repeat metabolic profile this afternoon. (3) Acute hyperkalemia: Remains on tele monitor. Improving with treatment. Low potassium diet. Hold valsartan. IVF to encourage urine output. Insulin/management of hyperglycemia per hospitalist team. History of Present Illness Reason for Consultation: "?magnesium wasting nephropathy, alternative explan" Requesting Physician: Graham Henderson Attending Physician: Justen Bland MD History of Present Illness Mr. Elliot Holland is a 51 year-old male with DM1, hypertension, hyperlipidemia, and cirrhosis. Elliot was recently admitted to [facility] in March with complete heart block, hyperkalemia, acute kidney injury, and DKA. Nephrology consultation provided by Dr. Villalta during the admission. Creatinine peaked at 2.95 mg/dL on April 06 and improved to <1 mg/dL. Urine was acellular. Elliot has not had albumininuria. CT scan demonstrated normal appearing kidneys. Valsartan and metformin were restarted post discharge. Laboratory studies obtained during admission also notable for hypomagnesemia at 1.6 mg/dL on admission and 1.2 to 1.8 on discharge. Elliot presented to the ER at [facility] yesterday with shortness of breath and dizziness. Symptoms started fairly suddenly ~1 hour prior to arrival. He was particularly concerned due to similarity of symptoms to prior admission. Laboratory studies obtained in the ER yesterday evening demonstrating a sodium of 130 mmol/L, potassium of 5.9 mmol/L, HCO3 of 19 mmol/L, creatinine of 1.4 mg/dL. Serum albumin 4.0 and calcium 8.7. AG 14. Glucose 255. Recent HbA1c 7.4%. Evaluation on admission notable for junctional bradycardia. This did convert to sinus rhythm. BP has remained 130-158/60-90 mmHg. Overnight, follow up laboratory studies demonstrated a serum potassium of 7.1 mmol/L. Lokelma was provided in addition to insulin. Elliot denies diarrhea. no anorexia, nausea, or vomiting. >3 L IV saline provided overnight. Elliot is non-oliguric. Follow up laboratory studies obtained this AM notable for a sodium of 136 mmol/L, K 4.4 mmol, L, HCO3 22 mmol/L, creatinine 1.03 mg/dL. Allergies Allergy/AdvReac Type Severity Reaction Status Date / Time Penicillins Allergy Intermediate Hives Verified 06/16/22 16:38 pioglitazone [From Actos] Allergy Unknown CAN'T Verified 06/16/22 16:38 REMEMBER REACTION Home Medications Medication Instructions Recorded Confirmed Type blood sugar diagnostic (OneTouch #10 ea 09/24/18 05/27/22 History Ultra Blue Test Strip) diltiazem HCl 300 mg 300 mg PO QPM #90 caps 05/29/21 06/16/22 Rx capsule,extended release 24 hr sildenafil 100 mg tablet See Rx Instructions PO ONCE PRN 06/07/21 06/16/22 Rx sexual activity #30 tabs metformin 1,000 mg tablet 1,000 mg PO BID #180 tabs 07/11/21 06/16/22 Rx metoprolol succinate 25 mg 25 mg PO BID #180 tabs 07/30/21 06/16/22 Rx tablet,extended release 24 hr valsartan 320 mg tablet 320 mg PO QPM #90 tabs 08/14/21 06/16/22 Rx bupropion HCl 300 mg 24 hr tablet, 300 mg PO QAM #90 tabs 12/23/21 06/16/22 Rx extended release omeprazole 20 mg capsule,delayed 20 mg PO BID #180 caps 01/27/22 06/16/22 Rx release gabapentin 300 mg capsule 300 mg PO BID #180 caps 03/07/22 06/16/22 Rx insulin aspart U-100 100 unit/mL See Rx Instructions .Route 04/11/22 06/16/22 Rx (3 mL) subcutaneous pen (Novolog .COMPLEX #45 mL FlexPen U-100 Insulin aspart) magnesium oxide 500 mg tablet 500 mg PO BID #60 tabs 04/11/22 06/16/22 Rx acetone (urine) test (Ketone Urine #50 ea 04/15/22 05/27/22 Rx Test strips) atorvastatin 20 mg tablet 20 mg PO QAM #90 tabs 05/27/22 06/16/22 Rx cyanocobalamin (vitamin B-12) 1,000 mcg PO QAM #30 tabs 05/27/22 06/16/22 Rx 1,000 mcg tablet ferrous sulfate 324 mg (65 mg 324 mg PO .QSUN 06/16/22 06/16/22 History iron) tablet,delayed release insulin glargine U-300 conc 300 48 unit subcut BID 06/16/22 06/16/22 History unit/mL (3 mL) subcutaneous pen (Toujeo Max U-300 SoloStar) Patient History Medical History Asthma Depression Diabetes mellitus, type 2 GERD (gastroesophageal reflux disease) Hypercholesterolemia Hypertension, benign essential, goal below 140/90 Hypomagnesemia Itch Metabolic acidosis Nephropathy Peripheral neuropathy Temporomandibular joint disorder mild, no bite block Surgical History History of wisdom tooth extraction Family History Father Diabetes Other No family history of adverse response to anesthesia Denies family history of Ovarian cancer Prostate cancer Myocardial infarction Breast cancer Colorectal cancer Social History Smoking Status: Former smoker Second Hand Exposure: No; Do You Dip or Chew Tobacco: No; Hx Alcohol Use: Yes Alcohol type: hard liquor Hx Substance Use: No Preferred Language: Slovak Communication Ability: Effective 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 Other Information That Helps Us Care for You: No Feels Safe at Home: Yes Safety Concerns: Feels Safe At This Time Assistive Devices: Contacts Review of Systems Review of Systems: All systems reviewed & are unremarkable except as noted in HPI & below Physical Exam Constitutional: well developed; no acute distress Eyes: + anicteric sclerae; no corneal abnormality ENMT: Mouth: no oral mucosal abnormality and oral mucous membranes not dry Neck: normal visual inspection and trachea midline Respiratory: normal respiratory effort Auscultation: lungs clear to auscultation bilaterally Cardiovascular: Rate/Rhythm: regular rate Heart Sounds: normal S1 and normal S2 Extremities: + pedal edema Musculoskeletal: Extremities: no cyanosis and no clubbing Skin: normal turgor; no lesions Neurologic: Motor/Sensory: no tremor and no asterixis Psychiatric: Orientation: alert and oriented x 3 Results & Data ([facility]) Vital Signs (Past 12 Hours) Vital Signs Temp Pulse Pulse Resp BP BP BP 06/17/22 08:05 36.9 C 114 H 20 143/77 H 06/17/22 00:00 95 H 06/17/22 03:03 36.5 C 101 H 20 151/75 H 06/16/22 22:53 36.6 C 96 H 20 148/79 H 06/16/22 21:14 36.8 C 93 H 169/84 H 06/16/22 20:30 88 21 157/84 H Pulse Ox O2 Del Method 06/17/22 08:05 96 Room Air 06/17/22 00:00 06/17/22 03:03 96 Room Air 06/16/22 22:53 96 Room Air 06/16/22 21:14 97 Room Air 06/16/22 20:30 Laboratory Results Laboratory Results - last 24 hr 06/16/22 06/16/22 06/16/22 14:02 14:02 14:02 WBC 11.55 H RBC 4.18 L Hgb 10.4 L POC Hgb Hct 32.1 L POC Hct MCV 76.8 L MCH 24.9 L MCHC 32.4 RDW Std Deviation 44.6 RDW Coeff of Lissett 16.0 H Plt Count 254 MPV 10.1 Immature Gran % (Auto) 0.5 Neut % (Auto) 70.5 Lymph % (Auto) 15.4 [place] % (Auto) 11.0 Eos % (Auto) 1.8 Baso % (Auto) 0.8 Neut # (Auto) 8.14 H Lymph # (Auto) 1.78 [place] # (Auto) 1.27 H Eos # (Auto) 0.21 Baso # (Auto) 0.09 Immature Gran # (Auto) 0.06 PT 11.2 INR 1.1 APTT 21.2 PTT Ratio 0.8 D-Dimer 1220 H* VBG pH VBG pCO2 VBG pO2 VBG HCO3 VBG O2 Saturation VBG Base Excess POC Sodium Sodium 130 L POC Potassium Potassium 5.9 H POC Chloride Chloride 97 L Carbon Dioxide 19 L POC Total CO2 Anion Gap 14 H POC Anion Gap POC BUN BUN 26 H Creatinine 1.33 POC Creatinine Est Cr Clr Drug Dosing 78.1 Est GFR ( Amer) 70.7 Est GFR (Non-Af Amer) 61.0 BUN/Creatinine Ratio 19.5 Glucose 255 H POC Glucose POC Glucose (other) Lactate Calcium 9.3 POC Ioniz Calcium Shirley Phosphorus Magnesium 1.2 L Total Bilirubin 1.0 Direct Bilirubin 0.2 AST 29 ALT 17 Alkaline Phosphatase 124 H Troponin I High Sens 5.2 Total Protein 7.6 Albumin 4.0 Lipase 34 Urine Color Urine Appearance Urine pH Ur Specific [place] Urine Protein Urine Glucose (UA) Urine Ketones Urine Blood Urine Nitrite Urine Bilirubin Urine Urobilinogen Ur Leukocyte Esterase Urine WBC (Auto) Urine RBC (Auto) U Hyaline Cast (Auto) U Epithel Cells (Auto) Urine Bacteria (Auto) SARS-CoV-2 (PCR) Influenza Type A (PCR) Influenza Type B (PCR) RSV (RT-PCR) 06/16/22 06/16/22 06/16/22 14:05 14:18 15:45 WBC RBC Hgb POC Hgb 11.9 L Hct POC Hct 35 L MCV MCH MCHC RDW Std Deviation RDW Coeff of [place] Plt Count MPV Immature Gran % (Auto) Neut % (Auto) Lymph % (Auto) [place] % (Auto) Eos % (Auto) Baso % (Auto) Neut # (Auto) Lymph # (Auto) [place] # (Auto) Eos # (Auto) Baso # (Auto) Immature Gran # (Auto) PT INR APTT PTT Ratio D-Dimer VBG pH 7.38 VBG pCO2 31 L VBG pO2 50 VBG HCO3 18 VBG O2 Saturation 81.7 VBG Base Excess -5.7 POC Sodium 131 L Sodium POC Potassium 5.9 H Potassium POC Chloride 99 L Chloride Carbon Dioxide POC Total CO2 22 L Anion Gap POC Anion Gap 17.0 POC BUN 27 H BUN Creatinine POC Creatinine 1.4 H Est Cr Clr Drug Dosing Est GFR ( Amer) Est GFR (Non-Af Amer) BUN/Creatinine Ratio Glucose POC Glucose POC Glucose (other) 252 H Lactate Calcium POC Ioniz Calcium Shirley 1.16 Phosphorus Magnesium Total Bilirubin Direct Bilirubin AST ALT Alkaline Phosphatase Troponin I High Sens Total Protein Albumin Lipase Urine Color Urine Appearance Urine pH Ur Specific [place] Urine Protein Urine Glucose (UA) Urine Ketones Urine Blood Urine Nitrite Urine Bilirubin Urine Urobilinogen Ur Leukocyte Esterase Urine WBC (Auto) Urine RBC (Auto) U Hyaline Cast (Auto) U Epithel Cells (Auto) Urine Bacteria (Auto) SARS-CoV-2 (PCR) NEGATIVE Influenza Type A (PCR) Negative Influenza Type B (PCR) Negative RSV (RT-PCR) Negative 06/16/22 06/16/22 06/16/22 16:12 16:39 17:48 WBC RBC Hgb POC Hgb Hct POC Hct MCV MCH MCHC RDW Std Deviation RDW Coeff of [place] Plt Count MPV Immature Gran % (Auto) Neut % (Auto) Lymph % (Auto) [place] % (Auto) Eos % (Auto) Baso % (Auto) Neut # (Auto) Lymph # (Auto) [place] # (Auto) Eos # (Auto) Baso # (Auto) Immature Gran # (Auto) PT INR APTT PTT Ratio D-Dimer VBG pH VBG pCO2 VBG pO2 VBG HCO3 VBG O2 Saturation VBG Base Excess POC Sodium Sodium POC Potassium Potassium POC Chloride Chloride Carbon Dioxide POC Total CO2 Anion Gap POC Anion Gap POC BUN BUN Creatinine POC Creatinine Est Cr Clr Drug Dosing Est GFR ( Amer) Est GFR (Non-Af Amer) BUN/Creatinine Ratio Glucose POC Glucose 284 H 258 H POC Glucose (other) Lactate 4.6 H* Calcium POC Ioniz Calcium Shirley Phosphorus Magnesium Total Bilirubin Direct Bilirubin AST ALT Alkaline Phosphatase Troponin I High Sens Total Protein Albumin Lipase Urine Color Urine Appearance Urine pH Ur Specific [place] Urine Protein Urine Glucose (UA) Urine Ketones Urine Blood Urine Nitrite Urine Bilirubin Urine Urobilinogen Ur Leukocyte Esterase Urine WBC (Auto) Urine RBC (Auto) U Hyaline Cast (Auto) U Epithel Cells (Auto) Urine Bacteria (Auto) SARS-CoV-2 (PCR) Influenza Type A (PCR) Influenza Type B (PCR) RSV (RT-PCR) 06/16/22 06/16/22 06/16/22 18:01 18:01 18:01 WBC RBC Hgb POC Hgb Hct POC Hct MCV MCH MCHC RDW Std Deviation RDW Coeff of [place] Plt Count MPV Immature Gran % (Auto) Neut % (Auto) Lymph % (Auto) [place] % (Auto) Eos % (Auto) Baso % (Auto) Neut # (Auto) Lymph # (Auto) [place] # (Auto) Eos # (Auto) Baso # (Auto) Immature Gran # (Auto) PT INR APTT PTT Ratio D-Dimer VBG pH 7.35 L VBG pCO2 VBG pO2 VBG HCO3 VBG O2 Saturation VBG Base Excess POC Sodium Sodium 127 L POC Potassium Potassium 7.1 H* D POC Chloride Chloride 98 Carbon Dioxide 19 L POC Total CO2 Anion Gap 10 POC Anion Gap POC BUN BUN 28 H Creatinine 1.43 H POC Creatinine Est Cr Clr Drug Dosing 72.6 Est GFR ( Amer) 64.8 Est GFR (Non-Af Amer) 55.9 BUN/Creatinine Ratio 19.6 Glucose 273 H POC Glucose POC Glucose (other) Lactate 4.2 H* Calcium 9.1 POC Ioniz Calcium Shirley Phosphorus Magnesium Total Bilirubin Direct Bilirubin AST ALT Alkaline Phosphatase Troponin I High Sens Total Protein Albumin Lipase Urine Color Urine Appearance Urine pH Ur Specific [place] Urine Protein Urine Glucose (UA) Urine Ketones Urine Blood Urine Nitrite Urine Bilirubin Urine Urobilinogen Ur Leukocyte Esterase Urine WBC (Auto) Urine RBC (Auto) U Hyaline Cast (Auto) U Epithel Cells (Auto) Urine Bacteria (Auto) SARS-CoV-2 (PCR) Influenza Type A (PCR) Influenza Type B (PCR) RSV (RT-PCR) 06/16/22 06/16/22 06/16/22 18:26 19:29 19:53 WBC RBC Hgb POC Hgb Hct POC Hct MCV MCH MCHC RDW Std Deviation RDW Coeff of [place] Plt Count MPV Immature Gran % (Auto) Neut % (Auto) Lymph % (Auto) [place] % (Auto) Eos % (Auto) Baso % (Auto) Neut # (Auto) Lymph # (Auto) [place] # (Auto) Eos # (Auto) Baso # (Auto) Immature Gran # (Auto) PT INR APTT PTT Ratio D-Dimer VBG pH VBG pCO2 VBG pO2 VBG HCO3 VBG O2 Saturation VBG Base Excess POC Sodium Sodium Cancelled POC Potassium Potassium Cancelled POC Chloride Chloride Cancelled Carbon Dioxide Cancelled POC Total CO2 Anion Gap Cancelled POC Anion Gap POC BUN BUN Cancelled Creatinine Cancelled POC Creatinine Est Cr Clr Drug Dosing Cancelled Est GFR ( Amer) Cancelled Est GFR (Non-Af Amer) Cancelled BUN/Creatinine Ratio Cancelled Glucose Cancelled POC Glucose 277 H POC Glucose (other) Lactate Calcium Cancelled POC Ioniz Calcium Shirley Phosphorus Magnesium Total Bilirubin Direct Bilirubin AST ALT Alkaline Phosphatase Troponin I High Sens Total Protein Albumin Lipase Urine Color Yellow Urine Appearance Clear Urine pH 5.0 Ur Specific [place] > 1.045 H Urine Protein 2+ H Urine Glucose (UA) Negative Urine Ketones Trace H Urine Blood Trace H Urine Nitrite Negative Urine Bilirubin Negative Urine Urobilinogen Negative Ur Leukocyte Esterase Negative Urine WBC (Auto) 1-5 Urine RBC (Auto) 5-10 H U Hyaline Cast (Auto) 5-10 H U Epithel Cells (Auto) 5-10 H Urine Bacteria (Auto) Negative SARS-CoV-2 (PCR) Influenza Type A (PCR) Influenza Type B (PCR) RSV (RT-PCR) 06/16/22 06/16/22 06/16/22 21:03 21:40 21:40 WBC RBC Hgb POC Hgb Hct POC Hct MCV MCH MCHC RDW Std Deviation RDW Coeff of [place] Plt Count MPV Immature Gran % (Auto) Neut % (Auto) Lymph % (Auto) [place] % (Auto) Eos % (Auto) Baso % (Auto) Neut # (Auto) Lymph # (Auto) [place] # (Auto) Eos # (Auto) Baso # (Auto) Immature Gran # (Auto) PT INR APTT PTT Ratio D-Dimer VBG pH 7.33 L VBG pCO2 VBG pO2 VBG HCO3 VBG O2 Saturation VBG Base Excess POC Sodium Sodium 131 L POC Potassium Potassium 5.1 D POC Chloride Chloride 100 Carbon Dioxide 19 L POC Total CO2 Anion Gap 12 H POC Anion Gap POC BUN BUN 26 H Creatinine 1.33 POC Creatinine Est Cr Clr Drug Dosing 79.0 Est GFR ( Amer) 70.7 Est GFR (Non-Af Amer) 61.0 BUN/Creatinine Ratio 19.5 Glucose 216 H POC Glucose 211 H POC Glucose (other) Lactate Calcium 9.1 POC Ioniz Calcium Shirley Phosphorus 2.9 Magnesium 1.8 Total Bilirubin Direct Bilirubin AST ALT Alkaline Phosphatase Troponin I High Sens Total Protein Albumin Lipase Urine Color Urine Appearance Urine pH Ur Specific [place] Urine Protein Urine Glucose (UA) Urine Ketones Urine Blood Urine Nitrite Urine Bilirubin Urine Urobilinogen Ur Leukocyte Esterase Urine WBC (Auto) Urine RBC (Auto) U Hyaline Cast (Auto) U Epithel Cells (Auto) Urine Bacteria (Auto) SARS-CoV-2 (PCR) Influenza Type A (PCR) Influenza Type B (PCR) RSV (RT-PCR) 06/16/22 06/16/22 06/17/22 22:01 23:01 00:03 WBC RBC Hgb POC Hgb Hct POC Hct MCV MCH MCHC RDW Std Deviation RDW Coeff of [place] Plt Count MPV Immature Gran % (Auto) Neut % (Auto) Lymph % (Auto) [place] % (Auto) Eos % (Auto) Baso % (Auto) Neut # (Auto) Lymph # (Auto) [place] # (Auto) Eos # (Auto) Baso # (Auto) Immature Gran # (Auto) PT INR APTT PTT Ratio D-Dimer VBG pH VBG pCO2 VBG pO2 VBG HCO3 VBG O2 Saturation VBG Base Excess POC Sodium Sodium POC Potassium Potassium POC Chloride Chloride Carbon Dioxide POC Total CO2 Anion Gap POC Anion Gap POC BUN BUN Creatinine POC Creatinine Est Cr Clr Drug Dosing Est GFR ( Amer) Est GFR (Non-Af Amer) BUN/Creatinine Ratio Glucose POC Glucose 250 H 221 H 188 H POC Glucose (other) Lactate Calcium POC Ioniz Calcium Shirley Phosphorus Magnesium Total Bilirubin Direct Bilirubin AST ALT Alkaline Phosphatase Troponin I High Sens Total Protein Albumin Lipase Urine Color Urine Appearance Urine pH Ur Specific [place] Urine Protein Urine Glucose (UA) Urine Ketones Urine Blood Urine Nitrite Urine Bilirubin Urine Urobilinogen Ur Leukocyte Esterase Urine WBC (Auto) Urine RBC (Auto) U Hyaline Cast (Auto) U Epithel Cells (Auto) Urine Bacteria (Auto) SARS-CoV-2 (PCR) Influenza Type A (PCR) Influenza Type B (PCR) RSV (RT-PCR) 06/17/22 06/17/22 06/17/22 00:57 01:44 01:44 WBC RBC Hgb POC Hgb Hct POC Hct MCV MCH MCHC RDW Std Deviation RDW Coeff of [place] Plt Count MPV Immature Gran % (Auto) Neut % (Auto) Lymph % (Auto) [place] % (Auto) Eos % (Auto) Baso % (Auto) Neut # (Auto) Lymph # (Auto) [place] # (Auto) Eos # (Auto) Baso # (Auto) Immature Gran # (Auto) PT INR APTT PTT Ratio D-Dimer VBG pH 7.45 H VBG pCO2 VBG pO2 VBG HCO3 VBG O2 Saturation VBG Base Excess POC Sodium Sodium 133 L POC Potassium Potassium 4.4 POC Chloride Chloride 104 Carbon Dioxide 23 POC Total CO2 Anion Gap 6 POC Anion Gap POC BUN BUN 24 H Creatinine 1.10 POC Creatinine Est Cr Clr Drug Dosing 95.5 Est GFR ( Amer) 89.0 Est GFR (Non-Af Amer) 76.8 BUN/Creatinine Ratio 21.8 H Glucose 154 H POC Glucose 180 H POC Glucose (other) Lactate Calcium 8.4 L POC Ioniz Calcium Shirley Phosphorus 2.5 Magnesium 1.6 L Total Bilirubin Direct Bilirubin AST ALT Alkaline Phosphatase Troponin I High Sens Total Protein Albumin Lipase Urine Color Urine Appearance Urine pH Ur Specific [place] Urine Protein Urine Glucose (UA) Urine Ketones Urine Blood Urine Nitrite Urine Bilirubin Urine Urobilinogen Ur Leukocyte Esterase Urine WBC (Auto) Urine RBC (Auto) U Hyaline Cast (Auto) U Epithel Cells (Auto) Urine Bacteria (Auto) SARS-CoV-2 (PCR) Influenza Type A (PCR) Influenza Type B (PCR) RSV (RT-PCR) 06/17/22 06/17/22 06/17/22 01:58 02:59 04:00 WBC RBC Hgb POC Hgb Hct POC Hct MCV MCH MCHC RDW Std Deviation RDW Coeff of [place] Plt Count MPV Immature Gran % (Auto) Neut % (Auto) Lymph % (Auto) [place] % (Auto) Eos % (Auto) Baso % (Auto) Neut # (Auto) Lymph # (Auto) [place] # (Auto) Eos # (Auto) Baso # (Auto) Immature Gran # (Auto) PT INR APTT PTT Ratio D-Dimer VBG pH VBG pCO2 VBG pO2 VBG HCO3 VBG O2 Saturation VBG Base Excess POC Sodium Sodium POC Potassium Potassium POC Chloride Chloride Carbon Dioxide POC Total CO2 Anion Gap POC Anion Gap POC BUN BUN Creatinine POC Creatinine Est Cr Clr Drug Dosing Est GFR ( Amer) Est GFR (Non-Af Amer) BUN/Creatinine Ratio Glucose POC Glucose 157 H 157 H 168 H POC Glucose (other) Lactate Calcium POC Ioniz Calcium Shirley Phosphorus Magnesium Total Bilirubin Direct Bilirubin AST ALT Alkaline Phosphatase Troponin I High Sens Total Protein Albumin Lipase Urine Color Urine Appearance Urine pH Ur Specific [place] Urine Protein Urine Glucose (UA) Urine Ketones Urine Blood Urine Nitrite Urine Bilirubin Urine Urobilinogen Ur Leukocyte Esterase Urine WBC (Auto) Urine RBC (Auto) U Hyaline Cast (Auto) U Epithel Cells (Auto) Urine Bacteria (Auto) SARS-CoV-2 (PCR) Influenza Type A (PCR) Influenza Type B (PCR) RSV (RT-PCR) 06/17/22 06/17/22 06/17/22 06:02 06:04 06:10 WBC RBC Hgb POC Hgb Hct POC Hct MCV MCH MCHC RDW Std Deviation RDW Coeff of [place] Plt Count MPV Immature Gran % (Auto) Neut % (Auto) Lymph % (Auto) [place] % (Auto) Eos % (Auto) Baso % (Auto) Neut # (Auto) Lymph # (Auto) [place] # (Auto) Eos # (Auto) Baso # (Auto) Immature Gran # (Auto) PT INR APTT PTT Ratio D-Dimer VBG pH 7.46 H VBG pCO2 VBG pO2 VBG HCO3 VBG O2 Saturation VBG Base Excess POC Sodium Sodium 136 POC Potassium Potassium 4.4 POC Chloride Chloride 106 Carbon Dioxide 22 POC Total CO2 Anion Gap 8 POC Anion Gap POC BUN BUN 21 Creatinine 1.03 POC Creatinine Est Cr Clr Drug Dosing 102.0 Est GFR ( Amer) 96.3 Est GFR (Non-Af Amer) 83.1 BUN/Creatinine Ratio 20.4 H Glucose 169 H POC Glucose 163 H POC Glucose (other) Lactate Calcium 8.7 POC Ioniz Calcium Shirley Phosphorus 2.6 Magnesium 1.5 L Total Bilirubin Direct Bilirubin AST ALT Alkaline Phosphatase Troponin I High Sens Total Protein Albumin Lipase Urine Color Urine Appearance Urine pH Ur Specific [place] Urine Protein Urine Glucose (UA) Urine Ketones Urine Blood Urine Nitrite Urine Bilirubin Urine Urobilinogen Ur Leukocyte Esterase Urine WBC (Auto) Urine RBC (Auto) U Hyaline Cast (Auto) U Epithel Cells (Auto) Urine Bacteria (Auto) SARS-CoV-2 (PCR) Influenza Type A (PCR) Influenza Type B (PCR) RSV (RT-PCR) 06/17/22 06/17/22 06:10 07:58 WBC RBC Hgb POC Hgb Hct POC Hct MCV MCH MCHC RDW Std Deviation RDW Coeff of [place] Plt Count MPV Immature Gran % (Auto) Neut % (Auto) Lymph % (Auto) [place] % (Auto) Eos % (Auto) Baso % (Auto) Neut # (Auto) Lymph # (Auto) [place] # (Auto) Eos # (Auto) Baso # (Auto) Immature Gran # (Auto) PT INR APTT PTT Ratio D-Dimer VBG pH VBG pCO2 VBG pO2 VBG HCO3 VBG O2 Saturation VBG Base Excess POC Sodium Sodium POC Potassium Potassium POC Chloride Chloride Carbon Dioxide POC Total CO2 Anion Gap POC Anion Gap POC BUN BUN Creatinine POC Creatinine Est Cr Clr Drug Dosing Est GFR ( Amer) Est GFR (Non-Af Amer) BUN/Creatinine Ratio Glucose POC Glucose 199 H POC Glucose (other) Lactate 2.4 H* Calcium POC Ioniz Calcium Shirley Phosphorus Magnesium Total Bilirubin Direct Bilirubin AST ALT Alkaline Phosphatase Troponin I High Sens Total Protein Albumin Lipase Urine Color Urine Appearance Urine pH Ur Specific [place] Urine Protein Urine Glucose (UA) Urine Ketones Urine Blood Urine Nitrite Urine Bilirubin Urine Urobilinogen Ur Leukocyte Esterase Urine WBC (Auto) Urine RBC (Auto) U Hyaline Cast (Auto) U Epithel Cells (Auto) Urine Bacteria (Auto) SARS-CoV-2 (PCR) Influenza Type A (PCR) Influenza Type B (PCR) RSV (RT-PCR) Diagnostic Findings CT chest: The heart is upper limits of normal in size. No pericardial effusion. Moderate coronary artery calcifications. Unremarkable thoracic aorta. Satisfactory opacification of the pulmonary arterial tree. No pulmonary emboli are identified. 8 mm hypodense left-sided thyroid nodule. No lymphadenopathy identified within the chest. No pneumothorax, pleural effusion, airspace consolidation or overt pulmonary edema. No suspicious pulmonary nodules or masses are identified. Central airways are patent. Contracted gallbladder with cholelithiasis. Nonspecific wall thickening surrounds the duodenum and mica hepatis. Precaval 1.4 cm lymph node. Cirrhotic liver with hepatic steatosis. Unremarkable soft tissues. Chronic appearing left clavicular fracture. Healing subacute fractures of the anterior left second through sixth ribs. Ill-defined sclerosis of the mid sternal body may also represent a healing subacute fracture. Additional healing subacute anterior right-sided rib fractures. IMPRESSION: 1. No pulmonary emboli are identified. 2. Healing subacute bilateral anterior rib fractures. Ill-defined sclerosis of the sternal body is also likely related to healing subacute fractures, likely secondary to prior resuscitation. 3. Contracted gallbladder with cholelithiasis. There is nonspecific wall thickening of the mica hepatis and adjacent to the proximal duodenum. This finding may be secondary to the patient's cirrhotic liver however should be correlated clinically to exclude a nonspecific duodenitis. 4. Cirrhotic liver. PG Care Time/CCT Total # of Minutes Spent Total Time Spent with Patient: Total time spent is greater than 50% in coordination of care (as documented) at patient's floor/unit and/or counseling patient: Coding Level of Care Code INP/OBS CONSULT LVL 4, 60 MIN Diagnoses Hypomagnesemia E83.42 Metabolic acidosis E87.20 Acute hyperkalemia E87.5
[2022-06-17] MEDS: buPROPion XL 300 MG TABCR PO SCH (08:23)
[2022-06-17] MEDS: ATORVASTATIN 20 MG TAB PO SCH (08:23)
[2022-06-17] MEDS: GABAPENTIN 300 MG CAP PO SCH ×2 (08:23→20:08)
[2022-06-17 10:24] LABS: Calcium 8.8 mg/dl (8.5-10.1); Magnesium 1.4 mg/dl (1.7-2.4); Potassium 4.3 mmol/L (3.5-5.1)
[2022-06-17 10:30] LABS: BUN Creatinine Ratio 19.1 (10-20); Creatinine Clr Calc Pharmacy 111.8 ml/min; Est GFR (African American) 107.6 ml/min; Est GFR (Non-African American) 92.8 ml/min; Phosphorus 2.3 mg/dl (2.5-4.9)
[2022-06-17] MEDS ORDERED: LANTUS PER UNIT CHARGE SQ SCH (11:15)
[2022-06-17] MEDS ORDERED: DC IV INSULIN INFUSION 1 EA DEVI ONE (11:25)
[2022-06-17] MEDS ORDERED: LANTUS PER UNIT CHARGE SQ ONE ×3 (11:30→21:15)
--- NOTE | 2022-06-17 11:46 | Pharmacy Report ---
Pharmacy Glycemic Short Note 2 - Date of Service June 17, 2022 - Glycemic Short BSG Results (Last 24 hours): 06/16/22 06/16/22 06/16/22 14:02 14:05 16:39 Glucose 255 H POC Glucose 284 H POC Glucose (other) 252 H 06/16/22 06/16/22 06/16/22 17:48 18:01 19:29 Glucose 273 H Cancelled POC Glucose 258 H POC Glucose (other) 06/16/22 06/16/22 06/16/22 19:53 21:03 21:40 Glucose 216 H POC Glucose 277 H 211 H POC Glucose (other) 06/16/22 06/16/22 06/17/22 22:01 23:01 00:03 Glucose POC Glucose 250 H 221 H 188 H POC Glucose (other) 06/17/22 06/17/22 06/17/22 00:57 01:44 01:58 Glucose 154 H POC Glucose 180 H 157 H POC Glucose (other) 06/17/22 06/17/22 06/17/22 02:59 04:00 06:02 Glucose POC Glucose 157 H 168 H 163 H POC Glucose (other) 06/17/22 06/17/22 06/17/22 06:04 07:58 08:59 Glucose 169 H POC Glucose 199 H 186 H POC Glucose (other) 06/17/22 06/17/22 06/17/22 09:46 09:59 11:01 Glucose 190 H POC Glucose 204 H 209 H POC Glucose (other) OUTPATIENT ANTIDIABETIC REGIMEN: * Toujeo 60 units SQ qAM * Novolog ACHS (carb ratio: 8 gm/unit, correction factor: 25mg/dL/unit) * metformin 1gm PO BID HbA1C: 7.4% (05/20/22) ASSESSMENT: * Patient is a 51 YOM previously known to the glycemic pharmacy service when he was hospitalized in March s/p PEA arrest and DKA. Now presents with sinus bradycardia and metabolic derangements as well as hyperglycemia (not in DKA). Pharmacy consulted to assist with glycemic management while admitted. * Insulin infusion (hyperglycemia protocol) initiated last evening after patient received a 5 unit IV regular insulin bolus and a 10 unit bolus in the setting of hyperkalemia. Drip infusing overnight into this AM at 3.8 unit/hr with rapid titration this AM to 6.6 unit/hr. Pt has been receiving D5NS @ 200mL/hr and NPO. BSGs within goal. Potassium has decreased to 4.3mmol/L on most recent BMP. * D/w hospitalist -- will begin to transition to subQ this afternoon. Lantus 45 unit SQ X 1 now (~ 75% of home dose). Plan to overlap with insulin drip for at least 2h and until rate 3unit/hr or less or until hold parameters met. Likely will add an HS scale pending BSG if drip comes off. D/c dextrose-containing IVF and diet ordered for lunch. Novolog ACHS 25/8 to begin based on prior admission data and home regimen. Will add overnight checks if drip is weaned. PLAN FOR INPATIENT GLYCEMIC CONTROL: * Hold outpatient oral diabetes medications * Basal insulin * Lantus 45 units SQ X 1 * Bolus insulin * NovoLog per scale ACHS or Q6hrs while NPO * Goal Range: Low 110 mg/dL - High 140 mg/dL * Correction Factor: 25 mg/dL/unit * Nutritional / Prandial insulin per carb ratio of 1 unit per 8 grams CHO consumed
[2022-06-17] MEDS: MAGNESIUM OXIDE 400 MG TAB PO SCH ×2 (12:20→20:09)
[2022-06-17] MEDS: ACETAMINOPHEN 325 MG TAB PO PRN (14:48)
--- NOTE | 2022-06-17 15:21 | Electrocardiogram Report ---
Test Reason : Blood Pressure : / mmHG Vent. Rate : 050 BPM Atrial Rate : 040 BPM P-R Int : 000 ms QRS Dur : 084 ms QT Int : 414 ms P-R-T Axes : 000 068 029 degrees QTc Int : 377 ms Possible Junctional bradycardia with premature junctional beats Poor R wave progression, consider anterior CA vs. lead placement vs. LVH Abnormal ECG When compared with ECG of 16-JUN-2022 14:07, No significant change Confirmed by Mauricio Griffith ([id number]) on 06/17/2022 3:21:05 PM Referred By: REFERRED SELF Confirmed By:Mauricio Griffith
--- NOTE | 2022-06-17 15:25 | Electrocardiogram Report ---
Test Reason : Blood Pressure : / mmHG Vent. Rate : 073 BPM Atrial Rate : 073 BPM P-R Int : 192 ms QRS Dur : 090 ms QT Int : 390 ms P-R-T Axes : 025 055 025 degrees QTc Int : 429 ms Normal sinus rhythm Cannot rule out Anterior infarct (cited on or before 16-JUN-2022) Abnormal ECG When compared with ECG of 16-JUN-2022 17:05, (unconfirmed) Sinus rhythm has replaced Junctional bradycardia QT has lengthened Confirmed by Mauricio Griffith ([id number]) on 06/17/2022 3:24:46 PM Referred By: REFERRED SELF Confirmed By:Mauricio Griffith
--- NOTE | 2022-06-17 15:55 | Hospitalist Progress Note ---
Date of Service June 17, 2022 Assessment & Plan (1) Acute hyperglycemia: Plan: Possible early stage DKA Question is he absorbing his Tresiba given slowly increasing doses over time without a good explanation ie. He denies diet contributing towards this., I advised the patient to follow-up with network specialist, he is a good candidate for insulin pump A1c of 7.4 Home regimen: Tresiba 48 units twice daily, NovoLo correction factor and 3 carb ratio, metformin 1000mg PO BID -We will stop insulin drip within next 24 hours, to overlap with basal bolus regimen, started on Lantus 45 units twice daily Suggest metformin is discontinued on discharge due to persistently high lactate levels. (2) Sinus bradycardia: Plan: Junctional and sinus bradycardia. No complete heart block on EKG. Possibly secondary electrolyte derangements as per last admission in the setting of diltiazem and metoprolol use. Discontinued both AV adore blocking agents yesterday. Resume metoprolol today and possibly diltiazem tomorrow (3) Hypomagnesemia: Plan: Possibly secondary to PPI and metformin Appreciate nephrology consult Post PPI and metformin has been discontinued Magnesium oxide 800 mg twice daily (4) Acute hyperkalemia: Plan: As per review of old labs patient had persistent hyperkalemia Stop valsartan. Given this is the second episode of hyperkalemia careful consideration also has to be placed on restarting an ACEi/ARB. Consider calcium channel ashley instead to manage his blood pressure. (5) Benign essential hypertension: Plan: Holding valsartan due to hyperkalemia Holding diltiazem due to junctional and sinus bradycardia Hydralazine 10 mg IV every 4 hourly as needed for systolic blood pressure greater than 180 (6) Hypercholesterolemia: Plan: Continue atorvastatin 20 mg p.o. daily (7) Liver cirrhosis: Plan: Seen on CT Please arrange GI follow up on discharge (8) B12 deficiency: Plan: Continue supplementation for this Plan VTE prophylaxis - heparin 5000 units SQ q8h Diet - NPO Disposition - admit to PCU Admission and Anticipated Discharge Date Admission Date: June 16, 2022 Subjective Doing better today, switch from insulin drip to basal bolus regimen, hypomagnesemia, replace, hyperkalemia has resolved, started on diabetic diet Physical Exam Constitutional: WD/WN, vitals as above Eyes: PERRL, conjunctivae normal, anicteric sclerae ENMT: external ear and nose normal, oropharynx normal Respiratory: normal respiratory effort, lungs clear to auscultation Cardiovascular: Rate/Rhythm: + bradycardic and + irregularly irregular Heart Sounds: no murmur Vessels: radial pulses present Extremities: normal capillary refill and + pedal edema (Trace bilateral equal pitting); no calf tenderness Gastrointestinal (Abdomen): normal bowel sounds, soft, nontender, no hepatosplenomegaly Musculoskeletal: no cyanosis or clubbing, extremities motor strength 5/5 Skin: no rashes, warm and dry Neurologic: moves all extremities and awake; not confused Psychiatric: A+Ox3, euthymic affect Genitourinary: no CVA tenderness Results & Data Results & Data ([facility]) Vital Signs (Past 12 Hours) Vital Signs Temp Pulse Pulse Resp BP Pulse Ox O2 Del Method 06/17/22 15:42 36.7 C 106 H 18 145/85 H 97 Room Air 06/17/22 14:09 111 H 06/17/22 06:02 114 H 06/17/22 11:40 36.6 C 112 H 18 155/90 H 97 Room Air 06/17/22 08:05 36.9 C 114 H 20 143/77 H 96 Room Air PG Care Time/CCT Total # of Minutes Spent Total Time Spent with Patient: Total time spent is greater than 50% in coordination of care (as documented) at patient's floor/unit and/or counseling patient: Coding Level of Care Code 10722 SUB INP/OBS CARE 3/50MIN Diagnoses Acute hyperglycemia R73.9 Sinus bradycardia R00.1 Hypomagnesemia E83.42 Acute hyperkalemia E87.5 Benign essential hypertension I10 Hypercholesterolemia E78.00 Liver cirrhosis K74.60 B12 deficiency E53.8
[2022-06-17] MEDS: METOPROLOL SUCC 25MG EXT REL TAB PO SCH (17:11)
[2022-06-17] MEDS: INSULIN REGULAR 250 UNITS in SODIUM CHLORIDE 0.9% 247.5 ML IV SCH (20:34)
[2022-06-18] MEDS: INSULIN ASPART PER UNIT SC SCH ×4 (00:03→11:38)
[2022-06-18] MEDS: ACETAMINOPHEN 325 MG TAB PO PRN (00:06)
[2022-06-18] MEDS: HEPARIN SOD 5,000 UNIT/0.5 ML VIAL SQ SCH ×2 (06:11→13:36)
[2022-06-18 07:17] LABS: Albumin Level 3.3 gm/dl (3.4-5.0); BUN Creatinine Ratio 11.7 (10-20); Calcium 9.1 mg/dl (8.5-10.1); Creatinine Clr Calc Pharmacy 110.6 ml/min; Est GFR (African American) 107.6 ml/min; Est GFR (Non-African American) 92.8 ml/min; Magnesium 1.2 mg/dl (1.7-2.4); Phosphorus 3.7 mg/dl (2.5-4.9); Potassium 4.3 mmol/L (3.5-5.1)
[2022-06-18] MEDS: buPROPion XL 300 MG TABCR PO SCH (08:06)
[2022-06-18] MEDS: GABAPENTIN 300 MG CAP PO SCH (08:06)
[2022-06-18] MEDS: METOPROLOL SUCC 25MG EXT REL TAB PO SCH (08:06)
[2022-06-18] MEDS: CYANOCOBALAMIN (B-12) 500 MCG TABLET PO SCH (08:07)
[2022-06-18] MEDS: MAGNESIUM OXIDE 400 MG TAB PO SCH (08:07)
[2022-06-18] MEDS: ATORVASTATIN 20 MG TAB PO SCH (08:07)
[2022-06-18] MEDS ORDERED: LANTUS PER UNIT CHARGE SQ SCH (09:00)
--- NOTE | 2022-06-18 09:21 | Pharmacy Report ---
Pharmacy Glycemic Short Note 2 - Date of Service June 18, 2022 - Glycemic Short BSG Results (Last 24 hours): 06/17/22 06/17/22 06/17/22 09:46 09:59 11:01 Glucose 190 H POC Glucose 204 H 209 H 06/17/22 06/17/22 06/17/22 12:02 13:01 14:05 Glucose POC Glucose 200 H 211 H 204 H 06/17/22 06/17/22 06/17/22 15:10 16:07 17:00 Glucose POC Glucose 173 H 148 H 124 H 06/17/22 06/17/22 06/17/22 18:05 18:58 20:01 Glucose POC Glucose 134 H 143 H 120 H 06/17/22 06/17/22 06/17/22 21:00 21:14 23:43 Glucose POC Glucose 106 H 106 H 198 H 06/18/22 06/18/22 06/18/22 03:51 05:46 07:33 Glucose 138 H POC Glucose 134 H 176 H OUTPATIENT ANTIDIABETIC REGIMEN: * Toujeo 60 units SQ qAM * Novolog ACHS (carb ratio: 8 gm/unit, correction factor: 25mg/dL/unit) * metformin 1gm PO BID HbA1C: 7.4% (05/20/22) ASSESSMENT: 06/18 * Insulin drip successfully weaned off yesterday, however, some BSG's have been above goal range since that time, ranging 106-198 mg/dL. * Will resume home dose Toujeo, with a scale to decrease if BSG lower or increase if BSG higher * Will slightly tighten Novolog for now - may require loosening in the future as stressors dissipate 06/17 * Patient is a 51 YOM previously known to the glycemic pharmacy service when he was hospitalized in March s/p PEA arrest and DKA. Now presents with sinus bradycardia and metabolic derangements as well as hyperglycemia (not in DKA). Pharmacy consulted to assist with glycemic management while admitted. * Insulin infusion (hyperglycemia protocol) initiated last evening after patient received a 5 unit IV regular insulin bolus and a 10 unit bolus in the setting of hyperkalemia. Drip infusing overnight into this AM at 3.8 unit/hr with rapid titration this AM to 6.6 unit/hr. Pt has been receiving D5NS @ 200mL/hr and NPO. BSGs within goal. Potassium has decreased to 4.3mmol/L on most recent BMP. * D/w hospitalist -- will begin to transition to subQ this afternoon. Lantus 45 unit SQ X 1 now (~ 75% of home dose). Plan to overlap with insulin drip for at least 2h and until rate 3unit/hr or less or until hold parameters met. Likely will add an HS scale pending BSG if drip comes off. D/c dextrose-containing IVF and diet ordered for lunch. Novolog ACHS 25/ to begin based on prior admission data and home regimen. Will add overnight checks if drip is weaned. PLAN FOR INPATIENT GLYCEMIC CONTROL: * Hold outpatient oral diabetes medications * Basal insulin * Lantus 50-70 units SC qAM - see MAR for details * Bolus insulin * NovoLog per scale ACHS or Q6hrs while NPO * Goal Range: Low 110 mg/dL - High 140 mg/dL * Correction Factor: 20 mg/dL/unit * Nutritional / Prandial insulin per carb ratio of 1 unit per 7 grams CHO co nsumed
[2022-06-18] MEDS: MAGNESIUM SULFATE / D5W 1 GM/100 ML BAG IV SCH ×3 (09:43→13:35)
--- NOTE | 2022-06-18 09:52 | Nephrology Progress Note ---
Date of Service June 18, 2022 Assessment & Plan (1) Hypomagnesemia: Plan: Serum magnesium 1.2 mg/dL this AM following replacement. Additional IV replacement ordered this AM. 3 gm MgSO4 now. Random urine sent for FeMg. Suspect omeprazole and metformin may be contributing. Advise discontinuation of metformin for now. If possible to discharge home today. I would like a follow up metabolic profile, including magnesium and phosphorus on Thursday. I will be happy to coordinate any additional IV replacement at the infusion center as needed. Discharge home on magnesium oxide 500 mg BID and add magnesium chloride 64 mg daily. (2) Metabolic acidosis: Plan: Predominately AG metabolic acidosis with improving lactic acidosis. Metformin appropriately held. This has improved. Close outpatient follow up will be required. Metformin discontinued. (3) Acute hyperkalemia: Plan: Improved. Hold valsartan. Close monitoring post discharge. (4) Hypophosphatemia: Plan: Slightly low on presentation. Low PO4 and Mg suggestive of possible underlying RTA. No glucosuria. Presentation certainly not diagnostic. Close outpatient follow up encouraged. Urine magnesium on random sample requested today. Continue PO magnesium replacement. Repeat PO4 with next blood work. Hold metformin. Avoid amiloride for now given recent hyperkalemia and pending additional evaluation for urine magnesium wasting. Admission and Anticipated Discharge Date Admission Date: June 16, 2022 Subjective No acute events overnight. Elliot feels well today. No complaints or concerns. He would really like to be discharged home. No chest pain or palpitations. No shortness of breath. Appetite is good. Review of Systems Review of Systems: All systems reviewed & are unremarkable except as noted in HPI & below Physical Exam Constitutional: well developed; no acute distress Eyes: + anicteric sclerae; no scleral abnormality and no corneal abnormality ENMT: Mouth: no oral mucosal abnormality and oral mucous membranes not dry Neck: normal visual inspection and trachea midline Respiratory: normal respiratory effort Auscultation: lungs clear to auscultation bilaterally Cardiovascular: Rate/Rhythm: regular rate Heart Sounds: normal S1 and normal S2 Extremities: + pedal edema Musculoskeletal: Extremities: no cyanosis and no clubbing Skin: normal turgor; no lesions Neurologic: Motor/Sensory: no tremor and no asterixis Psychiatric: Orientation: alert and oriented x 3 Results & Data ([facility]) Vital Signs (Past 12 Hours) Vital Signs Temp Pulse Pulse Resp BP BP Pulse Ox 02/01/23 07:47 36.4 C L 104 H 18 162/90 H 96 06/18/22 06:00 96 H 06/18/22 03:34 36.7 C 96 H 18 159/89 H 97 06/18/22 00:00 99 H 06/17/22 23:40 36.7 C 100 H 97 H 159/82 H 97 O2 Del Method 06/18/22 07:47 Room Air 06/18/22 06:00 06/18/22 03:34 Room Air 06/18/22 00:00 06/17/22 23:40 Room Air Laboratory Results Laboratory Results - last 24 hr 06/17/22 06/17/22 06/17/22 09:46 09:46 09:59 VBG pH 7.43 H Sodium 137 Potassium 4.3 Chloride 107 Carbon Dioxide 24 Anion Gap 6 BUN 18 Creatinine 0.94 Est Cr Clr Drug Dosing 111.8 Est GFR ( Amer) 107.6 Est GFR (Non-Af Amer) 92.8 BUN/Creatinine Ratio 19.1 Glucose 190 H POC Glucose 204 H Calcium 8.8 Phosphorus 2.3 L Magnesium 1.4 L Albumin 25-OH Vitamin D Total 06/17/22 06/17/22 06/17/22 11:01 12:02 13:01 VBG pH Sodium Potassium Chloride Carbon Dioxide Anion Gap BUN Creatinine Est Cr Clr Drug Dosing Est GFR ( Amer) Est GFR (Non-Af Amer) BUN/Creatinine Ratio Glucose POC Glucose 209 H 200 H 211 H Calcium Phosphorus Magnesium Albumin 25-OH Vitamin D Total 06/17/22 06/17/22 06/17/22 14:05 15:10 16:07 VBG pH Sodium Potassium Chloride Carbon Dioxide Anion Gap BUN Creatinine Est Cr Clr Drug Dosing Est GFR ( Amer) Est GFR (Non-Af Amer) BUN/Creatinine Ratio Glucose POC Glucose 204 H 173 H 148 H Calcium Phosphorus Magnesium Albumin 25-OH Vitamin D Total 06/17/22 06/17/22 06/17/22 17:00 18:05 18:58 VBG pH Sodium Potassium Chloride Carbon Dioxide Anion Gap BUN Creatinine Est Cr Clr Drug Dosing Est GFR ( Amer) Est GFR (Non-Af Amer) BUN/Creatinine Ratio Glucose POC Glucose 124 H 134 H 143 H Calcium Phosphorus Magnesium Albumin 25-OH Vitamin D Total 06/17/22 06/17/22 06/17/22 20:01 21:00 21:14 VBG pH Sodium Potassium Chloride Carbon Dioxide Anion Gap BUN Creatinine Est Cr Clr Drug Dosing Est GFR ( Amer) Est GFR (Non-Af Amer) BUN/Creatinine Ratio Glucose POC Glucose 120 H 106 H 106 H Calcium Phosphorus Magnesium Albumin 25-OH Vitamin D Total 06/17/22 06/18/22 06/18/22 23:43 03:51 05:46 VBG pH Sodium 138 Potassium 4.3 Chloride 106 Carbon Dioxide 26 Anion Gap 6 BUN 11 Creatinine 0.94 Est Cr Clr Drug Dosing 110.6 Est GFR ( Amer) 107.6 Est GFR (Non-Af Amer) 92.8 BUN/Creatinine Ratio 11.7 Glucose 138 H POC Glucose 198 H 134 H Calcium 9.1 Phosphorus 3.7 D Magnesium 1.2 L Albumin 3.3 L 25-OH Vitamin D Total 06/18/22 06/18/22 05:46 07:33 VBG pH Sodium Potassium Chloride Carbon Dioxide Anion Gap BUN Creatinine Est Cr Clr Drug Dosing Est GFR ( Amer) Est GFR (Non-Af Amer) BUN/Creatinine Ratio Glucose POC Glucose 176 H Calcium Phosphorus Magnesium Albumin 25-OH Vitamin D Total 28.2 L PG Care Time/CCT Total # of Minutes Spent Total Time Spent with Patient: Total time spent is greater than 50% in coordination of care (as documented) at patient's floor/unit and/or counseling patient: Coding Level of Care Code 16408 SUB INP/OBS CARE 3/50MIN Diagnoses Hypomagnesemia E83.42 Metabolic acidosis E87.20 Acute hyperkalemia E87.5 Hypophosphatemia E83.39
[2022-06-18] MEDS ORDERED: MAGNESIUM CHLORIDE W/CALCIUM 64MG DELAYED REL TAB PO SCH (10:00)
[2022-06-18] MEDS ORDERED: ERGOCALCIFEROL 50,000 UNITS 1250 MCG CAP PO ONE (10:00)
--- NOTE | 2022-06-18 15:31 | Discharge Summary ---
Date of Service June 18, 2022 Admission HPI Per Admitting Provider Elliot Holland is a 51-year-old male who presents to the ER with shortness of breath, dizziness and generalized fatigue. Symptoms present mildly yesterday but much worse today. No chest pain. He reports a similar sensation when he had a pulseless electrical activity cardiac arrest during his previous hospitalization in March. He measured his heart rate and it was in the 40s therefore became concerned and presented to the emergency room. He reports taking his insulin as prescribed although just injects into his abdomen. HbA1c 7.4 in May. His insulin pens are in date and he did not run out. He does report over the last week needing to increase his carb ratio without a change in diet due to persistent hyperglycemia. No infection symptoms such as fevers, chills, myalgias, headache, cough, shortness of breath, sore throat, sinus pain, abdominal pain, diarrhea or urinary symptoms. In the ER he was noted to have sinus/junctional bradycardia initially electronically reported as atrial fibrillation. Given early diabetic ketoacidosis he was treated with normal saline 1L bolus. Due to hyperkalemia he was treated with calcium gluconate 1 g IV. Due to hypomagnesemia he was given 2 g magnesium sulfate IV. On discussion with ER physician we will give another normal saline bolus and repeat labs prior to deciding subcutaneous versus intravenous insulin. Principal Diagnosis Hyperglycemia Hypomagnesemia Discharge Exam The patient is awake, alert and oriented 3, well developed and well nourished, normocephalic and atraumatic, lying in bed and in no acute distress. HEENT--PERRL, EOMI, mucous membranes and oropharynx mildly dry Neck--supple. No JVD. No bruits. Thyroid normal, trachea midline, no adenopathy. Heart--normal S1 and S2. No murmurs, rubs or gallops. Lungs--clear bilaterally, no respiratory distress, no accessory muscle use. Abdomen--normal bowel sounds and soft. Mild epigastric and left sided abdominal pain Extremities--no cyanosis or clubbing. No edema. Dermatologic--normal skin turgor, normal color, no abnormal lymph nodes, no rash. Neurologic--cranial nerves II through XII grossly intact. Rheumatologic--normal range of motion. Psychiatric--normal affect. Discharge Data Allergies Allergy/AdvReac Type Severity Reaction Status Date / Time Penicillins Allergy Intermediate Hives Verified 06/16/22 16:38 pioglitazone [From Actos] Allergy Unknown CAN'T Verified 06/16/22 16:38 REMEMBER REACTION Consultations 06/16/22 22:21 Consult Nephrology Routine Ordered Studies 06/16/22 14:52 CT angio chest PE protocol Stat Hospital Course (1) Acute hyperglycemia: Possible early stage DKA Question is he absorbing his Tresiba given slowly increasing doses over time without a good explanation ie. He denies diet contributing towards this., I advised the patient to follow-up with sap basis consultant, he is a good candidate for insulin pump A1c of 7.4 Home regimen: Tresiba 48 units twice daily, NovoLo correction factor and 3 carb ratio, metformin 1000mg PO BID -Metformin has been discontinued -His home Trujeo will be upped to 50 units BID (2) Sinus bradycardia: Junctional and sinus bradycardia. No complete heart block on EKG. Possibly secondary electrolyte derangements as per last admission in the setting of diltiazem and metoprolol use. Discontinued both AV adore blocking agents yesterday. Resume metoprolol today and possibly diltiazem tomorrow (3) Hypomagnesemia: Possibly secondary to PPI and metformin Appreciate nephrology consult Post PPI and metformin has been discontinued Magnesium oxide 400 mg twice daily and magnesium chloride 64mg daily follow up with nephrology (4) Acute hyperkalemia: As per review of old labs patient had persistent hyperkalemia Stop valsartan. Given this is the second episode of hyperkalemia careful consideration also has to be placed on restarting an ACEi/ARB. Consider calcium channel ashley instead to manage his blood pressure. (5) Benign essential hypertension: Holding valsartan due to hyperkalemia Holding diltiazem due to junctional and sinus bradycardia Hydralazine 10 mg IV every 4 hourly as needed for systolic blood pressure greater than 180 (6) Hypercholesterolemia: Continue atorvastatin 20 mg p.o. daily (7) Liver cirrhosis: Seen on CT Please arrange GI follow up on discharge (8) B12 deficiency: Continue supplementation for this Plan d/c home, follow up with nephrology Total Time Total Time Spent Total Time Spent (In Minutes): 35 Discharge Plan Discharge Items Patient Disposition: Home - Self-Care Reason For Visit: DKA, ATRIAL FIBRILLATION Discharge Diagnosis: hyperglecemia Activity: Resume your previous activity Non-emergency contact: Horticulture Instructor Call non-emergency contact if: you have any medication questions Follow-up/Referrals: Reji Sanchez MD [Primary Care Provider] - 06/24/22 10:45 am Abelino Bacon PA-C [Physician Technician Assistant] - Diet: Regular Addtl Attending Provider Instructions: Please stop metformin, and increase your Toujeo to 50 Units twice daily Make appointment to follow up with Horticulture Instructor and sap basis consultant Pending Studies at Discharge: No Stand-Alone Forms: My [facility] [place], Smoking Cessation Medications and DC Order Prescriptions: New Mag 64 64 mg Tablet,Delayed Release (Dr/Ec) 64 mg PO QAM 30 Days Qty: 30 0RF Continued diltiazem HCl 300 mg capsule,extended release 24hr 300 mg PO QPM Qty: 90 3RF sildenafil 100 mg tablet See Rx Instructions PO ONCE PRN (Reason: sexual activity) Qty: 30 11RF Rx Instructions: 1 tab PO once PRN; administer 30 minutes to 4 hours before activity metoprolol succinate 25 mg tablet extended release 24 hr 25 mg PO BID Qty: 180 3RF bupropion HCl 300 mg tablet extended release 24 hr 300 mg PO QAM Qty: 90 3RF omeprazole 20 mg capsule,delayed release(DR/EC) 20 mg PO BID Qty: 180 3RF gabapentin 300 mg capsule 300 mg PO BID Qty: 180 3RF cyanocobalamin (vitamin B-12) 1,000 mcg tablet 1,000 mcg PO QAM Qty: 30 11RF atorvastatin 20 mg tablet 20 mg PO QAM Qty: 90 3RF (DME) OneTouch Ultra Blue Test Strip strip See Dose Instructions .ROUTE .MEDSUPPLY Qty: 10 Rx Instructions: As directed (DME) Ketone Urine Test Strip See Rx Instructions .Route Qty: 50 11RF Rx Instructions: As directed insulin aspart U-100 [Novolog FlexPen U-100 Insulin] 100 unit/mL (3 mL) insulin pen See Rx Instructions .ROUTE .COMPLEX Qty: 45 3RF Rx Instructions: ACHS 25 g/dL/unit correction, 8 g/unit carb ratio magnesium oxide 500 mg tablet 500 mg PO BID Qty: 60 0RF ferrous sulfate 324 mg (65 mg iron) tablet,delayed release (DR/EC) 324 mg PO .QSUN Toujeo Max U-300 SoloStar 300 unit/mL (3 mL) insulin pen 48 unit subcut BID Discontinued metformin 1,000 mg tablet 1,000 mg PO BID Qty: 180 3RF Rx Instructions: PATIENT SAID TO HOLD FOR [address] valsartan 320 mg tablet 320 mg PO QPM Qty: 90 3RF Discharge Orders: Discharge Order (Routine); Ordered 06/18/22 Ordered By: Gisel Rodríguez Admission Data Admit Date/Time: 06/16/22 15:57 Attending Provider: Gisel Rodríguez Admit Provider: Graham Henderson Primary Care Provider: Reji Sanchez Other Providers: Oswald Guerrero Other Interventions: Discharge Summary Assessment (RN) Last Done: 06/18/22 14:47 Coding Level of Care Code HOSP INP/OBS DISCH >30 MIN Diagnoses Acute hyperglycemia R73.9 Sinus bradycardia R00.1 Hypomagnesemia E83.42 Acute hyperkalemia E87.5 Benign essential hypertension I10 Hypercholesterolemia E78.00 Liver cirrhosis K74.60 B12 deficiency E53.8 Time Spent (min) 35
== END 2022-06-18 16:26 | disposition home or self-care (01) | DRG 638 ==
LOC: ED 13:34 → EDINP 15:57 → SUATTDRO 15:57 → 2E 18:58